=== PATIENT | male | born 1935 | race Caucasian/White ===

== ENCOUNTER 2018-01-10 13:26 | Observation (INO) | payer OTHER ==
--- OUTSIDE RECORDS SUMMARY | 2018-01-10 13:38 | XMS REPORT | Clinical Summary ---
:1935 Author Organization [facility] Address [address] [place] [address] Care Team Providers Name Role Phone Asked, No Pcp Primary Care Provider Unavailable Allergies No Known Allergies Current Medications Prescription Sig. Disp. Refills Start Date End Date Status levothyroxine TAKE 1 TABLET 3 03/19/2017 Active (SYNTHROID, BY ORAL ROUTE LEVOXYL) 125 mcg EVERY DAY tablet HUMALOG 100 unit/mL USE 0 03/22/2017 Active injection DIRECTED WITH INSULIN PUMP aspirin (ECOTRIN) Take 81 mg by Active 81 MG enteric mouth daily. coated tablet ATORVASTATIN Take 20 mg by Active CALCIUM mouth every (ATORVASTATIN ORAL) evening. After meal amLODIPine Take 5 mg by Active (NORVASC) 5 mg mouth every tablet morning. doxazosin (CARDURA) Take 1 mg by Active 2 MG tablet mouth nightly. Takes 2 mg 0.5 TAB. (total dose: 1 mg) Orally at bedtime metoprolol tartrate Take 50 mg by Active (LOPRESSOR) 50 mg mouth 2 (two) tablet times a day. 1/2 tab of 50mg in the am and 1/2 tab in the pm furosemide (LASIX) Take 80 mg by 3 10/06/2017 Active 80 mg tablet mouth daily. amLODIPine TAKE 1 TABLET 3 03/05/2017 04/14/2017 Discontinued (NORVASC) 5 mg BY ORAL ROUTE tablet EVERY DAY furosemide (LASIX) TAKE 1 TABLET 0 03/30/2017 08/03/2017 Discontinued 40 mg tablet EVERY DAY BY MOUTH Daily metoprolol tartrate Take 25 mg by 3 02/15/2017 08/03/2017 Discontinued (LOPRESSOR) 50 mg mouth 2 (two) tablet times a day. Morning and evening acetaminophen-codei Take 1 tablet 30 tablet 0 04/19/2017 04/26/2017 ne (TYLENOL WITH by mouth every CODEINE #3) 300-30 4 (four) hours mg per tablet as needed for moderate pain for up to 7 days. acetaminophen-codei Take 1 tablet 30 tablet 0 09/09/2017 09/16/2017 ne (TYLENOL WITH by mouth every CODEINE #3) 300-30 6 (six) hours mg per tablet as needed for moderate pain for up to 7 days. Active Problems Problem Noted Date Diabetes mellitus 08/03/2017 PAD (peripheral artery disease) s/p R leg stents 08/03/2017 Hypertension 08/03/2017 Hypothyroidism 08/03/2017 ESRD (end stage renal disease) 2017 MWF 08/03/2017 Last Assessment & Plan: N. Patient with access needs. We gave the patient our kidney failure information sheet and discussed with them in general transplant vs. PD vs. hemodialysis. We discussed catheters vs. grafts vs. fistula s and used the informational posters to better explain the differences. We explained our general preference for fistulas because of decreased infections and increased longevity. We discussed operative complications including bleeding, thrombosis, failure of the access, swelling , steal syndrome, and need for additional procedures. Vein mapping reviewed by me. Plan for hypercoag workup today, then L arm AVF vs AVG (ELDERLY). Encounters Date Type Specialty Care Team Description 10/19/2017 Office Visit Joselin Walker ESRD (end stage MD Tyler renal disease) 2016 MWF (Primary Dx) 09/28/2017 Office Visit Joselin Walker ESRD (end stage MD Tyler renal disease) 2016 MWF (Primary Dx) 09/09/2017 Hospital Encounter Vascular Surgery Joselin Banks stage alcira Scott MD disease 09/09/2017 Anesthesia Event Vascular Surgery Ailyn Ham MD 09/09/2017 Procedure Pass Vascular Surgery 09/09/2017 Surgery Vascular Surgery Joselin Banks MD radiocephlaic a-v fistula left 08/19/2017 Prep for Surgery Joselin Walker stage renal MD Tyler disease (Primary Dx) 08/19/2017 Telephone Cardiovascular Joselin Banks MD 08/03/2017 Lab Lab Joselin Banks stage renal MD Tyler disease (Primary Dx) 08/03/2017 Office Visit Cardiovascular Teresa Joselin ESRD (end stage MD Tyler renal disease) 2016 MWF (Primary Dx) 06/24/2017 Orders Only Cardiovascular Mathew, ESRD (end stage Ashley renal disease) on dialysis (Primary Dx) 04/19/2017 Hospital Encounter General Surgery Jhony Montesinos MD 04/19/2017 Procedure Pass General Surgery 04/19/2017 Surgery General Surgery [place], RIGHT UPPER Jhony Mcpherson MD EXTREMITY AV FISTULA CREATION/REVISION, TDC EXCHANGE RIGHT CHEST 04/16/2017 Anesthesia Event General Surgery Adriana Lindquist, SPORTS MEDICINE COORDINATOR 04/14/2017 Hospital Encounter Radiology [place] Preop testing Jhony Mcpherson MD 04/14/2017 Pre-Admit Testing Pre-Admission Testing [place] Preop testing Appointment Jhony Mcpherson MD (Primary Dx) after 01/09/2017 Family History Medical History Relation Name Comments No Known Problems Father Hypertension Mother Kidney disease Mother Stroke Mother Relation Name Status Comments Father Mother Social History Tobacco Use Types Packs/Day Years Used Date Former Smoker Cigarettes Quit: 2012 Smokeless Tobacco: Never Used Tobacco Cessation: Counseling Given: Yes Alcohol Use Drinks/Week oz/Week Comments No Sex Assigned at Date Recorded Not on file Last Filed Vital Signs Vital Sign Reading Time Taken Blood Pressure 146/65 10/19/2017 11:24 AM CDT Pulse 61 10/19/2017 11:24 AM CDT Temperature 36.6 C (97.8 F) 10/19/2017 11:24 AM CDT Respiratory Rate 16 10/19/2017 11:24 AM CDT Oxygen Saturation 95% 09/09/2017 2:09 PM CDT Inhaled Oxygen Concentration - - Weight 73.9 kg (163 lb) 10/19/2017 11:24 AM CDT Height 170.2 cm (5' 7") 10/19/2017 11:24 AM CDT Body Mass Index 25.53 10/19/2017 11:24 AM CDT Plan of Treatment Date Type Specialty Care Team Description 01/18/2018 Office Visit Cardiovascular Warren Mohr, KALIN [address] [place] [address] Health Maintenance Due Date Last Done Comments DIABETIC FOOT EXAM 09/04/1945 DIABETIC RETINAL EYE EXAM 09/04/1945 URINE MICROALBUMIN 09/04/1943 SHINGRIX VACCINE (#1) 09/04/1983 ZOSTER VACCINE 1993 PNEUMOCOCCAL POLYSACCHARIDE VACCINE AGE 65 AND OVER 1998 PNEUMOCOCCAL-13 1998 INFLUENZA VACCINE 01/05/2018 Implants Implanted Type Area Access Registrar Device Expiration Model / Identifier Date Serial / Lot Clip Ligtng Weck Hemoclip Plus W/ Tape Ti - [id number] Medical Left: WECK CLOSURE 02/14/2022 [id number] / Implanted: Qty: 1 on 09/09/2017 by Joselin Banks MD Clips for Arm, SYSTEMS / Internal Upper [id number] Use Clip Ligtng Weck Hemoclip Plus W/ Tape Ti [facility] - [id number] Medical Left: TELEFLEX 03/09/2022 [id number] / Implanted: Qty: 1 on 09/09/2017 by Joselin Banks MD Clips for Arm, MEDICAL / Internal Upper Use Hemodialysis Catheter Right: 02/03/2019 [id number] / Implanted: Qty: 1 on 04/19/2017 by Jhony Montesinos MD Chest / Procedures Procedure Name Priority Date/Time Associated Comments Diagnosis POC GLUCOSE Routine 09/09/2017 1:27 PM Results for this CDT procedure are in the results section. POC GLUCOSE Routine 09/09/2017 12:57 PM Results for this CDT procedure are in the results section. POC GLUCOSE Routine 09/09/2017 12:33 PM Results for this CDT procedure are in the results section. POC GLUCOSE Routine 09/09/2017 12:11 PM Results for this CDT procedure are in the results section. POC GLUCOSE Routine 09/09/2017 11:43 AM Results for this CDT procedure are in the results section. ANESTHESIA Routine 09/09/2017 9:23 AM PERIPHERAL BLOCK CDT Procedure Note - Mary Anderson MD - 09/09/2017 9:23 AM CDT Peripheral Block Performed by: MARY ANDERSON Authorized by: MARY ANDERSON Patient Location: Pre-op Start Time: 09/09/2017 9:29 AM End Time: 09/09/2017 9:49 AM Reason for Block: at surgeon's request Staff: Anesthesiologist: MARY ANDERSON Resident/MARITIME GUARD/AA: AILYN HAM Performed by: Resident/MARITIME GUARD/AA Preprocedure: patient identified, IV checked, site and side verified, risks and benefits discussed, procedure verified, surgical consent complete, patient position confirmed, monitors and equipment checked, pre-op evaluation complete and site marked Time Out Performed: 09/09/2017 9:26 AM Peripheral Nerve Block: Patient Position: Supine Prep: ChloraPrep Monitoring: Blood pressure monitoring, continuous pulse oximetry and heart rate Block Type: Supraclavicular Laterality: Left Injection Technique: Single injection Procedures: ultrasound guided and nerve stimulator Ultrasound documentation: Printed/placed in chart and still images obtained Local Infiltration (See MAR for details): Lidocaine Loss of Twitch: 0.5 mA Needle: Needle Type: SonoPlex Needle Gauge: 22 G Needle Length: 8 cm Assessment: Injection Assessment: Visualized needle/local anesthetic surrounding nerve , intermittent aspiration during local anesthetic administration, no symptoms of intraneural/intravenous injection, visualized pertinent vascular structures and nerves and needle tip visualized at all times during injection of medication Paresthesia Pain: Immediately resolved Heart Rate Change: No Slow Fractionated Injection: Yes Block outcome: No apparent complications, patient comfortable and patient tolerated procedure well CREATION, AV FISTULA 09/09/2017 9:15 AM End stage renal CDT disease ECG 12-LEAD STAT 09/09/2017 8:36 AM Results for this CDT procedure are in the results section. POC PANEL 4 Routine 09/09/2017 8:28 AM Results for this CDT procedure are in the results section. PROTHROMBIN MUTATION, Routine 08/03/2017 1:08 PM End stage renal Results for this FACTOR II, BY PCR SEXOLOGIST disease procedure are in the results section. FACTOR V LEIDEN BY PCR Routine 08/03/2017 1:08 PM End stage renal Results for this SEXOLOGIST disease procedure are in the results section. HOMOCYSTINE, PLASMA Routine 08/03/2017 1:05 PM End stage renal Results for this SEXOLOGIST disease procedure are in the results section. FUNCTIONAL PROTEIN S Routine 08/03/2017 1:05 PM End stage renal Results for this SEXOLOGIST disease procedure are in the results section. FUNCTIONAL PROTEIN C Routine 08/03/2017 1:05 PM End stage renal Results for this SEXOLOGIST disease procedure are in the results section. HEPARIN PF4 ANTIBODY Routine 08/03/2017 1:05 PM End stage renal Results for this (IGG) SEXOLOGIST disease procedure are in the results section. ANTITHROMBIN III LEVEL Routine 08/03/2017 1:05 PM End stage renal Results for this SEXOLOGIST disease procedure are in the results section. LUPUS ANTICOAGULANT Routine 08/03/2017 1:05 PM End stage renal Results for this PANEL SEXOLOGIST disease procedure are in the results section. US VEIN MAPPING UPPER Routine 08/03/2017 11:37 AM ESRD (end stage Results for this EXTREMITY BILATERAL SEXOLOGIST renal disease) on procedure are in dialysis the results section. POC GLUCOSE Routine 04/19/2017 10:14 AM Results for this SEXOLOGIST procedure are in the results section. OR FL > 1 HOUR Routine 04/19/2017 9:53 AM Results for this SEXOLOGIST procedure are in the results section. IONIZED CALCIUM Routine 04/19/2017 9:40 AM Results for this SEXOLOGIST procedure are in the results section. POTASSIUM LEVEL Routine 04/19/2017 9:40 AM Results for this SEXOLOGIST procedure are in the results section. SODIUM LEVEL Routine 04/19/2017 9:40 AM Results for this SEXOLOGIST procedure are in the results section. ANESTHESIA PERIPHERAL Routine 04/19/2017 9:33 AM BLOCK SEXOLOGIST Procedure Note - Anaya Flaherty MD - 04/19/2017 9:31 AM SEXOLOGIST Peripheral Block Performed by: ANAYA FLAHERTY Authorized by: ANAYA FLAHERTY Patient Location: Pre-op Start Time: 04/19/2017 8:14 AM End Time: 04/19/2017 8:29 AM Reason for Block: at surgeon's request Staff: Anesthesiologist: ANAYA FLAHERTY Resident/MARITIME GUARD: CARLYLE SEXTON Preprocedure: patient identified, IV checked, site and side verified, risks and benefits discussed, procedure verified, surgical consent complete, patient position confirmed, monitors and equipment checked, pre-op evaluation complete and site marked Time Out Performed: 04/19/2017 8:14 AM Peripheral Nerve Block: Patient Position: Left lateral decubitus Prep: ChloraPrep Monitoring: Blood pressure monitoring, continuous pulse oximetry and heart rate Block Type: Supraclavicular Laterality: Right Injection Technique: Single injection Procedures: ultrasound guided Ultrasound documentation: Printed/placed in chart Local Infiltration (See MAR for details): Ropivacaine Needle: Needle Type: Pajunk Needle Gauge: 21 G Needle Length: 10 cm Assessment: Injection Assessment: Visualized needle/local anesthetic surrounding nerve , visualized pertinent vascular structures and nerves, needle tip visualized at all times during injection of medication, no symptoms of intraneural/intravenous injection and intermittent aspiration during local anesthetic administration Paresthesia Pain: None Heart Rate Change: No Slow Fractionated Injection: Yes Block outcome: No apparent complications, patient comfortable and patient tolerated procedure well POC PANEL 4 Routine 04/19/2017 8:24 AM Results for this SEXOLOGIST procedure are in the results section. ECG PRE/POST OP Routine 04/14/2017 5:25 PM Preop testing Results for this SEXOLOGIST procedure are in the results section. XR CHEST 2 VW Routine 04/14/2017 5:14 PM Preop testing Results for this SEXOLOGIST procedure are in the results section. ESTIMATED GFR Routine 04/14/2017 4:09 PM Results for this SEXOLOGIST procedure are in the results section. PARTIAL THROMBOPLASTIN Routine 04/14/2017 4:09 PM Preop testing Results for this TIME (PTT) SEXOLOGIST procedure are in the results section. PROTHROMBIN TIME WITH Routine 04/14/2017 4:09 PM Preop testing Results for this INR SEXOLOGIST procedure are in the results section. TYPE AND SCREEN Routine 04/14/2017 4:09 PM Preop testing Results for this SEXOLOGIST procedure are in the results section. COMPREHENSIVE METABOLIC Routine 04/14/2017 4:09 PM Preop testing Results for this PANEL SEXOLOGIST procedure are in the results section. HC COMPLETE BLD COUNT Routine 04/14/2017 4:09 PM Preop testing Results for this W/AUTO DIFF SEXOLOGIST procedure are in the results section. after 01/09/2017 Results POC glucose (09/09/2017 1:27 PM)Only the most recent of6 resultswithin the time period is included. POC glucose 269 (H) 65 - 99 mg/dL [facility] DEPARTMENT OF PATHOLOGY AND Comment: GENOMIC MEDICINE [facility] Notified RN Meter ID: [id number] Tapping Machine Operator Automatic: Raisa Thompson Performing Organization Address City/State/Zipcode Phone Number [facility] DEPARTMENT OF PATHOLOGY AND [address] [place] [address] [employer]. MEDICINE ECG 12 lead (09/09/2017 8:36 AM) Ventricular rate 68 [facility] Atrial rate 234 [facility] QRSD interval 78 [facility] QT interval 388 [facility] QTC interval 412 [facility] P axis 1 69 [facility] QRS axis 1 -24 [facility]USE T wave axis 54 [facility] MUSE EKG impression Normal sinus rhythm-Normal ECG-In automated [facility] MUSE comparison with ECG of 14-APR-2017 17:25,-No significant change was found- Performing Organization Address [facility] Phone Number [facility] MUSE [address] [place] [phone] POC panel 4 (09/09/2017 8:28 AM)Only the most recent of2 resultswithin the time period is included. POC sodium 141 135 - 148 mmol/L [facility] DEPARTMENT OF PATHOLOGY AND GENOMIC MEDICINE POC potassium 4.0 3.5 - 5.0 mmol/L [facility] DEPARTMENT OF PATHOLOGY AND GENOMIC MEDICINE POC hematocrit 39 (L) 41 - 51 % [facility] DEPARTMENT OF PATHOLOGY Comment: AND [employer]. MEDICINE Meter ID: [id number] Tapping Machine Operator Automatic: Butch Puentes POC glucose 113 (H) 65 - 99 mg/dL [facility] DEPARTMENT OF PATHOLOGY AND GENOMIC MEDICINE Performing Organization Address [facility] Phone Number [facility] DEPARTMENT OF PATHOLOGY AND [address] [place] [phone] GENOMIC [facility] Prothrombin mutation, factor II, by PCR (08/03/2017 1:08 PM) Prothrombin gene mutation Normal Normal [facility] DEPARTMENT OF PATHOLOGY AND GENOMIC MEDICINE Prothrombin gene mutation See link below for PDF [facility] DEPARTMENT OF Lab ReportComment: Case PATHOLOGY AND GENOMIC Number: [id number] MEDICINE Specimen Blood Performing Organization Address [facility] Phone Number [facility] DEPARTMENT OF PATHOLOGY AND [address] [place], [place] [phone] [facility] Factor V leiden by PCR (08/03/2017 1:08 PM) Factor V Leiden Normal [facility] DEPARTMENT OF PATHOLOGY AND GENOMIC MEDICINE Factor V Leiden See link below for PDF Lab [facility] DEPARTMENT OF PATHOLOGY AND ReportComment: Case Number: GENOMIC MEDICINE [id number] Specimen Blood Performing Organization Address [facility] Phone Number [facility] DEPARTMENT OF PATHOLOGY AND [address] [place] [phone] [facility] Homocystine, plasma (08/03/2017 1:05 PM) Homocysteine 26.8 (H) 0.0 - 15.0 umol/L [facility] DEPARTMENT OF Comment: PATHOLOGY AND GENOMIC The risk for coronary vascular disease increases progressively MEDICINE with homocysteine concentration.A 3.4 times greater risk is associated with a homocysteine concentration of greater than 15.8 umol/L as compared to a concentration below 14.1 umol/L. Specimen Plasma specimen Performing Organization Address City/[facility] Phone Number [facility] DEPARTMENT OF PATHOLOGY AND [address] [place] [address] Heparin PF4 antibody (IgG) (08/03/2017 1:05 PM) Heparin PF4 Ab OD reading 0.226 0.000 - 0.399 [facility] DEPARTMENT OF PATHOLOGY AND GENOMIC MEDICINE Heparin PF4 Ab, IgG Negative Negative [facility] DEPARTMENT OF PATHOLOGY AND [facility] Specimen Blood Performing Organization Address [facility] Phone Number [facility] DEPARTMENT OF PATHOLOGY AND [address] [place] [address] Functional protein S (08/03/2017 1:05 PM) Functional protein S 98 74 - 160 % [facility] DEPARTMENT OF Comment: PATHOLOGY AND GENOMIC Functional Protein S performed.If result is decreased Total MEDICINE and Free Protein S Antigen will be performed. Specimen Blood Performing Organization Address City/[facility] Phone Number [facility] DEPARTMENT OF PATHOLOGY AND [address] [place] [address] Functional protein C (08/03/2017 1:05 PM) Functional protein C 92 70 - 165 % [facility] DEPARTMENT OF PATHOLOGY AND GENOMIC MEDICINE Specimen Blood Performing Organization Address [facility] Phone Number [facility] DEPARTMENT OF PATHOLOGY AND [address] [place] [address] Lupus anticoagulant panel (08/03/2017 1:05 PM) Prothrombin time 12.9 12.0 - 15.0 sec [facility] DEPARTMENT OF PATHOLOGY AND GENOMIC MEDICINE INR 1.0 [facility] DEPARTMENT OF Comment: PATHOLOGY AND The International Normalized Ratio (INR) is a therapeutic [facility] monitoring tool for patients who are stable on oral anticoagulant therapy. An INR of 2.0-3.0 is suggested for deep vein thrombosis/pulmonary embolism. PTT 32.9 23.0 - 36.0 sec [facility] DEPARTMENT OF Comment: PATHOLOGY AND PTT therapeutic range for unfractionated heparin is [facility] 61.0-112.0 seconds which corresponds to Anti-Xa 0.3-0.7 U/ml. PTT lupus anticoagulant 33.8 27.0 - 38.0 sec [facility] DEPARTMENT OF Comment: PATHOLOGY AND Lupus anticoagulant (LA) panel consists of PT, PTT, PTT-LA, GENOMIC MEDICINE and DRVVT. If the PTT-LA is above the normal range, the hexagonal phospholipid will be performed. If the DRVVT is above the normal range, the DRVVC confirmatory test will be performed. A normal result for both the DRVVT and the PTT-LA means the patient is negative for lupus anticoagulant. The patient is considered positive for lupus anticoagulant if either the Ratio SCR/CONF or the hexagonal phospholipid is high (positive) on two occassions at least six weeks apart. Clinical confirmation is also required for diagnosis. DRVVT 32.4 29.0 - 46.0 sec [facility] DEPARTMENT OF PATHOLOGY AND GENOMIC MEDICINE Specimen Blood Performing Organization Address City/[facility] Phone Number [facility] DEPARTMENT OF PATHOLOGY AND [address] [place] [address] MEDICINE Antithrombin III level (08/03/2017 1:05 PM) Antithrombin III 96 80 - 130 % [facility] DEPARTMENT OF PATHOLOGY AND GENOMIC MEDICINE Specimen Blood Performing Organization Address City/[facility]/Zipcode Phone Number [facility] DEPARTMENT OF PATHOLOGY AND [address] [place] [address] PV vein mapping upper extremity (08/03/2017 11:37 AM) Narrative Performed At [facility] Upper Extremity Vein Mapping Duplex Report [address] [place] Pat.Name:KYA NICHOLASjimi.ID:[id number] .Date: 08/03/2017 Refer.MD:JOSELIN BANKS MD Exam Time: 10:50:00 AM Study Type:UE Vein Mapping DOBAge:1935,81Y Sex: MALE Sonogrphr: VLADISLAV CarrascoapeVol: KF, CPT - 4: [id number] Echo Event ID:[id number] Order ID:[id number] Reason for Study:Pre-operative vein mapping for new dialysis access for right hand dominant male with with IJ tunneled catheter.History of 2 failed right AVF's.ESRD. Race:C SUMMARY: DUPLEX SCAN OBSERVATIONS Right Left IJPatent Patent SubclavianPatent Patent AxillaryPatent Patent BrachialPatent Patent Cephalic, arm Patent Patent Cephalic, forearm Patent Patent Basilic, armPatent Patent Basilic, forearm Patent Patent Brachial artery Pressure 176/13724/73 PSV cm/sec 8586 Radial artery PSV cm/sec 93046 Ulnar artery PSV cm/sec 46304 RIGHT:There is normal compressibility and no evidence of echogenic material noted within the lumen of the visualized veins. Colorflow and Doppler signals demonstrate patency. The gautam of the brachial, radial and ulnar arteries are brightly echogenic. LEFT: There is normal compressibility and no evidence of echogenic material noted within the lumen of the visualized veins. Colorflow and Doppler signals demonstrate patency.The gautam of the brachial, radial and ulnar arteries are brightly echogenic. Patient seen in clinic today by Dr. Banks. PHYSICIAN INTERPRETATION 1.No evidence of acute venous thrombosis, bilateral upper extremities. 2.Hard scattered plaque visualized in the distal brachial arteries bilaterally 3.See diagram for vein measurements MEASUREMENTS: UEVEINS Left Cephalic Forearm Prox Cephalic Forear0.24 cm Right Cephalic Forearm Prox Cephalic Forear0.15 cm Left Cephalic Upper Arm Prox Cephalic Upper 0.24 cm Right Cephalic Upper Arm Prox Cephalic Upper 0.34 cm Left Cephalic Forearm Mid Cephalic Forear0.16 cm Right Cephalic Forearm Mid Cephalic Forear0.21 cm Right Basilic Upper Arm Mid Basilic Upper A0.18 cm Left Cephalic Wrist Cephalic Wrist 0.16 cm Right Cephalic Wrist Cephalic Wrist 0.18 cm Left Cephalic Upper Arm Dist Cephalic Upper 0.25 cm Right Cephalic Upper Arm Dist Cephalic Upper 0.36 cm Left Ulnar Artery Ulnar Artery AP0.27 cm Right Ulnar Artery Ulnar Artery AP0.26 cm Left Cephalic Upper Arm Mid Cephalic Upper 0.22 cm Right Cephalic Upper Arm Mid Cephalic Upper 0.33 cm Left Basilic Forearm Prox Basilic Forearm0.11 cm Right Basilic Forearm Prox Basilic Forearm0.12 cm Left Brachial Vein Antecube Brachial Vein A0.57 cm Right Brachial Vein Antecube Brachial Vein A0.44 cm Left Cephalic Antecubital Cephalic Antecu0.28 cm Right Cephalic Antecubital Cephalic Antecu0.35 cm Left Basilic Wrist Basilic Wrist A0.13 cm Left Basilic Antecubital Basilic Antecub0.13 cm Right Basilic Antecubital Fossa Basilic Antecub 0.1 cm Left Radial Artery Radial Artery A0.24 cm Right Radial Artery Radial Artery A0.21 cm Left Basilic Upper Arm Dist Basilic Upper A0.22 cm Right Basilic Upper Arm Dist Basilic Upper A0.16 cm Left Brachial Artery Brachial Artery0.58 cm Right Brachial Artery Brachial Artery0.55 cm Left Basilic Forearm Mid Basilic Forearm0.11 cm Right Basilic Forearm Mid Basilic Forearm0.08 cm Right Basilic Upper Arm Prox Basilic Upper A0.55 cm GRAFT Ulnar A Dist 1 Ulnar A Dist 1102 cm/s Ulnar Dist Ulnar Dist PSV69 cm/s Brachial A Dist Brachial A Dist85 cm/s Radial A Dist Radial A Dist P66 cm/s Signed 08/05/2017 10:04 PM Gagan Jiménez MD, RPVI Procedure Note Interface, Radiology Results In - 08/05/2017 10:04 PM SEXOLOGIST [facility] Upper Extremity Vein Mapping Duplex Report [address] [place] [address] Pat.Name: KYA NICHOLAS Pat.ID: [id number] St.Date: 08/03/2017 Refer.MD: JOSELIN BANKS MD Exam Time: 10:50:00 AM Study Type:UE Vein Mapping Age: 1 1935,81Y Sex: MALE Sonogrphr: Elsa Goyal RVT Tape Vol: KF, CPT - 4: [id number] Echo Event ID:[id number] Order ID: [id number] Reason for Study:Pre-operative vein mapping for new dialysis access for right hand dominant male with with IJ tunneled catheter. History of 2 failed right AVF's. ESRD. Race: C SUMMARY: DUPLEX SCAN OBSERVATIONS Right Left IJ Patent Patent Subclavian Patent Patent Axillary Patent Patent Brachial Patent Patent Cephalic, arm Patent Patent Cephalic, forearm Patent Patent Basilic, arm Patent Patent Basilic, forearm Patent Patent Brachial artery Pressure 176/69 168/73 PSV cm/sec 85 86 Radial artery PSV cm/sec 66 111 Ulnar artery PSV cm/sec 69 102 RIGHT: There is normal compressibility and no evidence of echogenic material noted within the lumen of the visualized veins. Colorflow and Doppler signals demonstrate patency. The gautam of the brachial, radial and ulnar arteries are brightly echogenic. LEFT: There is normal compressibility and no evidence of echogenic material noted within the lumen of the visualized veins. Colorflow and Doppler signals demonstrate patency. The gautam of the brachial, radial and ulnar arteries are brightly echogenic. Patient seen in clinic today by Dr. Banks. PHYSICIAN INTERPRETATION 1. No evidence of acute venous thrombosis, bilateral upper extremities. 2. Hard scattered plaque visualized in the distal brachial arteries bilaterally 3. See diagram for vein measurements MEASUREMENTS: UEVEINS Left Cephalic Forearm Prox Cephalic Forear 0.24 cm Right Cephalic Forearm Prox Cephalic Forear 0.15 cm Left Cephalic Upper Arm Prox Cephalic Upper 0.24 cm Right Cephalic Upper Arm Prox Cephalic Upper 0.34 cm Left Cephalic Forearm Mid Cephalic Forear 0.16 cm Right Cephalic Forearm Mid Cephalic Forear 0.21 cm Right Basilic Upper Arm Mid Basilic Upper A 0.18 cm Left Cephalic Wrist Cephalic Wrist 0.16 cm Right Cephalic Wrist Cephalic Wrist 0.18 cm Left Cephalic Upper Arm Dist Cephalic Upper 0.25 cm Right Cephalic Upper Arm Dist Cephalic Upper 0.36 cm Left Ulnar Artery Ulnar Artery AP 0.27 cm Right Ulnar Artery Ulnar Artery AP 0.26 cm Left Cephalic Upper Arm Mid Cephalic Upper 0.22 cm Right Cephalic Upper Arm Mid Cephalic Upper 0.33 cm Left Basilic Forearm Prox Basilic Forearm 0.11 cm Right Basilic Forearm Prox Basilic Forearm 0.12 cm Left Brachial Vein Antecube Brachial Vein A 0.57 cm Right Brachial Vein Antecube Brachial Vein A 0.44 cm Left Cephalic Antecubital Cephalic Antecu 0.28 cm Right Cephalic Antecubital Cephalic Antecu 0.35 cm Left Basilic Wrist Basilic Wrist A 0.13 cm Left Basilic Antecubital Basilic Antecub 0.13 cm Right Basilic Antecubital Fossa Basilic Antecub 0.1 cm Left Radial Artery Radial Artery A 0.24 cm Right Radial Artery Radial Artery A 0.21 cm Left Basilic Upper Arm Dist Basilic Upper A 0.22 cm Right Basilic Upper Arm Dist Basilic Upper A 0.16 cm Left Brachial Artery Brachial Artery 0.58 cm Right Brachial Artery Brachial Artery 0.55 cm Left Basilic Forearm Mid Basilic Forearm 0.11 cm Right Basilic Forearm Mid Basilic Forearm 0.08 cm Right Basilic Upper Arm Prox Basilic Upper A 0.55 cm GRAFT Ulnar A Dist 1 Ulnar A Dist 1 102 cm/s Ulnar Dist Ulnar Dist PSV 69 cm/s Brachial A Dist Brachial A Dist 85 cm/s Radial A Dist Radial A Dist P 66 cm/s Signed 08/05/2017 10:04 PM Gagan Jiménez MD, RPVI Performing Organization Address City/State/[facility] Phone Number [facility] [address] [place] [address] [place] > I Hour (04/19/2017 9:53 AM) Narrative Performed At EXAMINATION:[place] 1 HOUR [facility] CLINICAL HISTORY: IMPRESSION: Fluoroscopy was provided. No radiologist present.Please see procedure report for discussion of procedure, findings and fluoroscopic time. [id number] Procedure Note Interface, Radiology Results Incoming - 04/19/2017 9:59 AM SEXOLOGIST EXAMINATION: [place] 1 HOUR CLINICAL HISTORY: IMPRESSION: Fluoroscopy was provided. No radiologist present. Please see procedure report for discussion of procedure, findings and fluoroscopic time. [id number] Performing Organization Address City/[facility]/Zipcode Phone Number [facility] [address] [place] [address] Sodium level (04/19/2017 9:40 AM) Sodium 139 135 - 148 mEq/L [facility] DEPARTMENT OF PATHOLOGY AND GENOMIC MEDICINE Specimen Plasma specimen Performing Organization Address City/[facility] Phone Number [facility] DEPARTMENT OF PATHOLOGY [address] [place] [address]. [place] [address] AND [facility] Potassium level (04/19/2017 9:40 AM) Potassium 4.1 3.5 - 5.0 mEq/L [facility] DEPARTMENT OF PATHOLOGY AND GENOMIC MEDICINE Specimen Plasma specimen Performing Organization Address [facility] Centercomd Phone Number [facility] DEPARTMENT OF PATHOLOGY [address] [place] [address]. [place] [address] AND [facility] Ionized calcium (04/19/2017 9:40 AM) pH 7.32 [facility] DEPARTMENT OF PATHOLOGY AND GENOMIC MEDICINE Ionized calcium 1.21 1.11 - 1.32 mmol/L [facility] DEPARTMENT OF PATHOLOGY AND GENOMIC MEDICINE Specimen Plasma specimen Performing Organization Address [facility] Phone Number [facility] DEPARTMENT OF PATHOLOGY [address] [place] [address]. [place] [address] AND [facility] ECG Pre/Post Op (04/14/2017 5:25 PM) Ventricular rate 61 [facility] Atrial rate 61 [facility] GA interval 160 [facility] QRSD interval 78 [facility] QT interval 394 [facility] QTC interval 396 [facility] P axis 1 83 [facility] QRS axis 1 32 [facility] T wave axis 70 [facility] MUSE EKG impression Normal sinus rhythm-Normal ECG-No previous [facility] MUSE ECGs available- Performing Organization Address [facility] Centercode Phone Number [facility] MUSE [address] [place] [address] XR Chest 2 Vw (04/14/2017 5:14 PM) Narrative Performed At Examination:XR CHEST 2 VW [facility] Clinical History: Z01.818 Encounter for other preprocedural examination, PREOP TESTING Comparison: None. Technique: Frontal and lateral views of the chest were obtained. Findings: Lungs and pleural surfaces are clear. Cardiomediastinal silhouette and pulmonary vascularity are within normal limits. Aorta is markedly calcified. Bones are intact. Dialysis catheter courses to the SVC. Impression: No active cardiopulmonary disease identified. [facility]-[id number] Procedure Note Hm Interface, Radiology Results Incoming - 04/14/2017 5:21 PM SEXOLOGIST Examination: XR CHEST 2 VW Clinical History: Z01.818 Encounter for other preprocedural examination, PREOP TESTING Comparison: None. Technique: Frontal and lateral views of the chest were obtained. Findings: Lungs and pleural surfaces are clear. Cardiomediastinal silhouette and pulmonary vascularity are within normal limits. Aorta is markedly calcified. Bones are intact. Dialysis catheter courses to the SVC. Impression: No active cardiopulmonary disease identified. [facility]-[id number] Performing Organization Address City/State/Zipcode Phone Number [facility] [address] [place] [address] Estimated GFR (04/14/2017 4:09 PM) GFR Non Af Amer 17 (A) mL/min/1.73 m2 [facility] DEPARTMENT OF PATHOLOGY AND GENOMIC MEDICINE GFR Af Amer 20 (A) mL/min/1.73 m2 [facility] DEPARTMENT OF Comment: PATHOLOGY AND GENOMIC Chronic kidney disease: <60 mL/min/1.73m2 MEDICINE Kidney failure: <15 mL/min/1.73m2 The estimated GFR is calculated from the IDMS-traceable Modification of Diet in Renal Disease Equation. The accuracy of the calculation is poor when the creatinine is normal. Calculated values >90 mL/min/1.73m2 are not reported. This equation has not been validated in children (<18 years), women, the elderly (>70 years), or ethnic groups other than Caucasians and Americans. Specimen Plasma specimen Performing Organization Address City/State/Zipcode Phone Number [facility] DEPARTMENT OF PATHOLOGY [address] [place] [address] AND [employer]. MEDICINE Partial thromboplastin time, activated (04/14/2017 4:09 PM) PTT 32.5 23.0 - 36.0 sec [facility] DEPARTMENT OF Comment: PATHOLOGY AND GENOMIC PTT therapeutic range for unfractionated heparin is MEDICINE 61.0-112.0 seconds which corresponds to Anti-Xa 0.3-0.7 U/ml. Specimen Blood Performing Organization Address City/[facility]/Zipcode Phone Number [facility] DEPARTMENT OF PATHOLOGY [address] [place], [place] [phone] [place] [address] Prothrombin time with INR (04/14/2017 4:09 PM) Prothrombin time 12.8 12.0 - 15.0 sec [facility] DEPARTMENT OF PATHOLOGY AND GENOMIC MEDICINE INR 1.0 [facility] DEPARTMENT OF Comment: PATHOLOGY AND GENOMIC The International Normalized Ratio (INR) is a therapeutic MEDICINE monitoring tool for patients who are stable on oral anticoagulant therapy. An INR of 2.0-3.0 is suggested for deep vein thrombosis/pulmonary embolism. Specimen Blood Performing Organization Address [facility] Centercode Phone Number [facility] OF PATHOLOGY [address] [place], [place] [phone] [place] [address] CBC with platelet and differential (04/14/2017 4:09 PM) WBC 8.2 4.5 - 11.0 k/uL [facility] DEPARTMENT OF PATHOLOGY AND GENOMIC MEDICINE RBC 4.15 (L) 4.40 - 6.00 m/uL [facility] DEPARTMENT OF PATHOLOGY AND GENOMIC MEDICINE HGB 12.4 (L) 14.0 - 18.0 g/dL [facility] DEPARTMENT OF PATHOLOGY AND GENOMIC MEDICINE HCT 38.6 (L) 41.0 - 51.0 % [facility] DEPARTMENT OF PATHOLOGY AND GENOMIC MEDICINE MCV 93.0 82.0 - 100.0 fL [facility] DEPARTMENT OF PATHOLOGY AND GENOMIC MEDICINE MCH 29.9 27.0 - 34.0 pg [facility] DEPARTMENT OF PATHOLOGY AND GENOMIC MEDICINE MCHC 32.1 31.0 - 37.0 g/dL [facility] DEPARTMENT OF PATHOLOGY AND GENOMIC MEDICINE RDW - SD 46.9 37.0 - 55.0 fL [facility] DEPARTMENT OF PATHOLOGY AND GENOMIC MEDICINE MPV 11.1 (H) 6.9 - 11.0 fL [facility] DEPARTMENT OF PATHOLOGY AND GENOMIC MEDICINE Platelet count 186 150 - 400 K/uL [facility] DEPARTMENT OF PATHOLOGY AND GENOMIC MEDICINE Nucleated RBC 0.00 /100 WBC [facility] DEPARTMENT OF PATHOLOGY AND GENOMIC MEDICINE Neutrophils 67.9 39.0 - 69.0 % [facility] DEPARTMENT OF PATHOLOGY AND GENOMIC MEDICINE Lymphocytes 18.2 (L) 25.0 - 45.0 % [facility] DEPARTMENT OF PATHOLOGY AND GENOMIC MEDICINE Monocytes 8.2 0.0 - 10.0 % [facility] DEPARTMENT OF PATHOLOGY AND GENOMIC MEDICINE Eosinophils 4.9 0.0 - 5.0 % [facility] DEPARTMENT OF PATHOLOGY AND GENOMIC MEDICINE Basophils 0.6 0.0 - 1.0 % [facility] DEPARTMENT OF PATHOLOGY AND GENOMIC MEDICINE Immature granulocytes 0.2 0.0 - 1.0 % [facility] DEPARTMENT OF PATHOLOGY AND GENOMIC MEDICINE Specimen Blood Performing Organization Address City/State/Zipcode Phone Number [facility] DEPARTMENT OF PATHOLOGY [address] [place] [address] AND GENOMIC MEDICINE Type and screen (04/14/2017 4:09 PM) ABO grouping O [facility] DEPARTMENT OF PATHOLOGY AND GENOMIC MEDICINE Rh type POS [facility] DEPARTMENT OF PATHOLOGY AND GENOMIC MEDICINE Antibody screen (gel) NEG [facility] DEPARTMENT OF PATHOLOGY AND GENOMIC MEDICINE Specimen Blood Performing Organization Address City/[facility]/Zipcode Phone Number [facility] DEPARTMENT OF PATHOLOGY [address] [place] [address] AND [facility] Comprehensive metabolic panel (04/14/2017 4:09 PM) Sodium 138 135 - 148 mEq/L [facility] DEPARTMENT OF PATHOLOGY AND GENOMIC MEDICINE Potassium 4.9 3.5 - 5.0 mEq/L [facility] DEPARTMENT OF PATHOLOGY AND GENOMIC MEDICINE Chloride 98 98 - 112 mEq/L [facility] DEPARTMENT OF PATHOLOGY AND GENOMIC MEDICINE CO2 27 24 - 31 mEq/L [facility] DEPARTMENT OF PATHOLOGY AND GENOMIC MEDICINE Anion gap 13 7 - 15 mEq/L [facility] DEPARTMENT OF Comment: PATHOLOGY AND GENOMIC Starting from September , anion gap calculation MEDICINE no longer incorporates potassium. Please note the change. BUN 45 (H) 8 - 23 mg/dL [facility] DEPARTMENT OF PATHOLOGY AND GENOMIC MEDICINE Creatinine 3.5 (H) 0.7 - 1.2 mg/dL [facility] DEPARTMENT OF PATHOLOGY AND GENOMIC MEDICINE Glucose 290 (H) 65 - 99 mg/dL [facility] DEPARTMENT OF PATHOLOGY AND GENOMIC MEDICINE Calcium 9.7 8.8 - 10.2 mg/dL [facility] DEPARTMENT OF PATHOLOGY AND GENOMIC MEDICINE Protein 7.1 6.3 - 8.3 g/dL [facility] DEPARTMENT OF PATHOLOGY AND GENOMIC MEDICINE Albumin 4.2 3.5 - 5.0 g/dL [facility] DEPARTMENT OF PATHOLOGY AND GENOMIC MEDICINE A/G ratio 1.4 0.7 - 3.8 [facility] DEPARTMENT OF PATHOLOGY AND GENOMIC MEDICINE Alkaline phosphatase 107 40 - 129 U/L [facility] DEPARTMENT OF PATHOLOGY AND GENOMIC MEDICINE AST 22 10 - 50 U/L [facility] DEPARTMENT OF PATHOLOGY AND GENOMIC MEDICINE ALT 16 5 - 50 U/L [facility] DEPARTMENT OF PATHOLOGY AND GENOMIC MEDICINE Total bilirubin <0.2 0.2 - 1.2 mg/dL [facility] DEPARTMENT OF PATHOLOGY AND GENOMIC MEDICINE Specimen Plasma specimen Performing Organization Address City/State/Zipcode Phone Number [facility] DEPARTMENT OF PATHOLOGY [address] [facility] [place] [address] AND GENOMIC MEDICINE after 01/09/2017 Insurance Payer Benefit Plan / Group Subscriber ID Type Phone Address MEDICARE MEDICARE PART A AND B xxxxxxxxxx Medicare [place], [place] AETNA AETNA PPO OPEN CHOICE xxxxxxxxx PPO Home: [phone] [address]
--- OUTSIDE RECORDS SUMMARY | 2018-01-10 13:39 | XMS REPORT | Summary of Care ---
:1935 Author Name ADDIS VASQUEZ M.D. Address Unavailable Unavailable , Care Team Providers Name Role Phone ADDIS VASQUEZ M.D. Unavailable Unavailable SHON GREGORIO MD Unavailable Unavailable Addis Vasquez MD Unavailable Unavailable Unavailable Unavailable Unavailable Functional Status Name Dates Details Functional status health issues are not documented Status: Name Dates Details Cognitive status health issues are not documented Status: Problems Name Dates Details Benign essential hypertension (401.1, I10) Status: Active Diabetic retinopathy (250.50, E11.319) Status: Active ESRD on hemodialysis (585.6, N18.6) Status: Active Hypoglycemia due to insulin (251.1, E16.0) Status: Active Hypothyroidism (244.9, E03.9) Status: Active Presence of insulin pump (V45.85, Z96.41) Status: Active Type 1 diabetes mellitus (250.01, E10.9) Status: Active 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 Refills: 0 Active AmLODIPine Besylate 10 MG Oral Tablet TAKE 1 TABLET DAILY DIRECTED. Quantity: 90 Refills: 3 CATHY VASQUEZ M.D.ctive Atorvastatin Calcium 20 MG Oral Tablet TAKE 1 TABLET AT BEDTIME. Refills: 0 Active 30 Tablet Pack Furosemide 80 MG Oral Tablet TAKE 1 TABLET DAILY DIRECTED. Refills: 0 Active Doxazosin Mesylate 2 MG Oral Tablet one and half tablets every night Refills: 0 Active 30 Tablet Pack Aspirin 81 MG TABS TAKE 1 TABLET DAILY. Refills: 0 Active Lancets TEST 4 TIMES DAILY. ICD 10 E10.9 Quantity: 360 Refills: 3 ADDIS VASQUEZ M.D. Start : 22-Mar-2017 Active Lisa Contour Next Test STRP check blood sugar up to four times a day Quantity: 400 Refills: 3 ADDIS VASQUEZ M.D. Start : 22-Mar-2017 Active NovoLOG 100 UNIT/ML Subcutaneous Solution USE DIRECTED WITH INSULIN PUMP Quantity: 9 Refills: 3 ADDIS VASQUEZ M.D. Start : 16-Jun-2017 Active 10 ML Vial Allergies and Adverse Reactions Name Dates Details No Known Drug Allergies (Allergy) Status: Active Past Medical History Name Dates Details History of chronic obstructive lung disease (V12.69, Z87.09) Status: Resolved History of Empyema (510.9, J86.9) Status: Resolved History of High cholesterol (272.0, E78.00) Status: Resolved History of hypertension (V12.59, Z86.79) Status: Resolved History of hyperthyroidism (V12.29, Z86.39) Status: Resolved History of kidney disease (V13.09, Z87.448) Status: Resolved Procedures Procedure Dates Details [[facility]] CMP W/EGFR Date: 27-Oct-2017 [[facility]] HEMOGLOBIN A1c Date: 27-Oct-2017 [[facility]] LIPID PANEL Date: 27-Oct-2017 [[facility]] T4, FREE Date: 27-Oct-2017 [[facility]] TSH, 3RD GENERATION Date: 27-Oct-2017 [[facility]] VITAMIN D, 25-HYDROXY, LC/MS/MS Date: 27-Oct-2017 History of Hernia repair Completed Immunization Name Dates Details Immunizations not documented Family History Name Dates Details Family history of cerebrovascular accident (CVA) (V17.1, Z82.3) Status: Active Social History Name Dates Details - Status: Name Dates Details Former smoker Vital Signs Date Test Result Details No Known Vitals to report Results Date Description Value Details [id number] Glucose (Point of Care In Office) Glucose POC Lifescan 223 (Abnormal) Plan of Care Name Dates Details Planned Observations Planned Goals not documented Planned Encounters Appointment; ADDIS VASQUEZ M.D. On: 08-Mar-2018 14:00 Interventions Provided Plan1. Insulin-dependent T1DM- Currently using Medtronic insulin pump initiated on HD 02/2017. Improved but still noting frequent early AM symptomatic hypoglycemic episodes. Intentionally eating snacks before bedtime to raise BG to 200s before sleep. I have advised him of the following changes: Pump Details : Make: [place], Model: Paradigm Revel- 523, Serial Number: #[id number] Infusion Set Placed By Self Type Insulin: Novolog Insulin Basal Rate 1 -- @ 12 AM,= decrease 0.35 units / Hr to 0.25 units/ Hr Basal Rate 2 -- @ 6 AM,=0.85 units / Hr Basal Rate 3 -- @ 12 PM,=0.8 units / Hr Basal Rate 4 -- @ 9 PM=decrease from 0.6 units / Hr to 0.5 units/ Hr Insulin / CHO - 1 -- 1 unit : 15 grams Insulin Sensitivity Factor 1 -- @ 50 mg/dL Total 24- hour total dose 16.2 units - I have asked the patient check fasting, pre-meal, and bedtime values and bring this log to next clinic appointment - Have prescribed glucagon emergency kit - have asked he stop snacking before bedtime 2. has not yet had appointment with diabetes education. Goals of education will be the following: - Review patient's BG log on HD - Review new renal diet as it applies to his diabetes - Review current pump settings 3. Dyslipidemia- I have discussed with the patient diabetes as it relates to overall cardiovascular risk. - Continue Atorvastatin 20 mg qHS. 4. ESRD on HD- follows with outside basket grader, 5. Blood pressure- hypertensive - Recently increased amlodipine from 5 mg to 10 mg daily - Continue furosemide 20 mg daily - Continue metoprolol 50 mg daily 6. Lifestyle modification - Have counseled the patient regarding goal weight loss of 5-10% of TBW over next six months - Have advised patient to start exercise program as tolerated - Have given patient information from the [place] [employer] regarding nutrition, exercise and diabetes 7. Hypothyroidism- mild elevation in TSH on recent labs 01/2017 - continue levothyroxine 125 mcg daily, will consider dose increase to 137 mcg daily during next clinic visit. 8. Screening: - Have advised patient to bring results of recent diabetic eye exam to clinic for review, has f/u appointment in december. - will plan to have patient obtain fasting laboratory studies I have spent 60 minutes with the patient and his daughter, greater than 50% of which was spent on counseling related to diabetes and comorbidities as well as coordination of care Instructions Name Dates Details Instructions not documented Encounters Appointment; ADDIS VASQUEZ M.D. On: 11-Nov-2016 10:00 Encounter Diagnosis: Problem not documented Appointment; ADDIS VASQUEZ M.D. On: 11-Nov-2016 10:00 Encounter Diagnosis: Problem not documented Appointment; ADDIS VASQUEZ M.D. On: 22-Mar-2017 15:40 Encounter Diagnosis: Problem not documented Appointment; ADDIS VASQUEZ M.D. On: 27-Oct-2017 13:40 Encounter Diagnosis: Problem not documented Appointment; ADDIS VASQUEZ M.D. On: 22-Dec-2017 13:40 Encounter Diagnosis: Problem not documented
--- OUTSIDE RECORDS SUMMARY | 2018-01-10 13:39 | XMS REPORT ---
:1935 [facility] [address] [place] [address] Care Team Providers Name Role Phone Alexandru Roche Unavailable Unavailable Problems This patient has no known problems. Allergies, Adverse Reactions, Alerts This patient has no known allergies or adverse reactions. Medications This patient has no known medications. Results Test Description Test Time Test Comments Text Results Atomic Results Result Comments Accuchek 2017-02-09 17:41:00 Test Item Value Reference Range Comments Accuchek (test code=ACU) 369 mg/dL 70-110 [id number] 12:05:00 Test Item Value Reference Range Comments Accuchek (test code=ACU) 452 mg/dL 70-110 Cyuzckkg4717-70-75 08:00:00 Test Item Value Reference Range Comments Accuchek (test code=ACU) Greater than 550 mg/dL 70-110 Elcemdjl6721-83-77 07:42:00 Test Item Value Reference Range Comments Accuchek (test code=ACU) 463 mg/dL 70-110 Wckibjjx9900-64-17 06:23:00 Test Item Value Reference Range Comments Accuchek (test code=ACU) 157 mg/dL 70-110 Obdmeyas2086-09-66 00:16:00 Test Item Value Reference Range Comments Accuchek (test code=ACU) 196 mg/dL 70-110 Bucewhbr3119-20-82 20:52:00 Test Item Value Reference Range Comments Accuchek (test code=ACU) 373 mg/dL 70-110 Igkwsnuc8836-25-70 18:44:00 Test Item Value Reference Range Comments Accuchek (test code=ACU) 459 mg/dL 70-110 Zygfucgl0810-56-77 12:48:00 Test Item Value Reference Range Comments Accuchek (test code=ACU) 169 mg/dL 70-110 Daqlspyzx1651-98-29 06:58:00 Test Item Value Reference Range Comments Chemistry (test code=NA-T) 134 mmol/L 136-145 Chemistry (test code=K-T) 3.8 mmol/L 3.5-5.1 Chemistry (test code=CL) 97 mmol/L 98-107 Chemistry (test code=CO2) 25 mmol/L 23-31 Chemistry (test code=ANGP) 16 mmol/L 10-20 Chemistry (test code=BUN) 75 mg/dL 8.4-25.7 Chemistry (test code=CREATT) 5.56 mg/dL 0.6-1.3 Chemistry (test 10 Reference Range for Estimated code=EGFRMDRD) GFR: Greater than 90 mL/min/1.73 m2NOTE:The MDRD equation has not been validated for use with theelderly (over 70 years of age), women, patientswith serious comorbid condition or persons with extremes ofbody size, muscle mass, or nutritional status. Chemistry (test code=GLU-T) 342 mg/dL 83-110 Chemistry (test code=CA) 8.7 mg/dL 7.8-10.44 Spathxch0459-55-45 05:28:00 Test Item Value Reference Range Comments Accuchek (test code=ACU) 305 mg/dL 70-110 Bfvkzmvy8703-23-16 02:59:00 Test Item Value Reference Range Comments Accuchek (test code=ACU) 330 mg/dL 70-110 Hrkatelb7091-94-71 18:35:00 Test Item Value Reference Range Comments Accuchek (test code=ACU) 458 mg/dL 70-110 Ctrvplzx9854-00-93 14:35:00 Test Item Value Reference Range Comments Accuchek (test code=ACU) 343 mg/dL 70-110 Zfaxniuq9155-09-08 11:40:00 Test Item Value Reference Range Comments Accuchek (test code=ACU) 285 mg/dL 70-110 Iaaxmxte9973-57-38 08:52:00 Test Item Value Reference Range Comments Accuchek (test code=ACU) 187 mg/dL 70-110 Eebpbnmi8601-23-13 05:04:00 Test Item Value Reference Range Comments Accuchek (test code=ACU) 323 mg/dL 70-110 Qkbfwxme1270-97-73 02:53:00 Test Item Value Reference Range Comments Accuchek (test code=ACU) 369 mg/dL 70-110 Mlfqzfuc9515-00-56 20:55:00 Test Item Value Reference Range Comments Accuchek (test code=ACU) 486 mg/dL 70-110 Gucnbvlp2010-35-09 16:55:00 Test Item Value Reference Range Comments Accuchek (test code=ACU) 432 mg/dL 70-110 Eehofvey8785-18-16 14:33:00 Test Item Value Reference Range Comments Accuchek (test code=ACU) 287 mg/dL 70-110 Udhjfkfm7098-84-62 09:53:00 Test Item Value Reference Range Comments Accuchek (test code=ACU) 119 mg/dL 70-110 Zpmyjoamq9988-74-93 09:13:00 Test Item Value Reference Range Comments Chemistry (test code=CCC) ALEJANDRINA.MA@0912 Refer to Critical Value designated by an *L or *H Chemistry (test code=NA-T) 139 mmol/L 136-145 Chemistry (test code=K-T) 3.4 mmol/L 3.5-5.1 Chemistry (test code=CL) 100 mmol/L 98-107 Chemistry (test code=CO2) 26 mmol/L 23-31 Chemistry (test code=ANGP) 16 mmol/L 10-20 Chemistry (test code=BUN) 46 mg/dL 8.4-25.7 Chemistry (test code=CREATT) 4.06 mg/dL 0.6-1.3 Chemistry (test 14 Reference Range for Estimated code=EGFRMDRD) GFR: Greater than 90 mL/min/1.73 m2NOTE:The MDRD equation has not been validated for use with theelderly (over 70 years of age), women, patientswith serious comorbid condition or persons with extremes ofbody size, muscle mass, or nutritional status. Chemistry (test code=GLU-T) 46 mg/dL 83-110 Critical Value! Chemistry (test code=CA) 8.6 mg/dL 7.8-10.44 Xqmzubie3667-45-84 05:37:00 Test Item Value Reference Range Comments Accuchek (test code=ACU) 94 mg/dL 70-110 Ytrmrtwe6530-02-42 02:52:00 Test Item Value Reference Range Comments Accuchek (test code=ACU) 87 mg/dL 70-110 Bwrgklit0482-81-39 22:27:00 Test Item Value Reference Range Comments Accuchek (test code=ACU) 370 mg/dL 70-110 Wlubpmutp4850-85-72 19:37:00 Test Item Value Reference Range Comments Chemistry (test code=CCC) ALEJANDRINA.LAB@1936 Refer to Critical Value designated by an *L or *H Chemistry (test code=GLU-T) 632 mg/dL 83-110 Critical value! Is patient fasting? NoComment line whdxYvonkcmtz2509-81-77 17:31:00 Test Item Value Reference Range Comments Chemistry (test code=CCC) ALEJANDRINA.RG@1731 Refer to Critical Value designated by an *L or *H Chemistry (test code=GLU-T) 762 mg/dL 83-110 Critical value! Is patient fasting? NxBpqfrbwhi4973-16-23 11:55:00 Test Item Value Reference Range Comments Chemistry (test code=NA-T) 142 mmol/L 136-145 Chemistry (test code=K-T) 3.1 mmol/L 3.5-5.1 Chemistry (test code=CL) 103 mmol/L 98-107 Chemistry (test code=CO2) 29 mmol/L 23-31 Chemistry (test code=ANGP) 13 mmol/L 10-20 Chemistry (test code=BUN) 33 mg/dL 8.4-25.7 Chemistry (test code=CREATT) 2.82 mg/dL 0.6-1.3 Chemistry (test 22 Reference Range for Estimated code=EGFRMDRD) GFR: Greater than 90 mL/min/1.73 m2NOTE:The MDRD equation has not been validated for use with theelderly (over 70 years of age), women, patientswith serious comorbid condition or persons with extremes ofbody size, muscle mass, or nutritional status. Chemistry (test code=GLU-T) 110 mg/dL 83-110 Chemistry (test code=CA) 8.8 mg/dL 7.8-10.44 Faucgfdq0658-99-45 06:35:00 Test Item Value Reference Range Comments Accuchek (test code=ACU) 273 mg/dL 70-110 Tnzzfdys2450-90-47 20:59:00 Test Item Value Reference Range Comments Accuchek (test code=ACU) 351 mg/dL 70110 Fvjxzycu8122-09-88 17:23:00 Test Item Value Reference Range Comments Accuchek (test code=ACU) 116 mg/dL 701[address] Dvszfoyl7318-56-83 11:55:00 Test Item Value Reference Range Comments Accuchek (test code=ACU) 413 mg/dL 70-110 Hfieeglo5043-10-92 05:25:00 Test Item Value Reference Range Comments Accuchek (test code=ACU) 286 mg/dL 70-110 Dqupfwar9213-62-60 21:17:00 Test Item Value Reference Range Comments Accuchek (test code=ACU) 185 mg/dL 701[address] Pzdnwcuj2494-62-60 18:59:00 Test Item Value Reference Range Comments Accuchek (test code=ACU) 383 mg/dL 110 Kskwwqrq9965-18-74 18:59:00 Test Item Value Reference Range Comments Accuchek (test code=ACU) 227 mg/dL 110 Txlmodrd8590-89-61 13:41:00 Test Item Value Reference Range Comments Accuchek (test code=ACU) 293 mg/dL 70-110 Gdpuoeto0773-02-41 05:45:00 Test Item Value Reference Range Comments Accuchek (test code=ACU) 396 mg/dL 110 Ymvkciaa2539-33-34 05:11:00 Test Item Value Reference Range Comments Accuchek (test code=ACU) 404 mg/dL 70-110 Hjgchhzxp3657-10-40 04:23:00 Test Item Value Reference Range Comments Chemistry (test code=NA-T) 139 mmol/L 136-145 Chemistry (test code=K-T) 4.3 mmol/L 3.5-5.1 Chemistry (test code=CL) 99 mmol/L 98-107 Chemistry (test code=CO2) 23 mmol/L 23-31 Chemistry (test code=ANGP) 21 mmol/L 10-20 Chemistry (test code=BUN) 60 mg/dL 8.4-25.7 Chemistry (test code=CREATT) 4.43 mg/dL 0.6-1.3 Chemistry (test 13 Reference Range for Estimated code=EGFRMDRD) GFR: Greater than 90 mL/min/1.73 m2NOTE:The MDRD equation has not been validated for use with theelderly (over 70 years of age), women, patientswith serious comorbid condition or persons with extremes ofbody size, muscle mass, or nutritional status. Chemistry (test code=GLU-T) 362 mg/dL 83-110 Chemistry (test code=CA) 8.2 mg/dL 7.8-10.44 Vhnymiiplq1362-98-63 04:05:00 Test Item Value Reference Range Comments Hematology (test code=WBCT) 10.5 thou/uL 4.8-10.8 Hematology (test code=RBCT) 2.62 mill/uL 4.70-6.10 Hematology (test code=HGBT) 8.7 g/dL 14.0-18.0 Hematology (test code=HCTT) 26.0 % 42.0-52.0 Hematology (test code=MCV) 99.4 fl 80.0-94.0 Hematology (test code=MCH) 33.1 pg 27.0-31.0 Hematology (test code=MCHC) 33.3 g/dL 32.0-36.0 Hematology (test code=RDW) 13.0 % 11.5-14.5 Hematology (test code=PLTT) 185 thou/uL 130-400 Hematology (test code=MPV) 8.9 fL 7.4-10.4 Hematology (test code=%NEUT) 76.2 % 42.0-75.0 Hematology (test code=%LYMPH) 11.5 % 21.0-51.0 Hematology (test code=%MONO) 11.1 % 0.0-10.0 Hematology (test code=%EOS) 0.9 % 0.0-10.0 Hematology (test code=%BASO) 0.3 % 0.0-1.0 Hematology (test code=NEUT#) 8.0 thou/uL 1.40-6.50 Hematology (test code=LYMPH#) 1.2 thou/uL 1.20-3.40 Hematology (test code=MONO#) 1.2 thou/uL 0.11-0.59 Hematology (test code=EOS#) 0.1 thou/uL 0.0-0.7 Hematology (test code=BASO#) 0.0 thou/uL 0.0-0.2 Sinopcdj4552-33-81 22:43:00 Test Item Value Reference Range Comments Accuchek (test code=ACU) 248 mg/dL 70-110 Oqzuekum3985-19-57 19:16:00 Test Item Value Reference Range Comments Accuchek (test code=ACU) 301 mg/dL 70-110 Chemistry - Gjwsnxcn2485-99-57 12:59:00 Test Item Value Reference Range Comments Chemistry - Specials (test Non-Reactive NonReactive code=HBSABINT) Chemistry - Specials (test 0.31 mIU/mL REFERENCE RANGES for HBSAB code=HBSABCONC) (Hepatitis B Surface Antibody):Nonreactive: 0.0 - <8.0 Individual is considered NOT immune to HBV infectionIndeterminate: >=8.0 - <12.0 The immune status of the individual should be further assessed by follow-up testing.Reactive: >=12.0 Individual is considered immune to HBV infection. Chemistry - Ewqpuyem4068-16-75 12:59:00 Test Item Value Reference Range Comments Chemistry - Specials (test code=THBSAG) Non-Reactive S/CO NonReactive Chemistry - Cnxrhenu3102-93-24 12:59:00 Test Item Value Reference Range Comments Chemistry - Specials (test code=INTHEPBCT) Non-Reactive NonReactive Chemistry - Guzvijvx2418-70-39 12:59:00 Test Item Value Reference Range Comments Chemistry - Specials (test code=INTHEPC) Non-Reactive NonReactive Cukllgxi7264-52-33 11:53:00 Test Item Value Reference Range Comments Accuchek (test code=ACU) 377 mg/dL 70-110 Oxhlqpqs6431-36-48 05:45:00 Test Item Value Reference Range Comments Accuchek (test code=ACU) 219 mg/dL 70-110 Mkrpcqpqsb1941-00-55 05:05:00 Test Item Value Reference Range Comments Hematology (test code=WBCT) 10.4 thou/uL 4.8-10.8 Hematology (test code=RBCT) 3.48 mill/uL 4.70-6.10 Hematology (test code=HGBT) 10.3 g/dL 14.0-18.0 Hematology (test code=HCTT) 34.6 % 42.0-52.0 Hematology (test code=MCV) 99.5 fl 80.0-94.0 Hematology (test code=MCH) 29.7 pg 27.0-31.0 Hematology (test code=MCHC) 29.8 g/dL 32.0-36.0 Hematology (test code=RDW) 13.2 % 11.5-14.5 Hematology (test code=PLTT) 144 thou/uL 130-400 Hematology (test code=MPV) 9.4 fL 7.4-10.4 Hematology (test code=%NEUT) 73.6 % 42.0-75.0 Hematology (test code=%LYMPH) 15.1 % 21.0-51.0 Hematology (test code=%MONO) 10.2 % 0.0-10.0 Hematology (test code=%EOS) 0.9 % 0.0-10.0 Hematology (test code=%BASO) 0.2 % 0.0-1.0 Hematology (test code=NEUT#) 7.7 thou/uL 1.40-6.50 Hematology (test code=LYMPH#) 1.6 thou/uL 1.20-3.40 Hematology (test code=MONO#) 1.1 thou/uL 0.11-0.59 Hematology (test code=EOS#) 0.1 thou/uL 0.0-0.7 Hematology (test code=BASO#) 0.0 thou/uL 0.0-0.2 Hematology (test code=HYPO) SLIGHT=6-15 cells (100X) 0-5/hpf Hematology (test code=PCOMMENT) Appears Adequate [id number] 04:36:00 Test Item Value Reference Range Comments Chemistry (test code=NA-T) 141 mmol/L 136-145 Chemistry (test code=K-T) 4.2 mmol/L 3.5-5.1 Chemistry (test code=CL) 104 mmol/L 98-107 Chemistry (test code=CO2) 24 mmol/L 23-31 Chemistry (test code=ANGP) 17 mmol/L 10-20 Chemistry (test code=BUN) 60 mg/dL 8.4-25.7 Chemistry (test code=CREATT) 4.64 mg/dL 0.6-1.3 Chemistry (test 12 Reference Range for Estimated code=EGFRMDRD) GFR: Greater than 90 mL/min/1.73 m2NOTE:The MDRD equation has not been validated for use with theelderly (over 70 years of age), women, patientswith serious comorbid condition or persons with extremes ofbody size, muscle mass, or nutritional status. Chemistry (test code=GLU-T) 171 mg/dL 83-110 Chemistry (test code=CA) 8.5 mg/dL 7.8-10.44 Mbdyngvf8660-94-39 20:44:00 Test Item Value Reference Range Comments Accuchek (test code=ACU) 174 mg/dL 70-110 Rbebemnl0068-71-53 17:03:00 Test Item Value Reference Range Comments Accuchek (test code=ACU) 344 mg/dL 70-110 Xhxyjwal5034-75-47 17:03:00 Test Item Value Reference Range Comments Accuchek (test code=ACU) 217 mg/dL 70-110 Chemistry - Lndaq8867-68-26 09:20:00 Test Item Value Reference Range Comments Chemistry - Urine (test 72.26 mg/dL 63-166 NOTE: Concentration is based code=URCREAT) on a daily urine output of1.5 Liters. Chemistry - Ktdct6706-14-92 09:20:00 Test Item Value Reference Range Comments Chemistry - Urine (test code=URTP) 381 mg/dL Chemistry - BNP, HgbA1c, KCEh8759-29-04 08:00:00 Test Item Value Reference Range Comments Chemistry - BNP, HgbA1c, 6.3 % 4.0-6.0 Therapeutic goals for glycemic PTHi (test code=KBSH2VU) control (ADA)Adults:- Goal of therapy: Less than 7.0% HbA1c- Action suggested: Greater than 8.0% IgA6oTjefhucop patients:- Toddlers and preschoolers: Less than 8.5% (but Greater than 7.5%)- School age (6-12 years): Less than 8%- Adolescents and young adults (13-19 years): Less than 7.5%Diagnosing diabetes (ADA)- HbA1c: Greater than or equal to 6.5% Values of 5.7 - 6.4% indicate HIGH risk for developing DiabetesInternational Expert Committee Report on the Role of the D3JFprqy in the Diagnosis of Diabetes. Diabetes Care 2009July;32(7):1327-1334ADA, Diagnosis classification of diabetes mellitus.Diabetes Care 2010; 33 Suppl 1:S62 Wzbwpcqkb6006-71-98 05:46:00 Test Item Value Reference Range Comments Chemistry (test code=NA-T) 141 mmol/L 136-145 Chemistry (test code=K-T) 4.2 mmol/L 3.5-5.1 Chemistry (test code=CL) 103 mmol/L 98-107 Chemistry (test code=CO2) 28 mmol/L 23-31 Chemistry (test code=ANGP) 14 mmol/L 10-20 Chemistry (test code=BUN) 58 mg/dL 8.4-25.7 Chemistry (test code=CREATT) 4.11 mg/dL 0.6-1.3 Chemistry (test 14 Reference Range for Estimated code=EGFRMDRD) GFR: Greater than 90 mL/min/1.73 m2NOTE:The MDRD equation has not been validated for use with theelderly (over 70 years of age), women, patientswith serious comorbid condition or persons with extremes ofbody size, muscle mass, or nutritional status. Chemistry (test code=GLU-T) 265 mg/dL 83-110 Chemistry (test code=CA) 8.8 mg/dL 7.8-10.44 Fuyranyf8228-27-62 05:35:00 Test Item Value Reference Range Comments Accuchek (test code=ACU) 262 mg/dL 70-110 Ljbayknddh2554-32-19 05:21:00 Test Item Value Reference Range Comments Hematology (test code=WBCT) 8.9 thou/uL 4.8-10.8 Hematology (test code=RBCT) 2.79 mill/uL 4.70-6.10 Hematology (test code=HGBT) 9.1 g/dL 14.0-18.0 Hematology (test code=HCTT) 27.4 % 42.0-52.0 Hematology (test code=MCV) 98.3 fl 80.0-94.0 Hematology (test code=MCH) 32.5 pg 27.0-31.0 Hematology (test code=MCHC) 33.1 g/dL 32.0-36.0 Hematology (test code=RDW) 13.0 % 11.5-14.5 Hematology (test code=PLTT) 195 thou/uL 130-400 Hematology (test code=MPV) 9.0 fL 7.4-10.4 Hematology (test code=%NEUT) 70.9 % 42.0-75.0 Hematology (test code=%LYMPH) 13.2 % 21.0-51.0 Hematology (test code=%MONO) 9.3 % 0.0-10.0 Hematology (test code=%EOS) 6.1 % 0.0-10.0 Hematology (test code=%BASO) 0.6 % 0.0-1.0 Hematology (test code=NEUT#) 6.3 thou/uL 1.40-6.50 Hematology (test code=LYMPH#) 1.2 thou/uL 1.20-3.40 Hematology (test code=MONO#) 0.8 thou/uL 0.11-0.59 Hematology (test code=EOS#) 0.5 thou/uL 0.0-0.7 Hematology (test code=BASO#) 0.1 thou/uL 0.0-0.2 Ifwrylqd8112-05-51 21:30:00 Test Item Value Reference Range Comments Accuchek (test code=ACU) 279 mg/dL 70-110 Npgiggvy4910-56-31 16:30:00 Test Item Value Reference Range Comments Accuchek (test code=ACU) 145 mg/dL 70-110 Cpywfudb0542-46-51 11:42:00 Test Item Value Reference Range Comments Accuchek (test code=ACU) 119 mg/dL 70-110 Acjketfkq9094-62-36 06:48:00 Test Item Value Reference Range Comments Chemistry (test code=NA-T) 139 mmol/L 136-145 Chemistry (test code=K-T) 3.7 mmol/L 3.5-5.1 Chemistry (test code=CL) 104 mmol/L 98-107 Chemistry (test code=CO2) 25 mmol/L 23-31 Chemistry (test code=ANGP) 14 mmol/L 10-20 Chemistry (test code=BUN) 58 mg/dL 8.4-25.7 Chemistry (test code=CREATT) 3.72 mg/dL 0.6-1.3 Chemistry (test 16 Reference Range for Estimated code=EGFRMDRD) GFR: Greater than 90 mL/min/1.73 m2NOTE:The MDRD equation has not been validated for use with theelderly (over 70 years of age), women, patientswith serious comorbid condition or persons with extremes ofbody size, muscle mass, or nutritional status. Chemistry (test code=GLU-T) 165 mg/dL 83-110 Chemistry (test code=CA) 8.4 mg/dL 7.8-10.44 Chemistry - BNP, HgbA1c, [id number] 06:45:00 Test Item Value Reference Range Comments Chemistry - BNP, HgbA1c, PTHi (test code=BNP) 419.1 pg/mL 0-100 Qmackrux2695-17-16 06:35:00 Test Item Value Reference Range Comments Accuchek (test code=ACU) 171 mg/dL 70-110 Tyhfnwxsxm1191-36-97 06:20:00 Test Item Value Reference Range Comments Hematology (test code=WBCT) 9.1 thou/uL 4.8-10.8 Hematology (test code=RBCT) 2.66 mill/uL 4.70-6.10 Hematology (test code=HGBT) 9.0 g/dL 14.0-18.0 Hematology (test code=HCTT) 26.3 % 42.0-52.0 Hematology (test code=MCV) 98.6 fl 80.0-94.0 Hematology (test code=MCH) 33.7 pg 27.0-31.0 Hematology (test code=MCHC) 34.1 g/dL 32.0-36.0 Hematology (test code=RDW) 13.3 % 11.5-14.5 Hematology (test code=PLTT) 187 thou/uL 130-400 Hematology (test code=MPV) 8.9 fL 7.4-10.4 Hematology (test code=%NEUT) 57.6 % 42.0-75.0 Hematology (test code=%LYMPH) 22.8 % 21.0-51.0 Hematology (test code=%MONO) 11.1 % 0.0-10.0 Hematology (test code=%EOS) 8.0 % 0.0-10.0 Hematology (test code=%BASO) 0.5 % 0.0-1.0 Hematology (test code=NEUT#) 5.2 thou/uL 1.40-6.50 Hematology (test code=LYMPH#) 2.1 thou/uL 1.20-3.40 Hematology (test code=MONO#) 1.0 thou/uL 0.11-0.59 Hematology (test code=EOS#) 0.7 thou/uL 0.0-0.7 Hematology (test code=BASO#) 0.0 thou/uL 0.0-0.2 Jkqcoeyp6788-08-03 22:09:00 Test Item Value Reference Range Comments Accuchek (test code=ACU) 223 mg/dL 70-110 Bodnhcnu4135-42-94 17:33:00 Test Item Value Reference Range Comments Accuchek (test code=ACU) 100 mg/dL 70-110 Kqagfnkj4263-10-66 14:32:00 Test Item Value Reference Range Comments Accuchek (test code=ACU) 375 mg/dL 70-110 Zywfwkcb9171-83-95 14:32:00 Test Item Value Reference Range Comments Accuchek (test code=ACU) 285 mg/dL 70-110 Chkuknhb6023-05-98 10:33:00 Test Item Value Reference Range Comments Accuchek (test code=ACU) 498 mg/dL 70-110 NOTIFIED NURSE Nplvhvcd1728-01-09 09:23:00 Test Item Value Reference Range Comments Accuchek (test code=ACU) 523 mg/dL 70-110 Cwocambscl7868-18-58 03:49:00 Test Item Value Reference Range Comments Urinalysis (test code=UACLR) YELLOW Yellow Urinalysis (test code=UACLY) CLEAR Clear Urinalysis (test code=SPGR) 1.015 1.002-1.036 Urinalysis (test code=LAURA) 6.5 5.0-9.0 Urinalysis (test code=UALEU) Negative Negative Urinalysis (test code=UANIT) Negative Negative Urinalysis (test code=PROUADIP) > or equal to 300 mg/dL Neg-Trace Urinalysis (test code=GLUCU) Negative mg/dL Negative Urinalysis (test code=KETU) Negative mg/dL Negative Urinalysis (test code=UAUROB) 0.2 mg/dL 0.2-1.0 Urinalysis (test code=UABIL) Negative Negative Urinalysis (test code=UABLD) Trace Negative Urinalysis (test code=UARBC) 0-3 HPF 0-3 Urinalysis (test code=UAWBC) 0-3 HPF 0-3 Urinalysis (test code=UASQUAM) None Seen HPF 0-3 Urinalysis (test code=UABAC) None Seen HPF None Seen Urinalysis (test code=UACAST) 0-3 HYALINE CAST LPF 0-3 Hyaline Urine Source: Urine Clean ForlhYhirmroqg3533-48-81 00:20:00 Test Item Value Reference Range Comments Chemistry (test code=NA-T) 142 mmol/L 136-145 Chemistry (test code=K-T) 3.7 mmol/L 3.5-5.1 Chemistry (test code=CL) 106 mmol/L 98-107 Chemistry (test code=CO2) 23 mmol/L 23-31 Chemistry (test code=ANGP) 17 mmol/L 10-20 Chemistry (test code=BUN) 58 mg/dL 8.4-25.7 Chemistry (test code=CREATT) 3.89 mg/dL 0.6-1.3 Chemistry (test 15 Reference Range for Estimated code=EGFRMDRD) GFR: Greater than 90 mL/min/1.73 m2NOTE:The MDRD equation has not been validated for use with theelderly (over 70 years of age), women, patientswith serious comorbid condition or persons with extremes ofbody size, muscle mass, or nutritional status. Chemistry (test code=GLU-T) 118 mg/dL 83-110 Chemistry (test code=CA) 9.0 mg/dL 7.8-10.44 Chemistry (test code=TBILI) 0.5 mg/dL 0.2-1.2 Chemistry (test code=TP) 6.5 g/dL 5.8-8.1 Chemistry (test code=ALB) 3.8 g/dL 3.4-4.8 Chemistry (test code=GLOB) 2.7 g/dL 2.4-3.5 Chemistry (test code=AG) 1.4 g/dL 1.2-2.2 Chemistry (test code=ALP) 90 U/L 40-150 Chemistry (test code=AST) 29 U/L 5-34 Chemistry (test code=ALT) 21 U/L 8-55 [id number] 00:20:00 Test Item Value Reference Range Comments Chemistry (test code=PHOS) 4.0 mg/dL 2.3-4.7 Bikddpbqb5131-53-92 00:20:00 Test Item Value Reference Range Comments Chemistry (test code=MG) 2.4 mg/dL 1.6-2.6 Jcyslvia7396-41-79 00:14:00 Test Item Value Reference Range Comments Accuchek (test code=ACU) 113 mg/dL 70-110 Ksrpsnofxa4301-87-56 23:58:00 Test Item Value Reference Range Comments Hematology (test code=WBCT) 11.8 thou/uL 4.8-10.8 Hematology (test code=RBCT) 3.11 mill/uL 4.70-6.10 Hematology (test code=HGBT) 10.1 g/dL 14.0-18.0 Hematology (test code=HCTT) 30.0 % 42.0-52.0 Hematology (test code=MCV) 96.4 fl 80.0-94.0 Hematology (test code=MCH) 32.4 pg 27.0-31.0 Hematology (test code=MCHC) 33.6 g/dL 32.0-36.0 Hematology (test code=RDW) 13.3 % 11.5-14.5 Hematology (test code=PLTT) 223 thou/uL 130-400 Hematology (test code=MPV) 8.0 fL 7.4-10.4 Hematology (test code=%NEUT) 69.3 % 42.0-75.0 Hematology (test code=%LYMPH) 16.7 % 21.0-51.0 Hematology (test code=%MONO) 8.5 % 0.0-10.0 Hematology (test code=%EOS) 4.7 % 0.0-10.0 Hematology (test code=%BASO) 0.9 % 0.0-1.0 Hematology (test code=NEUT#) 8.2 thou/uL 1.40-6.50 Hematology (test code=LYMPH#) 2.0 thou/uL 1.20-3.40 Hematology (test code=MONO#) 1.0 thou/uL 0.11-0.59 Hematology (test code=EOS#) 0.6 thou/uL 0.0-0.7 Hematology (test code=BASO#) 0.1 thou/uL 0.0-0.2
[2018-01-10 14:00] VITALS: BMI 25.5
[2018-01-10 14:42] LABS: Absolute Lymphocytes (CBC) 1.2 K/uL (0.7-4.9); Absolute Monocytes 0.7 K/uL (0.1-1.3); Absolute Neutrophil 4.8 K/uL (1.8-8.0); Basophils % 0.6 % (0-1.3); Hematocrit 35.8 % (39.6-49.0); Lymphocytes % 17.4 % (15.3-44.8); MCH 32.2 pg (27.0-35.0); MCV 94.2 fL (80-100); MPV 9.5 fL (7.6-11.3); Monocytes % 10.3 % (3.3-12.3)
[2018-01-10 15:07] LABS: Albumin 3.5 g/dL (3.4-5.0); Bilirubin Total 0.5 mg/dL (0.2-1.0); Potassium 3.5 mmol/L (3.5-5.1); Protein, Total 6.9 g/dL (6.4-8.2); Thyroid Stimulating Hormone 2.91 uIU/mL (0.36-3.74)
[2018-01-10] MEDS ORDERED: D50W 25 GM/50 ML SYRINGE IV ONE (16:14)
[2018-01-10] MEDS: D50W 25 GM/50 ML SYRINGE IV ONE ×2 (16:17→16:26)
--- NOTE | 2018-01-10 16:41 | RAD REPORT ---
EXAM DESCRIPTION: CT - Abdomen Pelvis Wo Contrast - 01/10/2018 4:28 pm CLINICAL HISTORY: Abdominal pain. abd pain COMPARISON: CT ABD PELVIS W CONTRAST dated 04/29/2008; Abdomen Acute Series dated 07/07/2017 TECHNIQUE: CT imaging of the abdomen and pelvis was performed without contrast. Solid organ and vasc ular assessment is limited due to lack of IV contrast. All CT scans are performed using dose optimization technique as appropriate and may include automated exposure control or mA/KV adjustment according to patient size. FINDINGS: Emphysematous changes are noted in the lung bases. There are multiple splenic and hepatic granulomas present. 19 mm left adrenal mass is present, likely representing an adenoma. Right adrenal gland is normal. Pancreas and left kidney are within normal l imits. Right kidney is atrophic. Focal fat containing ventral hernia is present. Moderate aortic athe rosclerosis. No bowel obstruction, free air, free fluid or abscess. The appendix is normal. The osseous structures are within normal limits.Prominent prostate hypertrophy is present. IMPRESSION: Small to moderate focal fat containing ventral hernia. No evidence of bowel obstruction. 19 mm left adrenal adenoma. A limited non-contrast examination was performed as detailed.
--- NOTE | 2018-01-10 16:51 | RAD REPORT ---
EXAM DESCRIPTION: RAD - Chest Pa And Lat (2 Views) - 01/10/2018 4:43 pm CLINICAL HISTORY: abd pain, COPD Chest pain. COMPARISON: Abdomen Acute Series dated 07/07/2017; Chest Pa And Lat (2 Views) dated 03/30/2017; Chest Pa And Lat (2 Views) dated 01/28/2017; Chest Pa And Lat (2 Views) dated 01/27/2017; Abdomen Pelvis W o Contrast dated 01/10/2018 FINDINGS: Emphysematous changes are present throughout the lungs. Area of scarring is present in lef t lung base anteriorly. The heart is normal in size. Right-sided venous catheter has tip in the SVC. IMPRESSION: Prominent COPD.
[2018-01-10 17:37] LABS: Urine Appearance CLEAR; Urine Blood NEGATIVE (NEG); Urine Color DK YELLOW; Urine Glucose NEGATIVE (NEG); Urine Protein 3+ (NEG); Urine Urobilinogen 0.2 mg/dL (0.2-1.0)
[2018-01-10 17:41] LABS: Urine Bilirubin NEGATIVE (NEG); Urine Microscopic Reflex ORDER UMIC
[2018-01-10 18:03] LABS: Urine Bacteria <20 /HPF (NONE SEEN); Urine Culture Reflex Order NOT NEEDED; Urine RBC <5 /HPF (NONE SEEN)
[2018-01-10] MEDS ORDERED: KCL 20 MEQ/100 mL IVPB 20 MEQ/100 ML BAG IV SCH (20:00)
[2018-01-10] MEDS ORDERED: D50W 25 GM/50 ML SYRINGE IV PRN (20:49)
[2018-01-10] MEDS ORDERED: BISACODYL 10 MG RECTAL SUPP PR ONE (20:49)
[2018-01-10] MEDS ORDERED: GLUCAGON 1 MG/VIAL IM PRN (20:49)
[2018-01-10] MEDS ORDERED: DOXAZOSIN 2 MG TAB PO SCH (21:00)
[2018-01-10] MEDS ORDERED: ATORVASTATIN 20 MG TAB PO SCH (21:00)
[2018-01-10] MEDS: INSULIN -REGULAR HUMAN 50 UNIT/0.5 ML ML SQ SCH (21:00)
[2018-01-10] MEDS: AMLODIPINE 5 MG TAB PO SCH (21:54)
[2018-01-10] MEDS: METOPROLOL TAR 50 MG TAB PO SCH (21:54)
[2018-01-10 23:58] VITALS: O2SAT 96
[2018-01-11 08:51] VITALS: BP 151/67; TEMP 97.7
[2018-01-11] MEDS ORDERED: ASPIRIN EC 81 MG TAB PO SCH (09:00)
[2018-01-11] MEDS ORDERED: LEVOTHYROXINE SOD 0.125 MG TAB PO SCH (09:00)
[2018-01-11] MEDS ORDERED: FUROSEMIDE 40 MG TABLET PO SCH (09:00)
[2018-01-11] MEDS: INSULIN -REGULAR HUMAN 50 UNIT/0.5 ML ML SQ SCH (09:01)
[2018-01-11] MEDS: AMLODIPINE 5 MG TAB PO SCH (09:01)
[2018-01-11] MEDS: METOPROLOL TAR 50 MG TAB PO SCH (09:02)
--- NOTE | 2018-01-11 11:39 | HP ---
Date of Admission: 01/10/2018 Chief Complaint: Abdominal pain, nausea, vomiting, constipation. History Of Present Illness: This is an 82-year-old male patient, who came into office with 2 of his daughters, was concerned about possibility of bowel blockage. The patient says that for the last 2 w eeks, he has been having upper abdominal pain with some vomiting. He vomited 2 times in the last 2 w eeks, but has lot of nausea. He is also reporting constipation problem and says only time he has bow el movement when he takes some laxative. No fever. No chills. He bel for dialysis regularly, las t dialysis was today. He called office today with these concerns and was asked to come in for evalua tion. After he was evaluated, he was admitted to the hospital. Medications: List reviewed. Review of Systems: GI: As mentioned above. All other systems reviewed and negative. Allergies: NO KNOWN ALLERGIES. Past Medical History: Significant for hypertension, end-stage renal disease, on hemodialysis, hyperl ipidemia, diabetes mellitus, possible renal artery stenosis, COPD, hypothyroidism, benign prostatic h ypertrophy, gastroesophageal reflux disease, stroke. Past Surgical History: Cataract surgery, hernia repair, angioplasty of leg artery due to peripheral vascular disease. Social History: No alcohol use. Prior history of smoking, not at present time. Family History: Not pertinent. Physical Examination: Vital Signs: Height 5 feet 7 inches, weight 160 pounds, temperature 98, pulse 57, respiratory rate 1 8, blood pressure 167/71, oxygen saturation 92%. General: Awake, alert, oriented, not in distress. HEENT: Head atraumatic, normocephalic. Conjunctivae nonerythematous. Sclerae white. Mouth, no thr ush or edema noted. Ears/Nose, no mass, lesion, discharge noted. Neck: Supple. No JVD, lymph nodes, bruit, thyromegaly noted. Lungs: Bilateral good equal air entry. Clear to auscultation. No rhonchi. No rales. Heart: Normal heart sounds, no murmur or gallop. Abdomen: Minimum tenderness in upper abdomen. No guarding. No rigidity. No distention. Bowel tegan nds normoactive. No hepatosplenomegaly. No bruit. Extremities: No leg edema. No calf tenderness. Skin: No rash, ulcer, cellulitis. Lymphatics: No lymph node enlargement in neck, supraclavicular, infraclavicular region. Neuro: No focal neurological deficit. Chest: Unremarkable. External Genitalia: Deferred. Rectal: Deferred. Laboratory Data: White count 7, hemoglobin 12.2, platelets 178. Sodium 139, potassium 3.5, chloride 101, bicarb 32, BUN 12, creatinine 2.20, glucose 72. Hemoglobin A1c 6.6. Liver function tests unre markable. TSH 2.9. Urinalysis negative, except 3+ protein. Chest x-ray, no acute cardiopulmonary c hanges and CAT scan of abdomen and pelvis without IV contrast done after admission to the hospital wa s negative for any bowel obstruction. It shows [id number] focal fat containing ventral hernia , a 19-mm left adrenal adenoma. Impression: 1.Abdominal pain. 2.Constipation. 3.Vomiting. 4.End-stage renal disease, on hemodialysis. 5.Hypertension. 6.Hyperlipidemia. 7.Diabetes mellitus. 8.Hypothyroidism. 9.Gastroesophageal reflux disease. 10.Adrenal adenoma. Plan: We will admit the patient to hospital. The patient was concerned about bowel obstruction and after he was evaluated, he was admitted to the hospital. Further workup was done and bowel obstructi on was ruled out. Radiologist has not commented on any constipation problem on the CAT scan. We federico l go ahead and give some Dulcolax rectal suppository. The patient has hypoglycemia, which was correc juanjose with IV D50. We will discontinue his insulin pump use and monitor fingerstick blood sugar with s liding scale. I will see him tomorrow for followup. Possible discharge to go home tomorrow after I examined him. VIELKA/MODL Voice ID: [id number]
== END 2018-01-11 10:33 | disposition home or self-care (01) ==
LOC: INTOOBSV 13:35 → 2ND 13:35
PROVIDERS: ADMIT Internal Medicine; ATTEND Internal Medicine
DX: K59.00 Constipation, unspecified (principal); E11.22 Type 2 diabetes mellitus with diabetic chronic kidney disease; I12.0 Hypertensive chronic kidney disease with stage 5 chronic kidney disease or end stage renal disease; N18.6 End stage renal disease; Z99.2 Dependence on renal dialysis; Z96.41 Presence of insulin pump (external) (internal); Z79.4 Long term (current) use of insulin; E78.5 Hyperlipidemia, unspecified; E11.649 Type 2 diabetes mellitus with hypoglycemia without coma; E03.9 Hypothyroidism, unspecified; K21.9 Gastro-esophageal reflux disease without esophagitis; D35.02 Benign neoplasm of left adrenal gland; J44.9 Chronic obstructive pulmonary disease, unspecified; N40.0 Benign prostatic hyperplasia without lower urinary tract symptoms; Z95.820 Peripheral vascular angioplasty status with implants and grafts
CPT/HCPCS: 36415; 71046; 74176; 80053; 82962 ×5; 83036; 84443; 85025; G0378; G0379; 81003; 81015

== ENCOUNTER 2018-07-09 08:18 | Inpatient (IN) | payer OTHER ==
--- OUTSIDE RECORDS SUMMARY | 2018-07-09 08:21 | XMS REPORT | Clinical Summary ---
:1935 Author Organization [facility] Address [address] [place] [address] Care Team Providers Name Role Phone Asked, No Pcp Primary Care Provider Unavailable Allergies No Known Allergies Medications Medication Sig Dispensed Refills Start End Date Status Date levothyroxine TAKE 1 TABLET BY 3 Active (SYNTHROID, LEVOXYL) ORAL ROUTE EVERY 7 125 mcg tablet DAY HUMALOG 100 unit/mL USE DIRECTED 0 Active injection WITH INSULIN PUMP 7 aspirin (ECOTRIN) 81 Take 81 mg by 0 Active MG enteric coated mouth daily. tablet ATORVASTATIN CALCIUM Take 20 mg by 0 Active (ATORVASTATIN ORAL) mouth every evening. After meal furosemide (LASIX) Take 80 mg by 3 Active 80 mg tablet mouth daily. 8 doxazosin (CARDURA) Take 1 mg by 0 Active 2 MG tablet mouth nightly. metoprolol tartrate Take 25 mg by 0 Active (LOPRESSOR) 50 mg mouth 2 (two) tablet times a day. predniSONE Take 10 mg by 0 Active (DELTASONE) 10 mg mouth daily. tablet Unknown start date, duration of therapy for 9 days. Specific instructions per patient's daughter for steroid taper: Day 1-3: 30mg once a day, Day 4-6: 20mg once a day, Day 7-9: 10mg once a day. lidocaine-prilocaine Apply 1 0 Active (EMLA) 2.5-2.5 % application cream topically 3 (three) times a week. On dialysis days: Wednesday, Wednesday, Wednesday diphenhydrAMINE Take 12.5 mg by 0 Active (BENADRYL) 12.5 mg/5 mouth 3 (three) mL liquid times a week. On dialysis days: Wednesday, Wednesday and Wednesday albuterol sulfate Inhale 1 0 Active (PROAIR RESPICLICK inhalations 2 INHL) (two) times a day. furosemide (LASIX) TAKE 1 TABLET 0 08/03/19 Discontinued 40 mg tablet EVERY DAY BY 7 18 MOUTH Daily metoprolol tartrate Take 25 mg by 3 08/03/19 Discontinued (LOPRESSOR) 50 mg mouth 2 (two) 7 18 tablet times a day. Morning and evening amLODIPine (NORVASC) Take 5 mg by 0 04/27/20 Discontinued 5 mg tablet mouth every 18 morning. doxazosin (CARDURA) Take 1 mg by 0 04/27/20 Discontinued 2 MG tablet mouth nightly. 18 Takes 2 mg 0.5 TAB. (total dose: 1 mg) Orally at bedtime metoprolol tartrate Take 50 mg by 0 04/27/20 Discontinued (LOPRESSOR) 50 mg mouth 2 (two) 18 tablet times a day. 1/2 tab of 50mg in the am and 1/2 tab in the pm acetaminophen-codein Take 1 tablet by 30 tablet 0 09/17/19 e (TYLENOL WITH mouth every 6 8 18 CODEINE #3) 300-30 (six) hours as mg per tablet needed for moderate pain for up to 7 days. metoprolol tartrate Take 25 mg by 0 04/27/20 Discontinued (LOPRESSOR) 50 mg mouth 2 (two) 18 tablet times a day. levoFLOXacin Take 1 tablet 5 tablet 0 05/07/20 (LEVAQUIN) 250 MG (250 mg total) by 8 18 tablet mouth every other day for 5 doses. codeine-guaifenesin Take 5 mL by 240 mL 0 05/08/20 (GUAIFENESIN AC) mouth 3 (three) 8 18 10-100 mg/5 mL times a day as liquid needed for cough for up to 10 days. Active Problems Problem Noted Date Problem with dialysis access 04/27/2018 Diabetes mellitus 08/03/2017 PAD (peripheral artery disease) [...] Encounters Date Type Specialty Care Team Description 04/27/2018 - Hospital Encounter General Internal Gordon Good Problem with dialysis access, initial encounter (HCC) (Primary Dx); 04/28/2018 Jair Edward MD Community acquired pneumonia, unspecified laterality Simeon Padilla MD 01/19/2018 Telephone Cardiovascular Bill Snyder MA 01/18/2018 Office Visit Cardiovascular [facility] ESRD (end stage renal disease) 2017 MWF (Primary Dx); , KALIN Kelley ESRD (end stage renal disease) on dialysis 10/19/2017 Office Visit Joselin Walker ESRD (end stage MD [place] renal disease) 2017 MWF (Primary Dx) 09/28/2017 Office Visit Joselin Walker ESRD (end stage MD [place] renal disease) 2017 MWF (Primary Dx) 09/09/2017 Anesthesia Event Vascular Surgery Ailyn Ham MD 09/09/2017 Surgery Vascular Surgery Joselin Banks MD radiocephlaic a-v fistula left 09/09/2017 Hospital Encounter Vascular Surgery Joselin Banks stage alcira Scott MD disease 08/19/2017 Prep for Surgery Cardiovascular Joselin Banks stage alcira Scott MD disease (Primary Dx) 08/19/2017 Telephone Cardiovascular Joselin Banks MD 08/03/2017 Lab Lab Joselin Banks stage alcira Scott MD disease (Primary Dx) 08/03/2017 Office Visit Joselin Walker ESRD (carlos stage MD [place] renal disease) 2017 MWF (Primary Dx) after 07/08/2017 Family History Medical History Relation Name Comments No Known Problems Father Hypertension Mother Kidney disease Mother Stroke Mother Relation Name Status Comments Father Mother Social History Tobacco Use Types Packs/Day Years Used Date Former Smoker Cigarettes Quit: 2012 Smokeless Tobacco: Never Used Tobacco Cessation: Counseling Given: Yes Alcohol Use Drinks/Week oz/Week Comments No Sex Assigned at Date Recorded Not on file Job Start Date Occupation Industry Not on file Not on file Not on file Travel History Travel Start Travel End No recent travel history available. Last Filed Vital Signs Vital Sign Reading Time Taken Blood Pressure 157/63 04/28/2018 1:15 PM [employer] Pulse 55 04/28/2018 1:15 PM [employer] Temperature 36.5 C (97.7 F) 04/28/2018 1:15 PM [employer] Respiratory Rate 18 04/28/2018 1:15 PM [employer] Oxygen Saturation 100% 04/28/2018 1:15 PM [employer]ELOPER Inhaled Oxygen Concentration - - Weight 73.9 kg (163 lb) 01/18/2018 10:40 AM CDT Height 170.2 cm (5' 7") 01/18/2018 10:40 AM CDT Body Mass Index 25.53 01/18/2018 10:40 AM CDT Plan of Treatment Health Maintenance Due Date Last Done Comments DIABETIC RETINAL EYE EXAM 1935 DIABETIC FOOT EXAM 09/04/1945 URINE MICROALBUMIN 09/04/1943 SHINGLES VACCINES (1 of 2) 09/04/1983 PNEUMOCOCCAL POLYSACCHARIDE VACCINE AGE 65 AND OVER 1998 PNEUMOCOCCAL-13 1998 INFLUENZA VACCINE 01/05/2018 Implants Implanted Type Area Salvage Winder And Inspector Device Shelf Model / Identifier Expiration Serial / Date Lot Clip Ligtng Weck Hemoclip Plus W/ Tape Ti - [id number] Medical Left: WECK CLOSURE 02/14/2022 [id number] / Implanted: Qty: 1 on 09/09/2017 by Joselin Banks MD Clips for Arm, SYSTEMS / Internal Upper [id number] Use Clip Ligtng Weck Hemoclip Plus W/ Tape Ti Med - [id number] Medical Left: TELEFLEX 03/09/2022 [id number] / Implanted: Qty: 1 on 09/09/2017 by Joselin Banks MD Clips for Arm, MEDICAL / Internal Upper Use Hemodialysis Catheter Right: 02/03/2019 [id number] / Implanted: Qty: 1 on 04/19/2017 by Jhony Montesinos MD Chest / Procedures Procedure Name Priority Date/Time Associated Comments Diagnosis POC GLUCOSE Routine 04/28/2018 12:34 Results for this PM [employer]ELOPER procedure are in the results section. HEPATITIS B SURFACE Routine 04/28/2018 12:15 Results for this ANTIGEN PM [employer] procedure are in the results section. HEMODIALYSIS Routine 04/28/2018 10:24 AM [employer]RO[employer] DEVELOPER POC GLUCOSE Routine 04/28/2018 8:01 Results for this AM [employer]OPER procedure are in the results section. HEMOGLOBIN A1C Routine 04/28/2018 6:37 Results for this AM [employer]OPER procedure are in the results section. HC COMPLETE BLD COUNT Routine 04/28/2018 6:37 Results for this W/AUTO DIFF AM [employer] procedure are in the results section. ESTIMATED GFR Routine 04/28/2018 4:00 Results for this AM [employer]OPER procedure are in the results section. VITAMIN B12 LEVEL Routine 04/28/2018 4:00 Results for this AM [employer] procedure are in the results section. FERRITIN LEVEL Routine 04/28/2018 4:00 Results for this AM [employer]OPER procedure are in the results section. THYROID STIMULATING Routine 04/28/2018 4:00 Results for this HORMONE AM [employer] procedure are in the results section. LIPID PANEL Routine 04/28/2018 4:00 Results for this AM [employer] procedure are in the results section. PHOSPHORUS LEVEL Routine 04/28/2018 4:00 Results for this AM [employer]ELOPER procedure are in the results section. MAGNESIUM LEVEL Routine 04/28/2018 4:00 Results for this AM [employer]OPER procedure are in the results section. BASIC METABOLIC PANEL Routine 04/28/2018 4:00 Results for this AM [employer] procedure are in the results section. ECG 12-LEAD STAT 04/27/2018 10:30 Results for this PM [employer]ELOPER procedure are in the results section. POC GLUCOSE Routine 04/27/2018 9:33 Results for this PM [employer]ELOPER procedure are in the results section. POC GLUCOSE Routine 04/27/2018 5:17 Results for this PM [employer] procedure are in the results section. LACTIC ACID LEVEL, Timed 04/27/2018 4:13 Results for this SEPSIS - NOW AND REPEAT PM [employer]ELOPER procedure are in 2X EVERY 3 HOURS the results section. BLOOD CULTURE, AEROBIC Routine 04/27/2018 4:13 Results for this & ANAEROBIC PM [employer]ELOPER procedure are in the results section. BLOOD CULTURE, AEROBIC Routine 04/27/2018 4:13 Results for this & ANAEROBIC PM [employer]ELOPER procedure are in the results section. US DUPLEX HEMODIALYSIS STAT 04/27/2018 4:08 Results for this AVG AVF ACCESS PM [employer]ELOPER procedure are in the results section. XR CHEST 1 VW PORTABLE STAT 04/27/2018 2:50 Results for this PM [employer]ELOPER procedure are in the results section. ESTIMATED GFR STAT 04/27/2018 1:45 Results for this PM [employer] procedure are in the results section. BASIC METABOLIC PANEL STAT 04/27/2018 1:45 Results for this PM [employer] procedure are in the results section. PARTIAL THROMBOPLASTIN STAT 04/27/2018 1:45 Results for this TIME (PTT) PM [employer]ELOPER procedure are in the results section. PROTHROMBIN TIME WITH STAT 04/27/2018 1:45 Results for this INR PM [employer]ELOPER procedure are in the results section. HC COMPLETE BLD COUNT STAT 04/27/2018 1:45 Results for this W/AUTO DIFF PM [employer] procedure are in the results section. MD REMOVAL TUNNELED CV Routine 01/18/2018 10:40 ESRD (end stage Results for this CATH W/O SUBQ PORT OR AM CDT renal disease) procedure are in PUMP 2017 MWF the results ESRD (end stage section. renal disease) on dialysis POC GLUCOSE Routine 09/09/2017 1:27 Results for this PM CDT procedure are in the results section. POC GLUCOSE Routine 09/09/2017 12:57 Results for this PM CDT procedure are in the results section. POC GLUCOSE Routine 09/09/2017 12:33 Results for this PM CDT procedure are in the results section. POC GLUCOSE Routine 09/09/2017 12:11 Results for this PM CDT procedure are in the results section. POC GLUCOSE Routine 09/09/2017 11:43 Results for this AM CDT procedure are in the results section. ANESTHESIA PERIPHERAL Routine 09/09/2017 9:23 BLOCK AM CDT Procedure Note - Mary Anderson MD - 09/09/2017 9:23 AM CDT Peripheral Block Performed by: MARY ANDERSON Authorized by: MARY ANDERSON Patient Location: Pre-op Start Time: 09/09/2017 9:29 AM End Time: 09/09/2017 9:49 AM Reason for Block: at surgeon's request Staff: Anesthesiologist: MARY ANDERSON Resident/CREDIT CARD ANALYST/AA: AILYN HAM Performed by: Resident/CREDIT CARD ANALYST/AA Preprocedure: patient identified, IV checked, site and [...] Results for this FACTOR II, BY PCR [employer] disease procedure are in the results section. FACTOR V LEIDEN BY PCR Routine 08/03/2017 1:08 PM End stage renal Results for this [employer] disease procedure are in the results section. HOMOCYSTINE, PLASMA Routine 08/03/2017 1:05 PM End stage renal Results for this [employer] disease procedure are in the results section. FUNCTIONAL PROTEIN S Routine 08/03/2017 1:05 PM End stage renal Results for this [employer] disease procedure are in the results section. FUNCTIONAL PROTEIN C Routine 08/03/2017 1:05 PM End stage renal Results for this [employer] disease procedure are in the results section. HEPARIN PF4 ANTIBODY Routine 08/03/2017 1:05 PM End stage renal Results for this (IGG) [employer] disease procedure are in the results section. ANTITHROMBIN III LEVEL Routine 08/03/2017 1:05 PM End stage renal Results for this [employer] disease procedure are in the results section. LUPUS ANTICOAGULANT Routine 08/03/2017 1:05 PM End stage renal Results for this PANEL [employer] disease procedure are in the results section. US VEIN MAPPING UPPER Routine 08/03/2017 11:37 AM ESRD (end stage Results for this EXTREMITY BILATERAL [employer]OPER renal disease) on procedure are in dialysis the results section. after 07/08/2017 Results POC glucose (04/28/2018 12:34 PM [employer]RO[employer] UI DEVELOPER)Only the most recent of9 resultswithin the time period is included. POC glucose 200 (H) 65 - 99 mg/dL [facility] Comment: No Action Needed Meter ID: [id number] Oncology Coordinator: Adam Elmore Performing Organization Address City/[facility]/Zipcode Phone Number [facility] DEPARTMENT OF PATHOLOGY AND [address] [place] [address] Hepatitis B surface antigen (04/28/2018 12:15 PM ANDRO[employer] UI DEVELOPER) Hepatitis B surface Ag Non-reactive Non-reactive [facility] Specimen Blood Performing Organization Address City/[facility] Phone Number [facility] DEPARTMENT OF PATHOLOGY AND [address] [place] [address] CBC with platelet and differential (04/28/2018 6:37 AM [employer]RO[employer] UI DEVELOPER)Only the most recent of2 resultswithin the time period is included. WBC 10.65 4.50 - 11.00 k/uL [facility] RBC 2.73 (L) 4.40 - 6.00 m/uL [facility] HGB 8.6 (L) 14.0 - 18.0 g/dL [facility] HCT 27.6 (L) 41.0 - 51.0 % [facility] MCV 101.1 (H) 82.0 - 100.0 fL [facility] MCH 31.5 27.0 - 34.0 pg [facility] MCHC 31.2 31.0 - 37.0 g/dL [facility] RDW - SD 55.2 (H) 37.0 - 55.0 fL [facility] MPV 11.4 8.8 - 13.2 fL [facility] Platelet count 308 150 - 400 k/uL [facility] Nucleated RBC 0.20 /100 WBC [facility] Neutrophils 61.5 39.0 - 69.0 % [facility] Lymphocytes 25.5 25.0 - 45.0 % [facility] Monocytes 8.5 0.0 - 10.0 % [facility] Eosinophils 2.5 0.0 - 5.0 % [facility] Basophils 0.5 0.0 - 1.0 % [facility] Immature granulocytes 1.5 (H)Comment: 0.0 - 1.0 % [facility] "Immature HOSPITAL granulocytes" (promyelocytes, myelocytes, metamyelocytes) Specimen Blood Performing Organization Address City/[facility]/Zipcode Phone Number [facility] DEPARTMENT OF PATHOLOGY AND [address] [place] [phone] [place] [address] Hemoglobin A1c (04/28/2018 6:37 AM [employer]RO[employer] UI DEVELOPER) Hemoglobin A1C 8.1 (H) 4.0 - 5.6 % [facility] Comment: HbA1c cutoffs for diagnosing diabetes: 4.0% - 5.6%=normal 5.7% - 6.4%=increased risk for diabetes (prediabetes) >=6.5%=diabetes Goals for glycemic control (ADA 2016) < 7.0%Target for non adults with diabetes. More or less stringent targets may be appropriate for individual patients. <7.5% Target for Children and adolescents with type 1 diabetes. Specimen Blood Performing Organization Address City/[facility]/Zipcode Phone Number [facility] DEPARTMENT OF PATHOLOGY AND [address] [phone] Estimated GFR (04/28/2018 4:00 AM [employer]RO[employer] UI DEVELOPER)Only the most recent of2 resultswithin the time period is included. Estimated GFR 18 (A) mL/min/1.73 m2 [facility] Comment: HOSPITAL CatergoryUnitsInterpretation G1 >=90 Normal or high G2 60-89Mildly decreased V2t54-05Exffjm to moderately decreased Z2p54-34Hetoymfdnl to severely decreased G4 15-29Severely decreased G5 <15Kidney failure The eGFR was calculated using the Chronic Kidney Disease Epidemiology Collaboration (CKD-EPI) equation. Interpretation is based on recommendations of the National Kidney Foundation-Kidney Disease Outcomes Quality Initiative (NKF-KDOQI) published in 2014. Specimen Plasma specimen Performing Organization Address City/[facility] Phone Number [facility] DEPARTMENT OF PATHOLOGY AND [address] [place] [phone] [place] [phone] Thyroid stimulating hormone (04/28/2018 4:00 AM [employer]RO[employer] UI DEVELOPER) TSH 4.30 (H) 0.27 - 4.20 uIU/mL [facility] Specimen Plasma specimen Performing Organization Address City/[facility] Phone Number [facility] DEPARTMENT OF PATHOLOGY AND [address] [place] [phone] [place] [address] Phosphorus level (04/28/2018 4:00 AM [employer]RO[employer] UI DEVELOPER) Phosphorus 4.6 (H) 2.4 - 4.5 mg/dL [facility] Specimen Plasma specimen Performing Organization Address [facility] Phone Number [facility] DEPARTMENT OF PATHOLOGY AND [address] [place] [phone] [place] [address] Magnesium level (04/28/2018 4:00 AM ANDRO[employer] UI DEVELOPER) Magnesium 2.1 1.6 - 2.4 mg/dL [facility] Specimen Plasma specimen Performing Organization Address [facility] Phone Number [facility] DEPARTMENT OF PATHOLOGY AND [address] [place] [phone] [place] [address] Ferritin level (04/28/2018 4:00 AM [employer]RO[employer] UI DEVELOPER) Ferritin level 333 30 - 400 ng/mL [facility] Specimen Plasma specimen Performing Organization Address [facility] Phone Number [facility] DEPARTMENT OF PATHOLOGY AND [address] [place] [phone] [place] [phone] Vitamin B12 level (04/28/2018 4:00 AM [employer]RO[employer] UI DEVELOPER) Vitamin B12 696 211 - 946 pg/mL [facility] Comment: Significant overlap exists between normal and deficiency states. However, most patients with deficiencies will have Serum B12 <200 pg/mL. Specimen Serum Performing Organization Address City/[facility]/Zipcode Phone Number [facility] DEPARTMENT OF PATHOLOGY AND [address] [place] [address] [facility] [address] [place] [address] Lipid panel (04/28/2018 4:00 AM [employer]RO[employer] DEVELOPER) Cholesterol 162 <200 mg/dL [facility] Triglycerides 80 <150 mg/dL [facility] HDL cholesterol 83 >40 mg/dL [facility] LDL cholesterol 79Comment: Result obtained <100 mg/dL [facility] by direct LDL measurement [facility] Lipid panel interpretation SeeBelow [facility] Comment: HOSPITAL Total Cholesterol (mg/dL) <200 Desirable 642-885Rcfhnuygqd-zsiw >=240High Triglycerides (mg/dL) <150 Normal 289-995Kmksvhlukc-crlb 200-499High >=500Very high HDL Cholesterol (mg/dL) <40Low (male) <40Low (female) LDL Cholesterol (mg/dL) <100 Optimal 100-129Near or above optimal 338-818Jhpqbvlcfs-njjx 160-189High >=190Very high Risk Catergories that modify LDL goals. Risk CatergoriesLDL goal (mg/dL) CHD and CHD risk equivalent<100 (10-year risk >20%) Multiple (2+) risk factors <130 (10-year risk=<20%) 0-1 risk factors <160 (<10-year risk) Defining levels of lipids in metabolic syndrome Triglycerides>=150 mg/dL HDL Cholesterol Men<40 mg/dL Women<40 mg/dL Non-HDL cholesterol is a second target for therapy in persons with high triglycerides (>=200 mg/dL) Specimen Plasma specimen Performing Organization Address City/[facility]/Zipcode Phone Number [facility] DEPARTMENT OF PATHOLOGY AND [address] [place], [place] [phone] [place], [place] [phone] [place] [address] Basic metabolic panel (04/28/2018 4:00 AM [employer]RO[employer] UI DEVELOPER)Only the most recent of2 resultswithin the time period is included. Sodium 146 135 - 148 mEq/L [facility] Potassium 4.3 3.5 - 5.0 mEq/L [facility] Chloride 105 98 - 112 mEq/L [facility] CO2 29 24 - 31 mEq/L [facility] Anion gap 12@ANIO 7 - 15 mEq/L [facility] BUN 32 (H) 8 - 23 mg/dL [facility] Creatinine 3.00 (H) 0.70 - 1.20 mg/dL [facility] Glucose 111 (H) 65 - 99 mg/dL [facility] Calcium 8.2 (L) 8.8 - 10.2 mg/dL [facility] Specimen Plasma specimen Performing Organization Address City/[facility] Phone Number [facility] DEPARTMENT OF PATHOLOGY AND [address] [place] [phone] [place] [address] ECG 12 lead (04/27/2018 10:30 PM [employer]RO[employer] UI DEVELOPER)Only the most recent of2 resultswithin the time period is included. Ventricular rate 46 [facility] Atrial rate 46 [facility] MD interval 144 [facility] QRSD interval 92 [facility] QT interval 446 [facility] QTC interval 390 [facility] MUSE P axis 1 75 [facility] QRS axis 1 31 [facility] MUSE T wave axis 70 [facility] MUSE EKG impression Marked sinus bradycardia-Abnormal ECG-In [facility] M[facility] automated comparison with ECG of 09-SEP-2017 08:36,-Vent. rate has decreased BY 22 BPM- Narrative Performed At Performing Organization Address [facility] Phone Number [facility] MUSE [address] [place] [phone] Lactic acid level, SEPSIS - Now and repeat 2x every 3 hours (04/27/2018 4:13 PM ANDROID UI DEVELOPER) Lactic acid 1.3 0.5 - 2.2 mmol/L [facility] Specimen Blood Performing Organization Address City/State/Zipcode Phone Number [facility] DEPARTMENT OF PATHOLOGY AND [address] [place] [address] [address] Blood culture, aerobic & anaerobic (04/27/2018 4:13 PM ANDROID UI DEVELOPER)Only the most recent of2 resultswithin the time period is included. Blood culture isolate No growth after 5 days of incubation. [facility] Comment: HOSPITAL Specimen Information Specimen Source: Blood Specimen Site: Forearm, right Specimen Blood - Forearm, right Performing Organization Address City/State/Zipcode Phone Number [facility] DEPARTMENT OF PATHOLOGY AND [address] [place] [address] GENOMIC MEDICINE [facility] [address] [place] [address] duplex hemodialysis avg avf access (04/27/2018 4:08 PM ANDROID UI DEVELOPER) Narrative Performed At [facility] Vascular Ultrasound Laboratory AV Graft - Fistula Report [id number] [facility], [facility] [address], [place] [id number] Pat.Name:KYA NICHOLAS.ID:[id number] .Date: 04/27/2018Refer.MD:PHYSICIAN, EMERGENCY, MD Exam Time: 3:26:00 PMStudy Type:AV Graft - Fistula Height:67inWeight: 163lb BSA: 1.86 m2 DOBAge:1935,82Y Sex: MALESonogrphr: Gordon Porter RN, RVS Pat. Stat.:OutpatientTapeVol: PM, CPT - 4: 46809 Echo Event ID:[id number] Order ID:[id number] Reason for Study:Dialysis nurse had difficulty with A/V fistula 04/26 and 04/28/18. Procedures:Colorflow, Grayscale/2D, Pulsed wave Doppler Race:C SUMMARY: DUPLEX SCAN OBSERVATIONS: LEFT: Calcifications noted in the brachial and radial artery. A radial artery to cephalic vein A/V fistula is well visualized in the forearm. Disturbed colorflow and Doppler signals noted in the anastomosis and draining cephalic vein. DOPPLER FINDINGS: ARTERYLOCATIONPSV (cm/sec) LEFTRadialProximal-third 224cm/sec Mid-negiu196dj/sec Distal-adbzj838hw/sec BrachialProximal-third 113 cm/sec Mid- cm/sec Distal-qekpw183 cm/sec Radial Art/ceph. v AVF Pynwrfdzhto688 cm/sec Cephalic Vein Juxta anastomosis 389 cm/sec Mid fyoqgyu175us/sec Proximal forearm 242xm/sec VOLUME FLOW: [id number] cc/min 637 cc/min 695cc/min PRELIMINARY FINDINGS: 1. Patent left radial artery to cephalic vein A/V fistula. 2. Volume flows as noted in above table. PHYSICIAN INTERPRETATION: Patent left radial artery to cephalic vein A/V fistula. Slightly decreased flow volume. Signed 04/28/2018 12:22 AM Gagan Jiménez MD, RPVI Procedure Note Interface, Radiology Results In - 04/28/2018 12:22 AM [facility] Vascular Ultrasound Laboratory AV Graft - Fistula Report [id number] [place] [address] Pat.Name: KYA NICHOLAS Pat.ID: [id number] St.Date: 04/27/2018 Refer.MD: PHYSICIAN, EMERGENCY, MD Exam Time: 3:26:00 PM Study Type:AV Graft - Fistula Height: 67in Weight: 163lb BSA: 1.86 m2 Age: 1 1935,82Y Sex: MALE Sonogrphr: Gordon Porter RN, RVS Pat. Stat.:Outpatient Tape Vol: PM, CPT - 4: 08573 Echo Event ID:[id number] Order ID: [id number] Reason for Study:Dialysis nurse had difficulty with A/V fistula 04/26 and 04/28/18. Procedures:Colorflow, Grayscale/2D, Pulsed wave Doppler Race: C SUMMARY: DUPLEX SCAN OBSERVATIONS: LEFT: Calcifications noted in the brachial and radial artery. A radial artery to cephalic vein A/V fistula is well visualized in the forearm. Disturbed colorflow and Doppler signals noted in the anastomosis and draining cephalic vein. DOPPLER FINDINGS: ARTERY LOCATION PSV (cm/sec) LEFT Radial Proximal-third 224cm/sec Mid-third 265cm/sec Distal-third 105xm/sec Brachial Proximal-third 113 cm/sec Mid-third 275 cm/sec Distal-third 217 cm/sec Radial Art/ceph. v AVF Anastamosis 621 cm/sec Cephalic Vein Juxta anastomosis 389 cm/sec Mid forearm 135cm/sec Proximal forearm 242xm/sec VOLUME FLOW: Brachial 731 cc/min 637 cc/min 695cc/min PRELIMINARY FINDINGS: 1. Patent left radial artery to cephalic vein A/V fistula. 2. Volume flows as noted in above table. PHYSICIAN INTERPRETATION: Patent left radial artery to cephalic vein A/V fistula. Slightly decreased flow volume. Signed 04/28/2018 12:22 AM Gagan Jiménez MD, RPVI Performing Organization Address [facility] Phone Number [facility] [address] [place] [address] XR Chest 1 Vw Portable (04/27/2018 2:50 PM ANDROID UI DEVELOPER) Narrative Performed At EXAMINATION:XR CHEST 1 VW PORTABLE [facility] CLINICAL HISTORY:Shortness of breath COMPARISON:To previous study from 04/14/2017 IMPRESSION: The heart is prominent. Consolidation in the area of the lingula is present and pneumonia may be increasing in this area. Granulomatous calcifications in the left hilum are present. The lungs are hyperinflated, and otherwise clear. CT scan of the chest may be of benefit for more complete evaluation [facility]-[id number] Procedure Note Interface, Radiology Results Incoming - 04/27/2018 3:03 PM ANDROID UI DEVELOPER EXAMINATION: XR CHEST 1 VW PORTABLE CLINICAL HISTORY: Shortness of breath COMPARISON: To previous study from 04/14/2017 IMPRESSION: The heart is prominent. Consolidation in the area of the lingula is present and pneumonia may be increasing in this area. Granulomatous calcifications in the left hilum are present. The lungs are hyperinflated, and otherwise clear. CT scan of the chest may be of benefit for more complete evaluation [facility]-[id number] Performing Organization Address [facility] Phone Number [facility] [address] [place] [address] Partial thromboplastin time, activated (04/27/2018 1:45 PM ANDROID UI DEVELOPER) PTT 30.4 23.0 - 36.0 sec [facility] Comment: PTT therapeutic range for unfractionated heparin is 61.0-112.0 seconds which corresponds to Anti-Xa 0.3-0.7 U/ml. Specimen Blood Performing Organization Address City/[facility]/Zipcode Phone Number [facility] DEPARTMENT OF PATHOLOGY AND [address] [place] [id number] [address] Prothrombin time with INR (04/27/2018 1:45 PM ANDROID UI DEVELOPER) Prothrombin time 12.7 11.5 - 14.5 sec [facility] INR 1.0 [facility] Comment: HOSPITAL The International Normalized Ratio (INR) is a therapeutic monitoring tool for patients who are stable on oral anticoagulant therapy. An INR of 2.0-3.0 is suggested for deep vein thrombosis/pulmonary embolism. Specimen Blood Performing Organization Address City/State/Zipcode Phone Number [facility] DEPARTMENT OF PATHOLOGY AND [address] [place] [phone] [address] TDC Removal (01/18/2018 10:40 AM CDT) Narrative Performed At Nano Mohr NP 01/18/2018 12:36 PM TDC Removal Date/Time: 01/18/2018 12:10 PM Performed by: NANO MOHR Authorized by: NANO MOHR TDC site anesthetized with local anesthetic. The cuff was dissected free and the catheter removed in its entirety. Pressure was held at the site to ensure hemostasis. Pressure dressing applied. Verbal and written instructions and ER warnings given. Procedure Comments: With the patient in supine position, the (right) side of the neck and the existing catheter were prepped and draped in a sterile fashion. 1% Lidocaine with Epiwas injected subcutaneously around the catheter tract. Blunt dissection of the tract was performed and the catheter was removed without complications. With the patient now sitting upright, pressure was held over the entry site in the (right) internal jugular vein and hemostasis was achieved. Dressings were placed over the skin wound on the subclavicular region. The patient tolerated the procedure well. Impression: Successful removal of (right) internal jugular vein tunneled catheter. Consent: Consent obtained:Verbal Consent given by:Patient and healthcare agent Risks discussed:Bleeding, infection, pain and poor cosmetic result Alternatives discussed:No treatment, observation and referral Post-procedure details: Patient tolerance of procedure:Tolerated well, no immediate complications POC panel 4 (09/09/2017 8:28 AM CDT) POC sodium 141 135 - 148 mmol/L [facility] DEPARTMENT OF PATHOLOGY AND GENOMIC MEDICINE POC potassium 4.0 3.5 - 5.0 mmol/L [facility] DEPARTMENT OF PATHOLOGY AND GENOMIC MEDICINE POC hematocrit 39 (L) 41 - 51 % [facility] DEPARTMENT OF PATHOLOGY Comment: AND [email or web address] MEDICINE Meter ID: [id number] Oncology Coordinator: Butch Dhaval POC glucose 113 (H) 65 - 99 mg/dL [facility] DEPARTMENT OF PATHOLOGY AND GENOMIC MEDICINE Performing Organization Address City/[facility] Phone Number [facility] DEPARTMENT OF PATHOLOGY AND [address] [place] [address] Prothrombin mutation, factor II, by PCR (08/03/2017 1:08 PM ANDROID UI DEVELOPER) Prothrombin gene mutation Normal Normal [facility] DEPARTMENT OF PATHOLOGY AND GENOMIC MEDICINE Prothrombin gene mutation See link below for PDF [facility] DEPARTMENT OF Lab ReportComment: Case PATHOLOGY AND GENOMIC Number: [id number] MEDICINE Specimen Blood Performing Organization Address [facility] Phone Number [facility] DEPARTMENT OF PATHOLOGY AND [address] [place] [address] Factor V leiden by PCR (08/03/2017 1:08 PM ANDROID UI DEVELOPER) Factor V Leiden Normal [facility] DEPARTMENT OF PATHOLOGY AND GENOMIC MEDICINE Factor V Leiden See link below for PDF Lab [facility] DEPARTMENT OF PATHOLOGY AND ReportComment: Case Number: [facility] [id number] Specimen Blood Performing Organization Address [facility] Phone Number [facility] DEPARTMENT OF PATHOLOGY AND [address] [place] [address] Homocystine, plasma (08/03/2017 1:05 PM ANDROID UI DEVELOPER) Homocysteine 26.8 (H) 0.0 - 15.0 umol/L [facility] DEPARTMENT OF Comment: PATHOLOGY AND GENOMIC The risk for coronary vascular disease increases progressively MEDICINE with homocysteine concentration.A 3.4 times greater risk is associated with a homocysteine concentration of greater than 15.8 umol/L as compared to a concentration below 14.1 umol/L. Specimen Plasma specimen Performing Organization Address City/[facility] Phone Number [facility] DEPARTMENT OF PATHOLOGY AND [address] [place] [address] Heparin PF4 antibody (IgG) (08/03/2017 1:05 PM ANDROID UI DEVELOPER) Heparin PF4 Ab OD reading 0.226 0.000 - 0.399 [facility] DEPARTMENT OF PATHOLOGY AND GENOMIC MEDICINE Heparin PF4 Ab, IgG Negative Negative [facility] DEPARTMENT OF PATHOLOGY AND GENOMIC MEDICINE Specimen Blood Performing Organization Address City/[facility] Phone Number [facility] DEPARTMENT OF PATHOLOGY AND [address] [place] [address] [facility] Functional protein S (08/03/2017 1:05 PM ANDROID UI DEVELOPER) Functional protein S 98 74 - 160 % [facility] DEPARTMENT OF Comment: PATHOLOGY AND GENOMIC Functional Protein S performed.If result is decreased Total MEDICINE and Free Protein S Antigen will be performed. Specimen Blood Performing Organization Address City/[facility] Phone Number [facility] DEPARTMENT OF PATHOLOGY AND [address] [place] [phone] [place] [address] Functional protein C (08/03/2017 1:05 PM ANDROID UI DEVELOPER) Functional protein C 92 70 - 165 % [facility] DEPARTMENT OF PATHOLOGY AND GENOMIC MEDICINE Specimen Blood Performing Organization Address [facility] Phone Number [facility] DEPARTMENT OF PATHOLOGY AND [address] [place] [phone] [place] [address] Lupus anticoagulant panel (08/03/2017 1:05 PM ANDROID UI DEVELOPER) Prothrombin time 12.9 12.0 - 15.0 sec [facility] DEPARTMENT OF PATHOLOGY AND GENOMIC MEDICINE INR 1.0 [facility] DEPARTMENT OF Comment: PATHOLOGY AND The International Normalized Ratio (INR) is a therapeutic [facility] MEDICINE monitoring tool for patients who are stable on oral anticoagulant therapy. An INR of 2.0-3.0 is suggested for deep vein thrombosis/pulmonary embolism. PTT 32.9 23.0 - 36.0 sec [facility] DEPARTMENT OF Comment: PATHOLOGY AND PTT therapeutic range for unfractionated heparin is GENOMIC MEDICINE 61.0-112.0 seconds which corresponds to Anti-Xa 0.3-0.7 U/ml. PTT lupus anticoagulant 33.8 27.0 - 38.0 sec [facility] DEPARTMENT OF Comment: PATHOLOGY AND Lupus anticoagulant [...] diagnosis. DRVVT 32.4 29.0 - 46.0 sec [facility] DEPARTMENT OF PATHOLOGY AND GENOMIC MEDICINE Specimen Blood Performing Organization Address City/[facility] Phone Number [facility] DEPARTMENT OF PATHOLOGY AND [address] [place], [place] [phone] [place] [address] Antithrombin III level (08/03/2017 1:05 PM ANDROID UI DEVELOPER) Antithrombin III 96 80 - 130 % [facility] DEPARTMENT OF PATHOLOGY AND GENOMIC [facility] Specimen Blood Performing Organization Address City/[facility] Phone Number [facility] DEPARTMENT OF PATHOLOGY AND [address] [place] [address] PV vein mapping upper extremity (08/03/2017 11:37 AM ANDROID UI DEVELOPER) Narrative Performed At [facility] Upper Extremity Vein Mapping Duplex Report [address] [place], [place] Pat.Name:KYA NICHOLASt.ID:[id number] .Date: 08/03/2017 Refer.MD:JOSELIN BANKS MD Exam Time: 10:50:00 AM Study Type:UE Vein Mapping DOBAge:1935,81Y Sex: MALE Sonogrphr: VLADISLAV CarrascoapeVol: KF, CPT - 4: 90387 Echo Event ID:[id number] Order ID:[id number] Reason for Study:Pre-operative vein mapping for new dialysis access for right hand dominant male with with IJ tunneled catheter.History of 2 failed right AVF's.ESRD. Race:C SUMMARY: DUPLEX SCAN OBSERVATIONS Right Left IJPatent Patent SubclavianPatent Patent AxillaryPatent Patent BrachialPatent Patent Cephalic, arm Patent Patent Cephalic, forearm Patent Patent Basilic, armPatent Patent Basilic, forearm Patent Patent Brachial artery Pressure 176/96225/73 PSV cm/sec 8586 Radial artery PSV cm/sec 01324 Ulnar artery PSV cm/sec 58379 RIGHT:There is normal compressibility and no evidence [...] Radiology Results In - 08/05/2017 10:04 PM [facility] Upper Extremity Vein Mapping Duplex Report [address] [place] [address] Pat.Name: KYA NICHOLAS Pat.ID: [id number] St.Date: 08/03/2017 Refer.MD: JOSELIN BANKS MD Exam Time: 10:50:00 AM Study Type:UE Vein Mapping Age: 1 1935,81Y Sex: MALE Sonogrphr: Elsa Goyal RVT Tape Vol: KF, CPT - 4: 91847 Echo Event ID:[id number] Order ID: [id number] Reason for Study:Pre-operative vein mapping for new [...] Gagan Jiménez MD, RPVI Performing Organization Address City/State/Zipcomo Phone Number [facility] [address] [place] [address] after 07/08/2017 Insurance Payer Benefit Plan / Group Subscriber ID Type Phone Address MEDICARE MEDICARE PART A AND B xxxxxxxxxx Medicare [place], [place] [employer] xxxxxxxxx Indemnity Advance Directives Patient has advance care planning documents, and code status on file. For more information, please contact:[facility] [id number] [place] [address] Code Status Date Activated Date Inactivated Comments Full Code 04/27/2018 8:29 PM 04/28/2018 6:33 PM Code Status decision reached by: Patient
--- OUTSIDE RECORDS SUMMARY | 2018-07-09 08:21 | XMS REPORT ---
:1935 [facility] [address] [place] [address] Care Team Providers Name Role Phone Alexandru [...] Comments Accuchek (test code=ACU) 369 mg/dL 70-110 [id number] 12:05:00 Test Item Value Reference Range Comments Accuchek (test code=ACU) 452 mg/dL 70-110 Gohwnqmd9591-11-58 08:00:00 Test Item Value Reference Range Comments Accuchek (test code=ACU) Greater than 550 mg/dL 70-110 Kvbwgauk9611-60-73 07:42:00 Test Item Value Reference Range Comments Accuchek (test code=ACU) 463 mg/dL 70-110 [id number] 06:23:00 Test Item Value Reference Range Comments Accuchek (test code=ACU) 157 mg/dL 70-110 [id number] 00:16:00 Test Item Value Reference Range Comments Accuchek (test code=ACU) 196 mg/dL 70-110 Ljnjjwnk0849-47-75 20:52:00 Test Item Value Reference Range Comments Accuchek (test code=ACU) 373 mg/dL 70-110 [id number] 18:44:00 Test Item Value Reference Range Comments Accuchek (test code=ACU) 459 mg/dL 70-110 Vgwzkghq0801-26-79 12:48:00 Test Item Value Reference Range Comments Accuchek (test code=ACU) 169 mg/dL 70-110 [id number] 06:58:00 Test Item Value Reference Range Comments [...] 83-110 Chemistry (test code=CA) 8.7 mg/dL 7.8-10.44 Ejmtwkpy7337-17-24 05:28:00 Test Item Value Reference Range Comments Accuchek (test code=ACU) 305 mg/dL 70-110 Dayukxnp3384-90-74 02:59:00 Test Item Value Reference Range Comments Accuchek (test code=ACU) 330 mg/dL 70-110 [id number] 18:35:00 Test Item Value Reference Range Comments Accuchek (test code=ACU) 458 mg/dL 70-110 [id number] 14:35:00 Test Item Value Reference Range Comments Accuchek (test code=ACU) 343 mg/dL 70-110 Nlezkaus5814-32-73 11:40:00 Test Item Value Reference Range Comments Accuchek (test code=ACU) 285 mg/dL 70-110 Mbgwlrru3727-17-57 08:52:00 Test Item Value Reference Range Comments Accuchek (test code=ACU) 187 mg/dL 70-110 Gaokptcx3552-89-32 05:04:00 Test Item Value Reference Range Comments Accuchek (test code=ACU) 323 mg/dL 70-110 Awfxdmtn1846-25-40 02:53:00 Test Item Value Reference Range Comments Accuchek (test code=ACU) 369 mg/dL 70-110 Wkjpdjlm6897-38-04 20:55:00 Test Item Value Reference Range Comments Accuchek (test code=ACU) 486 mg/dL 70-110 [id number] 16:55:00 Test Item Value Reference Range Comments Accuchek (test code=ACU) 432 mg/dL 70-110 [id number] 14:33:00 Test Item Value Reference Range Comments Accuchek (test code=ACU) 287 mg/dL 70-110 [id number] 09:53:00 Test Item Value Reference Range Comments Accuchek (test code=ACU) 119 mg/dL 70-110 Rgqvxvsjy7895-04-32 09:13:00 Test Item Value Reference Range Comments [...] Value! Chemistry (test code=CA) 8.6 mg/dL 7.8-10.44 Wegzmvem6120-65-77 05:37:00 Test Item Value Reference Range Comments Accuchek (test code=ACU) 94 mg/dL 70-110 Zuqaxeab9770-58-42 02:52:00 Test Item Value Reference Range Comments Accuchek (test code=ACU) 87 mg/dL 70-110 Kdkasxdv6671-85-03 22:27:00 Test Item Value Reference Range Comments Accuchek (test code=ACU) 370 mg/dL 70-110 Pitgybuou7821-90-79 19:37:00 Test Item Value Reference Range Comments Chemistry (test code=CCC) ALEJANDRINA.LAB@1936 Refer to Critical Value designated by an *L or *H Chemistry (test code=GLU-T) 632 mg/dL 83-110 Critical value! Is patient fasting? NoComment line gmqaWcmdhodrn7428-30-14 17:31:00 Test Item Value Reference Range Comments Chemistry (test code=CCC) ALEJANDRINA.RG@1731 Refer to Critical Value designated by an *L or *H Chemistry (test code=GLU-T) 762 mg/dL 83-110 Critical value! Is patient fasting? ZeItxcxsmsy2587-75-54 11:55:00 Test Item Value Reference Range Comments [...] 83-110 Chemistry (test code=CA) 8.8 mg/dL 7.8-10.44 Nkcyjsqq9865-86-22 06:35:00 Test Item Value Reference Range Comments Accuchek (test code=ACU) 273 mg/dL 70-110 Mmuaniel0901-43-91 20:59:00 Test Item Value Reference Range Comments Accuchek (test code=ACU) 351 mg/dL 701[address] Osrjtynv4538-50-96 17:23:00 Test Item Value Reference Range Comments Accuchek (test code=ACU) 116 mg/dL [address] [id number] 11:55:00 Test Item Value Reference Range Comments Accuchek (test code=ACU) 413 mg/dL 70-110 Hsfpsnda9688-84-07 05:25:00 Test Item Value Reference Range Comments Accuchek (test code=ACU) 286 mg/dL 70-110 Ztpglrrw7805-88-08 21:17:00 Test Item Value Reference Range Comments Accuchek (test code=ACU) 185 mg/dL 701[address] Bhbjpumc7047-05-21 18:59:00 Test Item Value Reference Range Comments Accuchek (test code=ACU) 383 mg/dL 110 Qtmruryc5083-66-92 18:59:00 Test Item Value Reference Range Comments Accuchek (test code=ACU) 227 mg/dL 110 Trjkdhgm7595-39-99 13:41:00 Test Item Value Reference Range Comments Accuchek (test code=ACU) 293 mg/dL 70-110 Llpkhoyo6122-18-27 05:45:00 Test Item Value Reference Range Comments Accuchek (test code=ACU) 396 mg/dL 110 Ihlwtmwt9365-07-60 05:11:00 Test Item Value Reference Range Comments Accuchek (test code=ACU) 404 mg/dL 70-110 Gmdlhbpzy7925-18-04 04:23:00 Test Item Value Reference Range Comments [...] 83-110 Chemistry (test code=CA) 8.2 mg/dL 7.8-10.44 Ljydzqefjt1043-02-15 04:05:00 Test Item Value Reference Range Comments [...] 0.0-0.7 Hematology (test code=BASO#) 0.0 thou/uL 0.0-0.2 [id number] 22:43:00 Test Item Value Reference Range Comments Accuchek (test code=ACU) 248 mg/dL 70-110 Nfwjnemr6171-60-63 19:16:00 Test Item Value Reference Range Comments Accuchek (test code=ACU) 301 mg/dL 70-110 Chemistry - Geidynpz7014-85-89 12:59:00 Test Item Value Reference Range Comments [...] considered immune to HBV infection. Chemistry - Puhgeohe0324-53-08 12:59:00 Test Item Value Reference Range Comments Chemistry - Specials (test code=THBSAG) Non-Reactive S/CO NonReactive Chemistry - [id number] 12:59:00 Test Item Value Reference Range Comments Chemistry - Specials (test code=INTHEPBCT) Non-Reactive NonReactive Chemistry - Onxidddt2290-22-09 12:59:00 Test Item Value Reference Range Comments Chemistry - Specials (test code=INTHEPC) Non-Reactive NonReactive Yrvxtdhh1830-58-53 11:53:00 Test Item Value Reference Range Comments Accuchek (test code=ACU) 377 mg/dL 70-110 Qmoyybqe8342-68-50 05:45:00 Test Item Value Reference Range Comments Accuchek (test code=ACU) 219 mg/dL 70-110 Ymmytrltja6202-01-53 05:05:00 Test Item Value Reference Range Comments [...] (100X) 0-5/hpf Hematology (test code=PCOMMENT) Appears Adequate Vtsdqwovz7956-67-01 04:36:00 Test Item Value Reference Range Comments [...] 83-110 Chemistry (test code=CA) 8.5 mg/dL 7.8-10.44 Rdsscyev8215-29-94 20:44:00 Test Item Value Reference Range Comments Accuchek (test code=ACU) 174 mg/dL 70-110 Gaxtiwwa8793-11-33 17:03:00 Test Item Value Reference Range Comments Accuchek (test code=ACU) 344 mg/dL 70-110 Ytysuctb5866-34-66 17:03:00 Test Item Value Reference Range Comments Accuchek (test code=ACU) 217 mg/dL 70-110 Chemistry - Mkhbm7491-72-02 09:20:00 Test Item Value Reference Range Comments Chemistry - Urine (test 72.26 mg/dL 63-166 NOTE: Concentration is based code=URCREAT) on a daily urine output of1.5 Liters. Chemistry - Fhmhh1588-90-74 09:20:00 Test Item Value Reference Range Comments Chemistry - Urine (test code=URTP) 381 mg/dL Chemistry - BNP, HgbA1c, [id number] 08:00:00 Test Item Value Reference Range Comments Chemistry - BNP, HgbA1c, 6.3 % 4.0-6.0 Therapeutic goals for glycemic PTHi (test code=HQVH2BO) control (ADA)Adults:- Goal of therapy: Less than 7.0% HbA1c- Action suggested: Greater than 8.0% QjE8yKvdvxwflv patients:- Toddlers and preschoolers: Less than 8.5% (but Greater than 7.5%)- School age (6-12 years): Less than 8%- Adolescents and young adults (13-19 years): Less than 7.5%Diagnosing diabetes (ADA)- HbA1c: Greater than or equal to 6.5% Values of 5.7 - 6.4% indicate HIGH risk for developing DiabetesInternational Expert Committee Report on the Role of the E5FNccez in the Diagnosis of Diabetes. Diabetes Care 2009July;32(7):1327-1334ADA, Diagnosis classification of diabetes mellitus.Diabetes Care 2010; 33 Suppl 1:S62 [id number] 05:46:00 Test Item Value Reference Range Comments [...] 83-110 Chemistry (test code=CA) 8.8 mg/dL 7.8-10.44 Qzwshblx7738-05-45 05:35:00 Test Item Value Reference Range Comments Accuchek (test code=ACU) 262 mg/dL 70-110 Nbammkbowr6871-51-70 05:21:00 Test Item Value Reference Range Comments [...] 0.0-0.7 Hematology (test code=BASO#) 0.1 thou/uL 0.0-0.2 Xgbtofuh7704-07-57 21:30:00 Test Item Value Reference Range Comments Accuchek (test code=ACU) 279 mg/dL 70-110 [id number] 16:30:00 Test Item Value Reference Range Comments Accuchek (test code=ACU) 145 mg/dL 70-110 Fpiavwmb0141-73-14 11:42:00 Test Item Value Reference Range Comments Accuchek (test code=ACU) 119 mg/dL 70-110 Wtzgyzjug4325-41-57 06:48:00 Test Item Value Reference Range Comments [...] 8.4 mg/dL 7.8-10.44 Chemistry - BNP, HgbA1c, [id number] 06:45:00 Test Item Value Reference Range Comments Chemistry - BNP, HgbA1c, PTHi (test code=BNP) 419.1 pg/mL 0-100 [id number] 06:35:00 Test Item Value Reference Range Comments Accuchek (test code=ACU) 171 mg/dL 70-110 Udiocfkpcv6369-94-65 06:20:00 Test Item Value Reference Range Comments [...] 0.0-0.7 Hematology (test code=BASO#) 0.0 thou/uL 0.0-0.2 [id number] 22:09:00 Test Item Value Reference Range Comments Accuchek (test code=ACU) 223 mg/dL 70-110 Nxtpkvdz7255-20-12 17:33:00 Test Item Value Reference Range Comments Accuchek (test code=ACU) 100 mg/dL 70-110 Rmtybzvm6369-31-47 14:32:00 Test Item Value Reference Range Comments Accuchek (test code=ACU) 375 mg/dL 70-110 Tkiwbaib1810-26-47 14:32:00 Test Item Value Reference Range Comments Accuchek (test code=ACU) 285 mg/dL 70-110 Pjlwdlin1485-73-10 10:33:00 Test Item Value Reference Range Comments Accuchek (test code=ACU) 498 mg/dL 70-110 NOTIFIED NURSE Pulogdzy4051-09-83 09:23:00 Test Item Value Reference Range Comments Accuchek (test code=ACU) 523 mg/dL 70-110 Undpgsfdgq1881-20-34 03:49:00 Test Item Value Reference Range Comments [...] LPF 0-3 Hyaline Urine Source: Urine Clean NbeilDannlblki2436-42-02 00:20:00 Test Item Value Reference Range Comments [...] 5-34 Chemistry (test code=ALT) 21 U/L 8-55 Dojfqfbtq1808-13-88 00:20:00 Test Item Value Reference Range Comments Chemistry (test code=PHOS) 4.0 mg/dL 2.3-4.7 Unsadnxlk0370-19-03 00:20:00 Test Item Value Reference Range Comments Chemistry (test code=MG) 2.4 mg/dL 1.6-2.6 Qiunlttu9190-06-68 00:14:00 Test Item Value Reference Range Comments Accuchek (test code=ACU) 113 mg/dL 70-110 Qiozliuhqg5425-71-73 23:58:00 Test Item Value Reference Range Comments [...]
--- OUTSIDE RECORDS SUMMARY | 2018-07-09 08:22 | XMS REPORT | Summary of Care ---
:1935 Author Name Ulysses Stevenson Beatrice Address Unavailable Unavailable , Care Team Providers Name Role Phone ADDIS VASQUEZ M.D. 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: Active Benign essential hypertension (401.1, I10) Status: Active Diabetic retinopathy (250.50, E11.319) Status: Active ESRD on hemodialysis (585.6, N18.6) Status: Active Hypoglycemia due to insulin (251.1, E16.0) Status: Active Hypothyroidism (244.9, E03.9) Status: Active Presence of insulin pump (V45.85, Z96.41) Status: Active Type 1 diabetes mellitus (250.01, E10.9) Status: Active Medications Name Dates Details Levothyroxine Sodium 125 MCG Oral Tablet TAKE 1 TABLET BY MOUTH EVERY DAY Refills: 0 Active Atorvastatin Calcium 20 MG Oral Tablet TAKE [...] DIRECTED WITH INSULIN PUMP Quantity: 9 Refills: ADDIS PISANO M.D. Start : 16-Jun-2017 Active 10 ML Vial Contour Next Test In Vitro Strip check blood sugar up to four times a day Quantity: 400 Refills: 2 JOCELINE Gonzalez, ADDIS Start : 11-Apr-2018 Active Lisa Microlet Lancets TEST 4 TIMES DAILY. ICD 10 E10.9 Quantity: 4 Refills: 3 JOCELINE Gonzalez, ADDIS Start : 28-Jun-2018 Active 100 Unit Package Allergies and Adverse Reactions Name Dates Details [...] Z87.448) Status: Resolved Procedures Procedure Dates Details History of Hernia repair Completed Immunization Name Dates Details Immunizations not documented Family History Name Dates Details Family history of cerebrovascular accident (CVA) (V17.1, Z82.3) Status: Active Social History Name Dates Details - Status: Name Dates Details Former smoker Vital Signs Date Test Result Details :56 BP Systolic 197 mm[Hg] Status: Comments: Location: LUE; Position: Sitting BP Diastolic 73 mm[Hg] Status: Comments: Location: LUE; Position: Sitting Height 67 in Status: Weight 160 lb Status: Body Mass Index Calculated 25.06 kg/m2 Status: Body Surface Area Calculated 1.84 m2 Status: Temperature 97.6 f Status: Comments: Method: Oral Heart Rate 60 /min Status: Comments: Location: L Brachial Artery; Results Date Description Value Details :59 Glucose (Point of Care In Office) Glucose POC [facility] 112 :59 [O] Hemoglobin A1c (in office) HEMOGLOBIN A1c 6.6 (Abnormal) [id number]-[id number]:06 [QLH] VITAMIN D, 25-HYDROXY, LC/MS/MS Vitamin D, 25-OH, 21.1 ng/ml (Below low Range: 30.0-100.0 Total threshold) Comments: Reference range is based on recommendations in the [facility] Clinical Practice Guideline (J Clin Endocrinol Krowk6488;96 :1332-7916) :06 [[facility]] MICROALBUMIN, RANDOM URINE (W/CREATININE) Urine Microalbumin 5610.0 mg/L U Creatinine 167.00 mg/dl Comments: No established reference ranges. Urine Microalbuming Creatinine 3359.3 {MCG/MG_CRE} Range: <=30.0 Ratio (Above high threshold) :06 [[facility]] HEMOGLOBIN A1c Hemoglobin A1c 7.2 % (Above high threshold) Range: <=5.6 :06 [[facility]] CMP W/EGFR Sodium Level 137 {mEq/l} Range: 135-145 Potassium Level 5.2 {mEq/l} (Above high Range: 3.5-5.1 threshold) Chloride Level 100 {mEq/l} Range: 95-109 Carbon Dioxide 29 {mEq/l} Range: 24-32 AGAP 13.2 {mEq/l} Range: 10.0-20.0 Glucose Lvl 134 mg/dl (Above high Range: 70-99 threshold) Comments: Adult reference range values reflect the clinical guidelinesof the [place] [employer]. Creatinine Lvl 4.00 mg/dl (Above high Range: 0.50-1.40 threshold) Blood Urea Nitrogen 45 mg/dl (Above high Range: 7-22 threshold) BUN/Creatinine Ratio 11 Range: 6-25 Total Protein 7.3 g/dl Range: 6.4-8.4 Albumin Lvl 3.8 g/dl Range: 3.5-5.0 Globulin 3.5 g/dl Range: 2.7-4.2 A/G Ratio 1.1 Range: 0.7-1.6 Calcium Level Total 8.8 mg/dl Range: 8.5-10.5 ALT 19 u/l Range: 0-65 AST 23 u/l Range: 0-37 Bili Total 0.4 mg/dl Range: 0.2-1.3 Alk Phos 126 u/l Range: 39-136 eGFR 13 {ML/MIN/1.7} Comments: The eGFR is calculated using the CKD-EPI formula. In most young, healthyindividuals the eGFR will be >90 mL/min/1.73m2. The eGFR declines with age. AneGFR of 60-89 may be normal in some populations, particularly the elderly, forwhom the CKD-EPI formula has not been extensively validated. Use of the eGFR isnot recommended in the following populations:Individuals with unstable creatinine concentratio ns, including patients and those with serious co-morbid conditions.Patients with extremes in muscle mass or diet.The data above are obtained from the National Kidney Disease Education Program(NK DEP) which additionally recommends that when the eGFR is used in patientswith extremes of body mass index for purposes of drug dosing, the eGFR shouldbe multiplied by the estimated BMI. [id number]:06 [[facility]] LIPID PANEL Chol 292 mg/dl (Above high threshold) Range: <=199 Trig 132 mg/dl Range: <=149 HDL Cholesterol 117 mg/dl Range: >=61 LDL 149 mg/dl (Above high threshold) Range: <=99 CHD Risk 2.50 (Below low threshold) Range: 4.00-7.30 VLDL 26 :06 [[facility]] T4, FREE T4 Free 1.08 ng/dl Range: 0.76-1.46 9-Anz-449804:06 [[facility]] TSH, 3RD GENERATION TSH 12.900 {uIU/ml} (Above high threshold) Range: 0.360-3.740 Plan of Care Name Dates Details Planned Observations Planned Goals not documented Planned Encounters Appointment; ADDIS VASQUEZ M.D. On: 18-Oct-2018 10:00 Interventions Provided Medication ChangesBayer Microlet Lancets - Renew Instructions Name Dates Details Instructions not documented [...] 22-Dec-2017 13:40 Encounter Diagnosis: Problem not documented Appointment; ADDIS VASQUEZ M.D. On: 14-Jun-2018 10:00 Encounter Diagnosis: Problem not documented
[2018-07-09] MEDS ORDERED: ALBUTEROL 2.5 MG/3 ML NEB SOL ONE (08:59)
[2018-07-09] MEDS ORDERED: IPRATROPIUM BROM 0.5MG/2.5ML ONE ×2 (08:59→12:11)
[2018-07-09 09:20] LABS: Absolute Neutrophil 9.5 K/uL (1.8-8.0); Basophils % 0.6 % (0-1.3); Eosinophils % 0.3 % (0-4.4); Hematocrit 27.6 % (39.6-49.0); Lymphocytes % 8.4 % (15.3-44.8); MPV 10.1 fL (7.6-11.3); Monocytes % 8.3 % (3.3-12.3)
[2018-07-09 09:49] LABS: Albumin 3.3 g/dL (3.4-5.0); Bilirubin Total 0.2 mg/dL (0.2-1.0); Magnesium 2.2 mg/dL (1.8-2.4); Potassium 3.9 mmol/L (3.5-5.1); Protein, Total 6.5 g/dL (6.4-8.2); Troponin (Emerg Dept Use Only) 0.29 ng/mL (0.0-0.045)
--- NOTE | 2018-07-09 10:00 | ER ---
Nurse's Notes [facility] Name: Chana Duff Age: 82 yrs Sex: Male : 1935 Arrival Date: 07/09/2018 Time: 08:22 Bed 5 Private MD: James Callahan C Diagnosis: Shortness of breath;Elevated Troponin Presentation: 07/09 08:33 Presenting complaint: Daughter reports pt had SOB for 2 weeks, worst today. SPO2 at 72% ca1 RA, increased to 94% at 02 3LPM. Pt on dialysis MWF, last session Wednesday yesterday. Transition of care: patient was not received from another setting of care. Onset of symptoms was July 09, 2018. Risk Assessment: Do you want to hurt yourself or someone else? Patient reports no desire to harm self or others. Initial Sepsis Screen: Does the patient meet any 2 criteria? RR > 20 per min. Does the patient have a suspected source of infection? Yes: Productive cough/pneumonia. Care prior to arrival: None. 08:33 Method Of Arrival: Wheelchair ca1 08:33 Acuity: SOFIA 3 ca1 Triage Assessment: 08:35 General: Appears in no apparent distress. Behavior is calm, cooperative, appropriate ca1 for age. Pain: Denies pain. Respiratory: Reports shortness of breath on exertion cough that is non-productive, Onset: The symptoms/episode began/occurred this morning, the patient has moderate shortness of breath. Historical: - Allergies: 08:33 No Known Allergies; ca1 - Home Meds: 08:40 metoprolol tartrate 50 mg oral tab .5 tab 2 times per day [Active]; doxazosin 2 mg oral ca1 tab .5 tab at bedtime [Active]; atorvastatin 20 mg oral tab 1 tab once daily [Active]; levothyroxine 125 mcg tab 1 tab once daily [Active]; amlodipine 5 mg tab 1 tab twice daily [Active]; furosemide 80 mg Oral tab 1 tab once daily [Active]; aspirin 81 mg Oral chew 1 tab once daily [Active]; Insulin pump [Active]; - PMHx: 08:33 Diabetes - IDDM; Dialysis; ESRD; Hyperlipidemia; Hypertension; ca1 - PSHx: 08:33 Hernia repair; stents in legs (R); ca1 - Immunization history:: Adult Immunizations not up to date. - Social history:: Smoking status: Patient/guardian denies using tobacco. - Ebola Screening: : Patient denies exposure to infectious person Patient denies travel to an Ebola-affected area in the 21 days before illness onset No symptoms or risks identified at this time. Screenin:35 Abuse screen: Denies threats or abuse. Denies injuries from another. Nutritional ca1 screening: No deficits noted. Tuberculosis screening: No symptoms or risk factors identified. Fall Risk IV access (20 points). Ambulatory Aid- Crutches/Cane/Walker (15 pts). Assessment: 08:35 General: Appears in no apparent distress. Behavior is calm, cooperative, appropriate ca1 for age. Pain: Denies pain. Neuro: Level of Consciousness is awake, alert, obeys commands, Oriented to person, place, time, situation. Cardiovascular: Heart tones S1 S2 present Capillary refill < 3 seconds Rhythm is regular. Respiratory: Airway is patent Respiratory effort is even, unlabored, Breath sounds are clear bilaterally. GI: Abdomen is flat, non-distended, Bowel sounds present X 4 quads. Abd is soft and non tender X 4 quads. : No signs and/or symptoms were reported regarding the genitourinary system. EENT: Reports decreased hearing in left ear and right ear. Derm: Skin is intact, Skin is pink, warm \T\ dry. Dialysis Fistula on L arm and Insulin pump on RLQ. Musculoskeletal: Circulation, motion, and sensation intact. 09:26 Reassessment: Patient appears in no apparent distress at this time. Patient and/or ca1 family updated on plan of care and expected duration. Pain level reassessed. Patient is alert, oriented x 3, equal unlabored respirations, skin warm/dry/pink. 10:22 Reassessment: Patient appears in no apparent distress at this time. Patient and/or ca1 family updated on plan of care and expected duration. Pain level reassessed. Patient is alert, oriented x 3, equal unlabored respirations, skin warm/dry/pink. Dr. Callahan talked to pt and family, regarding need for admit. 11:45 Reassessment: Patient appears in no apparent distress at this time. Patient is alert, ca1 oriented x 3, equal unlabored respirations, skin warm/dry/pink. Awaiting room assignment. 12:02 Reassessment: RT at bedside for breathing treatment. ca1 Vital Signs: 08:33 BP 166 / 75; Pulse 82; Resp 24; Temp 98.4; Pulse Ox 96% on 3 lpm NC; Weight 71.67 kg; ca1 Height 5 ft. 7 in. (170.18 cm); 09:18 Pulse Ox 88% on R/A; ca1 09:21 BP 173 / 67; Pulse 78; Resp 20; Pulse Ox 96% on 3 lpm NC; ca1 10:22 BP 174 / 69; Pulse 77; Resp 17; Pulse Ox 95% on 3 lpm NC; ca1 11:30 BP 175 / 63; Pulse 76; Resp 19; Pulse Ox 97% on 3 lpm NC; ca1 12:02 BP 171 / 63; Pulse 73; Resp 16; Pulse Ox 100% on 2 lpm NC; ca1 08:33 Body Mass Index 24.75 (71.67 kg, 170.18 cm) ca1 ED Course: 08:22 Patient arrived in ED. mr 08:22 James Callahan MD is Private Physician. mr 08:32 Helga Fournier, MEHRAN is Primary Nurse. ca1 08:33 Arm band placed on right wrist. ca1 08:34 Mart Shin MD is Attending Physician. ps1 08:35 Patient has correct armband on for positive identification. Placed in gown. Bed in low ca1 position. Call light in reach. Side rails up X 1. washtub worker on. Pulse ox on. NIBP on. Warm blanket given. 08:38 Triage completed. ca1 08:38 EKG done, by ED staff, reviewed by Mart Shin MD. jb1 08:45 First set of blood cultures drawn by me. jb1 09:00 Second set of blood cultures drawn by me. jb1 09:07 X-ray completed. Portable x-ray completed in exam room. Patient tolerated procedure la2 well. 09:08 XRAY CXR (1 view) In Process Unspecified. EDMS 09:09 Initial lab(s) drawn, by me, sent to lab. Inserted saline lock: 22 gauge in right jb1 antecubital area, using aseptic technique. Blood collected. 09:58 James Callahan MD is Hospitalizing Provider. ps1 11:50 No provider procedures requiring assistance completed. Patient admitted, IV remains in ca1 place. Administered Medications: 08:50 Drug: DuoNeb (3:1) (2.5 mg - 0.5 mg) 3 ml Route: Nebulizer; ca1 09:45 Follow up: Response: No adverse reaction ca1 Outcome: 09:59 Decision to Hospitalize by Provider. ps1 13:35 Admitted to Tele accompanied by tech, family with patient, via stretcher, room 406, ca1 with chart, Report called to Raphael Fernandez II, RN 13:35 Condition: stable 13:35 Discharge instructions given to patient, family, Instructed on the need for admit. ca1 13:41 Patient left the ED. iw Signatures: Dispatcher [employer] EDMS Yonas Huerta1 Michelle Kaur mr Melba Vu, RN RN iw Ly Motley2 Mart Shin MD MD ps1 Helga Fournier RN RN ca1 Corrections: (The following items were deleted from the chart) 09:27 08:33 Presenting complaint: Daughter states pt had SOB for 2 weeks, worst today. SPO2 ca1 at 72% RA, increased to 94% at 02 3LPM. Pt on dialysis MWF, last session Wednesday yesterday. ca1 10:41 10:22 Reassessment: Patient appears in no apparent distress at this time. Patient ca1 and/or family updated on plan of care and expected duration. Pain level reassessed. Patient is alert, oriented x 3, equal unlabored respirations, skin warm/dry/pink. ca1 10:42 10:22 Reassessment: Patient appears in no apparent distress at this time. Patient ca1 and/or family updated on plan of care and expected duration. Pain level reassessed. Patient is alert, oriented x 3, equal unlabored respirations, skin warm/dry/pink. London Caldwell at bedside. ca1 11:50 11:30 BP 175 / 63; Pulse 76bpm; Resp 19bpm; Pulse Ox 97% RA; ca1 ca1
--- NOTE | 2018-07-09 10:00 | EDPHYS ---
Physician Documentation [facility] Name: Chana Duff Age: 82 yrs Sex: Male : 1935 Arrival Date: 07/09/2018 Time: 08:22 Bed 5 Private MD: James Callahan C ED Physician Mart Shin HPI: 07/09 08:42 This 82 yrs old Male presents to ER via Wheelchair with complaints of ps1 Breathing Difficulty. 08:42 pt has COPD on PRN O2, dialysis TTS. States that he has had an increased cough over the ps1 last couple of days with increased SOB. He was put on zpack and steroids 3 days ago by Tamara. States that he was doing ok this morning while sitting down on 02 and then he went to put on his pants without 02 and he became markedly SOB. Did not get flu shot this year. No fever, chills, YOUSSEF, n,v,d. . Historical: - Allergies: 08:33 No Known Allergies; ca1 - Home Meds: 08:40 metoprolol tartrate 50 mg oral tab .5 tab 2 times per day [Active]; doxazosin 2 mg oral ca1 tab .5 tab at bedtime [Active]; atorvastatin 20 mg oral tab 1 tab once daily [Active]; levothyroxine 125 mcg tab 1 tab once daily [Active]; amlodipine 5 mg tab 1 tab twice daily [Active]; furosemide 80 mg Oral tab 1 tab once daily [Active]; aspirin 81 mg Oral chew 1 tab once daily [Active]; Insulin pump [Active]; - PMHx: 08:33 Diabetes - IDDM; Dialysis; ESRD; Hyperlipidemia; Hypertension; ca1 - PSHx: 08:33 Hernia repair; stents in legs (R); ca1 - Immunization history:: Adult Immunizations not up to date. - Social history:: Smoking status: Patient/guardian denies using tobacco. - Ebola Screening: : Patient denies exposure to infectious person Patient denies travel to an Ebola-affected area in the 21 days before illness onset No symptoms or risks identified at this time. ROS: 08:42 Constitutional: Negative for fever, chills, and weight loss, Eyes: Negative for injury, ps1 pain, redness, and discharge, Cardiovascular: Negative for chest pain, palpitations, and edema, Abdomen/GI: Negative for abdominal pain, nausea, vomiting, diarrhea, and constipation, Back: Negative for injury and pain, MS/Extremity: Negative for injury and deformity, Skin: Negative for injury, rash, and discoloration, Neuro: Negative for headache, weakness, numbness, tingling, and seizure. 08:42 Respiratory: Positive for cough, dyspnea on exertion, shortness of breath. Exam: 08:42 Constitutional: This is a well developed, well nourished patient who is awake, alert, ps1 and in no acute distress. Head/Face: Normocephalic, atraumatic. Chest/axilla: Normal chest wall appearance and motion. Nontender with no deformity. No lesions are appreciated. Cardiovascular: Regular rate and rhythm. No gallops, murmurs, or rubs. Normal PMI, no JVD. No pulse deficits. Respiratory: Lungs have equal breath sounds bilaterally, clear to auscultation and percussion. No rales, rhonchi or wheezes noted. No increased work of breathing, no retractions or nasal flaring. Abdomen/GI: Soft, non-tender, with normal bowel sounds. No distension or tympany. No guarding or rebound. No evidence of tenderness throughout. Skin: Warm, dry with normal turgor. Normal color with no rashes, no lesions, and no evidence of cellulitis. MS/ Extremity: Pulses equal, no cyanosis. Neurovascular intact. Full, normal range of motion. Neuro: Awake and alert, GCS 15, oriented to person, place, time, and situation. Cranial nerves II-XII grossly intact. Sensory grossly intact. Psych: Awake, alert, with orientation to person, place and time. Behavior, mood, and affect are within normal limits. Vital Signs: 08:33 BP 166 / 75; Pulse 82; Resp 24; Temp 98.4; Pulse Ox 96% on 3 lpm NC; Weight 71.67 kg; ca1 Height 5 ft. 7 in. (170.18 cm); 09:18 Pulse Ox 88% on R/A; ca1 09:21 BP 173 / 67; Pulse 78; Resp 20; Pulse Ox 96% on 3 lpm NC; ca1 10:22 BP 174 / 69; Pulse 77; Resp 17; Pulse Ox 95% on 3 lpm NC; ca1 11:30 BP 175 / 63; Pulse 76; Resp 19; Pulse Ox 97% on 3 lpm NC; ca1 12:02 BP 171 / 63; Pulse 73; Resp 16; Pulse Ox 100% on 2 lpm NC; ca1 08:33 Body Mass Index 24.75 (71.67 kg, 170.18 cm) ca1 MDM: 08:47 Patient medically screened. ps1 07/09 08:42 Order name: Blood Culture Adult (2) ps1 07/09 08:42 Order name: CBC with Diff; Complete Time: 09:29 ps1 07/09 08:42 Order name: Lipase; Complete Time: 09:56 ps1 07/09 08:42 Order name: Magnesium; Complete Time: 09:56 ps1 07/09 08:42 Order name: NT PRO-BNP; Complete Time: 09:56 [facility] 07/09 08:42 Order name: Troponin (emerg Dept Use Only); Complete Time: 09:56 [facility] 07/09 08:42 Order name: CMP; Complete Time: 09:56 [facility] 07/09 08:51 Order name: Flu; Complete Time: 09:54 [facility] 07/09 10:56 Order name: Troponin I [facility] 07/09 10:56 Order name: Troponin I; Complete Time: 13:40 [facility] 07/09 10:56 Order name: Troponin I [facility] 07/09 10:56 Order name: Troponin I [facility] 07/09 10:56 Order name: Basic Metabolic Panel [facility] 07/09 10:56 Order name: Basic Metabolic Panel [facility] 07/09 08:42 Order name: XRAY CXR (1 view); Complete Time: 13:33 [facility] 07/09 08:42 Order name: EKG; Complete Time: 08:45 [facility] 07/09 08:42 Order name: Cardiac monitoring; Complete Time: 08:47 [facility] 07/09 08:42 Order name: EKG - Nurse/Tech; Complete Time: 08:47 ps1 07/09 08:42 Order name: IV Saline Lock; Complete Time: 09:08 [facility] 07/09 08:42 Order name: Labs collected and sent; Complete Time: 09:08 [facility] 07/09 08:42 Order name: O2 Per Protocol; Complete Time: 08:47 ps1 07/09 08:42 Order name: O2 Sat Monitoring; Complete Time: 08:47 [facility] 07/09 10:55 Order name: Respiratory Therapy Consult [facility] 07/09 10:55 Order name: Heart Healthy [facility] 07/09 10:56 Order name: CBC with Automated Diff [facility] 07/09 10:56 Order name: CBC with Automated Diff [facility] 07/09 10:56 Order name: Lipid Profile [facility] 07/09 10:56 Order name: Lipid Profile [facility] 07/09 13:09 Order name: Glucose, Ancillary Testing; Complete Time: 13:33 EDMS Administered Medications: 08:50 Drug: DuoNeb (3:1) (2.5 mg - 0.5 mg) 3 ml Route: Nebulizer; ca1 09:45 Follow up: Response: No adverse reaction ca1 Disposition: 07/09/18 09:59 Hospitalization ordered by James Callahan for Inpatient Admission. Preliminary diagnosis are Shortness of breath, Elevated Troponin. - Bed requested for Telemetry/MedSurg (Inpatient). - Status is Inpatient Admission. iw - Condition is Fair. - Problem is an acute exacerbation. - Symptoms have improved. UTI on Admission? No Signatures: [facility] Viktoriya Blum RN RN mw Williams, Irene, RN RN iw Singer, Phillip, MD MD ps1 Helga Fournier RN RN ca1 Corrections: (The following items were deleted from the chart) 12:15 09:59 Hospitalization Ordered by A London CANDELARIA for Inpatient Admission. Preliminary diagnosis is Shortness of breath; Elevated Troponin. Bed requested for Telemetry/MedSurg (Inpatient). Status is Inpatient Admission. Condition is Fair. Problem is an acute exacerbation. Symptoms have improved. UTI on Admission? No. ps1 13:41 12:15 07/09/2018 09:59 Hospitalization Ordered by A [place] CANDELARIA for Inpatient Admission. iw Preliminary diagnosis is Shortness of breath; Elevated Troponin. Bed requested for Telemetry/MedSurg (Inpatient). Status is Inpatient Admission. Condition is Fair. Problem is an acute exacerbation. Symptoms have improved. UTI on Admission? No. mw
--- NOTE | 2018-07-09 10:24 | RAD REPORT ---
EXAM DESCRIPTION: RAD - Chest Single View - 07/09/2018 9:16 am CLINICAL HISTORY: Shortness of breath COMPARISON: April 2018 TECHNIQUE: AP portable chest image was obtained 0908 hours . FINDINGS: Fibrotic lung pattern is present. Hilar granulomatous calcifications are present. Lung bas e parenchymal opacification is not clearly different from comparison. Minimal interstitial edema or i nfiltrate could be masked by the chronic findings. Heart and vasculature are normal. No measurable pl eural effusion and no pneumothorax. No acute bony abnormality seen. No acute aortic findings suspecte d. IMPRESSION: Bilateral lung base opacification and overall fibrotic lung pattern not substantially di fferent from comparison. Early interstitial edema or infiltrate could be masked by chronic disease.
[2018-07-09] MEDS ORDERED: ALBUTEROL 2.5 MG/3 ML NEB SOL NEB PRN (10:50)
[2018-07-09] MEDS ORDERED: ONDANSETRON 4 MG/2 ML VIAL IV PRN (10:50)
[2018-07-09] MEDS: IPRATROPIUM BROM 0.5MG/2.5ML NEB SCH ×3 (12:05→20:00)
--- NOTE | 2018-07-09 13:59 | HP ---
Date of Admission: 07/09/2018 Chief Complaint: Shortness of breath. History Of Present Illness: This is an 82-year-old male patient who has end- stage renal disease, COPD, on home oxygen, is having increasing shortness of breath for last 2 weeks. He started taking prednisone and antibiotics Zithromax as prescribed by his computer scientist this week on Wednesday, and he reports that he was doing okay until this morning. He started to have shortness of breath and came into emergency room. After he was evaluated, he was admitted to the hospital. I saw him in emergency room. His family was with him at bedside. He denies any fever, chills. Denies any expectoration. No chest pain. Allergies: NO KNOWN ALLERGIES. Medications: List reviewed. Review of Systems: Respiratory: As mentioned above. All other systems reviewed and negative. Past Medical History: Significant for hypertension, end-stage renal disease on hemodialysis, hyperlipidemia, diabetes mellitus, possible renal artery stenosis , COPD, hypothyroidism, benign prostatic hypertrophy, gastroesophageal reflux disease, and stroke. Past Surgical History: Cataract surgery, hernia repair, angioplasty of leg artery due to peripheral vascular disease. Social History: No alcohol use, but prior history of smoking, not at present time. Family History: Not pertinent. Physical Examination: Vital Signs: Temperature 98.4, pulse 82, respiratory rate 24, blood pressure 166/75. Height 5 feet 7 inches, weight 160 pounds. General: Awake, alert, oriented, not in distress. HEENT: Head atraumatic, normocephalic. Conjunctivae nonerythematous. Sclerae white. Mouth, no thrush or edema noted. Ears/Nose, no mass, lesion, discharge noted. Neck: Supple. No JVD, lymph nodes, bruit, thyromegaly noted. Lungs: Right lung base has some rales. No wheezing. The patient is not using any accessory muscles of respiration. Heart: Normal heart sounds, no murmur or gallop. Abdomen: Soft, bowel sounds normal. No guarding, rigidity, tenderness, mass, hepatosplenomegaly, distention, or bruit noted. Extremities: No leg edema. No calf tenderness. Skin: No rash, ulcer, cellulitis. Lymphatics: No lymph node enlargement in neck, supraclavicular, infraclavicular region. Neuro: No focal neurological deficit. Chest: Unremarkable. External Genitalia: Deferred. Rectal: Deferred. Laboratory Data: Sodium 139, potassium 3.9, chloride 100, bicarb 28, BUN 45, creatinine 3.53, glucose 524. Liver function tests unremarkable. Troponin 0.29 , lipase 99. White count 11.5, hemoglobin 8.9, platelets 240. Chest x-ray, increased lung markings in the lung base, more so on right side than left side. Impression: 1. Pneumonia. 2. Acute exacerbation of chronic obstructive pulmonary disease. 3. End-stage renal disease, on hemodialysis. 4. Hypertension. 5. Diabetes mellitus, uncontrolled. 6. Hyperlipidemia. 7. Benign prostatic hypertrophy. 8. Gastroesophageal reflux disease. 9. Anemia due to chronic kidney disease. Plan: We will admit the patient to hospital for further evaluation and management of this problem. The patient is appropriate for inpatient and is expected to spend 2 midnights in hospital. We will get serial cardiac enzymes and give him oxygen nebulizer treatment, IV antibiotics. Home medications will be continued per order. DVT prophylaxis will be given per order, and I will see him tomorrow for followup. His last dialysis was yesterday and his dialysis is not due until Wednesday. We will consider nephrology consultation if he ends up staying in the hospital until Wednesday. VIELKA/MARIAJOSE Voice ID: [id number] MTDD
[2018-07-09] MEDS: CEFTRIAXONE/SWI 1gm 1 GM/10 ML SYR IV SCH (16:51)
[2018-07-09] MEDS: ALBUTEROL 2.5 MG/3 ML NEB SOL NEB SCH (20:00)
[2018-07-10] MEDS: IPRATROPIUM BROM 0.5MG/2.5ML NEB SCH ×6 (04:00→20:23)
[2018-07-10] MEDS: ALBUTEROL 2.5 MG/3 ML NEB SOL NEB SCH ×6 (04:00→20:23)
[2018-07-10 06:05] LABS: Absolute Lymphocytes (CBC) 1.6 K/uL (0.7-4.9); Absolute Monocytes 0.7 K/uL (0.1-1.3); Absolute Neutrophil 4.9 K/uL (1.8-8.0); Basophils % 0.9 % (0-1.3); Eosinophils % 4.4 % (0-4.4); Hematocrit 25.3 % (39.6-49.0); Lymphocytes % 20.9 % (15.3-44.8); MPV 10.1 fL (7.6-11.3); Monocytes % 8.7 % (3.3-12.3); RBC Red Blood Cell Count 2.65 M/uL (4.33-5.43)
[2018-07-10 06:19] LABS: Potassium 3.7 mmol/L (3.5-5.1)
--- NOTE | 2018-07-10 06:20 | EKG ---
Test Date: 2018-07-09 Test Time: 08:34:14 Excel Expert: BETH MEASUREMENT RESULTS: Intervals: Rate: 82 ME: 152 QRSD: 94 QT: 370 QTc: 432 Anderson: P: 77 ME: 152 QRS: 18 T: 60 INTERPRETIVE STATEMENTS: Normal sinus rhythm Normal ECG Compared to ECG 07/07/2017 13:16:47 Sinus bradycardia no longer present Electronically Signed On 07-10-18 06:16:52 WARP BLEACHING VAT TENDER by Arya Martin
[2018-07-10 07:26] LABS: Troponin I 0.34 ng/mL (0.0-0.045)
[2018-07-10] MEDS: CEFTRIAXONE/SWI 1gm 1 GM/10 ML SYR IV SCH (08:54)
[2018-07-10] MEDS: AZITHROMYCIN 250 MG TAB PO SCH (08:55)
[2018-07-10] MEDS ORDERED: HOME MED 1 EA UNK (Furosemide [Lasix] 80 MG) PO SCH (10:00)
[2018-07-10] MEDS: ASPIRIN 81 MG CHEWABLE TABLET PO SCH (10:09)
[2018-07-10] MEDS: METOPROLOL TAR 25 MG TAB PO SCH ×3 (10:10→21:04)
[2018-07-10] MEDS: AMLODIPINE 5 MG TAB PO SCH ×2 (10:11→21:00)
[2018-07-10] MEDS: FUROSEMIDE 40 MG TABLET PO SCH (10:11)
[2018-07-10] MEDS ORDERED: GLUCAGON 1 MG/VIAL IM PRN (10:59)
[2018-07-10] MEDS ORDERED: D50W 25 GM/50 ML SYRINGE IV PRN (10:59)
[2018-07-10] MEDS: INSULIN -REGULAR HUMAN 50 UNIT/0.5 ML ML SQ SCH ×4 (11:30→21:00)
[2018-07-10] MEDS ORDERED: MAGNESIUM HYDROXIDE 8% 30 ML PO ONE (12:00)
[2018-07-10] MEDS: PIPER/TAZO/NS 2.25gm 2.25 GM/50 ML BAG IVPB SCH ×2 (12:26→16:48)
[2018-07-10] MEDS: NITROGLYCERIN 0.2 MG/HR (5 MG) PATCH TD SCH (12:27)
[2018-07-10 12:28] LABS: Urine Appearance CLEAR; Urine Bilirubin NEGATIVE (NEG); Urine Blood NEGATIVE (NEG); Urine Color YELLOW; Urine Glucose 2+ (NEG); Urine Protein 3+ (NEG); Urine Urobilinogen 0.2 mg/dL (0.2-1.0); Urine pH 6.5 (5.0-7.0)
--- NOTE | 2018-07-10 13:18 | CON ---
Date of Consultation: 07/10/2018 Additional Consulting Physician: Dr. Callahan. Reason For Consultation: Elevated BUN and creatinine, fluid management, end-stage renal disease. 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 The patient w as in his regular state of health, last week started having some shortness of breath. We tried to ch allenge him on dialysis, did not improve. Continued with cough with whitish sputum. No fever or chi lls. The patient was started on Z-Yimi and prednisone, did not improve. For that reason, he reported to the hospital. In the hospital, seen by Cardiology, recommended stress test. The patient due for dialysis tomorrow. We have been consulted to maintain his dialysis. Chest x-ray showing over volume. Past Medical History: Includes: 1.Diabetes complicated with neuropathy and nephropathy. 2.End-stage renal disease, on hemodialysis Wednesday, Wednesday, Wednesday at [facility] secondary t o solitary kidney, diabetes nephropathy, cardiorenal. 3.GERD. 4.COPD. Past Surgical History: Includes: 1.Hernia repair. 2.Cataract. 3.PTCA. 4.AV fistula placement on the right arm. 5.PermCath placement and removal. Family History: Positive for CVA and coronary artery disease. Social History: Ex-smoker. Occasional alcohol. Denies drug abuse. Review of Systems: Head and Neck: No red eye. No ear pain. GI: No nausea. No vomiting. : No polyuria. No dysuria. No hematuria. COMMUNITY LIAISON: Not applicable. Respiratory: Has shortness of breath. Cardiovascular: Has chest tightness. Endocrine: No polydipsia. Skin: No rash. Neurologic: Alert. Nonfocal. No weakness. Musculoskeletal: Generalized tiredness. Physical Examination: Vital Signs: When I saw the patient, blood pressure 177/76, pulse of 77, afebrile. Chest: Crackles, bilateral base. Heart: S1, S2. Systolic murmur. Abdomen: Soft, nontender. Extremities: Trace edema. Laboratory Data: WBC 7.5, H and H 8.5/25.3, platelets of 243. Sodium 142, potassium 3.7, bicarb 30, BUN 50, creatinine 3.6, calcium 7.9. Trop 0.3. Chest x-ray, cardiomegaly with congestion. Assessment And Plan: 1.End-stage renal disease. The patient due for dialysis tomorrow. We will arrange for the dialysis for tomorrow, and we will follow up. 2.We will challenge the patient. 3.Hypertension, controlled. We will continue current medication. I am going to add nitroglycerin f or the patient. 4.Coronary artery disease with congestive heart failure exacerbation. We will try to establish bett er volume control for the patient. 5.Anemia of chronic kidney disease. We will start the patient on Epogen. 6.Chronic obstructive pulmonary disease. Follow up with Primary. Continue current treatment. 7.Pneumonia with chronic obstructive pulmonary disease exacerbation. The patient was started on Zos yn and Z-Yimi. We will follow up with Dr. Callahan. Medications: Current medications in the hospital include aspirin, azithromycin 250 daily, Zosyn 2.25 every 8 hours, breathing treatment, amlodipine 5 mg b.i.d., metoprolol, doxazosin, atorvastatin, lev othyroxine. Case discussed with Dr. Callahan and with the family. Family agreed on the plan. VANDANA Voice ID: [id number] Report ID: [id number]
[2018-07-10 13:45] LABS: Urine Bacteria NONE SEEN /HPF (NONE SEEN); Urine Culture Reflex Order NOT NEEDED; Urine RBC <5 /HPF (NONE SEEN)
--- NOTE | 2018-07-10 14:54 | CON ---
Date of Consultation: 07/10/2018 Addendum: Medications: Home medications include Solu-Medrol, Z-Yimi, levothyroxine, Lasix, amlodipine, doxazosi n, atorvastatin, and metoprolol. Current medications include albuterol, amlodipine, atorvastatin, Z- Yimi, Zosyn, Lasix, insulin, magnesium oxide, levothyroxine. VANDANA Voice ID: [id number] Report ID: [id number]
--- NOTE | 2018-07-10 14:57 | CON ---
CARDIOLOGY CONSULT History Of Present Illness: Mr. Duff came to the hospital because of dyspnea. He has dyspnea o n exertion. He does not have cough, hemoptysis, fever, chills, sweats, orthopnea, pedal edema, pain in the chest, pressure or tightness. His dyspnea on exertion tends to come as much with eating as wi th mild activity. Mr. Duff is a gentleman with end-stage renal disease, hemodialysis for roughl y a year and a half. He has underlying diabetes, hypertension. He has had vascular disease with a s tent in his legs, but that was many years ago. He takes methylprednisolone, metoprolol, atorvastatin , Cardura, amlodipine, furosemide, levothyroxine, and aspirin. He has never had myocardial infarctio n or stroke. Allergies: NO DRUG ALLERGIES. Social History: No tobacco use for 6 years. Physical Examination: Vital Signs: He is 5 feet 7 inches, 160 pounds. HEENT: Normal. Lungs: Clear. Heart: Reveals a 2/6 systolic ejection murmur. No diastolic murmur. Abdomen: Soft. Extremities: No cyanosis, clubbing, or edema. Distal pulses are markedly diminished. Laboratory Data: His electrocardiogram is within normal limits. Hemoglobin is 8.5. Troponin levels are 0.39, 0.41, and 0.34, so basically a flat line. His creatinine is 3.69. His last hemodialysis was roughly 48 hours ago. His blood sugars are 267 and 155. Impression: My impression is that the patient may indeed have coronary artery disease with abnormal troponins, dyspnea on exertion in a hemodialysis patient who is diabetic, would be considered to be a very high risk for having coronary artery disease. Rather than jump right into a heart catheterizat ion, I would recommend that we do a pharmacologic nuclear stress test. The family is opposed to radha barnett this, so we will do an echocardiogram. They are contemplating whether they want to do a pharmacolo gic stress test or not. Everybody agrees the patient will not be able to perform on a treadmill type stress test. So if we cannot do the stress test and echo is completely normal, we will just embark on a treatment plan of medical therapy unless he develops chest pain or more objective signs that he has unstable angina, in which case, we will do a cardiac cath. JOSE/MARIAJOSE Voice ID: [id number] Report ID: [id number]
--- NOTE | 2018-07-10 17:08 | PN ---
Date of Progress Note: 07/10/2018 Subjective: The patient was seen this morning for followup. His 2 daughters were present at bedside . He was not feeling any better as far as shortness of breath is concerned today compared to yesterd ay. He denies any chest pain, no expectoration. The patient's daughters also requested for us to di scontinue his insulin pump and to use subcutaneous insulin injections here while in the hospital as i t is difficult for him to manage it while he is here at the hospital, and he will restart his insulin pump upon discharge from the hospital when he goes home. The daughters also reported that the patie nt has some problem with diabetic retinopathy and has appointment with a specialist for consideration of injection treatment in about 10 days or so. Objective: Vital Signs: Reviewed. HEENT: Unremarkable. Lungs: Clear to auscultation except minimum basal rales. Not in any respiratory distress. No wheez ing. Heart: Sounds normal. Abdomen: Soft. Bowel sounds normal. No guarding, rigidity, tenderness, distention. Extremities: No leg edema. Laboratory Data: White count 7.5, hemoglobin 8.5, platelets 243. BUN 50, creatinine 3.69, glucose 2 33. His total cholesterol 201, triglycerides 68, LDL 90. His cardiac enzymes, last troponin 0.34. Impression: 1.Pneumonia. 2.End-stage renal disease, on hemodialysis. 3.Chronic obstructive pulmonary disease. 4.Anemia due to chronic kidney disease. 5.Abnormal cardiac enzymes. 6.Hypertension. 7.Diabetes mellitus. 8.Constipation. Plan: Patient and family are requesting to discontinue SCD, and we will start heparin subcutaneous i njection for DVT prophylaxis. We will discontinue ceftriaxone and start him on Zosyn per order. Nep hrology consultation will be requested for dialysis as his dialysis will be due tomorrow. Cardiology consultation was requested from Dr. Martin for abnormal cardiac enzymes and he has evaluated the pat ient and he has given option of either doing chemical stress test or cardiac catheterization and nikolas rockwell is thinking about it. They had some questions and all of their questions were answered and the miriam bejarano's daughter and patient, they will think about whether they want to go for a cardiac cath or the y want to go for a chemical stress test tomorrow and they will let the nursing staff know once they m boris the decision. We will give milk of magnesia and start him on sliding scale insulin per order and discontinue insulin pump. I will see him tomorrow for followup. VIELKA/MODL Voice ID: [id number] Report ID: [id number]
[2018-07-10] MEDS ORDERED: INSULIN GLARGINE 100 UNITS/ML SQ ONE (20:42)
[2018-07-10] MEDS ORDERED: DOXAZOSIN 2 MG TAB PO SCH (21:00)
[2018-07-10] MEDS: DOXAZOSIN 2 MG TAB PO SCH (21:03)
[2018-07-10] MEDS: DULERA 200/5 (MOMETASONE/FORMOTEROL) INHALER IH SCH (21:04)
[2018-07-10] MEDS: ATORVASTATIN 20 MG TAB PO SCH (21:04)
[2018-07-10] MEDS: HEPARIN 5000 UNIT/ML 1 ML VIAL SQ SCH (22:39)
[2018-07-11] MEDS: IPRATROPIUM BROM 0.5MG/2.5ML NEB SCH ×6 (00:22→20:00)
[2018-07-11] MEDS: ALBUTEROL 2.5 MG/3 ML NEB SOL NEB SCH ×6 (00:22→20:00)
[2018-07-11] MEDS: PIPER/TAZO/NS 2.25gm 2.25 GM/50 ML BAG IVPB SCH ×3 (01:00→22:44)
[2018-07-11] MEDS: LEVOTHYROXINE SOD 0.125 MG TAB PO SCH (06:34)
[2018-07-11] MEDS: FUROSEMIDE 40 MG TABLET PO SCH (09:00)
[2018-07-11] MEDS: NITROGLYCERIN 0.2 MG/HR (5 MG) PATCH TD SCH (09:00)
[2018-07-11] MEDS: AMLODIPINE 5 MG TAB PO SCH ×2 (09:00→22:42)
[2018-07-11] MEDS: INSULIN -REGULAR HUMAN 50 UNIT/0.5 ML ML SQ SCH ×4 (09:52→21:00)
[2018-07-11] MEDS: ASPIRIN 81 MG CHEWABLE TABLET PO SCH (09:55)
[2018-07-11] MEDS: DULERA 200/5 (MOMETASONE/FORMOTEROL) INHALER IH SCH ×2 (09:56→23:00)
[2018-07-11] MEDS: AZITHROMYCIN 250 MG TAB PO SCH (09:56)
[2018-07-11] MEDS: HEPARIN 5000 UNIT/ML 1 ML VIAL SQ SCH ×2 (09:56→22:28)
--- NOTE | 2018-07-11 12:27 | ECHO ---
HEIGHT: 5 ft 7 in WEIGHT: 159 lb 9.6 oz DATE OF STUDY: 07/11/[address]: Arya Martin MD 2-DIMENSIONAL: YES M.MODE: YES DOPPLER: YES COLOR FLOW: YES TDS: NO PORTABLE: NO DEFINITY: NO BUBBLE STUDY: NO DIAGNOSIS: DYSPNEA, ABNORMAL TROPONIN I CARDIAC HISTORY: CATHERIZATION: NO SURGERY: NO PROSTHETIC VALVE: NO PACEMAKER: NO MEASUREMENTS (cm) DIASTOLIC (NORMALS) SYSTOLIC (NORMALS) IVSd 1.2 (0.6-1.2) LA Diam 3.8 (1.9-4.0) LVEF 60% LVIDd 4.4 (3.5-5.7) LVIDs 3.0 (2.0-3.5) %FS 32% LVPWd 1.2 (0.6-1.2) Ao Diam 2.8 (2.0-3.7) 2 DIMENSIONAL ASSESSMENT: RIGHT ATRIUM: NORMAL LEFT ATRIUM: NORMAL RIGHT VENTRICLE: NORMAL LEFT VENTRICLE: NORMAL TRICUSPID VALVE: NORMAL MITRAL VALVE: NORMAL PULMONIC VALVE: NORMAL AORTIC VALVE: SCLEROSIS PERICARDIAL EFFUSION: NONE AORTIC ROOT: NORMAL LEFT VENTRICULAR WALL MOTION: DOPPLER/COLOR FLOW: MILD MITRAL REGURGITATION AND TRICUSPID REGURGITATION. ESTIMATED RIGHT VENTRICULAR SYSTOLIC PRESSURE 47 MMHG (MILD- MODERATE PULMONARY HYPERTENSION). NO SIGNIFICANT AORTIC STENOSIS OR AORTIC REGURGITATION. IMPAIRED LEFT VENTRICULAR RELAXATION. COMMENTS: NORMAL LEFT VENTRICULAR EJECTION FRACTION. AORTIC SCLEROSIS WITH NO AORTIC STENOSIS OR AORTIC REGURGITATION. MILD MITRAL REGURGITATION AND TRICUSPID REGURGITATION. MILD- MODERATE PULMONARY HYPERTENSION. IMPAIRED LEFT VENTRICULAR RELAXATION. TECHNOLOGIST: [facility]SC[facility]OHNSON [facility]
[2018-07-11] MEDS: EPOETIN ALFA 10,000 UNIT/ML VIAL IV SCH (17:38)
[2018-07-11] MEDS: DOXAZOSIN 2 MG TAB PO SCH (22:31)
[2018-07-11] MEDS: ATORVASTATIN 20 MG TAB PO SCH (22:43)
[2018-07-11] MEDS: METOPROLOL TAR 25 MG TAB PO SCH (22:59)
--- NOTE | 2018-07-12 00:01 | PN ---
Date of Progress Note: 07/11/2018 Subjective: The patient was seen this morning for followup. He was feeling much better this morning compared to yesterday as reported by the patient and his daughter who was at bedside. Shortness of breath is better. Objective: Vital Signs: Reviewed. HEENT: Examination unremarkable. Lungs: Bilateral good equal air entry. No wheezing. Minimum right basal rales. Heart: Sounds normal. Abdomen: Soft. Bowel sounds normal. No guarding, rigidity, tenderness, or distention. Extremities: No leg edema. Laboratory Data: Fingerstick blood sugar readings reviewed. Impression: 1.Pneumonia. 2.Chronic obstructive pulmonary disease. 3.Abnormal cardiac enzymes. 4.Hypertension. 5.Diabetes mellitus. 6.End-stage renal disease, on hemodialysis. Plan: The patient will have dialysis today per hydroelectric plant structural engineer. We will continue current antibiotics. After I talked to the patient and his family members yesterday, they thought about recommendation fr om sleep lab technician, and they decided not to have stress test or cardiac catheterization at this point as information given to me by the patient's daughter this morning when I saw him. Daughter says that jimi mccartney will follow up with sleep lab technician after discharge, and then they will consider outpatient testing with sleep lab technician, but they do not want any testing done while he is in the hospital. I will see him tomorrow for followup. Possible discharge to go home tomorrow depending on his condition. VIELKA/MODL Voice ID: [id number] Report ID: [id number]
[2018-07-12] MEDS: PIPER/TAZO/NS 2.25gm 2.25 GM/50 ML BAG IVPB SCH ×3 (01:45→16:44)
--- NOTE | 2018-07-12 03:23 | PN ---
Date of Progress Note: 07/11/2018 Chief Complaint: End-stage renal disease, on dialysis. History Of Present Illness: The patient presented to the hospital and was found to have severe fluid overload. Chest x-ray showed interstitial pulmonary edema. The patient was complaining of shortnes s of breath. He has COPD exacerbation. He has been treated with O2 replacement for hypoxemic respir atory failure. The patient has history of diabetes mellitus, complicated by neuropathy and nephropat hy. He has coronary artery disease and congestive heart failure. He was found to have CHF exacerbat ion. He required extra dialysis treatment. He is scheduled to have dialysis today with ultrafiltrat ion. Review of Systems: Denies chest pain, palpitation, or syncope. He is complaining of shortness of breath with mild activ ity. Physical Examination: Lungs: Crackles bilaterally present. No wheezing. Heart: S1, S2. Abdomen: Soft, benign. Extremities: Slight edema in both ankles. Laboratory Data: Hemoglobin 8.5, WBC 7.5, and platelet count is 243,000. Glucose 403, 280. Sodium 142, potassium 3.7, chloride 106, CO2 of 30, BUN 50, creatinine 3.69, glucose 233, and calcium 7.9. Troponin 0.34. Impression And Plan: 1.Congestive heart failure exacerbation, acute on chronic, with diastolic dysfunction, fluid overloa d. Dialysis will be done on daily basis as needed to control volemia. The patient is improving some what after he was done. He had done dialysis yesterday. 2.Hypertension. Continue blood pressure medication. 3.Renal osteodystrophy. Continue renal diet and binders. 4.Chronic obstructive pulmonary disease exacerbation. The patient may be a candidate for steroids a nd antibiotics. EB/MODL Voice ID: [id number] Report ID: [id number]
[2018-07-12] MEDS: IPRATROPIUM BROM 0.5MG/2.5ML NEB SCH ×6 (04:00→19:05)
[2018-07-12] MEDS: ALBUTEROL 2.5 MG/3 ML NEB SOL NEB SCH ×6 (04:00→19:05)
[2018-07-12] MEDS: LEVOTHYROXINE SOD 0.125 MG TAB PO SCH (07:02)
[2018-07-12] MEDS: METOPROLOL TAR 25 MG TAB PO SCH ×2 (09:07→23:11)
[2018-07-12] MEDS: AMLODIPINE 5 MG TAB PO SCH ×2 (09:08→21:00)
[2018-07-12] MEDS: FUROSEMIDE 40 MG TABLET PO SCH (09:08)
[2018-07-12] MEDS: TAMSULOSIN 0.4 MG SR CAP PO SCH (09:09)
[2018-07-12] MEDS: AZITHROMYCIN 250 MG TAB PO SCH (09:09)
[2018-07-12] MEDS: ASPIRIN 81 MG CHEWABLE TABLET PO SCH (09:09)
[2018-07-12] MEDS: HEPARIN 5000 UNIT/ML 1 ML VIAL SQ SCH ×2 (09:10→23:03)
[2018-07-12] MEDS: DULERA 200/5 (MOMETASONE/FORMOTEROL) INHALER IH SCH ×2 (09:10→21:00)
[2018-07-12] MEDS: NITROGLYCERIN 0.2 MG/HR (5 MG) PATCH TD SCH (09:20)
[2018-07-12] MEDS ORDERED: GLUCAGON 1 MG/VIAL IM PRN ×5 (09:38→20:45)
[2018-07-12] MEDS ORDERED: D50W 25 GM/50 ML SYRINGE IV PRN ×5 (09:38→20:45)
[2018-07-12] MEDS ORDERED: INSULIN GLARGINE 100 UNITS/ML SQ ONE (09:40)
[2018-07-12] MEDS: INSULIN -REGULAR HUMAN 50 UNIT/0.5 ML ML SQ SCH ×4 (09:51→21:00)
[2018-07-12 09:57] LABS: Urine Appearance CLEAR; Urine Bilirubin NEGATIVE (NEG); Urine Blood NEGATIVE (NEG); Urine Color YELLOW; Urine Glucose 3+ (NEG); Urine Protein 3+ (NEG); Urine Urobilinogen 0.2 mg/dL (0.2-1.0); Urine pH 6.5 (5.0-7.0)
[2018-07-12 10:17] LABS: Urine Bacteria NONE SEEN /HPF (NONE SEEN); Urine RBC NONE SEEN /HPF (NONE SEEN)
[2018-07-12 10:18] LABS: Urine Culture Reflex Order NOT NEEDED
[2018-07-12] MEDS ORDERED: DOXAZOSIN 2 MG TAB PO SCH (10:42)
[2018-07-12] MEDS ORDERED: INSULIN -REGULAR HUMAN 50 UNIT/0.5 ML ML IV ONE ×2 (12:21→15:30)
[2018-07-12] MEDS ORDERED: INSULIN -REGULAR HUMAN 50 UNIT/0.5 ML ML IV NR (13:34)
[2018-07-12] MEDS: MAGNESIUM HYDROXIDE 8% 30 ML PO PRN (14:09)
--- NOTE | 2018-07-12 14:20 | PN ---
Date of Progress Note: 07/12/2018 NEPHROLOGY FOLLOWUP Subjective: The patient had urine retention today. The patient has been evaluated by Cardiology and primary. The plan no further intervention as the family elects to do the stress test and for the wo rkup as an outpatient, but today, the patient developed urine retention, with the Hernandez the patient h ad around 1 L out. Physical Examination: Vital Signs: Blood pressure 153/68, pulse of 100, afebrile. Chest: Clear to auscultation. Heart: S1 and S2. Systolic murmur. Abdomen: Soft, nontender. Extremities: No edema. Laboratory Data: WBC 7.5, H and H of 8.5 and 25.3, platelets 243. Sodium 142, potassium 3.7, bicarb 30, BUN 50, creatinine 3.6, and calcium 7.9. Current Medications: The patient on it includes, 1.Aspirin. 2.Azithromycin. 3.Zosyn. 4.Albuterol. 5.Epogen. 6.Norvasc. 7.Doxazosin. 8.Metoprolol. 9.Nitroglycerin. 10.Lasix 80 daily. 11.Levothyroxine. 12.Magnesium oxide. Assessment And Plan: 1.End-stage renal disease, started to be in normal volume. We will continue the patient on dialysis Wednesday, Wednesday, and Wednesday. We will arrange for dialysis tomorrow. 2.Over-volume, recovered. Continue Lasix. We will continue to challenge the patient as allow blood pressure. 3.Urine retention. The patient was started on Flomax. We will follow up with the primary. 4.Respiratory failure, combined, cardiogenic congestive heart failure and chronic obstructive pulmon meri disease exacerbation. We will continue current treatment. We will follow up with the primary. 5.Pneumonia. Continue current antibiotic. 6.Chronic obstructive pulmonary disease exacerbation, as above. HUYEN/MARIAJOSE Voice ID: [id number] Report ID: [id number]
[2018-07-12 14:27] LABS: Potassium 4.3 mmol/L (3.5-5.1)
--- NOTE | 2018-07-12 15:44 | RAD REPORT ---
EXAM DESCRIPTION: RAD - Chest Pa And Lat (2 Views) - 07/12/2018 3:22 pm CLINICAL HISTORY: pneumonia Chest pain. COMPARISON: Chest Single View dated 07/09/2018; Chest Pa And Lat (2 Views) dated 04/18/2018; Chest Pa And Lat (2 Views) dated 01/10/2018; Abdomen Acute Series dated 07/07/2017 FINDINGS: Emphysematous changes are present throughout the lungs. Linear opacity in the left lower l obe likely representing subsegmental atelectasis. Small bilateral pleural effusions are present. The heart is normal in size. No displaced fractures. Aortic atherosclerosis. IMPRESSION: Prominent COPD with linear atelectasis in the left lung base.
[2018-07-12] MEDS ORDERED: INSULIN GLARGINE 100 UNITS/ML SQ SCH (21:00)
[2018-07-12] MEDS: ATORVASTATIN 20 MG TAB PO SCH (23:03)
--- NOTE | 2018-07-13 01:27 | PN ---
Date of Progress Note: 07/12/2018 Subjective: The patient was seen this morning for followup. His son and daughter were present at [facility] with him. The patient is complaining of trouble emptying bladder and reported that he has some burning sensation on urination and this is new as of last night. Objective: Vital Signs: Reviewed. HEENT: Unremarkable. Lungs: Clear to auscultation. No rhonchi or rales. Heart: Sounds normal. Abdomen: Soft. Bowel sounds normal. No guarding, rigidity, or distention. Bowel sounds normoactiv e. The patient does have some suprapubic tenderness upon percussion. His bladder appeared to be dis tended. Impression: 1.Pneumonia. 2.COPD. 3.Diabetes mellitus. 4.End-stage renal disease, on hemodialysis. 5.Benign prostatic hypertrophy with urinary retention. Plan: After I saw the patient, nurse was advised to go ahead and do bladder scan, which showed 800-9 00 cc of urine and straight cath was ordered to be done and the patient had approximately same amount of urine that was obtained with the straight cath. Tamsulosin was started. We will get a chest x-r ay done today. Continue current IV antibiotics. We will not discharge him to go home today. The miriam bejarano's blood sugar was higher than 500 today and this was confirmed with the lab draw and he did req uire at 1.10 units of regular insulin IV and second time 5 units of regular insulin IV. Stat Chem-7 was done and his bicarb was normal. Lantus insulin was also given this morning. We will continue ag gressive sliding scale and I will see him tomorrow for followup. Possible discharge to go home tomorrow depending on his condition. VIELKA/MODL Voice ID: [id number] Report ID: [id number]
[2018-07-13] MEDS: IPRATROPIUM BROM 0.5MG/2.5ML NEB SCH ×4 (01:45→19:30)
[2018-07-13] MEDS: ALBUTEROL 2.5 MG/3 ML NEB SOL NEB SCH (01:45)
[2018-07-13] MEDS: PIPER/TAZO/NS 2.25gm 2.25 GM/50 ML BAG IVPB SCH ×3 (02:36→17:23)
[2018-07-13] MEDS: LEVOTHYROXINE SOD 0.125 MG TAB PO SCH (05:53)
[2018-07-13] MEDS ORDERED: ALBUTEROL 2.5 MG/3 ML NEB SOL NEB PRN ×2 (07:57→15:00)
[2018-07-13] MEDS: METOPROLOL TAR 25 MG TAB PO SCH ×2 (09:00→20:08)
[2018-07-13] MEDS: FUROSEMIDE 40 MG TABLET PO SCH (09:00)
[2018-07-13] MEDS: AMLODIPINE 5 MG TAB PO SCH ×2 (09:00→20:08)
[2018-07-13] MEDS: DULERA 200/5 (MOMETASONE/FORMOTEROL) INHALER IH SCH ×2 (09:00→21:00)
[2018-07-13] MEDS: INSULIN -REGULAR HUMAN 50 UNIT/0.5 ML ML SQ SCH ×4 (09:14→21:00)
[2018-07-13] MEDS: INSULIN GLARGINE 100 UNITS/ML SQ SCH (09:15)
[2018-07-13] MEDS: NITROGLYCERIN 0.2 MG/HR (5 MG) PATCH TD SCH (09:15)
[2018-07-13] MEDS: HEPARIN 5000 UNIT/ML 1 ML VIAL SQ SCH ×2 (09:16→21:14)
[2018-07-13] MEDS: ASPIRIN 81 MG CHEWABLE TABLET PO SCH (09:16)
[2018-07-13] MEDS: AZITHROMYCIN 250 MG TAB PO SCH (09:16)
[2018-07-13] MEDS: TAMSULOSIN 0.4 MG SR CAP PO SCH (09:16)
[2018-07-13] MEDS: BISACODYL 10 MG RECTAL SUPP PR ONE ×2 (09:17→14:23)
[2018-07-13] MEDS: EPOETIN ALFA 10,000 UNIT/ML VIAL IV SCH (11:15)
[2018-07-13] MEDS: MAGNESIUM HYDROXIDE 8% 30 ML PO PRN (15:46)
[2018-07-13] MEDS ORDERED: ACETAMINOPHEN 500 MG TAB PO PRN (16:11)
--- NOTE | 2018-07-13 17:56 | PN ---
Date of Progress Note: 07/13/2018 Subjective: The patient doing the same. The patient had urine retention, at the end has to have Fol ey insertion. The patient was started on Flomax today. The patient complaining of shortness of minh th. Physical Examination: Vital Signs: Blood pressure 168/69, pulse of 85. Afebrile. Chest: Clear to auscultation. Heart: S1, S2. Systolic murmur. Abdomen: Soft, nontender. Gu: Hernandez. Extremities: No edema. Laboratory Data: H and H 8.5/25.3. Sodium 140, potassium 4.3, bicarb 29, BUN 43, creatinine 4, calc ium 8.2. Blood sugar on the 300. Current Medications: The patient on its include aspirin, Z-Yimi, Zosyn, Flomax, Epogen 10,000 with ea ch dialysis, Norvasc 5 mg b.i.d., doxazosin 0.5 daily, metoprolol 25 b.i.d., Lasix 80 daily, Zofran. Assessment And Plan: 1.End-stage renal disease, looks to me normal volume currently. I am going to continue dialysis. T he patient due for dialysis today. 2.Secondary hyperpara, stable. 3.Anemia of chronic kidney disease. Continue Epogen. 4.Chronic obstructive pulmonary disease exacerbation with symptomatic shortness of breath. I am goi ng to start the patient on prednisone. Unfortunately, that will mess up his blood sugar, but we will follow up. 5.Pneumonia, as by primary. Continue current antibiotic. We will follow up. 6.Urine retention. The patient was started on Flomax. We will start bladder training. We will follow up. 7.Diabetes, as by primary. HUYEN/MODL Voice ID: [id number] Report ID: [id number]
[2018-07-13] MEDS ORDERED: DOXAZOSIN 2 MG TAB PO SCH (21:00)
[2018-07-13] MEDS: ATORVASTATIN 20 MG TAB PO SCH (21:14)
--- NOTE | 2018-07-13 21:44 | CON ---
History Of Present Illness: An 82-year-old gentleman with end-stage renal disease, on dialysis, came in for pneumonia and COPD. He is on home oxygen. He was complaining of shortness of breath for the last few weeks. He was given prednisone and antibiotics. Zithromax was prescribed by a nephrologis t this week on Wednesday. He reports that he was doing okay until yesterday when he came to the hospit al. He does have some urinary symptoms at home with decrease in force of stream and force in his uri ne. He said he was on doxazosin for that and his blood pressure. In the hospital, he was found to h ave 700-800 cc of urine. He was straight cathed and then he had another liter when a Hernandez catheter was placed last night. He was doing well until he went to dialysis today. He was noted to have some slight gross hematuria from the anticoagulation. The nurse will flush the catheter until it cleared . I recommend leaving the catheter in for a week, continue on Flomax. Allergies: NO KNOWN DRUG ALLERGIES. Medications: Proventil, Norvasc, aspirin, Lipitor, Z-Yimi, Cardura, doxazosin 1 mg at bedtime, Procri t, Lasix, heparin flush, insulin, Synthroid, milk of magnesia, low-pressure transderm, Zofran, Zosyn, prednisone or Deltasone, and tamsulosin. Family History: Noncontributory. Social History: Noncontributory. Review of Systems: Ten-point review of systems otherwise negative. Past Medical History: Significant for hypertension, end-stage renal disease, on hemodialysis, hyperl ipidemia, diabetes mellitus, possible renal artery stenosis, COPD, hypothyroid, benign prostatic hype rtrophy, gastroesophageal reflux disease, and stroke. Past Surgical History: Cataract surgery, hernia repair, angioplasty of left leg due to peripheral va scular disease. Physical Examination: Vital Signs: Temperature 99.3, pulse 75, blood pressure 174/102 in his right arm on automatic cuff. General: Awake, alert, in no acute distress. HEENT: Atraumatic and normocephalic. Conjunctive nonerythematous. Neck: No JVD. Lungs: Right lung, some rales. Heart: Normal S1, S2. Abdomen: Soft, nontender. Extremities: No swelling. Skin: No rashes. : He has a catheter draining urine. Laboratory Data: Reviewed. White count 7.5, H and H 8.5 and 25, and platelet count 243. Chemistry: Glucose 290 on admission, sodium 140, potassium 4.3, chloride 103, carbon dioxide 29, BUN 43, creat inine 4.1, and GFR 14. Glucose was 417 on admission. Urine test shows pH 6.5, negative ketone, nega tive blood, negative nitrite, negative leukocyte esterase, negative RBC, negative white cells, and po sitive for 3+ glucose. Assessment: Urinary retention. The patient had hemodialysis for end-stage renal disease. He makes about a pint of urine a day. He was only on 1 mg of doxazosin. I believe we can put him on tamsulos in 0.4 mg q.h.s. We will leave the catheter in for a week, give him a leg bag. He should change a l eg bag to a different leg every day and learn how to drain it and take care of it. See me in a week for cysto and flow in the office. FAITH/MARIAJOSE Voice ID: [id number] Report ID: [id number]
--- NOTE | 2018-07-14 00:23 | PN ---
Date of Progress Note: 07/13/2018 Subjective: The patient was seen this morning for followup. No new complaints or problems reported by him. Lying in bed, not in any distress. He had problem with really high sugar yesterday, more th an 500 and then hypoglycemia late yesterday evening with sugar in the range of 50-60. Objective: Vital Signs: Reviewed. HEENT: Unremarkable. Lungs: Clear to auscultation. No rhonchi. No rales. Heart: Sounds normal. Abdomen: Soft. Bowel sounds normal. No guarding, rigidity, tenderness, or distention. Extremities: No leg edema. Impression: 1.Pneumonia. 2.Chronic obstructive pulmonary disease. 3.End-stage renal disease, on hemodialysis. 4.Diabetes mellitus, uncontrolled. 5.Benign prostatic hypertrophy with urinary retention. Plan: The patient had urinary retention twice yesterday. First time, we got about 800-900 cc of uri ne and second time yesterday evening he had same amount of urine on the bladder scan, so decision was made to place Hernandez catheter. Flomax was started yesterday. We will continue that. I have request ed consultation from Dr. Cabral, urologist. The patient reported that his shortness of breath problem today is not as good as yesterday as far as his breathing is concerned and the inhaler that he gets in the hospital is not helping him as good as his inhaler that he uses at home. So, his family will bring his home inhaler and will use that while in the hospital. We will continue fingerstick blood s ugar with sliding scale insulin and Lantus 15 units subcutaneous injection will be given this morning . Continue antibiotics per order. The patient will have his dialysis today and he does not take ant ihypertensive medication on dialysis days, so per my discussion with family order was written not to give his antihypertensive medication today since he will be having dialysis. I will see him tomorrow for followup. Possible discharge to go home tomorrow. He has constipation problem and that might c ontribute to his urinary retention problem possibly, so we will go ahead and give Dulcolax rectal sup pository x1 dose today and I will see him tomorrow for followup. VIELKA/MODL Voice ID: [id number] Report ID: [id number]
[2018-07-14] MEDS: PIPER/TAZO/NS 2.25gm 2.25 GM/50 ML BAG IVPB SCH ×2 (00:29→08:39)
[2018-07-14] MEDS: IPRATROPIUM BROM 0.5MG/2.5ML NEB SCH ×2 (02:00→07:43)
[2018-07-14] MEDS: LEVOTHYROXINE SOD 0.125 MG TAB PO SCH (05:58)
[2018-07-14 06:04] VITALS: BMI 24.8
[2018-07-14] MEDS: INSULIN -REGULAR HUMAN 50 UNIT/0.5 ML ML SQ SCH ×2 (08:39→12:21)
[2018-07-14] MEDS: NITROGLYCERIN 0.2 MG/HR (5 MG) PATCH TD SCH (08:40)
[2018-07-14] MEDS: INSULIN GLARGINE 100 UNITS/ML SQ SCH (08:40)
[2018-07-14] MEDS: FUROSEMIDE 40 MG TABLET PO SCH (08:41)
[2018-07-14] MEDS: AZITHROMYCIN 250 MG TAB PO SCH (08:42)
[2018-07-14] MEDS: AMLODIPINE 5 MG TAB PO SCH (08:42)
[2018-07-14] MEDS: METOPROLOL TAR 25 MG TAB PO SCH (08:42)
[2018-07-14] MEDS: TAMSULOSIN 0.4 MG SR CAP PO SCH (08:43)
[2018-07-14] MEDS: HEPARIN 5000 UNIT/ML 1 ML VIAL SQ SCH (08:43)
[2018-07-14] MEDS: ASPIRIN 81 MG CHEWABLE TABLET PO SCH (08:43)
[2018-07-14] MEDS: DULERA 200/5 (MOMETASONE/FORMOTEROL) INHALER IH SCH (09:00)
[2018-07-14] MEDS ORDERED: predniSONE 20 MG TAB PO SCH (09:00)
--- NOTE | 2018-07-14 11:14 | P.PN ---
Subjective Date of Service: 07/14/18 Chief Complaint: SOB Subjective: Improving BS better controlled plan to discharge today Cont Home HD MWF F/U with urology as an OP Physical Examination - Vital Signs Temperature: 100.1 F Blood Pressure: 146/63 Pulse: 85 Respirations: 16 Pulse Ox (%): 95 - Physical Exam General: Alert, In no apparent distress HEENT: Atraumatic, Normocephalic Neck: Supple, Without JVD or thyroid abnormality Respiratory: Diminished Cardiovascular: No edema, Normal pulses, Regular rate/rhythm, Normal S1 S2 Gastrointestinal: Normal bowel sounds, Soft and benign - Studies Microbiology Data (last 24 hrs): 07/09/18 08:45 Blood - Blood Aerobic Blood Culture - Final No growth in 5 days. 07/09/18 08:45 Blood - Blood Anaerobic Blood Culture - Final No growth in 5 days. 07/09/18 09:00 Blood - Blood Aerobic Blood Culture - Final No growth in 5 days. 07/09/18 09:00 Blood - Blood Anaerobic Blood Culture - Final Assessment And Plan - Current Problems (Diagnosis) (1) COPD exacerbation Onset Date: 02/11/17 Current Visit: No Status: Acute (2) ESRD (end stage renal disease) on dialysis Onset Date: 02/11/17 Current Visit: No Status: Chronic - Plan Assessment And Plan: End-stage renal disease, cleared for discharge from nephrology point of view To resume home HD MWF Anemia of chronic kidney disease. Continue Epogen. COPD steroids and tappering on Home O2 Cont Abx Urine retention. on flomax and cardura S/P nix F/U with urology as an OP DM as per primary
[2018-07-14 12:35] VITALS: BP 172/72; TEMP 99.5
[2018-07-14 13:42] VITALS: O2SAT 93
--- NOTE | 2018-07-16 04:51 | DS ---
Date of Discharge: 07/14/2018 Disposition: Discharged to go home. Physical Examination: HEENT: Unremarkable. Lungs: Clear to auscultation. No rhonchi. No rales. Heart sounds: Normal. Abdomen: Soft. Bowel sounds normal. No guarding, rigidity, tenderness, or distention. Extremities: No leg edema. Laboratory Data: Labs and investigation done during this hospitalization: Initial white count 11.5, hemoglobin 8.9, platelets 240. Repeat white count 7.5 , hemoglobin 8.5. Initial sodium 139, potassium 3.9, chloride 100, bicarb 28, BUN 45, creatinine 3.53, glucose 524. Liver function tests unremarkable. Initial troponin 0.29, second troponin 0.37, third troponin 0.39. Echocardiogram showed normal ejection fraction. Hospital Course: An 82-year-old male patient came into emergency room with complaints of shortness of breath. Please see dictated H and P for more information. The patient was evaluated in the emergency room, he was admitted to the hospital under my service with pneumonia and acute exacerbation of chronic obstructive pulmonary disease. Chest x-ray had shown increased lung markings in the lung bases, more so on right side than the left side. Repeat chest x-ray showed improvement in that. He was treated with empiric antibiotics , nebulizer treatment, and oxygen. Nephrology consultation was requested from his liner checker for dialysis support. Child Custody Evaluator, Dr. Martin was consulted for abnormal cardiac enzymes, and Dr. Martin recommended either Lexiscan stress test or cardiac cath to be done. The details were discussed with family regarding the risks involved and limitations of both testing and benefits of both testing. After all those details were discussed with the family. The patient's both daughters and patient discussed, and instead of having any tests during this hospitalization as recommended, they decided not to do any such testing while he is in the hospital and they want the patient to get stronger and better, and then they will follow up with aircraft fueler on outpatient basis to do further testing. I have encouraged them to make sure to follow up with aircraft fueler for further testing. Family also requested to discontinue his insulin pump, as it would be difficult for him to manage insulin pump while in the hospital, and I was concerned about his blood sugar running high without insulin pump, and that is exactly what happened, that his blood sugar was running very high, more than 500 to 600, requiring IV insulin, but we were able to bring it down. There was no evidence of diabetic ketoacidosis. The patient did require some use of steroid medication to help with his COPD problem. He also developed urinary retention, and had about 800 to 900 cc of urine in his bladder on 2 different occasions, so after the second time he had urinary retention, we actually ended up placing a Hernandez catheter in and Flomax was started 0.4 mg p.o. daily, and Dr. Cabral was consulted, who saw him yesterday, recommended for the patient to go home with a Hernandez catheter at least for a week or so, and he will see him in office next week, and after appropriate testing, he will decide at what point to remove his Hernandez catheter. The patient had some constipation problem which was treated with a laxative with good result. Final Diagnoses: 1. Pneumonia. 2. Acute exacerbation of chronic obstructive pulmonary disease. 3. Benign prostatic hypertrophy with urinary retention. 4. End-stage renal disease, on hemodialysis. 5. Anemia due to chronic kidney disease. 6. Hypertension. 7. Diabetes mellitus, uncontrolled. 8. Hyperlipidemia. 9. Gastroesophageal reflux disease. 10. Abnormal cardiac enzymes, rule out coronary artery disease. Discharge Medications And Instructions: Continue all prior home medications. 1. Augmentin 500 mg twice a day for 4 days with food. 2. Tamsulosin 0.4 mg p.o. daily. 3. Follow up with aircraft fueler, Dr. Martin in 1-2 week. 4. Follow up at my office in 2-3 weeks. 5. Follow up with Dr. Cabral, next week. 6. Nursing staff was advised to call in prescription for nebulizer supply and albuterol prescription was sent to use 4 times a day as needed for shortness of breath and the patient does have nebulizer machine at home as reported by family. Take Prednisone 10mg, take 2 tablets by mouth daily for 4 days, then 1 tablet daily for 4 days, then half tablet daily for 4 days, then stop. VIELKA/MODL Voice ID: [id number] Report ID: [id number] CURRY
[2018-07-16 20:45] LABS: HBsAG Nonreactive (Nonreactive)
== END 2018-07-14 13:33 | disposition home or self-care (01) | DRG 193 ==
LOC: ER 08:18 → ERHOLD 10:51 → 4TH 13:12
PROVIDERS: ADMIT Internal Medicine; ATTEND Internal Medicine
PROC: 5A1D70Z Performance of Urinary Filtration, Intermittent, Less than 6 Hours Per Day (ICD-10-PCS; principal; 2018-07-11)
PROC: 5A1D70Z Performance of Urinary Filtration, Intermittent, Less than 6 Hours Per Day (ICD-10-PCS; 2018-07-13)
DX: J18.9 Pneumonia, unspecified organism (principal); N18.6 End stage renal disease; I50.33 Acute on chronic diastolic (congestive) heart failure; J96.90 Respiratory failure, unspecified, unspecified whether with hypoxia or hypercapnia; J44.1 Chronic obstructive pulmonary disease with (acute) exacerbation; I13.2 Hypertensive heart and chronic kidney disease with heart failure and with stage 5 chronic kidney disease, or end stage renal disease; N25.81 Secondary hyperparathyroidism of renal origin; E11.65 Type 2 diabetes mellitus with hyperglycemia; D63.1 Anemia in chronic kidney disease; E11.40 Type 2 diabetes mellitus with diabetic neuropathy, unspecified; K59.00 Constipation, unspecified; N40.1 Benign prostatic hyperplasia with lower urinary tract symptoms; R33.8 Other retention of urine; N25.0 Renal osteodystrophy; E11.22 Type 2 diabetes mellitus with diabetic chronic kidney disease; E78.5 Hyperlipidemia, unspecified; E03.9 Hypothyroidism, unspecified; K21.9 Gastro-esophageal reflux disease without esophagitis; Z99.2 Dependence on renal dialysis; Z86.73 Personal history of transient ischemic attack (TIA), and cerebral infarction without residual deficits; Z87.891 Personal history of nicotine dependence
CPT/HCPCS: 36415; 71045; 71046; 80048; 80053; 80061; 81001; 82947; 82962; 83690; 83735; 83880; 84484; 85025; 86317; 86704; 86706; 87040; 87086; 87088; 87340; 87804; 90935; 93005; 93306; 94640; 99285; J0696; J1644; J7512; J7606; Q4081

== ENCOUNTER 2018-10-30 13:49 | Inpatient (IN) | payer OTHER ==
--- OUTSIDE RECORDS SUMMARY | 2018-10-30 13:52 | XMS REPORT | Clinical Summary ---
:1935 Author Organization [facility] Address [address] [place] [address] Care Team Providers Name Role Phone Asked, [...] inhalations 2 INHL) (two) times a day. amLODIPine (NORVASC) Take 5 mg by 0 [...] am and 1/2 tab in the pm metoprolol tartrate Take 25 mg by 0 [...] Description 04/27/2018 - Hospital Encounter General Internal Florentino, Problem with dialysis access, initial encounter (HCC) (Primary Dx); 04/28/2018 Medicine [facility] Community acquired pneumonia, unspecified laterality MD Randy Edward, Simeon Mcpherson MD 01/19/2018 Telephone Cardiovascular Bill Snyder MA 01/18/2018 Office Visit Cardiovascular [facility] ESRD (end stage renal disease) 2017 MWF (Primary Dx); in, [place], ESRD (end stage renal disease) on dialysis DIRECTOR MBA after 10/29/2017 Family History Medical History Relation Name Comments [...] Taken Blood Pressure 157/63 04/28/2018 1:15 PM SCORER SINGLE Pulse 55 04/28/2018 1:15 PM SCORER SINGLE Temperature 36.5 C (97.7 F) 04/28/2018 1:15 PM SCORER SINGLE Respiratory Rate 18 04/28/2018 1:15 PM SCORER SINGLE Oxygen Saturation 100% 04/28/2018 1:15 PM SCORER SINGLE Inhaled Oxygen Concentration - - Weight 73.9 kg (163 lb) 01/18/2018 10:40 AM CDT Height 170.2 cm (5' 7") 01/18/2018 10:40 AM CDT Body Mass Index 25.53 01/18/2018 10:40 AM CDT Plan of Treatment Health Maintenance Due Date Last Done Comments DIABETIC RETINAL EYE EXAM 1935 DIABETIC FOOT EXAM 09[birth year]04/1945 URINE MICROALBUMIN 09/04/1943 SHINGLES VACCINES (#1) 09/04/1983 65+ PNEUMOCOCCAL VACCINE (1 of 2 - PCV13) 1998 PNEUMOCOCCAL POLYSACCHARIDE VACCINE AGE 65 AND OVER 1998 INFLUENZA VACCINE 01/05/2019 Implants Implanted Type Area Facility Assistant Device Shelf Model / Identifier Expiration Serial / Date Lot Clip Ligtng Mohit Hemoclip Plus W/ Tape Ti Sm - [id number] Medical Left: WECK CLOSURE 02/14/2022 [id number] / Implanted: Qty: 1 on 09/09/2017 by Behzad Moore MD Clips for Arm, SYSTEMS / Internal Upper [id number] Use Clip Ligtng Weck Hemoclip Plus W/ Tape Ti Med - [id number] Medical Left: TELEFLEX 03/09/2022 [id number] / Implanted: Qty: 1 on 09/09/2017 by Behzad Moore MD Clips for Arm, MEDICAL / Internal Upper Use Hemodialysis Catheter Right: 02/03/2019 [id number] / Implanted: Qty: 1 on 04/19/2017 by Jhony Montesinos MD Chest / Procedures Procedure Name Priority Date/Time Associated Comments Diagnosis POC GLUCOSE Routine 04/28/2018 12:34 Results for this PM [facility]LE procedure are in the results section. HEPATITIS B SURFACE Routine 04/28/2018 12:15 Results for this ANTIGEN PM [facility] procedure are in the results section. HEMODIALYSIS Routine 04/28/2018 10:24 AM [facility]ER SINGLE POC GLUCOSE Routine 04/28/2018 8:01 Results for this AM [facility]LE procedure are in the results section. HEMOGLOBIN A1C Routine 04/28/2018 6:37 Results for this AM [facility]LE procedure are in the results section. HC COMPLETE BLD COUNT Routine 04/28/2018 6:37 Results for this W/AUTO DIFF AM [facility] procedure are in the results section. ESTIMATED GFR Routine 04/28/2018 4:00 Results for this AM [facility]LE procedure are in the results section. VITAMIN B12 LEVEL Routine 04/28/2018 4:00 Results for this AM [facility] procedure are in the results section. FERRITIN LEVEL Routine 04/28/2018 4:00 Results for this AM [facility] procedure are in the results section. THYROID STIMULATING Routine 04/28/2018 4:00 Results for this HORMONE AM [facility] procedure are in the results section. LIPID PANEL Routine 04/28/2018 4:00 Results for this AM [facility] procedure are in the results section. PHOSPHORUS LEVEL Routine 04/28/2018 4:00 Results for this AM [facility] procedure are in the results section. MAGNESIUM LEVEL Routine 04/28/2018 4:00 Results for this AM [facility] procedure are in the results section. BASIC METABOLIC PANEL Routine 04/28/2018 4:00 Results for this AM [facility] procedure are in the results section. ECG 12-LEAD STAT 04/27/2018 10:30 Results for this PM [facility]LE procedure are in the results section. POC GLUCOSE Routine 04/27/2018 9:33 Results for this PM [facility]LE procedure are in the results section. POC GLUCOSE Routine 04/27/2018 5:17 Results for this PM [facility] procedure are in the results section. LACTIC ACID LEVEL, Timed 04/27/2018 4:13 Results for this SEPSIS - NOW AND REPEAT PM [facility] procedure are in 2X EVERY 3 HOURS the results section. BLOOD CULTURE, AEROBIC Routine 04/27/2018 4:13 Results for this & ANAEROBIC PM [facility] procedure are in the results section. BLOOD CULTURE, AEROBIC Routine 04/27/2018 4:13 Results for this & ANAEROBIC PM [facility] procedure are in the results section. US DUPLEX HEMODIALYSIS STAT 04/27/2018 4:08 Results for this AVG AVF ACCESS PM [facility]LE procedure are in the results section. XR CHEST 1 VW PORTABLE STAT 04/27/2018 2:50 Results for this PM [facility] procedure are in the results section. ESTIMATED GFR STAT 04/27/2018 1:45 Results for this PM [facility] procedure are in the results section. BASIC METABOLIC PANEL STAT 04/27/2018 1:45 Results for this PM [facility] procedure are in the results section. PARTIAL THROMBOPLASTIN STAT 04/27/2018 1:45 Results for this TIME (PTT) PM [facility] procedure are in the results section. PROTHROMBIN TIME WITH STAT 04/27/2018 1:45 Results for this INR PM [facility] procedure are in the results section. HC COMPLETE BLD COUNT STAT 04/27/2018 1:45 Results for this W/AUTO DIFF PM [facility] procedure are in the results section. NV REMOVAL TUNNELED CV Routine 01/18/2018 10:40 ESRD (end stage Results for this CATH W/O SUBQ PORT OR AM CDT renal disease) procedure are in PUMP 2017 MWF the results ESRD (end stage section. renal disease) on dialysis after 10/29/2017 Results POC glucose (04/28/2018 12:34 PM SCORER SINGLE)Only the most recent of4 resultswithin the time period is included. POC glucose 200 (H) 65 - 99 mg/dL [facility] Comment: HOSPITAL No Action Needed Meter ID: [id number] Plastics Seasoner Operator: Adam Elmore Specimen Performing Organization Address City/State/Zipcode Phone Number [facility] DEPARTMENT OF PATHOLOGY AND [address] [place] [address] GENOMIC MEDICINE [facility] [address] [place] [phone] Hepatitis B surface antigen (04/28/2018 12:15 PM SCORER SINGLE) Hepatitis B surface Non-reactive Non-reactive [facility] Specimen Blood Performing Organization Address City/[facility]/Zipcode Phone Number [facility] DEPARTMENT OF PATHOLOGY AND [address] [place] [address] [address] CBC with platelet and differential (04/28/2018 6:37 AM SCORER SINGLE)Only the most recent of2 resultswithin the time period is included. Pathologist [facility] WBC 10.65 4.50 - 11.00 [facility] k/uL [facility] RBC 2.73 (L) 4.40 - 6.00 [facility] m/uL [facility] HGB 8.6 (L) 14.0 - 18.0 [facility] HCT 27.6 (L) 41.0 - 51.0 % [facility] MCV 101.1 (H) 82.0 - 100.0 [facility] MCH 31.5 27.0 - 34.0 pg [facility] MCHC 31.2 31.0 - 37.0 [facility] g/dL [facility] RDW - SD 55.2 (H) 37.0 - 55.0 fL [facility] MPV 11.4 8.8 - 13.2 fL [facility] Platelet count 308 150 - 400 k/uL [facility] Nucleated RBC 0.20 /100 WBC [facility] Neutrophils 61.5 39.0 - 69.0 % [facility] Lymphocytes 25.5 25.0 - 45.0 % [facility] Monocytes 8.5 0.0 - 10.0 % [facility] Eosinophils 2.5 0.0 - 5.0 % [facility] Basophils 0.5 0.0 - 1.0 % [facility] Immature granulocytes 1.5 0.0 - 1.0 % [facility] (H)Comment: HOSPITAL "Immature granulocytes" (promyelocytes , myelocytes, metamyelocytes ) Specimen Blood Performing Organization Address City/[facility]/Zipcode Phone Number [facility] DEPARTMENT OF PATHOLOGY AND [address] [place] [phone] [address] Hemoglobin A1c (04/28/2018 6:37 AM SCORER SINGLE) Pathologist [facility] Hemoglobin A1C 8.1 (H) 4.0 - 5.6 % [facility] Comment: HOSPITAL HbA1c cutoffs for diagnosing diabetes: 4.0% - 5.6%=normal 5.7% - 6.4%=increased risk for diabetes (prediabetes) >=6.5%=diabetes Goals for glycemic control (ADA 2016) < 7.0%Target for non adults with diabetes. More or less stringent targets may be appropriate for individual patients. <7.5% Target for Children and adolescents with type 1 diabetes. Specimen Blood Performing Organization Address City/[facility] Phone Number [facility] DEPARTMENT OF PATHOLOGY AND [address] [place] [phone] Estimated GFR (04/28/2018 4:00 AM SCORER SINGLE)Only the most recent of2 resultswithin the time period is included. [facility] Estimated GFR 18 (A) mL/min/1.73 [facility] Comment: [address] CatergoryUnitsInterpretation G1 >=90 Normal or high G2 60-89Mildly decreased E3s69-41Ruzbjw to moderately decreased B9x41-53Fyhgroetep to severely decreased G4 15-29Severely decreased G5 <15Kidney failure The eGFR was calculated using the Chronic Kidney Disease Epidemiology Collaboration (CKD-EPI) equation. Interpretation is based on recommendations of the National Kidney Foundation-Kidney Disease Outcomes Quality Initiative (NKF-KDOQI) published in 2014. Specimen Plasma specimen Performing Organization Address City/[facility] Cent[facility]ode Phone Number [facility] DEPARTMENT OF PATHOLOGY AND [address] [place] [phone] [place] [address] Thyroid stimulating hormone (04/28/2018 4:00 AM SCORER SINGLE) [facility] TSH 4.30 (H) 0.27 - 4.20 uIU/mL [facility] Specimen Plasma specimen Performing Organization Address City/[facility]/Zipcode Phone Number [facility] DEPARTMENT OF PATHOLOGY AND [address] [place] [phone] [address] Phosphorus level (04/28/2018 4:00 AM SCORER SINGLE) Phosphorus 4.6 (H) 2.4 - 4.5 mg/dL [facility] Specimen Plasma specimen Performing Organization Address City/[facility] Cent[facility]ode Phone Number [facility] DEPARTMENT OF PATHOLOGY AND [address] [place] [phone] [place] [address] Magnesium level (04/28/2018 4:00 AM SCORER SINGLE) Magnesium 2.1 1.6 - 2.4 mg/dL [facility] Specimen Plasma specimen Performing Organization Address City/[facility] Centercode Phone Number [facility] DEPARTMENT OF PATHOLOGY AND [address] [place] [phone] Ferritin level (04/28/2018 4:00 AM SCORER SINGLE) Ferritin level 333 30 - 400 ng/mL [facility] Specimen Plasma specimen Performing Organization Address City/[facility]ode Phone Number [facility] DEPARTMENT OF PATHOLOGY AND [address] [place] [address] Vitamin B12 level (04/28/2018 4:00 AM SCORER SINGLE) Vitamin B12 696 211 - 946 [facility] Comment: pg/mL HOSPITAL Significant overlap exists between normal and deficiency states. However, most patients with deficiencies will have Serum B12 <200 pg/mL. Specimen Serum Performing Organization Address [facility] Centercode Phone Number [facility] DEPARTMENT OF PATHOLOGY AND [address] [place] [address] Lipid panel (04/28/2018 4:00 AM SCORER SINGLE) Cholesterol 162 <200 mg/dL [facility] Triglycerides 80 <150 mg/dL [facility] HDL cholesterol 83 >40 mg/dL [facility] LDL cholesterol 79Comment: Result <100 mg/dL KIRBY obtained by direct [facility] LDL measurement [facility] Lipid panel [facility] interpretation Comment: [facility] Total Cholesterol (mg/dL) [facility] <200 Desirable [phone]-nqym >=240High Triglycerides (mg/dL) <150 Normal 554-445Uratiirodn-poxl 200-499High >=500Very high HDL Cholesterol (mg/dL) <40Low (male) <40Low (female) LDL Cholesterol (mg/dL) <100 Optimal 100-129Near or above optimal [phone]-qogb 160-189High >=190Very high Risk Catergories that modify [...] mg/dL) Specimen Plasma specimen Performing Organization Address City/[facility] Phone Number [facility] DEPARTMENT OF PATHOLOGY AND [address] [place] [address] Basic metabolic panel (04/28/2018 4:00 AM SCORER SINGLE)Only the most recent of2 resultswithin the time period is included. Sodium 146 135 - 148 mEq/L [facility] Potassium 4.3 3.5 - 5.0 mEq/L [facility] Chloride 105 98 - 112 mEq/L [facility] CO2 29 24 - 31 mEq/L [facility] Anion gap 12@ANIO 7 - 15 mEq/L [facility] BUN 32 (H) 8 - 23 mg/dL [facility] Creatinine 3.00 (H) 0.70 - 1.20 mg/dL [facility] Glucose 111 (H) 65 - 99 mg/dL [facility] Calcium 8.2 (L) 8.8 - 10.2 mg/dL [facility] Specimen Plasma specimen Performing Organization Address City/[facility] Centercode Phone Number [facility] DEPARTMENT OF PATHOLOGY AND [address] [place], [place] [phone] ECG 12 lead (04/27/2018 10:30 PM SCORER [facility]INGLE) Ventricular rate 46 [facility] MUSE Atrial rate 46 [facility] MUSE NV interval 144 [facility] QRSD interval 92 [facility] MUSE QT interval 446 [facility] MUSE QTC interval 390 [facility] MUSE P axis 1 75 [facility] MUSE QRS axis 1 31 [facility] MUSE T wave axis 70 [facility] MUSE EKG impression Marked sinus [facility] MUSE bradycardia-Abnormal ECG-In automated comparison with ECG of 09-SEP-2017 08:36,-Vent. rate has decreased BY 22 BPM- Specimen Narrative Performed At Performing Organization Address City/[facility]/Zipcode Phone Number [facility] MUSE [address] [place] [phone] Lactic acid level, SEPSIS - Now and repeat 2x every 3 hours (04/27/2018 4:13 PM SCORER SINGLE) [facility] Lactic acid 1.3 0.5 - 2.2 mmol/L [facility] Specimen Blood Performing Organization Address City/[facility]/Zipcode Phone Number [facility] DEPARTMENT OF PATHOLOGY AND [address] [place] [address] Blood culture, aerobic & anaerobic (04/27/2018 4:13 PM SCORER [facility]INGLE)Only the most recent of2 resultswithin the time period is included. [facility] Blood culture No growth after 5 days of incubation. [facility] isolate Comment: HOSPITAL Specimen Information Specimen Source: Blood Specimen Site: Forearm, right Specimen Blood - Forearm, right Performing Organization Address [facility] Centercode Phone Number [facility] DEPARTMENT OF PATHOLOGY AND [address] [place] [address] duplex hemodialysis avg avf access (04/27/2018 4:08 PM SCORER [facility]INGLE) Specimen Narrative Performed At [facility] Vascular Ultrasound Laboratory AV Graft - Fistula Report [address] [place] [address]Name:KYA NICHOLAS.ID:[id number] St.Date: 04/27/2018Refer.MD:PHYSICIAN, EMERGENCY, MD Exam Time: 3:26:00 PMStudy Type:AV Graft - Fistula Height:67inWeight: 163lb BSA: 1.86 m2 DOBAge:1935,82Y Sex: MALESonogrphr: Gordon Porter RN, RVS Pat. Stat.:OutpatientTapeVol: PM, CPT - 4: 37583 Echo Event ID:[id number] Order ID:[id number] Reason for Study:Dialysis nurse had difficulty with [...] vein. DOPPLER FINDINGS: ARTERYLOCATIONPSV (cm/sec) LEFTRadialProximal-third 224cm/sec Mid-lsmpv610qg/sec Distal-djfda138hm/sec BrachialProximal-third 113 cm/sec Mid-jxyze490 cm/sec Distal- cm/sec Radial Art/ceph. v AVF Bxstgooosad548 cm/sec Cephalic Vein Juxta anastomosis 389 cm/sec Mid crpuvfj066ha/sec Proximal forearm 242xm/sec VOLUME FLOW: Nzibcfjb009 cc/min 637 cc/min 695cc/min PRELIMINARY FINDINGS: 1. Patent left radial artery to cephalic vein A/V fistula. 2. Volume flows as noted in above table. PHYSICIAN INTERPRETATION: Patent left radial artery to cephalic vein A/V fistula. Slightly decreased flow volume. Signed 04/28/2018 12:22 AM Gagan Jiménez MD, RPVI Procedure Note Interface, Radiology Results In - 04/28/2018 12:22 AM [facility] Vascular Ultrasound Laboratory AV Graft - Fistula Report [id number] [address] Pat.Name: CRISTOPHERKYA.ID: [id number] .Date: 04/27/2018 Refer.MD: PHYSICIAN, EMERGENCY, MD Exam Time: 3:26:00 PM Study Type:AV Graft - Fistula Height: 67in Weight: 163lb BSA: 1.86 m2 Age: 1 1935,82Y Sex: MALE Sonogrphr: Gordon Porter RN, RVS Pat. Stat.:Outpatient Tape Vol: PM, CPT - 4: 56478 Echo Event ID:[id number] Order ID: [id number] Reason for Study:Dialysis nurse had difficulty with [...] Gagan Jiménez MD, RPVI Performing Organization Address City/State/Zipcode Phone Number [facility] [address] [place] [address] XR Chest 1 Vw Portable (04/27/2018 2:50 PM SCORER SINGLE) Specimen Narrative Performed At EXAMINATION:XR CHEST 1 VW [...] be of benefit for more complete evaluation [facility]-[id number] Procedure Note Interface, Radiology Results Incoming - 04/27/2018 3:03 PM [facility]INGLE EXAMINATION: XR CHEST 1 VW PORTABLE CLINICAL [...] be of benefit for more complete evaluation [facility]-[id number] Performing Organization Address [facility] Centercode Phone Number [address] [address] Partial thromboplastin time, activated (04/27/2018 1:45 PM SCORER [facility]INGLE) PTT 30.4 23.0 - 36.0 [facility] Comment: [facility] PTT therapeutic range for unfractionated heparin is 61.0-112.0 seconds which corresponds to Anti-Xa 0.3-0.7 U/ml. Specimen Blood Performing Organization Address [facility] Centercode Phone Number [facility] DEPARTMENT OF PATHOLOGY AND [address] [place] [phone] [address] Prothrombin time with INR (04/27/2018 1:45 PM SCORER SINGLE) Prothrombin time 12.7 11.5 - 14.5 [facility] INR 1.0 KIRBY Comment: BRENNA [facility] International Normalized Ratio (INR) is a therapeutic HOSPITAL monitoring tool for patients who are stable on oral anticoagulant therapy. An INR of 2.0-3.0 is suggested for deep vein thrombosis/pulmonary embolism. Specimen Blood Performing Organization Address [facility] Centercode Phone Number [facility] DEPARTMENT OF PATHOLOGY AND [address] [place] [address] [address] TDC Removal (01/18/2018 10:40 AM CDT) Narrative [...] tolerance of procedure:Tolerated well, no immediate complications after 10/29/2017 Insurance Payer Benefit Plan / Subscriber ID Effective Dates Phone Address Type Group MEDICARE MEDICARE PART A AND xxxxxxxxxx 1998-[place], [place] Medicare B t AETNA AETNA [facility] xxxxxxxxx 2000-[facility] Erin INDRICHARDTY t Advance Directives Patient has advance care planning documents, and code status on file. For more information, please contact:Steve Sanches[address] [place] [address] Code Status Date Activated Date Inactivated Comments Full Code 04/27/2018 8:29 PM 04/28/2018 6:33 PM Code Status decision reached by: Patient
--- OUTSIDE RECORDS SUMMARY | 2018-10-30 13:53 | XMS REPORT | Continuity of Care Document ---
:1935 Author Organization Interface Problems Problem Status Onset Classification Date Comments Source Date Reported Intractable Active 07/08/19 Finding 07/08/[address] [facility] vomiting 18 [facility] [place] Diabetes mellitus Active 02/12/20 Finding 07/08/[address] [facility] [place] Essential Active 02/12/20 Finding 07/08/[address] [facility] 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 [place] COPD exacerbation Active 02/12/20 Finding 07/08/[address] [facility] [place] Anemia in chronic Active 02/12/20 Finding 07/08/[address] [facility] kidney disease 17 [facility] [place] Gastro-esophageal Active 02/12/20 Finding 07/08/[address] [facility] reflux disease 17 [facility] without [place] esophagitis ESRD on dialysis Active 02/12/20 Finding 07/08/[address] [facility] [place] Renal failure Active 02/11/20 Finding 07/08/[address] [facility] [place] Anasarca Active 02/11/20 Finding 07/08/[address] [facility] associated with 17 [facility] disorder of [place] kidney Proteinuria Active 01/29/20 Finding 07/08/[address] [facility] [place] Acute worsening Active 01/29/20 Finding 07/08/[address] [facility] [address] of stage 4 17 [facility] chronic kidney [place] disease Dyspnea Active 05/10/20 Finding 07/08/[address] [facility] [place] Leukocytosis Active 05/10/20 Finding 07/08/[address] [facility] [place] Hypoxia Active 05/10/20 Finding 07/08/[address] [facility] [place] COPD Active 05/10/20 Finding 07/08/[address] [facility] [place] Renal failure, Active 05/10/20 Finding 07/08/[address] [facility] chronic 15 [facility] [place] Left upper lobe Active 05/10/20 Finding 07/08/[address] [facility] pneumonia 15 [facility] [place] Pneumonia Active 01/15/20 Finding 07/08/[address] [facility] [place] Cough Active 11/07/19 Finding 07/08/[address] [facility] [place] Abnormal renal Active 11/07/19 Finding 07/08/[address] [facility] function 15 [facility] [place] Hypertensive Inactive Finding 07/08/[address] [facility] disorder, [facility] systemic arterial [place] Diabetes mellitus Inactive Finding 07/08/[address] [facility] [place] Acute Inactive Finding 07/08/[address] [facility] exacerbation of [facility] [place] obstructive airways disease Medications Medication Details Route Status Patient Ordering Order Source Instructions Provider Date Amlodipine TWICE Active [facility] DAILY [facility]18 [facility] [place] Doxazosin AT Active [facility] Mesylate BED[facility]18 [facility] [place] Metoprolol TWICE Active [facility] Tartrate DAILY [facility]18 [facility] [place] Metoprolol TWICE Active [place] [facility] Tartrate DAILY [facility]17 [facility] [place] Levofloxacin DAILY Active [facility] [place] Levofloxacin DAILY Active [place] [facility] [place] Doxazosin AT [facility] BED[facility] 015 [facility] [place] Furosemide SEE Active [facility] COMMENT 015 [facility] [place] Levothyroxine DAILY AT Active [facility] 0600 015 [facility] [place] Atorvastatin AT Active [facility] Calcium BEDTIME 015 [facility] [place] Amlodipine TWICE Inactive [facility] DAILY [facility]15 [facility] [place] Amlodipine TWICE Active [facility] DAILY [facility]15 [facility] [place] Allergies, Adverse Reactions, Alerts Substance Category Reaction Severity Reaction Status Date Comments Source type Reported No Known Unknown Allergy to Active [facility] Drug Substance 8 [facility] Allergies [place] Immunizations Immunization Date Given Site Status Last Updated Comments Source Results Order Name Results Value Reference Date Interpretation Comments Source Range Laboratory Bedside 251 mg/dl 65 - 120 02 [facility] [address] Studies Glucose [facility] [place] Laboratory Total 0.7 mg/dL 0.3 - 1.2 07/08 [facility] [address] Studies Bilirubin [facility] [place] Laboratory Sodium Level 139 mEq/L 135 - 145 07/08 [facility] [address] Studies [facility] [place] Laboratory Serum Total 5.5 g/dL 6.0 - 8.3 07/08 [facility]. Studies Protein [facility] [place] Laboratory Potassium 4.1 mEq/L 3.6 - 5.0 07/08 [facility] [address] Studies Level [facility] [place] Laboratory Lipase 18 U/L 22 - 51 07/08 [facility]. Studies [facility] [place] Laboratory Glucose Level 156 mg/dL 65 - 120 07/08 [facility]. Studies [facility] [place] Laboratory Globulin 2.5 g/dL 2.3 - 3.5 07/08 [facility] [address] Studies [facility] [place] Laboratory Estimat 22 mL/min 90 07/08 [facility]. Studies Glomerular [facility] Filtration [place] Rate Laboratory Direct 0.1 mg/dL 0 - 0.2 07/08 [facility]. Studies Bilirubin [facility] [place] Laboratory Creatinine 2.80 mg/dL 0.61 - 02/ [facility]. Studies 1.24 [facility] [place] Laboratory Chloride Level 108 mEq/L 101 - 111 07/08 [facility] [address] Studies [facility] [place] Laboratory Carbon Dioxide 24 mEq/L 21 - 31 07/08 [facility] [address] Studies Level [facility] [place] Laboratory Calcium Level 8.6 mg/dL 8.5 - 10.5 07/08 [facility]. Studies [facility] [place] Laboratory Blood Urea 33 mg/dL 6 - 20 07/08 [facility] [address] Studies Nitrogen [facility] [place] Laboratory Aspartate 28 IU/L 10 - 42 07/08 [facility]. Studies Amino Transf [facility] - (AST/SGOT) [place] Laboratory Alkaline 90 IU/L 42 - 121 07/08 [facility]. Studies Phosphatase [facility] [place] Laboratory Albumin/Globul 1.2 1.1 - 1.8 07/08 [facility]. Studies in Ratio /2017 [facility] [place] Laboratory Albumin 3.0 g/dL 3.2 - 5.5 07/08 [facility] [address]. Studies /2017 [facility] [place] Laboratory Alanine 15 IU/L 10 - 60 07/08 [facility]. Studies Aminotransfera /2017 [facility] - se (ALT/SGPT) [place] Laboratory White Blood 5.6 K/uL 4.3 - 10.9 07/08 [facility] [address]. Studies Count /2017 [facility] [place] Laboratory Red Cell 15.5 % 12.1 - 02 [facility]. Studies Distribution 15.2 /2017 [facility] - Width [place] Laboratory Red Blood 3.93 M/uL 4.33 - 02 [facility]. Studies Count 5.43 /2017 [facility] [place] Laboratory Platelet Count 164 K/uL 152 - 406 07/08 [facility]. Studies /2017 [facility] [place] Laboratory Neutrophils % 62.5 % 41.7 - 02 [facility] St. Studies 73.7 /2017 [facility] [place] Laboratory Monocytes % 9.9 % 3.3 - 12.3 07/08 [facility]. Studies /2017 [facility] [place] Laboratory Mean Platelet 9.4 fL 7.6 - 11.3 07/08 [facility] [address]. Studies Volume /2017 [facility] [place] Laboratory Mean 93.5 fL 80 - 100 07/08 [facility]. Studies Corpuscular /2017 [facility] - Volume [place] Laboratory Mean 32.5 g/dL 32.0 - 07/08 [facility] [address] Studies Corpuscular 36.0 /2017 [facility] - Hemoglobin [place] [facility] Laboratory Mean 30.4 pg 27.0 - 07/08 [facility]. Studies Corpuscular 35.0 [facility] - Hemoglobin [place] Laboratory Lymphocytes % 24.2 % 15.3 - 02 [facility] St. Studies 44.8 /2017 [facility] [place] Laboratory Hemoglobin 12.0 g/dL 13.6 - 07/08 [facility] St. Studies 17.9 /2017 [facility] [place] Laboratory Hematocrit 36.7 % 39.6 - 02 [facility] St. Studies 49.0 /2017 [facility] [place] Laboratory Eosinophils % 2.8 % 0 - 4.4 07/08 [facility] St. Studies /2018 [facility] [place] Laboratory Basophils % 0.6 % 0 - 1.3 07/08 St. Studies /2017 [facility] [place] Laboratory Absolute 3.5 K/uL 1.8 - 8.0 07/08 [facility] [address] Studies Neutrophil [facility] [place] Laboratory Absolute 0.6 K/uL 0.1 - 1.3 07/08 [facility]. Studies Monocytes [facility] - (CBC) [place] Laboratory Absolute 1.4 K/uL 0.7 - 4.9 07/08 [facility]. Studies Lymphocytes [facility] - (CBC) [place] Laboratory Absolute 0.2 K/uL 0 - 0.5 07/08 [facility]. Studies Eosinophils [facility] - (CBC) [place] Laboratory Absolute 0.0 K/uL 0 - 0.5 07/08 [facility]. Studies Basophils [facility] - (CBC) [place] Laboratory Urine pH 5.5 07/07 [facility] St. Studies [facility] [place] Laboratory Urine Total Urine 07/07 [facility] Studies Protein Total [facility] - Protein [place] Laboratory Urine Specific null 07/07 [facility]. Studies [place] [facility] [place] Laboratory Urine Nitrite Urine 07/07 [facility]. Studies Nitrite [facility] [place] Laboratory Urine Urine 07/07 [facility] Studies Leukocyte Leukocyte [facility] - Esterase Esterase [place] Laboratory Urine Ketones Urine 07/07 [facility]. Studies Ketones [facility] [place] Laboratory Urine Glucose Urine 07/07 [facility]. Studies Glucose [facility] [place] Laboratory Urine Blood Urine 07/07 [facility]. Studies Blood [facility] [place] Laboratory B-Type 259 pg/ml 07/07 [facility]. Studies Natriuretic [facility] Peptide [place] Laboratory Creatine 3.8 ng/ml 0.3 - 4.0 07/07 [facility]. Studies Kinase MB [facility] [place] Laboratory Magnesium 2.0 mg/dL 1.8 - 2.5 07/07 [facility]. Studies Level /2017 [facility] [place] Laboratory Creatine 62 IU/L 22 - 269 07/07 [facility]. Studies Kinase /2017 [facility] [place] Laboratory Rapid Troponin null 07/[address] Studies I /2017 [facility] [place] Laboratory Prothrombin 10.7 9.5 - 12.5 07/07 [facility] St. Studies Time SECONDS /2017 [facility] [place] Laboratory INR 0.91 07/07 [facility] St. Studies International /2017 [facility] Normalized [place] Ratio Laboratory Activated 29.4 24.3 - 07/07 [facility] St. Studies Partial SECONDS 36.9 [facility] Thromboplast [place] Time Vital Signs Vital Sign Value Date Comments Source Temperature Oral (F) 98.7 F 07/08/2017 [facility] [place] Heart Rate 59 07/08/2017 [facility] [address]y - [place] Respitory Rate 18 07/08/2017 [facility] [address] [place] Systolic (mm Hg) 190 07/08/2017 [facility] [address] [place] Diastolic (mm Hg) 76 07/08/2017 [facility] Height 67 07/07/2017 [facility] [address] Mindy Enc[facility] Weight 162.25 07/07/2017 [facility] [address] - [place] Encounters Location Location Encounter Encounter Reason Attending ADM DC Status Source Details Type Number For Provider Date Date Visit [facility] [id number] 07/07 07/08 [facility] Inpatient 75 /2017 [facility] Procedures Procedure Code Date Perfomer Comments Source [place] Count [id number] 07/07/2017 [facility] [id number] 07/07/2017 [facility] [address] Mindy Encarnacion Abdomen Acute [id number] 07/07/[address] [facility] [address] Guillen - Alverto Encarnacion
--- OUTSIDE RECORDS SUMMARY | 2018-10-30 13:54 | XMS REPORT ---
:1935 [facility] [address] [place] [address] Care Team Providers Name Role Phone Alexandru [...] Comments Accuchek (test code=ACU) 369 mg/dL 70-110 [id number] 12:05:00 Test Item Value Reference Range Comments Accuchek (test code=ACU) 452 mg/dL 70-110 [id number] 08:00:00 Test Item Value Reference Range Comments Accuchek (test code=ACU) Greater than 550 mg/dL 70-110 [id number] 07:42:00 Test Item Value Reference Range Comments Accuchek (test code=ACU) 463 mg/dL 70-110 [id number] 06:23:00 Test Item Value Reference Range Comments Accuchek (test code=ACU) 157 mg/dL 70-110 [id number] 00:16:00 Test Item Value Reference Range Comments Accuchek (test code=ACU) 196 mg/dL 70-110 [id number] 20:52:00 Test Item Value Reference Range Comments Accuchek (test code=ACU) 373 mg/dL 70-110 [id number] 18:44:00 Test Item Value Reference Range Comments Accuchek (test code=ACU) 459 mg/dL 70-110 [id number] 12:48:00 Test Item Value Reference Range Comments Accuchek (test code=ACU) 169 mg/dL 70-110 [id number] 06:58:00 Test Item Value Reference Range Comments [...] 83-110 Chemistry (test code=CA) 8.7 mg/dL 7.8-10.44 [id number] 05:28:00 Test Item Value Reference Range Comments Accuchek (test code=ACU) 305 mg/dL 70-110 [id number] 02:59:00 Test Item Value Reference Range Comments Accuchek (test code=ACU) 330 mg/dL 70-110 [id number] 18:35:00 Test Item Value Reference Range Comments Accuchek (test code=ACU) 458 mg/dL 70-110 [id number] 14:35:00 Test Item Value Reference Range Comments Accuchek (test code=ACU) 343 mg/dL 70-110 [id number] 11:40:00 Test Item Value Reference Range Comments Accuchek (test code=ACU) 285 mg/dL 70-110 [id number] 08:52:00 Test Item Value Reference Range Comments Accuchek (test code=ACU) 187 mg/dL 70-110 [id number] 05:04:00 Test Item Value Reference Range Comments Accuchek (test code=ACU) 323 mg/dL 70-110 [id number] 02:53:00 Test Item Value Reference Range Comments Accuchek (test code=ACU) 369 mg/dL 70-110 [id number] 20:55:00 Test Item Value Reference Range Comments Accuchek (test code=ACU) 486 mg/dL 70-110 [id number] 16:55:00 Test Item Value Reference Range Comments Accuchek (test code=ACU) 432 mg/dL 70-110 [id number] 14:33:00 Test Item Value Reference Range Comments Accuchek (test code=ACU) 287 mg/dL 70-110 [id number] 09:53:00 Test Item Value Reference Range Comments Accuchek (test code=ACU) 119 mg/dL 70-110 [id number] 09:13:00 Test Item Value Reference Range Comments [...] Value! Chemistry (test code=CA) 8.6 mg/dL 7.8-10.44 [id number] 05:37:00 Test Item Value Reference Range Comments Accuchek (test code=ACU) 94 mg/dL 70-110 [id number] 02:52:00 Test Item Value Reference Range Comments Accuchek (test code=ACU) 87 mg/dL 70-110 [id number] 22:27:00 Test Item Value Reference Range Comments Accuchek (test code=ACU) 370 mg/dL 70-110 [id number] 19:37:00 Test Item Value Reference Range Comments Chemistry (test code=CCC) ALEJANDRINA.LAB@1936 Refer to Critical Value designated by an *L or *H Chemistry (test code=GLU-T) 632 mg/dL 83-110 Critical value! Is patient fasting? NoComment line ehocAxegxsjfm3477-91-60 17:31:00 Test Item Value Reference Range Comments Chemistry (test code=CCC) ALEJANDRINA.RG@1731 Refer to Critical Value designated by an *L or *H Chemistry (test code=GLU-T) 762 mg/dL 83-110 Critical value! Is patient fasting? [id number] 11:55:00 Test Item Value Reference Range Comments [...] 83-110 Chemistry (test code=CA) 8.8 mg/dL 7.8-10.44 [id number] 06:35:00 Test Item Value Reference Range Comments Accuchek (test code=ACU) 273 mg/dL 70-110 [id number] 20:59:00 Test Item Value Reference Range Comments Accuchek (test code=ACU) 351 mg/dL 70110 Ekcgodkv8761-20-55 17:23:00 Test Item Value Reference Range Comments Accuchek (test code=ACU) 116 mg/dL [address] [id number] 11:55:00 Test Item Value Reference Range Comments Accuchek (test code=ACU) 413 mg/dL 70-110 [id number] 05:25:00 Test Item Value Reference Range Comments Accuchek (test code=ACU) 286 mg/dL 70-110 [id number] 21:17:00 Test Item Value Reference Range Comments Accuchek (test code=ACU) 185 mg/dL 70110 [id number] 18:59:00 Test Item Value Reference Range Comments Accuchek (test code=ACU) 383 mg/dL 110 [id number] 18:59:00 Test Item Value Reference Range Comments Accuchek (test code=ACU) 227 mg/dL 110 [id number] 13:41:00 Test Item Value Reference Range Comments Accuchek (test code=ACU) 293 mg/dL 70-110 Sciwxtyt1388-69-70 05:45:00 Test Item Value Reference Range Comments Accuchek (test code=ACU) 396 mg/dL 110 [id number] 05:11:00 Test Item Value Reference Range Comments Accuchek (test code=ACU) 404 mg/dL 70-110 [id number] 04:23:00 Test Item Value Reference Range Comments [...] 83-110 Chemistry (test code=CA) 8.2 mg/dL 7.8-10.44 [id number] 04:05:00 Test Item Value Reference Range Comments [...] 0.0-0.7 Hematology (test code=BASO#) 0.0 thou/uL 0.0-0.2 [id number] 22:43:00 Test Item Value Reference Range Comments Accuchek (test code=ACU) 248 mg/dL 70-110 [id number] 19:16:00 Test Item Value Reference Range Comments Accuchek (test code=ACU) 301 mg/dL 70-110 Chemistry - [id number] 12:59:00 Test Item Value Reference Range Comments [...] considered immune to HBV infection. Chemistry - [id number] 12:59:00 Test Item Value Reference Range Comments Chemistry - Specials (test code=THBSAG) Non-Reactive S/CO NonReactive Chemistry - [id number] 12:59:00 Test Item Value Reference Range Comments Chemistry - Specials (test code=INTHEPBCT) Non-Reactive NonReactive Chemistry - [id number] 12:59:00 Test Item Value Reference Range Comments Chemistry - Specials (test code=INTHEPC) Non-Reactive NonReactive [id number] 11:53:00 Test Item Value Reference Range Comments Accuchek (test code=ACU) 377 mg/dL 70-110 [id number] 05:45:00 Test Item Value Reference Range Comments Accuchek (test code=ACU) 219 mg/dL 70-110 Nsfmfofqhb3863-94-57 05:05:00 Test Item Value Reference Range Comments [...] (100X) 0-5/hpf Hematology (test code=PCOMMENT) Appears Adequate [id number] 04:36:00 Test Item Value Reference Range Comments [...] 83-110 Chemistry (test code=CA) 8.5 mg/dL 7.8-10.44 [id number] 20:44:00 Test Item Value Reference Range Comments Accuchek (test code=ACU) 174 mg/dL 70-110 Dsczogeu1942-01-87 17:03:00 Test Item Value Reference Range Comments Accuchek (test code=ACU) 344 mg/dL 70-110 [id number] 17:03:00 Test Item Value Reference Range Comments Accuchek (test code=ACU) 217 mg/dL 70-110 Chemistry - [id number] 09:20:00 Test Item Value Reference Range Comments Chemistry - Urine (test 72.26 mg/dL 63-166 NOTE: Concentration is based code=URCREAT) on a daily urine output of1.5 Liters. Chemistry - [id number] 09:20:00 Test Item Value Reference Range Comments Chemistry - Urine (test code=URTP) 381 mg/dL Chemistry - BNP, HgbA1c, [id number] 08:00:00 Test Item Value Reference Range Comments Chemistry - BNP, HgbA1c, 6.3 % 4.0-6.0 Therapeutic goals for glycemic PTHi (test code=YTHO7BT) control (ADA)Adults:- Goal of therapy: Less than 7.0% HbA1c- Action suggested: Greater than 8.0% LzT7yZpobmzuyu patients:- Toddlers and preschoolers: Less than 8.5% (but Greater than 7.5%)- School age (6-12 years): Less than 8%- Adolescents and young adults (13-19 years): Less than 7.5%Diagnosing diabetes (ADA)- HbA1c: Greater than or equal to 6.5% Values of 5.7 - 6.4% indicate HIGH risk for developing DiabetesInternational Expert Committee Report on the Role of the S0LNwwef in the Diagnosis of Diabetes. Diabetes Care 2009July;32(7):1327-1334ADA, Diagnosis classification of diabetes mellitus.Diabetes Care 2010; 33 Suppl 1:S62 Fjkkextiw3626-75-56 05:46:00 Test Item Value Reference Range Comments [...] 83-110 Chemistry (test code=CA) 8.8 mg/dL 7.8-10.44 [id number] 05:35:00 Test Item Value Reference Range Comments Accuchek (test code=ACU) 262 mg/dL 70-110 [id number] 05:21:00 Test Item Value Reference Range Comments [...] 0.0-0.7 Hematology (test code=BASO#) 0.1 thou/uL 0.0-0.2 [id number] 21:30:00 Test Item Value Reference Range Comments Accuchek (test code=ACU) 279 mg/dL 70-110 [id number] 16:30:00 Test Item Value Reference Range Comments Accuchek (test code=ACU) 145 mg/dL 70-110 [id number] 11:42:00 Test Item Value Reference Range Comments Accuchek (test code=ACU) 119 mg/dL 70-110 [id number] 06:48:00 Test Item Value Reference Range Comments [...] 8.4 mg/dL 7.8-10.44 Chemistry - BNP, HgbA1c, [id number] 06:45:00 Test Item Value Reference Range Comments Chemistry - BNP, HgbA1c, PTHi (test code=BNP) 419.1 pg/mL 0-100 [id number] 06:35:00 Test Item Value Reference Range Comments Accuchek (test code=ACU) 171 mg/dL 70-110 [id number] 06:20:00 Test Item Value Reference Range Comments [...] 0.0-0.7 Hematology (test code=BASO#) 0.0 thou/uL 0.0-0.2 [id number] 22:09:00 Test Item Value Reference Range Comments Accuchek (test code=ACU) 223 mg/dL 70-110 [id number] 17:33:00 Test Item Value Reference Range Comments Accuchek (test code=ACU) 100 mg/dL 70-110 [id number] 14:32:00 Test Item Value Reference Range Comments Accuchek (test code=ACU) 375 mg/dL 70-110 [id number] 14:32:00 Test Item Value Reference Range Comments Accuchek (test code=ACU) 285 mg/dL 70-110 [id number] 10:33:00 Test Item Value Reference Range Comments Accuchek (test code=ACU) 498 mg/dL 70-110 NOTIFIED NURSE [id number] 09:23:00 Test Item Value Reference Range Comments Accuchek (test code=ACU) 523 mg/dL 70-110 Apzlfoqpaq7623-28-73 03:49:00 Test Item Value Reference Range Comments [...] LPF 0-3 Hyaline Urine Source: Urine Clean [id number] 00:20:00 Test Item Value Reference Range Comments [...] 5-34 Chemistry (test code=ALT) 21 U/L 8-55 [id number] 00:20:00 Test Item Value Reference Range Comments Chemistry (test code=PHOS) 4.0 mg/dL 2.3-4.7 [id number] 00:20:00 Test Item Value Reference Range Comments Chemistry (test code=MG) 2.4 mg/dL 1.6-2.6 Dziklukj9840-13-29 00:14:00 Test Item Value Reference Range Comments Accuchek (test code=ACU) 113 mg/dL 70-110 Urhzoqdmyb4545-94-24 23:58:00 Test Item Value Reference Range Comments [...]
--- OUTSIDE RECORDS SUMMARY | 2018-10-30 13:55 | XMS REPORT | Summary of Care ---
[...] not documented Status: Problems Name Dates Details Vitamin D insufficiency (268.9, E55.9) Status: Active Benign essential hypertension (401.1, I10) Status: Active Diabetic retinopathy (250.50, E11.319) Status: Active ESRD on hemodialysis (585.6, N18.6) Status: Active Hypoglycemia due to insulin (251.1, E16.0) Status: Active Hypothyroidism (244.9, E03.9) Status: Active Presence of insulin pump (V45.85, Z96.41) Status: Active Type 1 diabetes mellitus (250.01, E10.9) Status: Active Medications Name Dates Details Levothyroxine Sodium 137 MCG Oral Tablet TAKE 1 TABLET Daily take medication alone, wait 45 minutes prior to food or other medication Quantity: 90 Refills: 3 Gerard VASQUEZ M.D. Atorvastatin Calcium 20 MG Oral Tablet TAKE [...] times a day Quantity: 400 Refills: 3 JOCELINE Gonzalez, ADDIS Start : 11-Apr-2018 Active Lisa Microlet Lancets MISC TEST 4 TIMES DAILY. ICD 10 E10.9 [...] Z87.448) Status: Resolved Procedures Procedure Dates Details [[facility]] CMP W/EGFR Date: 18-Oct-2018 [[facility]] HEMOGLOBIN A1c Date: 18-Oct-2018 [[facility]] LIPID PANEL Date: 18-Oct-2018 [[facility]] MICROALBUMIN, RANDOM URINE (W/CREATININE) Date: 18-Oct-2018 [[facility]] T4, FREE Date: 18-Oct-2018 [[facility]] TSH, 3RD GENERATION Date: 18-Oct-2018 [[facility]] VITAMIN D, 25-HYDROXY, LC/MS/MS Date: 18-Oct-2018 History of Hernia repair Completed Immunization Name Dates Details Immunizations not documented Family History Name Dates Details Family history of cerebrovascular accident (CVA) (V17.1, Z82.3) Status: Active Social History Name Dates Details - Status: Name Dates Details Former smoker Vital Signs Date Test Result Details [id number] BP Systolic 150 mm[Hg] Status: Comments: Location: RUE; Position: Sitting BP Diastolic 64 mm[Hg] Status: Comments: Location: RUE; Position: Sitting Heart Rate 64 /min Status: Comments: Location: R Brachial Artery; [id number] BP Systolic 155 mm[Hg] Status: Comments: Location: RUE; Position: Sitting BP Diastolic 69 mm[Hg] Status: Comments: Location: RUE; Position: Sitting Heart Rate 58 /min Status: Comments: Location: R Brachial Artery; Height 67 in Status: Weight 159.375 lb Status: Body Mass Index Calculated 24.96 kg/m2 Status: Body Surface Area Calculated 1.84 m2 Status: Temperature 97.8 f Status: Comments: Method: Oral Results Date Description Value Details [id number] [O] Hemoglobin A1c (in office) HEMOGLOBIN A1c 7.0 (Abnormal) [id number] Glucose (Point of Care In Office) Glucose POC Lifescan 206 (Abnormal) Plan of Care Name Dates Details Planned Observations [[facility]] CMP W/EGFR On: 16-Jan-2019 Intent [[facility]] HEMOGLOBIN A1c On: 16-Jan-2019 Intent [[facility]] LIPID PANEL On: 16-Jan-2019 Intent [[facility]] MICROALBUMIN, RANDOM URINE (W/CREATININE) On: 16-Jan-2019 Intent [[facility]] T4, FREE On: 16-Jan-2019 Intent [[facility]] TSH, 3RD GENERATION On: 16-Jan-2019 Intent [[facility]] VITAMIN D, 25-HYDROXY, LC/MS/MS On: 16-Jan-2019 Intent Planned Goals not documented Planned Encounters Appointment; ADDIS VASQUEZ M.D. On: 21-Feb-2019 13:40 Interventions Provided Medication ChangesLevothyroxine Sodium 137 MCG Oral Tablet - RenewPlan1. Insulin -dependent T1DM on HD current A1c not reflective of actual values- Currently using Medtronic insulin pump initiated on HD 02/2017. Hypoglycemia greatly improved, now sleeping through the night regularly. Intentionally eating snacks before bedtime to raise BG to 200s before sleep. I have advised him of the following changes: Pump Details: Make: Vaxart, Model: Paradigm Revel- [id number], Serial Number: #[id number] Infusion Set Placed By Self Type Insulin: NovoLog Insulin Basal Rate 1 -- @ 12 AM,=continue 0.25 units/ Hr Basal Rate 2 -- @ 6 AM,=0.85 units / Hr Basal Rate 3 -- @ 12 PM,=0.8 units / Hr Basal Rate 4 -- @ 9 PM=continue 0.5 units/ Hr Insulin / CHO - 1 -- 1 unit : 15 grams Insulin Sensitivity Factor 1 -- @ 50 mg/dL Total 24- hour total dose 15.3 units - I have asked the patient check fasting, pre-meal, and bedtime values and bring this log to next clinic appointment - Have prescribed glucagon emergency kit - have asked he stop snacking before bedtime 2. Has not yet scheduled appointment with diabetes education. Goals of education will be the following: - Review patient's BG log on HD - Review new renal diet as it applies to his diabetes - Review current pump settings 3. Dyslipidemia- I have discussed with the patient diabetes as it relates to overall cardiovascular risk. - Continue Atorvastatin 20 mg qHS. 4. ESRD on HD- follows with outside running specialist, 5. Blood pressure- hypertensive (due for HD) - Recently increased amlodipine from 5 mg to 10 mg daily - Continue furosemide 20 mg daily - Continue metoprolol 50 mg daily 6. Lifestyle modification - Have counseled the patient regarding goal weight loss of 5-10% of TBW over next six months - Have advised patient to start exercise program as tolerated - Have given patient information from the [place] [employer] regarding nutrition, exercise and diabetes 7. Hypothyroidism- mild elevation in TSH on recent labs - dose increase Levothyroxine from 125 to 137 mcg daily during next clinic visit. 8. 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 Has follow-up with opthalmology. - will plan to have patient obtain [...] 14-Jun-2018 10:00 Encounter Diagnosis: Problem not documented Appointment; ADDIS VASQUEZ M.D. On: 18-Oct-2018 10:00 Encounter Diagnosis: Problem not documented
--- NOTE | 2018-10-30 14:47 | RAD REPORT ---
EXAM DESCRIPTION: RAD - Chest Single View - 10/30/2018 2:40 pm CLINICAL HISTORY: Abdominal pain, shortness of breath, COPD COMPARISON: July 12 TECHNIQUE: AP portable chest image was obtained 1429 hours . FINDINGS: Fibrotic lung changes are present as a baseline. Right apex parenchymal calcifications are present and stable. No peripheral mass or consolidation. Right costophrenic angle blunting is presen t and stable. Numerous left hilar granulomatous type calcifications are present. Heart and vasculatur e are normal. No pneumothorax. No large pleural effusion. No acute bony abnormality seen. No acute ao rtic findings suspected. IMPRESSION: Chronic fibrotic lung changes are present without an acute cardiopulmonary process seen.
[2018-10-30 15:44] LABS: Absolute Lymphocytes (CBC) 0.9 K/uL (0.7-4.9); Absolute Monocytes 0.8 K/uL (0.1-1.3); Absolute Neutrophil 6.4 K/uL (1.8-8.0); Basophils % 0.7 % (0-1.3); Eosinophils % 3.5 % (0-4.4); Hematocrit 31.4 % (39.6-49.0); Lymphocytes % 10.6 % (15.3-44.8); MPV 9.3 fL (7.6-11.3); Monocytes % 9.2 % (3.3-12.3)
[2018-10-30 15:48] LABS: Protime INR 0.9
[2018-10-30 16:06] LABS: Albumin 3.3 g/dL (3.4-5.0); Bilirubin Direct 0.1 mg/dL (0-0.2); Bilirubin Total 0.3 mg/dL (0.2-1.0); Potassium 4.5 mmol/L (3.5-5.1); Protein, Total 6.7 g/dL (6.4-8.2); Troponin (Emerg Dept Use Only) 0.06 ng/mL (0.0-0.045)
[2018-10-30 16:14] LABS: Magnesium 4.5 mg/dL (1.8-2.4)
--- NOTE | 2018-10-30 17:02 | RAD REPORT ---
EXAM DESCRIPTION: CT - Abdomen Pelvis Wo Contrast - 10/30/2018 4:41 pm CLINICAL HISTORY: Abdominal pain, constipation COMPARISON: January 2018 TECHNIQUE: Axial [address] imaging of the abdomen and pelvis was performed without IV contrast. No IV contrast was given because of allergy, abnormal renal function, patient refusal or physician re quest. No oral contrast administered. All CT scans are performed using dose optimization technique as appropriate and may include automated exposure control or mA/KV adjustment according to patient size. FINDINGS: Small right pleural effusion is present. There is trace fluid in the left base. Posterior lung base atelectasis present. No pericardial effusion. The liver and spleen show no focal lesions on noncontrast imaging. There are granulomatous calcificat ions present. No acute pancreatic process seen. No gallbladder or biliary tree abnormality. Duct ston es can be occult. No hydronephrosis or suspicious renal mass. Right kidney is small and left similar to prior imaging. Isodense renal masses and pyelonephritis cannot be excluded in the absence of IV contrast. The urinar y bladder is without significant finding. No right adrenal gland abnormality. Low-density left adrena l mass is stable from 2018. Stomach is difficult to assess. There is little intraluminal content. Stomach is not grossly differen t from January 2018. No dilated large or small bowel. Moderate stool volume scattered throughout the c olon. No dilated or abnormally distended colon. No free air, free fluid or inflammatory stranding. No mass or bulky lymphadenopathy. There is a 4.5 centimeter ventral hernia upper midline abdomen at the liver level. Neck is 1.8 cm. This contains onl y fat. Prostate gland is enlarged projecting into the bladder base. No suspicious bony findings. Bony degenerative changes are present. Dense arterial tree calcification s are present. IMPRESSION: Non-contrast enhanced CT abdomen and pelvis imaging show no emergent finding. Small right pleural effusion is present. Nonacute findings are detailed in the body of the report. These chronic findings are not significantl y different from the comparison. Full assessment is limited is the absence of IV contrast.
--- NOTE | 2018-10-30 17:46 | ER ---
Nurse's Notes [facility] Name: Chana Duff Age: 83 yrs Sex: Male : 1935 Arrival Date: 10/30/2018 Time: 13:51 Bed 27 Private MD: James Callahan C Diagnosis: Abdominal and pelvic pain;Ventral hernia;Chronic respiratory failure with hypoxia;Hypermagnesemia Presentation: 10/30 13:55 Presenting complaint: Child states: He has been feeling ill, nauseated, constipated and la1 having lower than normal 02 levels at home. On a good day at home without 02 he is in the 90s and he has been running in the 70s-80s. Transition of care: patient was not received from another setting of care. Onset of symptoms was October 30, 2018. Risk Assessment: Do you want to hurt yourself or someone else? Patient reports no desire to harm self or others. Initial Sepsis Screen: Does the patient meet any 2 criteria? No. Patient's initial sepsis screen is negative. Does the patient have a suspected source of infection? No. Patient's initial sepsis screen is negative. Care prior to arrival: None. 13:55 Method Of Arrival: Wheelchair la1 13:55 Acuity: SOFIA 2 la1 Historical: - Allergies: 13:57 No Known Allergies; la1 - Home Meds: 19:20 amlodipine 5 mg tab 1 tab twice daily [Active]; aspirin 81 mg Oral chew 1 tab once mg2 daily [Active]; atorvastatin 20 mg Oral tab 1 tab once daily [Active]; doxazosin 2 mg Oral tab 0.5 tab at bedtime [Active]; furosemide 80 mg Oral tab 1 tab once daily [Active]; Insulin pump [Active]; levothyroxine 125 mcg tab 1 tab once daily [Active]; metoprolol tartrate 50 mg Oral tab 0.5 tab 2 times per day [Active]; - PMHx: 13:57 Diabetes - IDDM; Dialysis; ESRD; Hyperlipidemia; Hypertension; la1 - Immunization history:: Adult Immunizations up to date. - Social history:: Smoking status: Patient/guardian denies using tobacco, the patient reports quitting approximately 5 years ago. - Ebola Screening: : No symptoms or risks identified at this time. Screenin:20 Abuse screen: Denies threats or abuse. Denies injuries from another. Nutritional aj screening: No deficits noted. Tuberculosis screening: No symptoms or risk factors identified. Fall Risk None identified. Assessment: 14:17 General: Appears in no apparent distress. comfortable, Behavior is calm, cooperative, aj appropriate for age. Pain: Complains of pain in right upper quadrant. Neuro: Level of Consciousness is awake, alert, obeys commands, Oriented to person, place, time, situation, Appropriate for age. Respiratory: Airway is patent Respiratory effort is even, unlabored, Respiratory pattern is regular, symmetrical. GI: Abdomen is flat, non-distended, Hernia noted to RUQ Reports upper abdominal pain, constipation, nausea, vomiting. Derm: Skin is intact, is healthy with good turgor, Skin is pink, warm \T\ dry. normal. 16:41 Reassessment: patient sent to ct scan via stretcher. Cardiovascular: Chest pain is mg2 denied. 17:44 Reassessment: patient informed about the need for hospitalization, patient and family mg2 agreed. Vital Signs: 13:57 BP 123 / 72; Pulse 57; Resp 16; Temp 97.8; Pulse Ox 82% on R/A; Weight 72.57 kg; Height la1 5 ft. 7 in. (170.18 cm); 14:17 Pulse 59; Resp 20; Pulse Ox 96% on 4 lpm NC; aj 15:16 Pulse 76; Resp 18; Temp 98; Pulse Ox 100% ; mg2 17:33 Pulse 62; Resp 18; Temp 98; Pulse Ox 97% on 4 lpm NC; mg2 17:45 BP 144 / 54; Pulse 68; Resp 18; Temp 98; Pulse Ox 96% on 2 lpm NC; mg2 19:27 BP 103 / 61; Pulse 60; Resp 18; Temp 98; Pulse Ox 97% on R/A; Pain 0/10; mg2 13:57 Body Mass Index 25.06 (72.57 kg, 170.18 cm) la1 ED Course: 13:51 Patient arrived in ED. rg4 13:52 James Callahan MD is Private Physician. rg4 13:56 Triage completed. la1 13:57 Arm band placed on right wrist. la1 14:03 Tylre Cisneros MD is Attending Physician. kdr 14:15 Bed in low position. Call light in reach. Side rails up X 1. Side rails up X2. Cardiac 3 monitor on. Pulse ox on. NIBP on. 14:16 Vivien Rubio, RN is Primary Nurse. aj 14:20 Initial lab(s) drawn, by me, sent to lab. First set of blood cultures drawn Held at 3 bedside with patient label. Inserted saline lock: 22 gauge in right antecubital area, using aseptic technique. Blood collected. 14:32 Basic Metabolic Panel Sent. jp3 14:33 CBC with Diff Sent. jp3 14:33 Magnesium Sent. jp3 14:33 LFT's Sent. jp3 14:33 NT PRO-BNP Sent. jp3 14:33 PT-INR Sent. jp3 14:33 Troponin (emerg Dept Use Only) Sent. jp3 14:42 XRAY Chest (1 view) In Process Unspecified. EDMS 14:51 Radiology exam delayed due to lab results not completed at this time. (BUN/Creatinine). sw 15:35 Lab(s) recollected, by me, sent to lab. jp3 16:[address] via stretcher. sw 16:42 Abdomen In Process Unspecified. EDMS 17:43 James Callahan MD is Hospitalizing Provider. kdr 19:18 Mayito Ambrose, MEHRAN is Primary Nurse. mg2 19:28 No provider procedures requiring assistance completed. Patient admitted, IV remains in mg2 place. Administered Medications: No medications were administered Outcome: 17:45 Decision to Hospitalize by Provider. kdr 20:45 Admitted to Tele accompanied by [facility], via stretcher, room 420, with chart, Report mg2 called to MEHRAN Lang 20:45 Condition: stable 20:45 Instructed on the need for admit, Demonstrated understanding of instructions. 21:26 Patient left the ED. mg2 Signatures: Dispatcher [employer] EDMS Vivien Rubio, RN RN Tyler Amador MD MD kdr Demario Campo RN RN Ghazala Golden Rubi 4 Mayito Ambrose, RN RN mg2 Kehinde Elam jp3 Corrections: (The following items were deleted from the chart) 19:18 17:45 Pulse 68bpm; Resp 18bpm; Pulse Ox 96% 2 lpm Nasal Cannula; Temp 98F; mg2 mg2
--- NOTE | 2018-10-30 17:46 | EDPHYS ---
Physician Documentation [facility] Name: Chana Duff Age: 83 yrs Sex: Male : 1935 Arrival Date: 10/30/2018 Time: 13:51 Bed 27 Private MD: James Callahan C ED Physician Tyler Cisneros HPI: 10/30 18:46 This 83 yrs old Male presents to ER via Wheelchair with complaints of Nausea, kdr Constipation, Low O2. 18:46 The patient presents to the emergency department with nausea, that is mild, vomiting, kdr that is intermittent. Onset: The symptoms/episode began/occurred gradually, 2 day(s) ago. Possible causes: unknown. The symptoms are aggravated by nothing. The symptoms are alleviated by remaining still. Associated signs and symptoms: Pertinent positives: abdominal pain, nausea, vomiting, SOB. Severity of symptoms: At their worst the symptoms were moderate in the emergency department the symptoms have improved mildly. The patient has not experienced similar symptoms in the past. The patient has not recently seen a physician. The patient was reported to have had saturation of 70% on RA at home. 18:46 The patient has also be taking a lot of MOM in the last few days for constipation. kdr Historical: - Allergies: 13:57 No Known Allergies; la1 - Home Meds: 19:20 amlodipine 5 mg tab 1 tab twice daily [Active]; aspirin 81 mg Oral chew 1 tab once mg2 daily [Active]; atorvastatin 20 mg Oral tab 1 tab once daily [Active]; doxazosin 2 mg Oral tab 0.5 tab at bedtime [Active]; furosemide 80 mg Oral tab 1 tab once daily [Active]; Insulin pump [Active]; levothyroxine 125 mcg tab 1 tab once daily [Active]; metoprolol tartrate 50 mg Oral tab 0.5 tab 2 times per day [Active]; - PMHx: 13:57 Diabetes - IDDM; Dialysis; ESRD; Hyperlipidemia; Hypertension; la1 - Immunization history:: Adult Immunizations up to date. - Social history:: Smoking status: Patient/guardian denies using tobacco, the patient reports quitting approximately 5 years ago. - Ebola Screening: : No symptoms or risks identified at this time. ROS: 18:46 Constitutional: Negative for fever, chills, and weight loss. kdr 18:48 Eyes: Negative for injury, pain, redness, and discharge, ENT: Negative for injury, kdr pain, and discharge, Neck: Negative for injury, pain, and swelling, Cardiovascular: Negative for chest pain, palpitations, and edema, Back: Negative for injury and pain, : Negative for injury, bleeding, discharge, and swelling, MS/Extremity: Negative for injury and deformity, Skin: Negative for injury, rash, and discoloration, Neuro: Negative for headache, weakness, numbness, tingling, and seizure activity. Psych: Negative for depression, anxiety, suicide ideation, homicidal ideation, and hallucinations, Allergy/Immunology: Negative for hives, rash, and allergies, Endocrine: Negative for neck swelling, polydipsia, polyuria, polyphagia, and marked weight changes, Hematologic/Lymphatic: Negative for swollen nodes, abnormal bleeding, and unusual bruising. 18:48 Respiratory: Positive for dyspnea on exertion, shortness of breath, at rest. 18:48 Abdomen/GI: Positive for abdominal pain, Budging of his abdomen just above the umbilicus. Exam: 18:48 Constitutional: This is a well developed, well nourished patient who is awake, alert, kdr and in no acute distress. Head/Face: Normocephalic, atraumatic. Eyes: Pupils equal round and reactive to light, extra-ocular motions intact. Lids and lashes normal. Conjunctiva and sclera are non-icteric and not injected. Cornea within normal limits. Periorbital areas with no swelling, redness, or edema. Neck: Trachea midline, no thyromegaly or masses palpated, and no cervical lymphadenopathy. Supple, full range of motion without nuchal rigidity, or vertebral point tenderness. No Meningismus. Chest/axilla: Normal chest wall appearance and motion. Nontender with no deformity. No lesions are appreciated. Cardiovascular: Regular rate and rhythm with a normal S1 and S2. No gallops, murmurs, or rubs. Normal PMI, no JVD. No pulse deficits. Respiratory: Lungs have equal breath sounds bilaterally, clear to auscultation and percussion. No rales, rhonchi or wheezes noted. No increased work of breathing, no retractions or nasal flaring. Back: No spinal tenderness. No costovertebral tenderness. Full range of motion. Skin: Warm, dry with normal turgor. Normal color with no rashes, no lesions, and no evidence of cellulitis. MS/ Extremity: Pulses equal, no cyanosis. Neurovascular intact. Full, normal range of motion. Neuro: Awake and alert, GCS 15, oriented to person, place, time, and situation. Cranial nerves II-XII grossly intact. Motor strength 5/5 in all extremities. Sensory grossly intact. Cerebellar exam normal. Normal gait. Psych: Awake, alert, with orientation to person, place and time. Behavior, mood, and affect are within normal limits. 18:48 Abdomen/GI: Inspection: abdomen appears normal, Bowel sounds: active, Palpation: soft, mild abdominal tenderness, in the umbilical area, Liver: no appreciated palpable abnormalities, Hernia: not appreciated. Vital Signs: 13:57 BP 123 / 72; Pulse 57; Resp 16; Temp 97.8; Pulse Ox 82% on R/A; Weight 72.57 kg; Height la1 5 ft. 7 in. (170.18 cm); 14:17 Pulse 59; Resp 20; Pulse Ox 96% on 4 lpm NC; aj 15:16 Pulse 76; Resp 18; Temp 98; Pulse Ox 100% ; mg2 17:33 Pulse 62; Resp 18; Temp 98; Pulse Ox 97% on 4 lpm NC; mg2 17:45 BP 144 / 54; Pulse 68; Resp 18; Temp 98; Pulse Ox 96% on 2 lpm NC; mg2 19:27 BP 103 / 61; Pulse 60; Resp 18; Temp 98; Pulse Ox 97% on R/A; Pain 0/10; mg2 13:57 Body Mass Index 25.06 (72.57 kg, 170.18 cm) la1 MDM: 17:45 Patient medically screened. kdr 18:48 Data reviewed: vital signs, nurses notes, lab test result(s), radiologic studies. kdr Counseling: I had a detailed discussion with the patient and/or guardian regarding: the historical points, exam findings, and any diagnostic results supporting the discharge/admit diagnosis, lab results, radiology results, the need for further work-up and treatment in the hospital. Physician consultation: A [place] CANDELARIA regarding admission, and will see patient in inpatient room, tomorrow. Admission orders: after a detailed discussion of the patient's condition and case, the admit orders are written by me. ED course: The patient as non-toxic in the ED and stable. 10/30 14:05 Order name: Basic Metabolic Panel; Complete Time: 16:28 [facility] 10/30 14:05 Order name: CBC with Diff; Complete Time: 16:28 [facility] 10/30 14:05 Order name: LFT's; Complete Time: 16:28 [facility] 10/30 14:05 Order name: Magnesium; Complete Time: 16:28 [facility] 10/30 14:05 Order name: NT PRO-BNP; Complete Time: 16:28 [facility] 10/30 14:05 Order name: PT-INR; Complete Time: 16:28 [facility] 10/30 14:05 Order name: Troponin (emerg Dept Use Only); Complete Time: 16:28 [facility] 10/30 14:05 Order name: XRAY Chest (1 view); Complete Time: 15:09 [facility] 10/30 14:05 Order name: EKG; Complete Time: 14:05 [facility] 10/30 14:05 Order name: Cardiac monitoring; Complete Time: 14:34 [facility] 10/30 14:05 Order name: EKG - Nurse/Tech; Complete Time: 14:34 [facility] 10/30 16:26 Order name: Abdomen ; Complete Time: 17:14 [facility] 10/30 17:55 Order name: Consistent Carb (ADA) [address] [facility] 10/30 14:05 Order name: IV Saline Lock; Complete Time: 14:34 [facility] 10/30 14:05 Order name: Labs collected and sent; Complete Time: 14:35 [facility] 10/30 14:05 Order name: O2 Per Protocol; Complete Time: 14:32 [facility] 10/30 14:05 Order name: O2 Sat Monitoring; Complete Time: 14:32 [facility] 10/30 14:58 Order name: Labs - recollect needed; Complete Time: 15:36 iw Administered Medications: No medications were administered Disposition: 10/30/18 17:45 Hospitalization ordered by James Callahan for Inpatient Admission. Preliminary diagnosis are Abdominal and pelvic pain, Ventral hernia, Chronic respiratory failure with hypoxia, Hypermagnesemia. - Bed requested for Telemetry/MedSurg (Inpatient). - Status is Inpatient Admission. mg2 - Condition is Fair. - Problem is new. - Symptoms are unchanged. UTI on Admission? No Signatures: Dispatcher [employer] [facility] Viktoriya Blum RN RN Tyler Cisneros MD MD kdr Melba Vu, RN RN iw Demario Campo, RN RN la1 Mayito Ambrose, RN RN mg2 Corrections: (The following items were deleted from the chart) 16:26 14:17 Abdomen Pelvis W/Wo Con+CT.RAD.BRZ ordered. EDUT EDMS 20:03 17:45 Hospitalization Ordered by A [place] CANDELARIA for Inpatient Admission. Preliminary mw diagnosis is Abdominal and pelvic pain; Ventral hernia; Chronic respiratory failure with hypoxia; Hypermagnesemia. Bed requested for Telemetry/MedSurg (Inpatient). Status is Inpatient Admission. Condition is Fair. Problem is new. Symptoms are unchanged. UTI on Admission? No. kdr 21:26 20:03 10/30/2018 17:45 Hospitalization Ordered by A [place] CANDELARIA for Inpatient Admission. mg2 Preliminary diagnosis is Abdominal and pelvic pain; Ventral hernia; Chronic respiratory failure with hypoxia; Hypermagnesemia. Bed requested for Telemetry/MedSurg (Inpatient). Status is Inpatient Admission. Condition is Fair. Problem is new. Symptoms are unchanged. UTI on Admission? No. mw
[2018-10-30] MEDS ORDERED: ONDANSETRON 4 MG/2 ML VIAL IV PRN (17:50)
[2018-10-30] MEDS ORDERED: ACETAMINOPHEN 500 MG TAB PO PRN (17:50)
[2018-10-30] MEDS ORDERED: FUROSEMIDE 40 MG/4 ML VIAL IV ONE ×2 (21:35→22:24)
[2018-10-30] MEDS ORDERED: CALCIUM GLUC 10% INJ 4.65 MEQ in NA CHLORIDE 0.9% 100 ML IV ONE (22:06)
[2018-10-30] MEDS: NA CHLORIDE 0.9% 1,000 ML IV SCH (22:26)
[2018-10-30] MEDS ORDERED: CALCIUM GLUCONATE 1 GM IVPB 1 GM/50 ML BAG IV ONE (22:50)
[2018-10-31 05:08] LABS: Urine Appearance CLOUDY; Urine Bilirubin NEGATIVE (NEG); Urine Blood NEGATIVE (NEG); Urine Color YELLOW; Urine Glucose NEGATIVE (NEG); Urine Protein 2+ (NEG); Urine Urobilinogen 0.2 mg/dL (0.2-1.0); Urine pH 7.5 (5.0-7.0)
[2018-10-31 05:11] LABS: Urine Microscopic Reflex ORDER UMIC
[2018-10-31 05:40] LABS: Urine Bacteria >50 /HPF (NONE SEEN); Urine Culture Reflex Order REFLEXED; Urine RBC NONE SEEN /HPF (NONE SEEN)
[2018-10-31 05:51] LABS: Basophils % 0.7 % (0-1.3); Hematocrit 31.9 % (39.6-49.0); Lymphocytes % 11.7 % (15.3-44.8); Monocytes % 11.3 % (3.3-12.3); RBC Red Blood Cell Count 3.35 M/uL (4.33-5.43)
[2018-10-31 05:55] LABS: Potassium 4.1 mmol/L (3.5-5.1)
[2018-10-31] MEDS: NA CHLORIDE 0.9% 1,000 ML IV SCH (07:20)
[2018-10-31] MEDS ORDERED: ALBUTEROL INHALER 60 PUFF/8 GM IH PRN (07:33)
[2018-10-31] MEDS ORDERED: FUROSEMIDE PO SCH (07:45)
[2018-10-31] MEDS ORDERED: AMLODIPINE 5 MG TAB PO SCH (08:00)
[2018-10-31] MEDS ORDERED: METOPROLOL TAR 50 MG TAB PO SCH (09:00)
[2018-10-31] MEDS: FUROSEMIDE 40 MG TABLET PO SCH (09:00)
[2018-10-31] MEDS ORDERED: HOME MED 1 EA UNK (Levothyroxine Sodium [Levothyroxine Sodium] 137 MCG) PO SCH (09:00)
[2018-10-31] MEDS ORDERED: DRISDOL (VITAMIN D=ERGOCALCIFEROL) 50000 UNIT CAP PO SCH (09:00)
[2018-10-31] MEDS ORDERED: CEFTRIAXONE 1 GM/NS 50 ML 1 GM/50 ML BAG IV SCH (09:00)
[2018-10-31] MEDS: METOPROLOL TAR 25 MG TAB PO SCH ×2 (09:00→23:03)
[2018-10-31] MEDS: HEPARIN 5000 UNIT/ML 1 ML VIAL SQ SCH ×2 (09:33→23:03)
[2018-10-31] MEDS: ASPIRIN EC 81 MG TAB PO SCH (09:33)
[2018-10-31] MEDS: FINASTERIDE 5 MG TAB PO SCH (09:33)
[2018-10-31] MEDS: TAMSULOSIN 0.4 MG SR CAP PO SCH (09:33)
[2018-10-31] MEDS: CA ACETATE 667 MG CAP PO SCH ×3 (09:33→16:58)
[2018-10-31] MEDS: CEFTRIAXONE/SWI 1gm 1 GM/10 ML SYR IVP SCH (09:34)
[2018-10-31] MEDS: CALCIUM CARBONATE CHEW 500MG TAB PO SCH ×3 (10:05→16:58)
--- NOTE | 2018-10-31 10:35 | RAD REPORT ---
EXAM DESCRIPTION: CT - [facility] - 10/31/2018 9:49 am CLINICAL HISTORY: sob/abnormal chest x-ray COMPARISON: 2013 CT chest/October 30, 2018 chest x-ray TECHNIQUE: Computed axial tomography of the chest was obtained. Contrast was not requested. All CT scans are performed using dose optimization technique as appropriate and may include automated exposure control or mA/KV adjustment according to patient size. FINDINGS: The evaluation of mediastinum, kurt and vessels is limited secondary to lack of IV contras t administration. Mild chronic lingular atelectasis. Moderate COPD. 6 centimeter bulla left anterior lung base. Mild ch ronic interstitial lung opacities Calcified hilar lymph nodes. Coronary arterial calcifications A minimal right pleural effusion. . No pericardial effusion Left adrenal adenoma only partially included in the field of view IMPRESSION: Moderate COPD Minimal right pleural effusion
--- NOTE | 2018-10-31 13:59 | HP ---
Date of Admission: 10/31/2018 Chief Complaint: Abdominal pain, nausea and constipation. History Of Present Illness: This 83-year-old male patient who has multiple comorbidities, has also p susi with constipation from time to time and over the weekend on Wednesday and Wednesday he took some o dhx-yik-ztzmziq laxatives on each day and had a bowel movement with it. Last bowel movement was yest erday. The patient has a history of a ventral abdominal wall hernia in the epigastric region and yes terday the patient reported that this hernia got larger and painful and had some nausea with it. No fever, no chills. This area was tender to touch. With all these complaints, he came to emergency ro om and after he was evaluated in the ER, ER physician was able to reduce this hernia and his pain has improved. His oxygen saturation in emergency room was 82%. I was contacted requesting admission to the hospital and the patient was admitted with Nephrology consult and General Surgery consult. When I saw him this morning, he denied any other new complaints. Allergies: NO KNOWN ALLERGIES. Medications: List reviewed. Review of Systems: GI: As mentioned above. Respiratory: The patient has shortness of breath with any day-to-day activ ity due to his severe COPD and he reports that in last several months, it is progressively getting wo rse and he uses his inhaler regularly. All other systems reviewed and negative. Family History: Not pertinent. Social History: Prior history of smoking not at present time. Use of alcohol negative. Past Surgical History: Cataract surgery, hernia repair, angioplasty of leg artery due to peripheral vascular disease. Past Medical History: Significant for hypertension, end-stage renal disease, on hemodialysis, hyperl ipidemia, diabetes mellitus, hypothyroidism, possible renal artery stenosis, severe COPD, benign pros tatic hypertrophy, gastroesophageal reflux disease and prior history of stroke. Physical Examination: Vital Signs: When he first came into emergency room, temperature 97.8, pulse 57, respiratory rate 16 , blood pressure 123/72, oxygen saturation 82%. Height 5 feet 7 inches, weight 160 pounds. Last oxy gen saturation this morning was 92% on nasal cannula oxygen. General: Awake, alert, oriented, not in distress. HEENT: Head atraumatic, normocephalic. Conjunctivae nonerythematous. Sclerae white. Mouth, no thr ush or edema noted. Ears/Nose, no mass, lesion, discharge noted. Neck: Supple. No JVD, lymph nodes, bruit, thyromegaly noted. Lungs: Bilateral good equal air entry. Clear to auscultation. No rhonchi. No rales. Heart: Normal heart sounds, no murmur or gallop. Abdomen: Soft. No guarding, rigidity, tenderness. No distention. Bowel sounds normoactive. No he patosplenomegaly. No bruit. Mid epigastric region has a ventral hernia approximately 4 cm in size. No tenderness. Extremities: No leg edema. No calf tenderness. Skin: No rash, ulcer, cellulitis. Lymphatics: No lymph node enlargement in neck, supraclavicular, infraclavicular region. Neuro: No focal neurological deficit. Chest: Unremarkable. External Genitalia: Deferred. Rectal: Deferred. Laboratory Data: Yesterday, white count 8.5, hemoglobin 10.4, platelets 261. This morning white cou nt 8.6, hemoglobin 10.6, platelets 250. Yesterday, sodium 141, potassium 4.5, chloride 104, bicarb 3 1, BUN 49, creatinine 4.43, glucose 86, magnesium 4.5. Liver function tests unremarkable. ProBNP 57 71. This morning sodium 137, potassium 4.1, chloride 103, bicarb 30, BUN 26, creatinine 3.07, glucos e 129. Urinalysis 2+ esterase, bacteria more than 50, wbc 10-20. Chest x-ray chronic fibrotic changes. Right apex parenchymal calcification stable. No mass or consolidation. Right costophrenic angle roscoe nting present and stable. Numerous left hilar granulomatous type calcifications present. CAT scan o f abdomen shows low-density left adrenal mass, stable from 2018. 4.5 cm ventral hernia in the upper m id abdomen and neck is 1.8 cm size. It contains only fat. Small right pleural effusion. Impression: 1.Ventral abdominal wall hernia. 2.Urinary tract infection. 3.Left adrenal adenoma. 4.Small right-sided pleural effusion. 5.End-stage renal disease, on hemodialysis. 6.Anemia due to chronic kidney disease. 7.Hypertension. 8.Diabetes mellitus, insulin dependent. 9.Severe chronic obstructive pulmonary disease, oxygen dependent. 10.Hypoxia secondary to above. 11.Hypothyroidism. 12.Benign prostatic hypertrophy. 13.Gastroesophageal reflux disease. 14.Elevated magnesium. 15.Constipation. Plan: Admit the patient to hospital for further evaluation and management of this problem. The clint ent is appropriate for inpatient and is expected to spend 2 midnights in hospital. Consult nephrolog ist and general surgery. The patient did have dialysis last night as he reports and I did talk to [facility] surgeon on-call Dr. Song and details were discussed with him. We will wait for his evaluati on and recommendation, but we probably will try to avoid any surgery unless we absolutely have to con sidering his other comorbidities and at this point there is no evidence of any acute surgical abdomen . Home medications will be continued per order. DVT prophylaxis will be given per order. The patient' s last CAT scan was done about 4 years ago on chest and we will look at his CAT scan of the chest for more detailed evaluation of this abnormal chest x-ray findings. Antibiotics ceftriaxone will be sta rted. We will follow up on urine culture, which is pending. Discontinue IV fluid, which was started in the emergency room. Details of plan of treatment discussed with the patient. The patient will continue to control his diabetes with insulin the way he normally does it at home. VIELKA/MODL Voice ID: [id number]
--- NOTE | 2018-10-31 14:47 | CON ---
Date of Consultation: 10/31/2018 Brief History Of Present Illness: The patient is an 83-year-old male, who presents to ER w ith complaints of nausea, constipation, and abdominal pain. He states that on Wednesday, he had been ta denise some laxatives as he had not had a bowel movement that day. He did not have any bowel function and as such took some on Wednesday as well. He noted bloating, distention of his abdomen had some abd ominal pain from a previously noted ventral hernia now. He states he has had this ventral hernia for many years. He cannot even recall how many years, but he says it has been present as long as he cou ld remember in the supraumbilical position and occasionally will pop out, but generally reduces back in. On this particular occasion, he states that the pain was significantly worse and as such it did n ot reduce on its own and he came to the emergency room with the above-stated complaints. He denies a ny nausea or vomiting. He has had resumption of his bowel function. Bowel movement was yesterday an d it was fairly normal at that time. He has not had a bowel movement today, but continues to pass ga s. He no longer has nausea, vomiting, or any abdominal pain. His hernia was reduced in the ER and s ty then he has gotten significant symptomatic improvement and has no abdominal pain at this time. He has minimal tenderness to the ventral hernia area, but no other complaints at this time. No fever , no chills. No constitutional complaints. Past Medical History: Significant for diabetes, dialysis/end-stage renal disease, hyperlipidemia, hy pertension. Past Surgical History: He has had a fistula placed. Home Medications: Include amlodipine, aspirin, atorvastatin, doxazosin, Lasix, insulin pump, metopro lol. Allergies: NO KNOWN DRUG ALLERGIES. Social History: He denies smoking at this time. He quit tobacco approximately 5 years ago and has a 30+ pack year history. Otherwise, denies alcohol or recreational drug use. Review of Systems: A 10-point review of systems other than HPI, denies. Physical Examination: Vital Signs: At the time of examination, his BMI is 25.1. His blood pressure 132/62, pulse 68, resp iratory rate 17, temperature 98.8. General: He is awake, alert, oriented. Psychiatric: He is appropriate, conversive. HEENT: Normocephalic. His sclerae are anicteric. His mucous membranes are moist. He has dentures i n place. His oropharynx is clear. Neck: Supple. No JVD. Chest: Normal expansion and excursion Cardiovascular: Regular rate and rhythm. Pulmonary: Decreased breath sounds bilaterally. Abdomen: Soft with positive supraumbilical ventral fat containing umbilical hernia, which is reducib le. Minimal tenderness to reduction, but it recurs rather quickly. No rebound. No guarding. No fo chay peritonitis. Extremities: No clubbing, cyanosis, edema. Fistula is in place and functional in the left upper extr emity. Laboratory Data: Reveals a white blood count 8.6, hemoglobin 10.6, hematocrit 31.9, platelet count i s 251. His neutrophils are normal at 70.3%. PT 10.7, INR 0.19. Sodium 137, potassium 4.1, chloride 103, carbon dioxide 30, BUN 26, creatinine 3.07, glucose is 129. His magnesium is currently pending . It was 4.5 yesterday. His troponin was 0.06. ProBNP [address] He had a [address] scan of the abd omen and pelvis, which was officially read yesterday as noncontrast enhanced CT of the abdomen and pe lvis shows no emergent findings. Small right pleural effusion is present. Nonacute findings in the d etails of the body of the report. He has specifically with respect to the abdomen A 4.5 cm ventral he rnia in the upper midline abdominal level. The neck is 1.8 cm and contains only fat. Assessment And Plan: This is an 83-year-old male who comes in with abdominal pain and a fat-containi ng ventral abdominal wall hernia, which is reducible. 1.Continue medical management per Dr. Callahan. 2.I have explained that the patient does not need emergency surgery at this time and can consider a ventral hernia repair as an outpatient should this continue to be a problem for him. However, he wou ld require medical optimization prior to any surgical intervention and as such, he can follow up with me as an outpatient should he determine that he would like to have surgery at that time after medica l optimization. I have explained the risks, benefits, and alternatives of above stated plan. The miriam bejarano agrees to proceed as indicated. KIRTI/MARIAJOSE Voice ID: [id number] Report ID: [id number]
[2018-10-31] MEDS ORDERED: PNEUMOCOCCAL VACCINE 0.5 ML IMVAC ONE (15:00)
--- NOTE | 2018-10-31 16:02 | CON ---
Date of Consultation: 10/31/2018 Chief Complaint: End-stage renal disease, fluid overload, congestive heart failure with diastolic dy sfunction, zfaoa-rj-dyamviu cerebrovascular accident, hypermagnesemia. History Of Present Illness: The patient came to the hospital because he was complaining of abdominal pain, constipation. He developed abdominal hernia and was using lylo-jfj-odtntsd milk of magnesia f or constipation. On arrival to the hospital, blood work revealed severe hypermagnesemia, dialysis wa s ordered as stat procedure to control electrolytes and treat hypermagnesemia, provide management for congestive heart failure with diastolic dysfunction. Lab work in the emergency room showed magnesiu m of 4.5. The patient has history of diabetes mellitus and he was found to have uncontrolled diabete s with blood glucose of 450. Stat dialysis was done to treat hypermagnesemia and post-dialysis magne sium is 3.3. The patient will have dialysis daily for control of electrolytes and to provide management for fluid overload. The patient was found to have pleural effusion and workup was initiated to check for locul ated effusion and to rule out empyema. Noncontrast-enhanced CT scan of the abdomen and pelvis showed no acute findings, including small right pleural effusion present. There is no hydronephrosis or suspicious mass. The right kidney is small and less similar to prior i maging. Bladder is without significant findings. A 4.5 cm ventral hernia in the midline abdomen at delivery site. The neck is 1.8 cm, this contains only fat. Prostate gland is enlarged, back into adder bed. The patient was previously seen by urologist. The patient has multiple medical problems including hi story of multiple admissions for congestive heart failure with diastolic dysfunction, pneumonia, and COPD exacerbation. He was treated with antibiotic back in July and was in the hospital for dialy sis therapy. In the hospital, he was found to have urinary retention and Hernandez catheter was used. Linda frank was seen by urologist. Review of Systems: Constitutional: Today, he denies fever, chills. Eyes: Denies vision changes. Ears, Nose, Mouth, and Throat: Denies sore throat, earache. Respiratory: Has some dyspnea on exertion, has PND, orthopnea. No wheezing. GI: Denies hematemesis. Has some constipation and nausea. Denies vomiting. : Denies dysuria or hematuria. All other systems reviewed and all are negative. Past Medical History: Hypertension; hypertensive heart and kidney disease; atherosclerotic vascular disease; end-stage renal disease, on hemodialysis; hyperlipidemia; diabetes mellitus; possible renal artery stenosis; COPD; hypothyroidism; benign prostatic hypertrophy; GERD; and stroke. Past Surgical History: Cataract surgery, hernia repair, angioplasty of the left leg due to periphera l vascular disease. Social History: Denies tobacco, alcohol, or illicit drugs. Family History: Hypertension and diabetes. Physical Examination: Vital Signs: Blood pressure is 170/102, heart rate 75, temperature 99.3. General: The patient is awake, follows some commands. Denies complaints. Eyes: Anicteric sclerae. EOMI. Ears, Nose, Mouth, and Throat: Oral mucosa moist, no pallor. Neck: Supple. No JVD. No bruits. Lungs: Few crackles bilaterally. No wheezing. No rhonchi. Abdomen: Soft, benign, nontender. No rebound. No guarding. Extremities: Slight edema in both legs. No dermatitis. Neurological: Moving extremities. Cranial nerves intact. Psychiatric: Alert and oriented x3. Normal affect. Laboratory Work: Sodium 141, potassium 4.5, chloride 104, CO2 of 31, BUN 49, creatinine 4.43, glucos e 86, magnesium 4.5, calcium 8.6. Postdialysis magnesium 3.3. Albumin 3.3. BNP 5771. Hemoglobin 1 0.3, WBC 8.6, platelet count 251,000. Impression And Plan: 1.Fluid overload, opggv-rf-nakydsv congestive heart failure with diastolic dysfunction. BNP is elev ated. Continue dialysis daily to obtain ultrafiltration to treat congestive heart failure. The clint ent will continue low-sodium diet and p.o. fluid restriction. Recheck chest x-ray. Plan is rule out pneumonia. The patient previously had multiple admissions for COPD exacerbation and pneumonia. Cur rently, the patient denies productive cough, although he has chronic cough. 2.Hypertension. Continue blood pressure medication. 3.Hypermagnesemia. The patient was instructed to avoid magnesium supplements and he will not use ma gnesium products from pihe-yvp-qeftoqo due to high risk of hypermagnesemia which may be causing cardi ac arrhythmia. 4.Anemia of chronic kidney disease. Monitor hemoglobin level. Adjust binders. 5.Renal osteodystrophy. Continue renal diet and binders. 6.Fluid overload. Continue low-sodium diet and p.o. fluid restriction. Dialysis to be done to cont rol fluid overload. 7.Pleural effusion. The patient is undergoing workup for empyema. Check blood culture, rule out ba cteremia. 8.Hypermagnesemia, cerebrovascular accident, improving. Dialysis will be done to treat hypermagnese khari. The patient instructed about nxzg-tkl-vlnqned formulation for constipation. He cannot take mil k of magnesia and he cannot take Fleet Enema. The patient may take Dulcolax, Senokot or MiraLAX. EB/MODL Voice ID: [id number] Report ID: [id number]
[2018-10-31] MEDS: ATORVASTATIN 20 MG TAB PO SCH (23:03)
[2018-10-31] MEDS: DOXAZOSIN 2 MG TAB PO SCH (23:03)
[2018-11-01] MEDS: LEVOTHYROXINE SOD 0.112 MG TAB PO SCH (06:19)
[2018-11-01] MEDS: LEVOTHYROXINE SOD 0.025 MG TAB PO SCH (06:20)
[2018-11-01] MEDS ORDERED: LIDOCAINE/PRILOCAINE CREAM TOP SCH (08:00)
[2018-11-01] MEDS: FUROSEMIDE 40 MG TABLET PO SCH (08:32)
[2018-11-01] MEDS: METOPROLOL TAR 25 MG TAB PO SCH ×2 (08:33→21:13)
[2018-11-01] MEDS: HEPARIN 5000 UNIT/ML 1 ML VIAL SQ SCH ×2 (08:33→21:13)
[2018-11-01] MEDS: MULTIVITAMINS,THERAPEUT 1 TAB PO SCH (08:33)
[2018-11-01] MEDS: CEFTRIAXONE/SWI 1gm 1 GM/10 ML SYR IVP SCH (08:34)
[2018-11-01] MEDS: CALCIUM CARBONATE CHEW 500MG TAB PO SCH ×3 (08:34→17:20)
[2018-11-01] MEDS: CA ACETATE 667 MG CAP PO SCH ×3 (08:34→17:20)
[2018-11-01] MEDS: ASPIRIN EC 81 MG TAB PO SCH (08:34)
[2018-11-01] MEDS: TAMSULOSIN 0.4 MG SR CAP PO SCH (08:34)
[2018-11-01] MEDS: FINASTERIDE 5 MG TAB PO SCH (08:35)
--- NOTE | 2018-11-01 11:56 | P.PN ---
Subjective Date of Service: 11/01/18 Subjective: Improving (tolerating diet well, no pain) Physical Examination - Vital Signs Temperature: 98.7 F Blood Pressure: 110/53 Pulse: 62 Respirations: 20 Pulse Ox (%): 90 - Physical Exam General: Alert, In no apparent distress, Cooperative Gastrointestinal: Soft and benign, Non-distended, No ascites, No tenderness, No rebound, No guarding, Other (hernia reducible) Assessment And Plan - Current Problems (Diagnosis) (1) Ventral hernia Current Visit: Yes Status: Acute Plan: - continue plan per Dr. Callahan - October follow up with me as outpatient should he need ventral hernia repair
[2018-11-01] MEDS: ATORVASTATIN 20 MG TAB PO SCH (21:12)
[2018-11-01] MEDS: DOXAZOSIN 2 MG TAB PO SCH (21:13)
[2018-11-01] MEDS: AMPICILLIN TRIHYDRATE 500 MG CAP PO SCH (21:13)
--- NOTE | 2018-11-02 00:17 | PN ---
Date of Progress Note: 11/01/2018 Subjective: The patient was admitted with shortness of breath, COPD exacerbation. The patient today is feeling much better. No shortness of breath, is still on nasal cannula. Physical Examination: Vital Signs: Blood pressure 130/56, pulse of 57. Chest: Clear to auscultation. Heart: S1, S2. Systolic murmur. Abdomen: Soft, nontender. Extremities: No edema. Laboratory Data: H and H 10.6/31.9. Sodium 137, potassium 4.1, bicarb 30, BUN of 26, creatinine of 3, calcium 8.6. Current Medications: The patient on its include; 1.Ampicillin .. 2.Ceftriaxone. 3.Norvasc 5 mg. 4.Metoprolol. 5.Lasix. 6.Multivitamins. Assessment And Plan: 1.End-stage renal disease, normal volume. We will continue the patient on dialysis. We will schedu le him for dialysis tomorrow. 2.Hypertension, controlled, optimal. Continue current medication. 3.Anemia of chronic kidney disease, stable. No need for JANEL. 4.COPD exacerbation as by primary. 5.Congestive heart failure, currently normal volume. Continue current treatment. 6.Midline hernia as by primary and surgery. HUYEN/MARIAJOSE Voice ID: [id number] Report ID: [id number]
--- NOTE | 2018-11-02 01:22 | PN ---
Date of Progress Note: 11/01/2018 Subjective: The patient was seen this morning for followup. No new complaints, problems reported by him. Vital signs reviewed. He had dialysis last night as he reported. Objective: HEENT: Unremarkable. Lungs: Clear to auscultation. Heart: Sounds normal. Abdomen: Soft. Bowel sounds normal. No guarding, rigidity, tenderness, distention. Extremities: No leg edema. Laboratory Data: Urine culture is growing known hemolytic due to Streptococcus. Final identificatio n and sensitivity result pending. Impression: 1.Urinary tract infection. 2.End-stage renal disease, on hemodialysis. 3.Ventral hernia. Plan: We will continue current medication. The patient is currently on IV Rocephin; we will continu e that. Ampicillin was added while waiting on final report of culture results. We will see him nevin rrow for followup. Possible discharge tomorrow once we have final report on the urine culture. VIELKA/MODL Voice ID: [id number] Report ID: [id number]
[2018-11-02] MEDS: LEVOTHYROXINE SOD 0.025 MG TAB PO SCH (06:07)
[2018-11-02] MEDS: LEVOTHYROXINE SOD 0.112 MG TAB PO SCH (06:07)
[2018-11-02 06:20] VITALS: BMI 26.3
[2018-11-02] MEDS: CA ACETATE 667 MG CAP PO SCH ×2 (08:21→13:56)
[2018-11-02] MEDS: CALCIUM CARBONATE CHEW 500MG TAB PO SCH ×2 (08:21→13:56)
[2018-11-02] MEDS: TAMSULOSIN 0.4 MG SR CAP PO SCH (08:22)
[2018-11-02] MEDS: FINASTERIDE 5 MG TAB PO SCH (08:22)
[2018-11-02] MEDS: HEPARIN 5000 UNIT/ML 1 ML VIAL SQ SCH (08:22)
[2018-11-02] MEDS: ASPIRIN EC 81 MG TAB PO SCH (08:22)
[2018-11-02] MEDS: AMPICILLIN TRIHYDRATE 500 MG CAP PO SCH (08:22)
[2018-11-02] MEDS: FUROSEMIDE 40 MG TABLET PO SCH (08:23)
[2018-11-02] MEDS: METOPROLOL TAR 25 MG TAB PO SCH (08:23)
[2018-11-02] MEDS: MULTIVITAMINS,THERAPEUT 1 TAB PO SCH (08:27)
[2018-11-02 09:25] VITALS: O2SAT 97
[2018-11-02] MEDS: CEFTRIAXONE/SWI 1gm 1 GM/10 ML SYR IVP SCH (13:58)
[2018-11-02 17:21] VITALS: BP 149/57; TEMP 98.3
--- NOTE | 2018-11-03 20:01 | P.PN ---
Date of Service: 11/02/18 Date of Progress Note: 11/02/2018 Subjective: The patient was admitted with shortness of breath, COPD exacerbation. The patient today is feeling much better. No shortness of breath , is still on nasal cannula. Physical Examination: Vital Signs: Blood pressure 130/56, pulse of 57. Chest: Clear to auscultation. Heart: S1, S2. Systolic murmur. Abdomen: Soft, nontender. Extremities: No edema. Laboratory Data: H and H 10.6/31.9. Sodium 137, potassium 4.1, bicarb 30, BUN of 26, creatinine of 3, calcium 8.6. Current Medications: The patient on its include; 1. Ampicillin .. 2. Ceftriaxone. 3. Norvasc 5 mg. 4. Metoprolol. 5. Lasix. 6. Multivitamins. Assessment And Plan: 1. End-stage renal disease, normal volume. We will continue the patient on dialysis. We will schedule him for dialysis tomorrow. 2. Hypertension, controlled, optimal. Continue current medication. 3. Anemia of chronic kidney disease, stable. No need for JANEL. 4. COPD exacerbation as by primary. 5. Congestive heart failure, currently normal volume. Continue current treatment. 6. Midline hernia as by primary and surgery. 7- UTI enteroccou start Ampicillin
--- NOTE | 2018-11-04 11:51 | DS ---
Date of Discharge: 11/02/2018 Disposition: Discharged to go home. Physical Examination: HEENT: Examination unremarkable. Lungs: Clear to auscultation. Heart: Sounds normal. Abdomen: Soft. Bowel sounds normal. No guarding, rigidity, tenderness, distention. Extremities: No leg edema. Laboratory Data: Labs done during this hospitalization upon admission, white count 8.5, hemoglobin 10.4, platelets 261. Repeat white count on 10/31/2018 was 8.6 with hemoglobin 10.6, platelets 250. Last chemistry on 10/31/2018, sodium 137, potassium 4.1, chloride 103, bicarb 30, BUN 26, creatinine 3.07, glucose 129. Urine culture growing Enterococcus. Discharge Medications And Instructions: 1. Continue all prior home medications. 2. Take ampicillin 500 mg twice a day for 1 week. 3. Follow up in my office week after. Hospital Course: This is an 83-year-old male patient came into emergency room with complaints of abdominal pain, nausea, and constipation. The patient was straining a lot with his constipation problem and started to have abdominal pain , nausea, and swelling in the upper abdomen in the midepigastric region. He has abdominal wall hernia, but with the straining, hernia got worse, became painful and came into emergency room. After he was evaluated in the ER, the hernia was reduced by ER physician and I was contacted, requesting admission to hospital. His urinalysis showed abnormality consistent with urinary tract infection and IV ceftriaxone was started. Urine culture finally came back today positive for enterococcus, it is sensitive to ampicillin, which was started yesterday. Dr. Song was consulted from General Surgery and he did not recommend any surgical intervention unless patient has more problem related to his hernia. He remained asymptomatic with hernia problem. He was advised to take stool softener and laxative to control his constipation problem and he was instructed to try to avoid any straining by avoiding constipation and also avoid any lifting or pulling, pushing any heavy objects. Patient's diabetes was managed with his insulin pump and Nephrology consultation was provided with dialysis support. Final Diagnoses: 1. Ventral abdominal wall hernia, incarcerated. 2. Urinary tract infection. 3. Left adrenal adenoma. 4. Small right-sided pleural effusion. 5. End-stage renal disease, on hemodialysis. 6. Anemia due to chronic kidney disease. 7. Hypertension. 8. Diabetes mellitus, insulin dependent. 9. Severe COPD, oxygen dependent. 10. Hypoxia secondary to above. 11. Hypothyroidism. 12. Benign prostatic hypertrophy. 13. Gastroesophageal reflux disease. 14. Elevated magnesium. VIELKA/MODL Voice ID: [id number] Report ID: [id number]
== END 2018-11-02 16:20 | disposition home or self-care (01) | DRG 393 ==
LOC: ER 13:49 → 4TH 17:45
PROVIDERS: ADMIT Internal Medicine; ATTEND Internal Medicine
PROC: 5A1D70Z Performance of Urinary Filtration, Intermittent, Less than 6 Hours Per Day (ICD-10-PCS; principal; 2018-10-31)
PROC: 5A1D70Z Performance of Urinary Filtration, Intermittent, Less than 6 Hours Per Day (ICD-10-PCS; 2018-11-02)
DX: K43.6 Other and unspecified ventral hernia with obstruction, without gangrene (principal); N18.6 End stage renal disease; I50.33 Acute on chronic diastolic (congestive) heart failure; N39.0 Urinary tract infection, site not specified; I13.2 Hypertensive heart and chronic kidney disease with heart failure and with stage 5 chronic kidney disease, or end stage renal disease; B95.2 Enterococcus as the cause of diseases classified elsewhere; D35.02 Benign neoplasm of left adrenal gland; D63.1 Anemia in chronic kidney disease; J44.9 Chronic obstructive pulmonary disease, unspecified; E03.9 Hypothyroidism, unspecified; N40.0 Benign prostatic hyperplasia without lower urinary tract symptoms; K21.9 Gastro-esophageal reflux disease without esophagitis; E83.41 Hypermagnesemia; R09.02 Hypoxemia; Z99.81 Dependence on supplemental oxygen; E11.22 Type 2 diabetes mellitus with diabetic chronic kidney disease; Z99.2 Dependence on renal dialysis; Z86.73 Personal history of transient ischemic attack (TIA), and cerebral infarction without residual deficits
CPT/HCPCS: 36415; 71045; 71250; 74176; 80048; 80076; 81003; 81015; 82962; 83735; 83880; 84484; 85025; 85610; 87077; 87086; 87088; 87186; 90935; 99285; J0610; J0696; J1644; J1940; J7030

== ENCOUNTER 2018-11-24 12:38 | Inpatient (IN) | payer OTHER ==
--- OUTSIDE RECORDS SUMMARY | 2018-11-24 12:42 | XMS REPORT | Clinical Summary ---
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 Family History Medical History Relation Name Comments [...] Taken Blood Pressure 157/63 04/28/2018 1:15 PM [facility] Pulse 55 04/28/2018 1:15 PM [facility] Temperature 36.5 C (97.7 F) 04/28/2018 1:15 PM [facility] Respiratory Rate 18 04/28/2018 1:15 PM [facility] Oxygen Saturation 100% 04/28/2018 1:15 PM [facility] Inhaled Oxygen Concentration - - Weight 73.9 [...] VACCINE (1 of 2 - PCV13) 1998 INFLUENZA VACCINE 01/05/2019 Implants Implanted 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 Device Shelf Model / Identifier Expiration Serial / Date Lot Clip Amandang Mohit Hemoclip Plus W/ Tape Ti Sm - [id number] Medical Left: WECK CLOSURE 02/14/2022 [id number] / Implanted: Qty: 1 on 09/09/2017 by Behzad Moore MD Clips for Arm, SYSTEMS / Internal Upper [id number] Use Clip Ligtng Weck Hemoclip Plus W/ Tape Ti Med - [id number] Medical Left: TELEFLEX 03/09/2022 [id number] / Implanted: Qty: 1 on 09/09/2017 by Behzad Moore MD Clips for Arm, MEDICAL / Internal Upper Use Hemodialysis Catheter Right: 02/03/2019 [id number] / Implanted: Qty: 1 on 04/19/2017 by Jhony Montesinos MD Chest / Procedures Procedure Name Priority Date/Time Associated Comments Diagnosis POC GLUCOSE Routine 04/28/2018 12:34 Results for this PM [facility] procedure are in the results section. HEPATITIS B SURFACE Routine 04/28/2018 12:15 Results for this ANTIGEN PM [facility] procedure are in the results section. HEMODIALYSIS Routine 04/28/2018 10:24 AM [facility] POC GLUCOSE Routine 04/28/2018 8:01 Results for this AM [facility] procedure are in the results section. HEMOGLOBIN A1C Routine 04/28/2018 6:37 Results for this AM [facility] procedure are in the results section. HC COMPLETE BLD COUNT Routine 04/28/2018 6:37 Results for this W/AUTO DIFF AM [facility] procedure are in the results section. ESTIMATED GFR Routine 04/28/2018 4:00 Results for this AM [facility] procedure are in the results section. VITAMIN B12 LEVEL Routine 04/28/2018 4:00 Results for this AM [facility] procedure are in the results section. FERRITIN LEVEL Routine 04/28/2018 4:00 Results for this AM [facility] procedure are in the results section. THYROID STIMULATING Routine 04/28/2018 4:00 Results for this HORMONE AM [facility] procedure are in the results section. LIPID PANEL Routine 04/28/2018 4:00 Results for this AM [facility] procedure are in the results section. PHOSPHORUS LEVEL Routine 04/28/2018 4:00 Results for this AM [facility] procedure are in the results section. MAGNESIUM LEVEL Routine 04/28/2018 4:00 Results for this AM [facility] procedure are in the results section. BASIC METABOLIC PANEL Routine 04/28/2018 4:00 Results for this AM [facility] procedure are in the results section. ECG 12-LEAD STAT 04/27/2018 10:30 Results for this PM [facility] procedure are in the results section. POC GLUCOSE Routine 04/27/2018 9:33 Results for this PM [facility] procedure are in the results section. POC GLUCOSE Routine 04/27/2018 5:17 Results for this PM [facility] procedure are in the results section. LACTIC ACID LEVEL, Timed 04/27/2018 4:13 Results for this SEPSIS - NOW AND REPEAT PM [facility] procedure are in 2X EVERY 3 HOURS the results section. BLOOD CULTURE, AEROBIC Routine 04/27/2018 4:13 Results for this & ANAEROBIC PM [facility] procedure are in the results section. BLOOD CULTURE, AEROBIC Routine 04/27/2018 4:13 Results for this & ANAEROBIC PM [facility] procedure are in the results section. US DUPLEX HEMODIALYSIS STAT 04/27/2018 4:08 Results for this AVG AVF ACCESS PM [facility] procedure are in the results section. XR CHEST 1 VW PORTABLE STAT 04/27/2018 2:50 Results for this PM [facility] procedure are in the results section. ESTIMATED GFR STAT 04/27/2018 1:45 Results for this PM [facility] procedure are in the results section. BASIC METABOLIC PANEL STAT 04/27/2018 1:45 Results for this PM [facility] procedure are in the results section. PARTIAL THROMBOPLASTIN STAT 04/27/2018 1:45 Results for this TIME (PTT) PM [facility] procedure are in the results section. PROTHROMBIN TIME WITH STAT 04/27/2018 1:45 Results for this INR PM [facility] procedure are in the results section. HC COMPLETE BLD COUNT STAT 04/27/2018 1:45 Results for this W/AUTO DIFF PM [facility] procedure are in the results section. MS REMOVAL TUNNELED CV Routine 01/18/2018 10:40 ESRD (end stage Results for this CATH W/O SUBQ PORT OR AM CDT renal disease) procedure are in PUMP 2017 MWF the results ESRD (end stage section. renal disease) on dialysis after 11/23/2017 Results POC glucose (04/28/2018 12:34 PM M[facility]MAN)Only the most recent of4 resultswithin the time period is included. POC glucose 200 (H) 65 - 99 mg/dL [facility] Comment: HOSPITAL No Action Needed Meter ID: [id number] Wallpaper Inspector: Adam Elmore Specimen Performing Organization Address City/State/Zipcode Phone Number [facility] DEPARTMENT OF PATHOLOGY AND [address] [place] [address] GENOMIC MEDICINE [address] [address] Hepatitis B surface antigen (04/28/2018 12:15 PM M[facility]MAN) Pathologist [facility] Hepatitis B surface Non-reactive Non-reactive [facility] Specimen Blood Performing Organization Address City/State/Zipcode Phone Number [facility] DEPARTMENT OF PATHOLOGY AND [address] [place] [address] [address] CBC with platelet and differential (04/28/2018 6:37 AM M[facility]MAN)Only the most recent of2 resultswithin the time period is included. Pathologist [facility] WBC 10.65 4.50 - 11.00 [facility] k/uL HOSPITAL RBC 2.73 (L) 4.40 - 6.00 [facility] m/uL [facility] HGB 8.6 (L) 14.0 - 18.0 [facility] gdL [facility] HCT 27.6 (L) 41.0 - 51.0 % [facility] MCV 101.1 (H) 82.0 - 100.0 [facility] MCH 31.5 27.0 - 34.0 pg [facility] MCHC 31.2 31.0 - 37.0 [facility] RDW - SD 55.2 (H) 37.0 - 55.0 fL [facility] MPV 11.4 8.8 - 13.2 [facility] Platelet count 308 150 - 400 k/uL [facility] Nucleated RBC 0.20 /100 WBC [facility] Neutrophils 61.5 39.0 - 69.0 % [facility] Lymphocytes 25.5 25.0 - 45.0 % [facility] Monocytes 8.5 0.0 - 10.0 % [facility] Eosinophils 2.5 0.0 - 5.0 % [facility] Basophils 0.5 0.0 - 1.0 % [facility] Immature granulocytes 1.5 0.0 - 1.0 % [facility] (H)Comment: HOSPITAL "Immature granulocytes" (promyelocytes , myelocytes, metamyelocytes ) Specimen Blood Performing Organization Address City/State/Zipcode Phone Number [facility] DEPARTMENT OF PATHOLOGY AND [address] [place] [address] [address] Hemoglobin A1c (04/28/2018 6:37 AM M[facility]) Hemoglobin A1C 8.1 (H) 4.0 - 5.6 % [facility] Comment: HOSPITAL HbA1c cutoffs for diagnosing diabetes: 4.0% - 5.6%=normal 5.7% - 6.4%=increased risk for diabetes (prediabetes) >=6.5%=diabetes Goals for glycemic control (ADA 2016) < 7.0%Target for non adults with diabetes. More or less stringent targets may be appropriate for individual patients. <7.5% Target for Children and adolescents with type 1 diabetes. Specimen Blood Performing Organization Address City/[facility] Phone Number [facility] DEPARTMENT OF PATHOLOGY AND [address] [place] [address] Estimated GFR (04/28/2018 4:00 AM M[facility]MAN)Only the most recent of2 resultswithin the time period is included. Pathologist [facility] Estimated GFR 18 (A) mL/min/1.73 [facility] Comment: HOSPITAL CatergoryUnitsInterpretation G1 >=90 Normal or high G2 60-89Mildly decreased Y2j52-02Ixfllc to moderately decreased R5i04-25Mylxhhtauj to severely decreased G4 15-29Severely decreased G5 <15Kidney failure The eGFR was calculated using the Chronic Kidney Disease Epidemiology Collaboration (CKD-EPI) equation. Interpretation is based on recommendations of the National Kidney Foundation-Kidney Disease Outcomes Quality Initiative (NKF-KDOQI) published in 2014. Specimen Plasma specimen Performing Organization Address City/[facility] Phone Number [facility] DEPARTMENT OF PATHOLOGY AND [address] [place] [address] Thyroid stimulating hormone (04/28/2018 4:00 AM [facility]) TSH 4.30 (H) 0.27 - 4.20 uIU/mL [facility] Specimen Plasma specimen Performing Organization Address City/[facility] Phone Number [facility] DEPARTMENT OF PATHOLOGY AND [address] [place] [phone] [place] [address] Phosphorus level (04/28/2018 4:00 AM M[facility]) Phosphorus 4.6 (H) 2.4 - 4.5 mg/dL [facility] Specimen Plasma specimen Performing Organization Address City/[facility] Phone Number [facility] DEPARTMENT OF PATHOLOGY AND [address] [place] [address] Magnesium level (04/28/2018 4:00 AM [facility]MAN) Magnesium 2.1 1.6 - 2.4 mg/dL [facility] Specimen Plasma specimen Performing Organization Address City/[facility] Phone Number [facility] DEPARTMENT OF PATHOLOGY AND [address] [place] [address] Ferritin level (04/28/2018 4:00 AM M[facility]MAN) Ferritin level 333 30 - 400 ng/mL [facility] Specimen Plasma specimen Performing Organization Address [facility] Phone Number [facility] DEPARTMENT OF PATHOLOGY AND [address] [place] [address] Vitamin B12 level (04/28/2018 4:00 AM [facility]) Vitamin B12 696 211 - 946 [facility] Comment: pg/mL HOSPITAL Significant overlap exists between normal and deficiency states. However, most patients with deficiencies will have Serum B12 <200 pg/mL. Specimen Serum Performing Organization Address [facility] Phone Number [facility] DEPARTMENT OF PATHOLOGY AND [address] [place] [address] Lipid panel (04/28/2018 4:00 AM M[facility]MAN) Cholesterol 162 <200 mg/dL [facility] Triglycerides 80 <150 mg/dL [facility] HDL cholesterol 83 >40 mg/dL [facility] LDL cholesterol 79Comment: Result <100 mg/dL [place] obtained by direct MU-ISM LDL measurement [facility] interpretation Comment: MU-ISM Total Cholesterol (mg/dL) [facility] <200 Desirable 421-244Qanhdokzvh-xmal >=240High Triglycerides (mg/dL) <150 Normal 982-405Ttmoiavlnt-dvrm 200-499High >=500Very high HDL Cholesterol (mg/dL) <40Low (male) <40Low (female) LDL Cholesterol (mg/dL) <100 Optimal 100-129Near or above optimal 013-729Pcqlxkslxj-ldlz 160-189High >=190Very high Risk Catergories that modify [...] mg/dL) Specimen Plasma specimen Performing Organization Address City/[facility] Phone Number [facility] DEPARTMENT OF PATHOLOGY AND [address] [place] [address] Basic metabolic panel (04/28/2018 4:00 AM [facility]MAN)Only the most recent of2 resultswithin the time period is included. Sodium 146 135 - 148 mEq/L [facility] Potassium 4.3 3.5 - 5.0 mEq/L [facility] Chloride 105 98 - 112 mEq/L [facility] CO2 29 24 - 31 mEq/L [facility] Anion gap 12@ANIO 7 - 15 mEq/L [facility] BUN 32 (H) 8 - 23 mg/dL [facility] Creatinine 3.00 (H) 0.70 - 1.20 mg/dL [facility] Glucose 111 (H) 65 - 99 mg/dL [facility] Calcium 8.2 (L) 8.8 - 10.2 mg/dL [facility] Specimen Plasma specimen Performing Organization Address City/[facility]/Zipcode Phone Number [facility] DEPARTMENT OF PATHOLOGY AND [address] [place], [place] [phone] ECG 12 lead (04/27/2018 10:30 PM [facility]) Ventricular rate 46 [facility] Atrial rate 46 [facility] MS interval 144 [facility] QRSD interval 92 [facility] QT interval 446 [facility] QTC interval 390 [facility] MUSE P axis 1 75 [facility] MUSE QRS axis 1 31 [facility] MUSE T wave axis 70 [facility] MUSE EKG impression Marked sinus [facility] MUSE bradycardia-Abnormal ECG-In automated comparison with ECG of 09-SEP-2017 08:36,-Vent. rate has decreased BY 22 BPM- Specimen Narrative Performed At Performing Organization Address City/[facility] Phone Number [facility] MUSE [address] [place] [address] Lactic acid level, SEPSIS - Now and repeat 2x every 3 hours (04/27/2018 4:13 PM [facility]) Pathologist [facility] Lactic acid 1.3 0.5 - 2.2 mmol/L [facility] Specimen Blood Performing Organization Address City/[facility]/Zipcode Phone Number [facility] DEPARTMENT OF PATHOLOGY AND [address] [place] [address] [address] Blood culture, aerobic & anaerobic (04/27/2018 4:13 PM [facility])Only the most recent of2 resultswithin the time period is included. Pathologist [facility] Blood culture No growth after 5 days of incubation. [facility] isolate Comment: HOSPITAL Specimen Information Specimen Source: Blood Specimen Site: Forearm, right Specimen Blood - Forearm, right Performing Organization Address [facility] Phone Number [facility] DEPARTMENT OF PATHOLOGY AND [address] [place] [phone] duplex hemodialysis avg avf access (04/27/2018 4:08 PM [facility]) Specimen Narrative Performed At [facility] Vascular Ultrasound Laboratory AV Graft - Fistula Report [id number] [facility] [address], [place] [address] Pat.Name:KYA NICHOLAS.ID:[id number] .Date: 04/27/2018Refer.MD:PHYSICIAN, EMERGENCY, MD Exam Time: 3:26:00 PMStudy Type:AV Graft - Fistula Height:67inWeight: 163lb BSA: 1.86 m2 DOBAge:1935,82Y Sex: MALESonogrphr: Gordon Porter RN, RVS Pat. Stat.:OutpatientTapeVol: PM, CPT - 4: 33169 Echo Event ID:[id number] Order ID:[id number] Reason for Study:Dialysis nurse had difficulty with [...] vein. DOPPLER FINDINGS: ARTERYLOCATIONPSV (cm/sec) LEFTRadialProximal-third 224cm/sec Mid-xppkp067dg/sec Distal-idgbp552ik/sec BrachialProximal-third 113 cm/sec Mid-usbbr543 cm/sec Distal- cm/sec Radial Art/ceph. v AVF Lqljphdaxhb631 cm/sec Cephalic Vein Juxta anastomosis 389 cm/sec Mid pekttbs614nc/sec Proximal forearm 242xm/sec VOLUME FLOW: Frllwfpm598 cc/min 637 cc/min 695cc/min PRELIMINARY FINDINGS: 1. Patent left radial artery to cephalic vein A/V fistula. 2. Volume flows as noted in above table. PHYSICIAN INTERPRETATION: Patent left radial artery to cephalic vein A/V fistula. Slightly decreased flow volume. Signed 04/28/2018 12:22 AM Gagan Jiménez MD, RPVI Procedure Note Interface, Radiology Results In - 04/28/2018 12:22 AM [facility] Vascular Ultrasound Laboratory AV Graft - Fistula Report [address] [address] Pat.Name: KYA NICHOLAS Pat.ID: [id number] St.Date: 04/27/2018 Refer.MD: PHYSICIAN, EMERGENCY, MD Exam Time: 3:26:00 PM Study Type:AV Graft - Fistula Height: 67in Weight: 163lb BSA: 1.86 m2 Age: 1 1935,82Y Sex: MALE Sonogrphr: Gordon Porter RN, RVS Pat. Stat.:Outpatient Tape Vol: PM, CPT - 4: 36674 Echo Event ID:[id number] Order ID: [id number] Reason for Study:Dialysis nurse had difficulty with [...] Organization Address City/State/Zipcode Phone Number [facility] [address] [place] [address] XR Chest 1 Vw Portable (04/27/2018 2:50 PM [facility]) Specimen Narrative Performed At EXAMINATION:XR CHEST 1 [...] be of benefit for more complete evaluation [id number] Procedure Note Hm Interface, Radiology Results Incoming - 04/27/2018 3:03 PM [facility] EXAMINATION: XR CHEST 1 VW PORTABLE CLINICAL [...] be of benefit for more complete evaluation [facility]-[id number] Performing Organization Address City/[facility] Phone Number [address] [address] Partial thromboplastin time, activated (04/27/2018 1:45 PM [facility]) PTT 30.4 23.0 - 36.0 [facility] PTT therapeutic range for unfractionated heparin is 61.0-112.0 seconds which corresponds to Anti-Xa 0.3-0.7 U/ml. Specimen Blood Performing Organization Address [facility] Phone Number [facility] DEPARTMENT OF PATHOLOGY AND [address] [place] [address] [address] Prothrombin time with INR (04/27/2018 1:45 PM [facility]) Prothrombin time 12.7 11.5 - 14.5 [facility] INR 1.0 [place] Comment: MU-ISM The International Normalized Ratio (INR) is a therapeutic HOSPITAL monitoring tool for patients who are stable on oral anticoagulant therapy. An INR of 2.0-3.0 is suggested for deep vein thrombosis/pulmonary embolism. Specimen Blood Performing Organization Address [facility] Phone Number [facility] DEPARTMENT OF PATHOLOGY AND [address] [place] [phone] [address] TDC Removal (01/18/2018 10:40 AM CDT) Narrative [...] of procedure:Tolerated well, no immediate complications after 11/23/2017 Insurance Payer Benefit Plan / Subscriber ID Effective Dates Phone Address Type Group MEDICARE MEDICARE PART A AND xxxxxxxxxx 1998-[place], [place] Medicare B t AETNA AETNA [facility] xxxxxxxxx 2000-[facility] Indemangélicaty INDEMANGÉLICATY t Advance Directives Patient has advance care planning documents, and code status on file. For more information, please contact:[place] [address] Code Status Date Activated Date Inactivated Comments Full Code 04/27/2018 8:29 PM 04/28/2018 6:33 PM Code Status decision reached by: Patient
--- OUTSIDE RECORDS SUMMARY | 2018-11-24 12:42 | XMS REPORT | Continuity of Care Document ---
[...] Bedside 251 mg/dl 65 - [address] [facility] [address]. Studies Glucose [facility] Total 0.7 mg/dL 0.3 - 1.2 07/[address] [facility] St. Studies Bilirubin [facility] Sodium Level 139 mEq/L 135 - 145 07/[address] [facility] St. Studies [facility] Serum Total 5.5 g/dL 6.0 - 8.3 07/08 [facility]3]. Studies Protein [facility] Potassium 4.1 mEq/L 3.6 - 5.0 07/[address] [facility] St. Studies Level [facility] Lipase 18 U/L 22 - 51 07/08 [facility]3]. Studies [facility] Glucose Level 156 mg/dL 65 - 120 07/08 [facility]3]. Studies [facility] Globulin 2.5 g/dL 2.3 - 3.5 07/[address] [facility] St. Studies [facility] Estimat 22 mL/min 90 07/08 [facility]3]. Studies Glomerular [facility] [place] Rate Laboratory Direct 0.1 mg/dL 0 - 0.2 07/08 [facility]3]. Studies Bilirubin [facility] Creatinine 2.80 mg/dL 0.61 - 02/ [facility]3]. Studies 1.24 [facility] Chloride Level 108 mEq/L 101 - 111 07/[address] [facility] St. Studies [facility] Carbon Dioxide 24 mEq/L 21 - 31 07/[address] [facility] St. Studies Level [facility] Calcium Level 8.6 mg/dL 8.5 - 10.5 07/08 [facility]3]. Studies [facility] Blood Urea 33 mg/dL 6 - 20 07/[address] [facility] St. Studies Nitrogen [facility] Aspartate 28 IU/L 10 - 42 07/08 [facility]3]. Studies Amino Transf [facility] (AST/SGOT) [facility] Alkaline 90 IU/L 42 - 121 07/08 [facility]3]. Studies Phosphatase [facility] Albumin/Globul 1.2 1.1 - 1.8 07/08 [facility]3]. Studies in Ratio /2017 [facility] Albumin 3.0 g/dL 3.2 - 5.5 07/[address] [facility] St. Studies /2017 [facility] Alanine 15 IU/L 10 - 60 07/08 [facility]3]. Studies Aminotransfera /2017 [facility] - se (ALT/SGPT) [facility] White Blood 5.6 K/uL 4.3 - 10.9 07/[address] [facility] St. Studies Count /2017 [facility] Red Cell 15.5 % 12.1 - 02 [facility]3]. Studies Distribution 15.2 /2017 [facility] Width [facility] Red Blood 3.93 M/uL 4.33 - 02 [facility]3]. Studies Count 5.43 /2017 [facility] Platelet Count 164 K/uL 152 - 406 07/08 [facility]3]. Studies /2017 [facility] Neutrophils % 62.5 % 41.7 - [address] [facility] St. Studies 73.7 /2017 [facility] Monocytes % 9.9 % 3.3 - 12.3 07/08 [facility]3]. Studies /2017 [facility] Mean Platelet 9.4 fL 7.6 - 11.3 07/[address] [facility] St. Studies Volume /2017 [facility] Mean 93.5 fL 80 - 100 07/08 [facility]3]. Studies Corpuscular /2017 [facility] Volume [facility] Mean 32.5 g/dL 32.0 - 07/[address] [facility] St. Studies Corpuscular 36.0 /2017 [facility] Hemoglobin [place] Concent Laboratory Mean 30.4 pg 27.0 - 07/08 [facility]3]. Studies Corpuscular 35.0 [facility] Hemoglobin [facility] Lymphocytes % 24.2 % 15.3 - [address] [facility] St. Studies 44.8 /2017 [facility] Hemoglobin 12.0 g/dL 13.6 - 07/[address] [facility] St. Studies 17.9 /2017 [facility] Hematocrit 36.7 % 39.6 - [address] [facility] St. Studies 49.0 /2017 [facility] Eosinophils % 2.8 % 0 - 4.4 07/[address] [facility] St. Studies /2018 [facility] Basophils % 0.6 % 0 - 1.3 07/08 St. Studies /2017 [facility] Absolute 3.5 K/uL 1.8 - 8.0 07/[address] [facility] St. Studies Neutrophil [facility] Absolute 0.6 K/uL 0.1 - 1.3 07/08 [facility]3]. Studies Monocytes [facility] (CBC) [place] [facility] Absolute 1.4 K/uL 0.7 - 4.9 07/08 [facility]3]. Studies Lymphocytes [facility] (CBC) [facility] Absolute 0.2 K/uL 0 - 0.5 07/08 [facility]3]. Studies Eosinophils [facility] (CBC) [place] [facility] Absolute 0.0 K/uL 0 - 0.5 07/08 [facility]3]. Studies Basophils [facility] (CBC) [facility] Urine pH 5.5 07/[address] [facility] St. Studies [facility] Urine Total Urine 07/07 [facility] Studies Protein Total [facility] Protein [place] [facility] Urine Specific null 07/07 [facility]3]. Studies [place] [facility] Urine Nitrite Urine 07/07 [facility]3]. Studies Nitrite [facility] Urine Urine 07/07 [facility] Studies Leukocyte Leukocyte [facility] Esterase Esterase [place] [facility] Urine Ketones Urine 07/07 [facility]3]. Studies Ketones [facility] Urine Glucose Urine 07/07 [facility]3]. Studies Glucose [facility] Urine Blood Urine 07/07 [facility]3]. Studies Blood [facility] B-Type 259 pg/ml 07/07 [facility]3]. Studies Natriuretic [facility] Peptide [place] [facility] Creatine 3.8 ng/ml 0.3 - 4.0 07/07 [facility]3]. Studies Kinase MB [facility] Magnesium 2.0 mg/dL 1.8 - 2.5 07/07 [facility]3]. Studies Level /2017 [facility] Creatine 62 IU/L 22 - 269 07/07 [facility]3]. Studies Kinase /2017 [facility] Rapid Troponin null 07/[address] Studies I /2017 [facility] Prothrombin 10.7 9.5 - 12.5 07/[address] [facility] St. Studies Time SECONDS /2017 [facility] INR 0.91 07/[address] [facility] St. Studies International /2017 [facility] Normalized [place] Ratio Laboratory Activated 29.4 24.3 - 07/[address] [facility] St. Studies Partial SECONDS 36.9 [facility] Thromboplast [place] Time Vital Signs Vital Sign Value Date Comments Source Temperature Oral (F) 98.7 F 07/08/[address] [facility] St[facility] Mind[facility] - [facility] Heart Rate 59 07/08/[address] [facility] St. Mindy - Eddaosporjimi Respitory Rate 18 07/08/[address] [facility] St[facility] - [facility] Systolic (mm Hg) 190 07/08/[address] [facility] St. Mindy - [facility] Diastolic (mm Hg) 76 07/08/[address] [facility] StAdam Encarnacion Height 67 07/07/[address] [facility] Mindy Encarnacion Weight 162.25 07/07/[address] [facility] St. Mindy - [facility] Encounters Location Location Encounter Encounter Reason Attending ADM DC Status Source Details Type Number For Provider Date Date Visit [facility] Discharged [id number] 07/07 07/[address] [facility] Inpatient 75 /2017 Mindy Encarnacion Procedures Procedure Code Date Perfomer Comments Source [place] Count [id number] 07/07/2017 [facility] [id number] 07/07/[address] [facility] St. Mindy Encarnacion Abdomen Acute [id number] 07/07/[address] [facility] St[facility] Guillen - [facility] Encarnacion
--- OUTSIDE RECORDS SUMMARY | 2018-11-24 12:44 | XMS REPORT ---
:1935 [facility] [address] [place] [address] Care Team Providers Name Role Phone Alexandru [...] Comments Accuchek (test code=ACU) 369 mg/dL 70-110 [id number] 12:05:00 Test Item Value Reference Range Comments Accuchek (test code=ACU) 452 mg/dL 70-110 [id number] 08:00:00 Test Item Value Reference Range Comments Accuchek (test code=ACU) Greater than 550 mg/dL 70-110 [id number] 07:42:00 Test Item Value Reference Range Comments Accuchek (test code=ACU) 463 mg/dL 70-110 [id number] 06:23:00 Test Item Value Reference Range Comments Accuchek (test code=ACU) 157 mg/dL 70-110 [id number] 00:16:00 Test Item Value Reference Range Comments Accuchek (test code=ACU) 196 mg/dL 70-110 [id number] 20:52:00 Test Item Value Reference Range Comments Accuchek (test code=ACU) 373 mg/dL 70-110 [id number] 18:44:00 Test Item Value Reference Range Comments Accuchek (test code=ACU) 459 mg/dL 70-110 [id number] 12:48:00 Test Item Value Reference Range Comments Accuchek (test code=ACU) 169 mg/dL 70-110 [id number] 06:58:00 Test Item Value Reference Range Comments [...] 83-110 Chemistry (test code=CA) 8.7 mg/dL 7.8-10.44 [id number] 05:28:00 Test Item Value Reference Range Comments Accuchek (test code=ACU) 305 mg/dL 70-110 [id number] 02:59:00 Test Item Value Reference Range Comments Accuchek (test code=ACU) 330 mg/dL 70-110 [id number] 18:35:00 Test Item Value Reference Range Comments Accuchek (test code=ACU) 458 mg/dL 70-110 [id number] 14:35:00 Test Item Value Reference Range Comments Accuchek (test code=ACU) 343 mg/dL 70-110 [id number] 11:40:00 Test Item Value Reference Range Comments Accuchek (test code=ACU) 285 mg/dL 70-110 [id number] 08:52:00 Test Item Value Reference Range Comments Accuchek (test code=ACU) 187 mg/dL 70-110 [id number] 05:04:00 Test Item Value Reference Range Comments Accuchek (test code=ACU) 323 mg/dL 70-110 [id number] 02:53:00 Test Item Value Reference Range Comments Accuchek (test code=ACU) 369 mg/dL 70-110 [id number] 20:55:00 Test Item Value Reference Range Comments Accuchek (test code=ACU) 486 mg/dL 70-110 Fszoqvoz9577-06-07 16:55:00 Test Item Value Reference Range Comments Accuchek (test code=ACU) 432 mg/dL 70-110 [id number] 14:33:00 Test Item Value Reference Range Comments Accuchek (test code=ACU) 287 mg/dL 70-110 [id number] 09:53:00 Test Item Value Reference Range Comments Accuchek (test code=ACU) 119 mg/dL 70-110 [id number] 09:13:00 Test Item Value Reference Range Comments [...] Value! Chemistry (test code=CA) 8.6 mg/dL 7.8-10.44 [id number] 05:37:00 Test Item Value Reference Range Comments Accuchek (test code=ACU) 94 mg/dL 70-110 [id number] 02:52:00 Test Item Value Reference Range Comments Accuchek (test code=ACU) 87 mg/dL 70-110 [id number] 22:27:00 Test Item Value Reference Range Comments Accuchek (test code=ACU) 370 mg/dL 70-110 [id number] 19:37:00 Test Item Value Reference Range Comments Chemistry (test code=CCC) ALEJANDRINA.LAB@1936 Refer to Critical Value designated by an *L or *H Chemistry (test code=GLU-T) 632 mg/dL 83-110 Critical value! Is patient fasting? NoComment line [id number] 17:31:00 Test Item Value Reference Range Comments Chemistry (test code=CCC) ALEJANDRINA.RG@1731 Refer to Critical Value designated by an *L or *H Chemistry (test code=GLU-T) 762 mg/dL 83-110 Critical value! Is patient fasting? [id number] 11:55:00 Test Item Value Reference Range Comments [...] 83-110 Chemistry (test code=CA) 8.8 mg/dL 7.8-10.44 [id number] 06:35:00 Test Item Value Reference Range Comments Accuchek (test code=ACU) 273 mg/dL 70-110 Adlkedeh2467-10-08 20:59:00 Test Item Value Reference Range Comments Accuchek (test code=ACU) 351 mg/dL 70110 [id number] 17:23:00 Test Item Value Reference Range Comments Accuchek (test code=ACU) 116 mg/dL 70110 [id number] 11:55:00 Test Item Value Reference Range Comments Accuchek (test code=ACU) 413 mg/dL 70-110 [id number] 05:25:00 Test Item Value Reference Range Comments Accuchek (test code=ACU) 286 mg/dL 70-110 [id number] 21:17:00 Test Item Value Reference Range Comments Accuchek (test code=ACU) 185 mg/dL 70110 [id number] 18:59:00 Test Item Value Reference Range Comments Accuchek (test code=ACU) 383 mg/dL 110 [id number] 18:59:00 Test Item Value Reference Range Comments Accuchek (test code=ACU) 227 mg/dL 110 [id number] 13:41:00 Test Item Value Reference Range Comments Accuchek (test code=ACU) 293 mg/dL 70-110 [id number] 05:45:00 Test Item Value Reference Range Comments Accuchek (test code=ACU) 396 mg/dL 110 [id number] 05:11:00 Test Item Value Reference Range Comments Accuchek (test code=ACU) 404 mg/dL 70-110 [id number] 04:23:00 Test Item Value Reference Range Comments [...] 83-110 Chemistry (test code=CA) 8.2 mg/dL 7.8-10.44 [id number] 04:05:00 Test Item Value Reference Range Comments [...] 0.0-0.7 Hematology (test code=BASO#) 0.0 thou/uL 0.0-0.2 [id number] 22:43:00 Test Item Value Reference Range Comments Accuchek (test code=ACU) 248 mg/dL 70-110 [id number] 19:16:00 Test Item Value Reference Range Comments Accuchek (test code=ACU) 301 mg/dL 70-110 Chemistry - [id number] 12:59:00 Test Item Value Reference Range Comments [...] considered immune to HBV infection. Chemistry - [id number] 12:59:00 Test Item Value Reference Range Comments Chemistry - Specials (test code=THBSAG) Non-Reactive S/CO NonReactive Chemistry - [id number] 12:59:00 Test Item Value Reference Range Comments Chemistry - Specials (test code=INTHEPBCT) Non-Reactive NonReactive Chemistry - [id number] 12:59:00 Test Item Value Reference Range Comments Chemistry - Specials (test code=INTHEPC) Non-Reactive NonReactive [id number] 11:53:00 Test Item Value Reference Range Comments Accuchek (test code=ACU) 377 mg/dL 70-110 [id number] 05:45:00 Test Item Value Reference Range Comments Accuchek (test code=ACU) 219 mg/dL 70-110 Ynktdyutsu6809-89-08 05:05:00 Test Item Value Reference Range Comments [...] (100X) 0-5/hpf Hematology (test code=PCOMMENT) Appears Adequate [id number] 04:36:00 Test Item Value Reference Range Comments [...] 83-110 Chemistry (test code=CA) 8.5 mg/dL 7.8-10.44 [id number] 20:44:00 Test Item Value Reference Range Comments Accuchek (test code=ACU) 174 mg/dL 70-110 [id number] 17:03:00 Test Item Value Reference Range Comments Accuchek (test code=ACU) 344 mg/dL 70-110 [id number] 17:03:00 Test Item Value Reference Range Comments Accuchek (test code=ACU) 217 mg/dL 70-110 Chemistry - [id number] 09:20:00 Test Item Value Reference Range Comments Chemistry - Urine (test 72.26 mg/dL 63-166 NOTE: Concentration is based code=URCREAT) on a daily urine output of1.5 Liters. Chemistry - [id number] 09:20:00 Test Item Value Reference Range Comments Chemistry - Urine (test code=URTP) 381 mg/dL Chemistry - BNP, HgbA1c, [id number] 08:00:00 Test Item Value Reference Range Comments Chemistry - BNP, HgbA1c, 6.3 % 4.0-6.0 Therapeutic goals for glycemic PTHi (test code=OLBJ0DS) control (ADA)Adults:- Goal of therapy: Less than 7.0% HbA1c- Action suggested: Greater than 8.0% RnN7kLwixtholj patients:- Toddlers and preschoolers: Less than 8.5% (but Greater than 7.5%)- School age (6-12 years): Less than 8%- Adolescents and young adults (13-19 years): Less than 7.5%Diagnosing diabetes (ADA)- HbA1c: Greater than or equal to 6.5% Values of 5.7 - 6.4% indicate HIGH risk for developing DiabetesInternational Expert Committee Report on the Role of the Q7VUwmle in the Diagnosis of Diabetes. Diabetes Care 2009July;32(7):1327-1334ADA, Diagnosis classification of diabetes mellitus.Diabetes Care 2010; 33 Suppl 1:S62 [id number] 05:46:00 Test Item Value Reference Range Comments [...] 83-110 Chemistry (test code=CA) 8.8 mg/dL 7.8-10.44 [id number] 05:35:00 Test Item Value Reference Range Comments Accuchek (test code=ACU) 262 mg/dL 70-110 [id number] 05:21:00 Test Item Value Reference Range Comments [...] 0.0-0.7 Hematology (test code=BASO#) 0.1 thou/uL 0.0-0.2 [id number] 21:30:00 Test Item Value Reference Range Comments Accuchek (test code=ACU) 279 mg/dL 70-110 [id number] 16:30:00 Test Item Value Reference Range Comments Accuchek (test code=ACU) 145 mg/dL 70-110 [id number] 11:42:00 Test Item Value Reference Range Comments Accuchek (test code=ACU) 119 mg/dL 70-110 [id number] 06:48:00 Test Item Value Reference Range Comments [...] 8.4 mg/dL 7.8-10.44 Chemistry - BNP, HgbA1c, [id number] 06:45:00 Test Item Value Reference Range Comments Chemistry - BNP, HgbA1c, PTHi (test code=BNP) 419.1 pg/mL 0-100 [id number] 06:35:00 Test Item Value Reference Range Comments Accuchek (test code=ACU) 171 mg/dL 70-110 [id number] 06:20:00 Test Item Value Reference Range Comments [...] 0.0-0.7 Hematology (test code=BASO#) 0.0 thou/uL 0.0-0.2 [id number] 22:09:00 Test Item Value Reference Range Comments Accuchek (test code=ACU) 223 mg/dL 70-110 [id number] 17:33:00 Test Item Value Reference Range Comments Accuchek (test code=ACU) 100 mg/dL 70-110 [id number] 14:32:00 Test Item Value Reference Range Comments Accuchek (test code=ACU) 375 mg/dL 70-110 [id number] 14:32:00 Test Item Value Reference Range Comments Accuchek (test code=ACU) 285 mg/dL 70-110 [id number] 10:33:00 Test Item Value Reference Range Comments Accuchek (test code=ACU) 498 mg/dL 70-110 NOTIFIED NURSE [id number] 09:23:00 Test Item Value Reference Range Comments Accuchek (test code=ACU) 523 mg/dL 70-110 [id number] 03:49:00 Test Item Value Reference Range Comments [...] LPF 0-3 Hyaline Urine Source: Urine Clean [id number] 00:20:00 Test Item Value Reference Range Comments [...] 5-34 Chemistry (test code=ALT) 21 U/L 8-55 [id number] 00:20:00 Test Item Value Reference Range Comments Chemistry (test code=PHOS) 4.0 mg/dL 2.3-4.7 [id number] 00:20:00 Test Item Value Reference Range Comments Chemistry (test code=MG) 2.4 mg/dL 1.6-2.6 [id number] 00:14:00 Test Item Value Reference Range Comments Accuchek (test code=ACU) 113 mg/dL 70-110 [id number] 23:58:00 Test Item Value Reference Range Comments [...]
[2018-11-24 13:14] LABS: Absolute Lymphocytes (CBC) 1.1 K/uL (0.7-4.9); Basophils % 0.8 % (0-1.3); Hematocrit 30.5 % (39.6-49.0); Lymphocytes % 11.3 % (15.3-44.8); MPV 9.3 fL (7.6-11.3); RBC Red Blood Cell Count 3.14 M/uL (4.33-5.43)
[2018-11-24 13:21] LABS: Protime INR 0.94
[2018-11-24 13:40] LABS: ALT/SGPT 22 U/L (12-78); AST/SGOT 27 U/L (15-37); Albumin 3.5 g/dL (3.4-5.0); Alkaline Phosphatase 97 U/L (45-117); BUN Blood Urea Nitrogen 35 mg/dL (7-18); Bicarbonate 28 mmol/L (21-32); Bilirubin Direct < 0.1 mg/dL (0-0.2); Bilirubin Total 0.4 mg/dL (0.2-1.0); Glucose Level 236 mg/dL (74-106); Magnesium 2.4 mg/dL (1.8-2.4); NT PRO-BNP 7770 pg/mL (<450); Potassium 4.1 mmol/L (3.5-5.1); Protein, Total 7.2 g/dL (6.4-8.2); Sodium Level 140 mmol/L (136-145)
--- NOTE | 2018-11-24 13:47 | RAD REPORT ---
EXAM DESCRIPTION: RAD - Chest Single View - 11/24/2018 1:33 pm CLINICAL HISTORY: Shortness of breath COMPARISON: October 30, 2018 chest film, October 31, 2018 CT chest TECHNIQUE: AP portable chest image was obtained 1330 hours . FINDINGS: Lungs are fibrotic as a baseline. Patchy alveolar opacities have developed in the left bas e along the left heart border. Interstitial markings overall are increased in prominence from edema o r infiltrate. No dense consolidation. Granulomatous calcifications are present. Heart and vasculature are normal. No measurable pleural effusion and no pneumothorax. No acute bony abnormality seen. No a cute aortic findings suspected. IMPRESSION: Patchy opacification left base suspicious for early pneumonia. Overall interstitial pattern has increased over the baseline fibrosis from bilateral interstitial cris ma or infiltrate.
[2018-11-24] MEDS ORDERED: CEFTRIAXONE/SWI 1gm 1 GM/10 ML SYR ONE (15:21)
[2018-11-24] MEDS ORDERED: ASPIRIN 81 MG CHEWABLE TABLET ONE (15:21)
[2018-11-24] MEDS ORDERED: AZITHROMYCIN 250 MG TAB ONE (15:21)
[2018-11-24] MEDS ORDERED: ACETAMINOPHEN 500 MG TAB PO PRN (16:25)
--- NOTE | 2018-11-24 18:40 | EKG ---
Test Date: 2018-11-24 Test Time: 13:08:18 Family Consultant: KEREN MEASUREMENT RESULTS: Intervals: Rate: 68 VA: 148 QRSD: 94 QT: 386 QTc: 410 [place]: P: 66 VA: 148 QRS: -2 T: 64 INTERPRETIVE STATEMENTS: Normal sinus rhythm Nonspecific ST abnormality Abnormal ECG Compared to ECG 07/09/2018 08:34:14 ST (T wave) deviation now present Electronically Signed On 11-24-18 18:38:53 CDT by Jaskaran Low
--- NOTE | 2018-11-24 18:46 | EDPHYS ---
Physician Documentation [facility] Name: Chana Duff Age: 83 yrs Sex: Male : 1935 Arrival Date: 11/24/2018 Time: 12:40 Bed 15 Private MD: James Callahan C ED Physician Tyler Cisneros HPI: 11/24 19:10 This 83 yrs old Male presents to ER via Wheelchair with complaints of kdr Shortness Of Breath. 19:10 The patient has shortness of breath with light activity. Onset: The symptoms/episode kdr began/occurred gradually, 1 week(s) ago. Duration: The symptoms are intermittent, Only with minimal exertion. The patient's shortness of breath is aggravated by exertion, light activity, walking, is alleviated by nothing. Associated signs and symptoms: Pertinent positives: This patient does not have any pertinent positive signs or symptoms associated with shortness of breath. Pertinent negatives: chest pain, non-productive cough, productive cough, diaphoresis, dizziness, fever, hemoptysis, nausea, numbness in extremities, visual changes. Severity of symptoms: At their worst the symptoms were mild moderate just prior to arrival, in the emergency department the symptoms are unchanged. The patient has not experienced similar symptoms in the past. The patient has not recently seen a physician. Historical: - Allergies: 12:44 No Known Allergies; aj1 - Home Meds: 12:44 amlodipine 5 mg tab 1 tab twice daily [Active]; aspirin 81 mg Oral chew 1 tab once aj1 daily [Active]; atorvastatin 20 mg Oral tab 1 tab once daily [Active]; doxazosin 2 mg Oral tab 0.5 tab at bedtime [Active]; furosemide 80 mg Oral tab 1 tab once daily [Active]; Insulin pump [Active]; levothyroxine 125 mcg tab 1 tab once daily [Active]; metoprolol tartrate 50 mg Oral tab 0.5 tab 2 times per day [Active]; - PMHx: 12:44 Diabetes - IDDM; Dialysis; ESRD; Hyperlipidemia; Hypertension; aj1 12:50 COPD; rb1 - PSHx: 12:50 insulin pump; Dialysis catheter left lower arm; rb1 - Immunization history:: Flu vaccine is not up to date. - Social history:: Smoking status: Patient/guardian denies using tobacco. - Ebola Screening: : Patient denies travel to an Ebola-affected area in the 21 days before illness onset. ROS: 19:10 Constitutional: Negative for fever, chills, and weight loss, Eyes: Negative for injury, kdr pain, redness, and discharge, ENT: Negative for injury, pain, and discharge, Neck: Negative for injury, pain, and swelling, Cardiovascular: Negative for chest pain, palpitations, and edema, Abdomen/GI: Negative for abdominal pain, nausea, vomiting, diarrhea, and constipation, Back: Negative for injury and pain, : Negative for injury, bleeding, discharge, and swelling, MS/Extremity: Negative for injury and deformity, Skin: Negative for injury, rash, and discoloration, Neuro: Negative for headache, weakness, numbness, tingling, and seizure activity. Psych: Negative for depression, anxiety, suicide ideation, homicidal ideation, and hallucinations, Allergy/Immunology: Negative for hives, rash, and allergies, Endocrine: Negative for neck swelling, polydipsia, polyuria, polyphagia, and marked weight changes, Hematologic/Lymphatic: Negative for swollen nodes, abnormal bleeding, and unusual bruising. 19:10 Respiratory: Positive for dyspnea on exertion, shortness of breath, on exertion. Negative for cough, hemoptysis, orthopnea, pleurisy, sputum production, wheezing. Exam: 19:10 Constitutional: This is a well developed, well nourished patient who is awake, alert, kdr and in no acute distress. Head/Face: Normocephalic, atraumatic. Eyes: Pupils equal round and reactive to light, extra-ocular motions intact. Lids and lashes normal. Conjunctiva and sclera are non-icteric and not injected. Cornea within normal limits. Periorbital areas with no swelling, redness, or edema. Neck: Trachea midline, no thyromegaly or masses palpated, and no cervical lymphadenopathy. Supple, full range of motion without nuchal rigidity, or vertebral point tenderness. No Meningismus. Chest/axilla: Normal chest wall appearance and motion. Nontender with no deformity. No lesions are appreciated. Cardiovascular: Regular rate and rhythm with a normal S1 and S2. No gallops, murmurs, or rubs. Normal PMI, no JVD. No pulse deficits. Abdomen/GI: Soft, non-tender, with normal bowel sounds. No distension or tympany. No guarding or rebound. No evidence of tenderness throughout. Back: No spinal tenderness. No costovertebral tenderness. Full range of motion. Skin: Warm, dry with normal turgor. Normal color with no rashes, no lesions, and no evidence of cellulitis. MS/ Extremity: Pulses equal, no cyanosis. Neurovascular intact. Full, normal range of motion. Neuro: Awake and alert, GCS 15, oriented to person, place, time, and situation. Cranial nerves II-XII grossly intact. Motor strength 5/5 in all extremities. Sensory grossly intact. Cerebellar exam normal. Normal gait. Psych: Awake, alert, with orientation to person, place and time. Behavior, mood, and affect are within normal limits. 19:10 Respiratory: the patient does not display signs of respiratory distress, Respirations: normal, Breath sounds: rales, that are mild, are located in both bases. Vital Signs: 12:44 BP 157 / 84; Pulse 74; Resp 28; Temp 98.9; Pulse Ox 94% on 4 lpm NC; Weight 72.57 kg; aj1 Height 5 ft. 7 in. (170.18 cm); Pain 0/10; 12:50 rb1 13:44 BP 130 / 71; Pulse 75; Resp 22; Temp 98.9(O); Pulse Ox 97% on R/A; Pain 5/10; rb1 14:44 BP 142 / 73; Pulse 74; Resp 23; Temp 97.9(TE); Pulse Ox 97% on 5 lpm NC; Pain 4/10; rb1 15:43 BP 147 / 75; Pulse 66; Resp 25; Temp 98.0(O); Pulse Ox 95% on 5 lpm NC; Pain 4/10; rb1 16:42 BP 151 / 72; Pulse 65; Resp 24; Temp 98.4(O); Pulse Ox 99% on 5 lpm NC; Pain 2/10; rb1 17:40 BP 138 / 71; Pulse 73; Resp 22; Temp 98.0(O); Pain 0/10; rb1 18:45 BP 123 / 62; Pulse 71; Resp 23; Temp 98.0(O); Pulse Ox 96% on 4 lpm NC; Pain 0/10; rb1 20:00 BP 119 / 85; Pulse 70; Resp 22; Temp 98.2(O); Pulse Ox 98% on 4 lpm NC; jb4 12:44 Body Mass Index 25.06 (72.57 kg, 170.18 cm) aj1 12:50 BS 230 when taken at home at 1200 today rb1 MDM: 16:20 Patient medically screened. kdr 19:10 Data reviewed: vital signs, nurses notes, lab test result(s), radiologic studies. kdr 11/24 12:49 Order name: Basic Metabolic Panel kdr 11/24 12:49 Order name: CBC with Diff kdr 11/24 12:49 Order name: LFT's kdr 11/24 12:49 Order name: Magnesium; Complete Time: 14:22 kdr 11/24 12:49 Order name: NT PRO-BNP; Complete Time: 14:22 kdr 11/24 12:49 Order name: PT-INR; Complete Time: 14:22 kdr 11/24 12:49 Order name: Troponin (emerg Dept Use Only); Complete Time: 14:22 kdr 11/24 12:52 Order name: Basic Metabolic Panel; Complete Time: 14:22 EDMS 11/24 12:52 Order name: CBC with Automated Diff; Complete Time: 14:22 EDMS 11/24 12:52 Order name: Liver (Hepatic) Function; Complete Time: 14:22 EDMS 11/24 18:25 Order name: Basic Metabolic Panel EDMS 11/24 18:25 Order name: Basic Metabolic Panel EDMS 11/24 18:25 Order name: CBC with Automated Diff EDMS 11/24 18:26 Order name: CBC with Automated Diff EDMS 11/24 12:49 Order name: XRAY Chest (1 view); Complete Time: 14:22 kdr 11/24 12:49 Order name: EKG; Complete Time: 12:53 kdr 11/24 17:39 Order name: Diet Heart Healthy; Complete Time: 18:41 eb 11/24 18:24 Order name: CONS Physician Consult EDMS 11/24 18:24 Order name: Consistent Carb (ADA) 1800 Norberto EDMS 11/24 18:25 Order name: EKG Electrocardiogram EDMS 11/24 18:26 Order name: NT PRO-BNP EDMS 11/24 18:26 Order name: NT PRO-BNP EDMS 11/24 18:26 Order name: Troponin I EDMS 11/24 18:26 Order name: Troponin I EDMS 11/24 18:26 Order name: Troponin I EDMS 11/24 12:49 Order name: Cardiac monitoring; Complete Time: 13:07 kdr 11/24 12:49 Order name: EKG - Nurse/Tech; Complete Time: 13:07 kdr 11/24 12:49 Order name: IV Saline Lock; Complete Time: 13:06 kdr 11/24 12:49 Order name: Labs collected and sent; Complete Time: 13:06 kdr 11/24 12:49 Order name: O2 Per Protocol; Complete Time: 13:06 kdr 11/24 12:49 Order name: O2 Sat Monitoring; Complete Time: 13:07 kdr 11/24 14:28 Order name: Misc. Order: Ambulate patient at bedside and record oxygen saturation; kdr Complete Time: 15:14 11/24 18:25 Order name: EKG Electrocardiogram EDMS 11/24 18:25 Order name: EKG Electrocardiogram EDMS 11/24 18:25 Order name: EKG Electrocardiogram EDMS Administered Medications: 15:15 Drug: Rocephin - (cefTRIAXone) 1 grams Route: IVPB; Infused Over: 30 mins; Site: right rb1 forearm; 15:45 Follow up: Response: No adverse reaction; IV Status: Completed infusion rb1 15:15 Drug: Zithromax 500 mg Route: PO; rb1 15:45 Follow up: Response: No adverse reaction rb1 15:15 Drug: Aspirin Chewable Tablet 324 mg Route: PO; rb1 15:45 Follow up: Response: No adverse reaction rb1 18:42 Drug: PlaVIX 300 mg Route: PO; rb1 19:00 Follow up: Response: No adverse reaction rb1 18:42 Drug: Lovenox 1 mg/kg Route: Sub-Q; Site: right lower abdomen; rb1 19:00 Follow up: Response: No adverse reaction rb1 Point of Care Testing: Blood Glucose: 17:45 Blood Glucose: 269 mg/dL; rb1 17:45 Pt. is administering 2 units via his insulin pump rb1 Ranges: Critical Glucose Levels:Adult <50 mg/dl or >400 mg/dl <40 mg/dl or >180 mg/dl Disposition: 11/24/18 16:20 Hospitalization ordered by James Callahan for Inpatient Admission. Preliminary diagnosis is Shortness of breath, NSTEMI, Pneumonia. - Bed requested for Telemetry/MedSurg (Inpatient). - Status is Inpatient Admission. jb4 - Condition is Fair. - Problem is new. - Symptoms have improved. UTI on Admission? No Signatures: Dispatcher [employer] EDMS Kirsten Turner, RN RN aj1 Elizabeth Nelson RN RN dw Tyler Cisneros MD MD kdr Odalis Mendoza, RN RN rb1 David Hernandez, RN RN jb4 Corrections: (The following items were deleted from the chart) 18:14 16:20 Hospitalization Ordered by A [place] CANDELARIA for Inpatient Admission. Preliminary dw diagnosis is Shortness of breath, NSTEMI, Pneumonia. Bed requested for Telemetry/MedSurg (Inpatient). Status is Inpatient Admission. Condition is Fair. Problem is new. Symptoms have improved. UTI on Admission? No. kdr 20:15 18:14 11/24/2018 16:20 Hospitalization Ordered by A [place] CANDELARIA for Inpatient Admission. jb4 Preliminary diagnosis is Shortness of breath, NSTEMI, Pneumonia. Bed requested for Telemetry/MedSurg (Inpatient). Status is Inpatient Admission. Condition is Fair. Problem is new. Symptoms have improved. UTI on Admission? No. dw
--- NOTE | 2018-11-24 18:46 | ER ---
Nurse's Notes [facility] Name: Chana Duff Age: 83 yrs Sex: Male : 1935 Arrival Date: 11/24/2018 Time: 12:40 Bed 15 Private MD: James Callahan C Diagnosis: Shortness of breath, NSTEMI, Pneumonia Presentation: 11/24 12:42 Presenting complaint: states: Shortness of breath for the past 2 weeks that has aj1 gotten progressively worse. Patient usually wears O2 \T\ 2L nc, she turned it up to 4L, but he is still short of breath. Transition of care: patient was not received from another setting of care. Onset of symptoms was November 2018. Risk Assessment: Do you want to hurt yourself or someone else? Patient reports no desire to harm self or others. Initial Sepsis Screen: Does the patient meet any 2 criteria? RR > 20 per min. No. Patient's initial sepsis screen is negative. Does the patient have a suspected source of infection? No. Patient's initial sepsis screen is negative. Care prior to arrival: None. 12:42 Method Of Arrival: Wheelchair aj1 12:42 Acuity: SOFIA 3 aj1 Triage Assessment: 12:44 General: Appears in no apparent distress. comfortable, Behavior is calm, cooperative, aj1 appropriate for age. Pain: Denies pain. Neuro: Level of Consciousness is awake, alert, obeys commands, Oriented to person, place, time, situation. Cardiovascular: Patient's skin is warm and dry. Respiratory: Reports shortness of breath Airway is patent Respiratory effort is even, unlabored, Respiratory pattern is regular, symmetrical, tachypnea Onset: The symptoms/episode began/occurred 2 weeks ago, the patient has moderate shortness of breath. Historical: - Allergies: 12:44 No Known Allergies; aj1 - Home Meds: 12:44 amlodipine 5 mg tab 1 tab twice daily [Active]; aspirin 81 mg Oral chew 1 tab once aj1 daily [Active]; atorvastatin 20 mg Oral tab 1 tab once daily [Active]; doxazosin 2 mg Oral tab 0.5 tab at bedtime [Active]; furosemide 80 mg Oral tab 1 tab once daily [Active]; Insulin pump [Active]; levothyroxine 125 mcg tab 1 tab once daily [Active]; metoprolol tartrate 50 mg Oral tab 0.5 tab 2 times per day [Active]; - PMHx: 12:44 Diabetes - IDDM; Dialysis; ESRD; Hyperlipidemia; Hypertension; aj1 12:50 COPD; rb1 - PSHx: 12:50 insulin pump; Dialysis catheter left lower arm; rb1 - Immunization history:: Flu vaccine is not up to date. - Social history:: Smoking status: Patient/guardian denies using tobacco. - Ebola Screening: : Patient denies travel to an Ebola-affected area in the 21 days before illness onset. Screenin:50 Abuse screen: Denies threats or abuse. Nutritional screening: No deficits noted. rb1 Tuberculosis screening: No symptoms or risk factors identified. Fall Risk None identified. Assessment: 12:50 General: Appears in no apparent distress. comfortable, Behavior is calm, cooperative, rb1 Denies fever, feeling ill. Pain: Denies pain. Neuro: Level of Consciousness is awake, alert, obeys commands, Oriented to person, place, time, situation. Cardiovascular: Capillary refill < 3 seconds is brisk in bilateral fingers. Respiratory: Reports shortness of breath since x 2 weeks. Wears 2 L NC at home. Airway is patent Respiratory effort is even, unlabored, Respiratory pattern is regular, symmetrical, the patient has mild shortness of breath. GI: Reports last BM was this morning. : Reports Dialysis on -W-, pt. had dialysis at home yesterday. Daughter reports 1000 ml out for dialysis yesterday. Derm: Skin is pink, warm \T\ dry. 13:43 Reassessment: Received lab alert for Trop. 1.2. rb1 13:48 Reassessment: Dr. Cisneros notified of Trop. 1.2. No new orders received at this time. rb1 13:50 Reassessment: Patient appears in no apparent distress at this time. Patient and/or rb1 family updated on plan of care and expected duration. Pain level reassessed. Patient is alert, oriented x 3, equal unlabored respirations, skin warm/dry/pink. Pt. reports chest pain when he moves around. Pain 5/10. 14:48 Reassessment: Patient appears in no apparent distress at this time. No changes from rb1 previously documented assessment. 15:15 Reassessment: Pt. up to bedside, O2 sat dropped to 88% on 5 L NC. rb1 16:15 Reassessment: Patient appears in no apparent distress at this time. Patient and/or rb1 family updated on plan of care and expected duration. Pain level reassessed. Patient is alert, oriented x 3, equal unlabored respirations, skin warm/dry/pink. Family at bedside. Patient states feeling better. 16:40 Reassessment: Pt./Family is requesting to speak with the doctor; Dr. Cisneros notified. rb1 17:15 Reassessment: Patient appears in no apparent distress at this time. No changes from rb1 previously documented assessment. Family at bedside. 18:15 Reassessment: Patient appears in no apparent distress at this time. Patient and/or rb1 family updated on plan of care and expected duration. Pain level reassessed. Patient is alert, oriented x 3, equal unlabored respirations, skin warm/dry/pink. Pt. is eating a dinner tray. 19:15 Reassessment: Patient appears in no apparent distress at this time. Patient and/or jb4 family updated on plan of care and expected duration. Pain level reassessed. Patient is alert, oriented x 3, equal unlabored respirations, skin warm/dry/pink. 19:15 Respiratory: Breath sounds are clear in left upper lobe, left lower lobe and left jb4 posterior upper lobe Breath sounds with wheezes in right middle lobe, right lower lobe, left posterior upper lobe, right posterior upper lobe, left posterior lower lobe, right posterior middle lobe and right posterior lower lobe. 19:35 Reassessment: Patient appears in no apparent distress at this time. Patient and/or jb4 family updated on plan of care and expected duration. Pain level reassessed. Patient is alert, oriented x 3, equal unlabored respirations, skin warm/dry/pink. PT is sitting up in the bedside chair with family at the bedside, Dr. Callahan at the bedside speaking with patient. 20:09 Reassessment: Patient appears in no apparent distress at this time. Patient and/or jb4 family updated on plan of care and expected duration. Pain level reassessed. Patient is alert, oriented x 3, equal unlabored respirations, skin warm/dry/pink. PT transferred to room 408 via wheelchair, family with patient, IV site dry and intact. Vital Signs: 12:44 BP 157 / 84; Pulse 74; Resp 28; Temp 98.9; Pulse Ox 94% on 4 lpm NC; Weight 72.57 kg; aj1 Height 5 ft. 7 in. (170.18 cm); Pain 0/10; 12:50 rb1 13:44 BP 130 / 71; Pulse 75; Resp 22; Temp 98.9(O); Pulse Ox 97% on R/A; Pain 5/10; rb1 14:44 BP 142 / 73; Pulse 74; Resp 23; Temp 97.9(TE); Pulse Ox 97% on 5 lpm NC; Pain 4/10; rb1 15:43 BP 147 / 75; Pulse 66; Resp 25; Temp 98.0(O); Pulse Ox 95% on 5 lpm NC; Pain 4/10; rb1 16:42 BP 151 / 72; Pulse 65; Resp 24; Temp 98.4(O); Pulse Ox 99% on 5 lpm NC; Pain 2/10; rb1 17:40 BP 138 / 71; Pulse 73; Resp 22; Temp 98.0(O); Pain 0/10; rb1 18:45 BP 123 / 62; Pulse 71; Resp 23; Temp 98.0(O); Pulse Ox 96% on 4 lpm NC; Pain 0/10; rb1 20:00 BP 119 / 85; Pulse 70; Resp 22; Temp 98.2(O); Pulse Ox 98% on 4 lpm NC; jb4 12:44 Body Mass Index 25.06 (72.57 kg, 170.18 cm) aj1 12:50 BS 230 when taken at home at 1200 today rb1 ED Course: 12:40 Patient arrived in ED. as 12:40 James Callahan MD is Private Physician. as 12:43 Triage completed. aj1 12:44 Arm band placed on Patient placed in an exam room. aj1 12:49 Tyler Cisneros MD is Attending Physician. kdr 12:50 Odalis Mendoza, MEHRAN is Primary Nurse. rb1 12:50 Patient has correct armband on for positive identification. Bed in low position. Call rb1 light in reach. Side rails up X 1. electronic device monitor on. Pulse ox on. NIBP on. Warm blanket given. Pillow given. 13:06 Initial lab(s) drawn, by me, sent to lab. Inserted saline lock: 20 gauge in right ms forearm, using aseptic technique. Blood collected. 13:19 EKG done, by instructional design technologist. reviewed by Tyler Cisneros MD. sm3 13:32 IV discontinued, intact, bleeding controlled, related to excessive bleeding and bruise ag noted at the insertion site wrapped with Coban. 13:34 X-ray completed. Portable x-ray completed in exam room. Patient tolerated procedure jb2 well. 13:35 XRAY Chest (1 view) In Process Unspecified. EDMS 13:55 Missed attempt(s): 22 gauge in right antecubital area. Bleeding controlled, band aid rb1 applied, catheter tip intact. 14:20 Inserted saline lock: 22 gauge in right wrist, using aseptic technique. ag 16:19 James Callahan MD is Hospitalizing Provider. kdr 20:00 No provider procedures requiring assistance completed. jb4 20:15 Patient admitted, IV remains in place. jb4 Administered Medications: 15:15 Drug: Rocephin - (cefTRIAXone) 1 grams Route: IVPB; Infused Over: 30 mins; Site: right rb1 forearm; 15:45 Follow up: Response: No adverse reaction; IV Status: Completed infusion rb1 15:15 Drug: Zithromax 500 mg Route: PO; rb1 15:45 Follow up: Response: No adverse reaction rb1 15:15 Drug: Aspirin Chewable Tablet 324 mg Route: PO; rb1 15:45 Follow up: Response: No adverse reaction rb1 18:42 Drug: PlaVIX 300 mg Route: PO; rb1 19:00 Follow up: Response: No adverse reaction rb1 18:42 Drug: Lovenox 1 mg/kg Route: Sub-Q; Site: right lower abdomen; rb1 19:00 Follow up: Response: No adverse reaction rb1 Point of Care Testing: Blood Glucose: 17:45 Blood Glucose: 269 mg/dL; rb1 17:45 Pt. is administering 2 units via his insulin pump rb1 Ranges: Outcome: 16:20 Decision to Hospitalize by Provider. kdr 20:00 Admitted to Tele accompanied by tech, via wheelchair, room 408, with oxygen, with jb4 chart, Report called to MEHRAN Haas 20:00 Condition: stable 20:00 Discharge instructions given to patient, family, Instructed on the need for admit, Demonstrated understanding of instructions. 20:15 Patient left the ED. jb4 Signatures: Dispatcher [employer] EDMS Kirsten Turner RN RN aj1 Tyler Cisneros MD MD kdr Buechter, Jesse jb2 Margy Ortiz Maria ms Gallardo, Odalis Lomax RN RN rb1 David Hernandez RN RN jb4 Marianna Hammond 3 Corrections: (The following items were deleted from the chart) 12:45 12:42 Acuity: SOFIA 2 aj1 aj1
[2018-11-24] MEDS ORDERED: ENOXAPARIN 80 MG/0.8 ML SQ ONE (18:51)
[2018-11-24] MEDS ORDERED: CLOPIDOGREL 75 MG TABLET ONE (18:51)
[2018-11-24] MEDS: CEFTRIAXONE/SWI 1gm 1 GM/10 ML SYR IVP SCH (21:00)
[2018-11-25 06:41] LABS: Potassium 4.2 mmol/L (3.5-5.1)
[2018-11-25 06:54] LABS: Absolute Lymphocytes (CBC) 1.3 K/uL (0.7-4.9); Basophils % 0.9 % (0-1.3); Eosinophils % 4.3 % (0-4.4); Hematocrit 30.3 % (39.6-49.0); Lymphocytes % 14.1 % (15.3-44.8); MPV 9.3 fL (7.6-11.3); Monocytes % 7.6 % (3.3-12.3); RBC Red Blood Cell Count 3.11 M/uL (4.33-5.43)
[2018-11-25] MEDS: ALBUTEROL 2.5 MG/3 ML NEB SOL NEB PRN ×4 (07:37→21:26)
--- NOTE | 2018-11-25 07:46 | RAD REPORT ---
EXAM DESCRIPTION: RAD - Chest Single View - 11/25/2018 6:39 am CLINICAL HISTORY: Chest Pain Chest pain. COMPARISON: Chest Single View dated 11/24/2018; Chest Single View dated 10/30/2018; Chest Pa And Lat ( 2 Views) dated 07/12/2018; Chest Single View dated 07/09/2018; Thorax Wo Con dated 10/31/2018 FINDINGS: Portable technique limits examination quality. Since the prior study, there has been mild worsening in the left mid and lower lobe pulmonary infiltr ate pattern. The heart is normal in size. Aortic atherosclerosis. IMPRESSION: Mild worsening in left lung aeration since comparative examination.
[2018-11-25] MEDS: CA ACETATE 667 MG CAP PO SCH ×3 (08:26→17:55)
[2018-11-25] MEDS: FINASTERIDE 5 MG TAB PO SCH (08:26)
[2018-11-25] MEDS: TAMSULOSIN 0.4 MG SR CAP PO SCH (08:26)
[2018-11-25] MEDS: MULTIVITAMINS,THERAPEUT 1 TAB PO SCH (08:27)
[2018-11-25] MEDS: ASPIRIN EC 81 MG TAB PO SCH (08:27)
[2018-11-25] MEDS: CALCIUM CARBONATE CHEW 500MG TAB PO SCH ×3 (08:31→17:55)
[2018-11-25] MEDS: CEFTRIAXONE/SWI 1gm 1 GM/10 ML SYR IVP SCH (08:34)
[2018-11-25] MEDS ORDERED: AZITHROMYCIN IV 250 MG in NA CHLORIDE 0.9% 250 ML IVPB SCH (09:00)
[2018-11-25] MEDS ORDERED: LIDOCAINE/PRILOCAINE CREAM TOP SCH (09:00)
[2018-11-25] MEDS ORDERED: METOPROLOL TAR 25 MG TAB PO SCH (09:00)
[2018-11-25] MEDS ORDERED: ASPIRIN EC 81 MG TAB PO SCH (09:00)
[2018-11-25] MEDS ORDERED: HOME MED 1 EA UNK (Levothyroxine Sodium [Levothyroxine Sodium] 137 MCG) PO SCH (09:00)
--- NOTE | 2018-11-25 10:48 | EKG ---
Test Date: 2018-11-25 Test Time: 07:18:48 [place] Technician: KEREN MEASUREMENT RESULTS: Intervals: Rate: 89 IA: 146 QRSD: 84 QT: 354 QTc: 430 [place]: P: 70 IA: 146 QRS: -26 T: 67 INTERPRETIVE STATEMENTS: Normal sinus rhythm with sinus arrhythmia Possible Left atrial enlargement Nonspecific ST and T wave abnormality Abnormal ECG Compared to ECG 11/24/2018 13:08:18 No significant changes Electronically Signed On 11-25-18 10:48:10 CDT by Arya Martin
[2018-11-25] MEDS: ARFORMOTEROL TARTRATE 15 MCG/2 ML VIAL.NEB NEB SCH ×3 (11:02→20:00)
--- NOTE | 2018-11-25 12:13 | P.CNS ---
Date of Consult: 11/25/18 Reason for Consult: ESRD , and volume management Chief Complaint: SOB History of Present Illness: Am 83 Y/o man with PMHx of ESRD on HD via lt AVF MWF, COPD, BPH, hypothyrodism Pt was admitted for SOB pt with Hx of COPD on albuterol, last 7-10 days pt was complaining of excertional dyspnea and Audiable wheezes, symptoms didnt improve on albuterol pt denied , chest pain, plapitation, headachem naudea or vomiting Trop elevated to ~2.0 Allergies No Known Drug Allergies Allergy (Verified 10/30/18 23:38) Unknown Home Medications: Calcium Acetate 667 mg PO TIDWM 10/30/18 Calcium Carbonate [Tums] 200 mg PO TIDWM 10/30/18 Ergocalciferol (Vitamin D2) [Vitamin D2] 1 cap PO EVERY 7TH DAY 10/30/18 Finasteride 5 mg PO DAILY 10/30/18 Folic Acid/Vit B Complex and C [Dialyvite 800 Chewable Wafer] 1 tab PO DAILY Lidocaine/Prilocaine Cream 1 appl TOP SEECOM 10/30/18 Tamsulosin HCl 0.4 mg PO DAILY 10/30/18 Albuterol Sulfate [Proair Respiclick] 2 puff IH Q6H PRN 10/31/18 Amlodipine Besylate 5 mg PO SEECOM 10/31/18 Aspirin [Aspir-Low] 81 mg PO DAILY 10/31/18 Atorvastatin Calcium 20 mg PO BEDTIME 10/31/18 Doxazosin Mesylate 0.5 tab PO BEDTIME 10/31/18 Furosemide 0.5 tab PO SEECOM 10/31/18 Levothyroxine Sodium 137 mcg PO DAILY 10/31/18 Metoprolol Tartrate 0.5 mg PO BID 10/31/18 - Past Medical/Surgical History Diabetic: Yes -: HTN -: HLD -: IDDM -: HYPOTHYROIDISM -: CKD -: CAD -: Peripheral vascular disease -: Asbestosis -: COPD -: Hernia repair -: Cardiac stents -: Bilateral cataract surgery - Family History Brother Medical History: Stroke, Kidney disease Mother Medical History: Stroke, Kidney disease Father Medical History: Cancer Notes: Prostate ca - Social History Smoking Status: Unknown if ever smoked Alcohol use: No CD- Drugs: No Caffeine use: No Place of Residence: Home Physical Examination Temp Pulse Resp BP Pulse Ox 97.9 F 86 18 111/60 93 11/25/18 12:00 11/25/18 12:00 11/25/18 12:00 11/25/18 12:00 11/25/18 12:00 General: In no apparent distress, Oriented x3 HEENT: Atraumatic Neck: Supple, Without JVD or thyroid abnormality Respiratory: Clear to auscultation bilaterally, Normal air movement Cardiovascular: No edema, Regular rate/rhythm, Normal S1 S2, No gallops, No rubs , No murmurs Gastrointestinal: Normal bowel sounds, Soft and benign Laboratory Data (last 24 hrs) 11/24/18 13:03: PT 11.1, INR 0.94 11/24/18 13:03: WBC 9.8, Hgb 9.9 L, Hct 30.5 L, Plt Count 245 11/24/18 13:03: Sodium 140, Potassium 4.1, BUN 35 H, Creatinine 3.60 H, Glucose 236 H, Magnesium 2.4 D, Total Bilirubin 0.4, AST 27, ALT 22, Alkaline Phosphatase 97 Conclusions/Impression: ESRD will cont HD mwf renal diet and renal dose meds COPD exacerbation improved now inhalers and steroids as per pulmonary HTN controlled PNA on Abx MBD cont binders Anemia will start on JANEL
--- NOTE | 2018-11-25 12:17 | P.CNS ---
Date of Consult: 11/25/18 Chief Complaint: Abnormal chest x-ray shortness of breath History of Present Illness: Patient is 83 years of age with a history of COPD admitted with sudden onset of shortness of breath patient is on chronic hemodialysis denies any fever chills cough sputum or hemoptysis denies any chest pain although he has a history of COPD patient has been controlled with Pro air p.r.n. basis. He was found to have worsening infiltrate on his x-ray this condition rapidly became worse to the extent that the headaches shortness of breath and very mild exertion and had to sleep sitting up also complain of some lower extremity edema Allergies No Known Drug Allergies Allergy (Verified 10/30/18 23:38) Unknown Home Medications: Calcium Acetate 667 mg PO TIDWM 10/30/18 Calcium Carbonate [Tums] 200 mg PO TIDWM 10/30/18 Ergocalciferol (Vitamin D2) [Vitamin D2] 1 cap PO EVERY 7TH DAY 10/30/18 Finasteride 5 mg PO DAILY 10/30/18 Folic Acid/Vit B Complex and C [Dialyvite 800 Chewable Wafer] 1 tab PO DAILY Lidocaine/Prilocaine Cream 1 appl TOP SEECOM 10/30/18 Tamsulosin HCl 0.4 mg PO DAILY 10/30/18 Albuterol Sulfate [Proair Respiclick] 2 puff IH Q6H PRN 10/31/18 Amlodipine Besylate 5 mg PO SEECOM 10/31/18 Aspirin [Aspir-Low] 81 mg PO DAILY 10/31/18 Atorvastatin Calcium 20 mg PO BEDTIME 10/31/18 Doxazosin Mesylate 0.5 tab PO BEDTIME 10/31/18 Furosemide 0.5 tab PO SEECOM 10/31/18 Levothyroxine Sodium 137 mcg PO DAILY 10/31/18 Metoprolol Tartrate 0.5 mg PO BID 10/31/18 - Past Medical/Surgical History Diabetic: Yes -: HTN -: HLD -: IDDM -: HYPOTHYROIDISM -: CKD -: CAD -: Peripheral vascular disease -: Asbestosis -: COPD -: Patient on dialysis -: Hernia repair -: Cardiac stents -: Bilateral cataract surgery - Family History Brother Medical History: Stroke, Kidney disease Mother Medical History: Stroke, Kidney disease Father Medical History: Cancer Notes: Prostate ca - Social History Smoking Status: Unknown if ever smoked Alcohol use: No CD- Drugs: No Caffeine use: No Place of Residence: Home Review of Systems 10-point ROS is otherwise unremarkable General: Weakness Respiratory: Shortness of Breath Physical Examination Temp Pulse Resp BP Pulse Ox 98.5 F 82 20 140/69 93 11/25/18 08:00 11/25/18 08:00 11/25/18 08:00 11/25/18 08:00 11/25/18 08:00 General: Alert, In no apparent distress, Oriented x3 HEENT: Atraumatic Neck: Supple Respiratory: Crackles/rales (Some crackles on the left side), Expiratory wheezes Cardiovascular: No edema, Regular rate/rhythm, Normal S1 S2 Laboratory Data (last 24 hrs) 11/24/18 13:03: PT 11.1, INR 0.94 11/24/18 13:03: WBC 9.8, Hgb 9.9 L, Hct 30.5 L, Plt Count 245 11/24/18 13:03: Sodium 140, Potassium 4.1, BUN 35 H, Creatinine 3.60 H, Glucose 236 H, Magnesium 2.4 D, Total Bilirubin 0.4, AST 27, ALT 22, Alkaline Phosphatase 97 - Problems (1) COPD exacerbation Onset Date: 02/11/17 Current Visit: No Status: Acute Plan: Patient is 83 years of age with a history of COPD admitted with worsening dyspnea and chest x-ray shows progressive worsening on the left side no evidence of clinical sepsis he has no the pulmonary complaints repeat PA lateral chest x-ray at some prednisone and change to Zosyn he is at risk for resistant infections sputum cultures blood cultures he will need a long-acting bronchodilator at home
[2018-11-25] MEDS: predniSONE 20 MG TAB PO SCH ×2 (12:31→20:43)
--- NOTE | 2018-11-25 12:53 | ECHO ---
HEIGHT: 5 ft 7 in WEIGHT: 158 lb 11.2 oz DATE OF STUDY: 11/25/[address]: Jaskaran Low MD 2-DIMENSIONAL: YES M.MODE: YES DOPPLER: YES COLOR FLOW: YES TDS: NO PORTABLE: NO DEFINITY: NO BUBBLE STUDY: NO DIAGNOSIS: NSTEMI CARDIAC HISTORY: CATHERIZATION: YES SURGERY: NO PROSTHETIC VALVE: NO PACEMAKER: NO MEASUREMENTS (cm) DIASTOLIC (NORMALS) SYSTOLIC (NORMALS) IVSd 1.0 (0.6-1.2) LA Diam 3.1 (1.9-4.0) LVEF 66% LVIDd 4.7 (3.5-5.7) LVIDs 3.0 (2.0-3.5) %FS 36% LVPWd 1.0 (0.6-1.2) Ao Diam 2.5 (2.0-3.7) 2 DIMENSIONAL ASSESSMENT: RIGHT ATRIUM: NORMAL LEFT ATRIUM: NORMAL RIGHT VENTRICLE: NORMAL LEFT VENTRICLE: NORMAL TRICUSPID VALVE: NORMAL MITRAL VALVE: MITRAL ANNULAR CALCIFICATION PULMONIC VALVE: NORMAL AORTIC VALVE: SCLEROSIS PERICARDIAL EFFUSION: NONE AORTIC ROOT: NORMAL LEFT VENTRICULAR WALL MOTION: NORMAL. DOPPLER/COLOR FLOW: MILD TRICUSPID REGURGITATION. COMMENTS: MILD TRICUSPID REGURGITATION. NORMAL LEFT VENTRICULAR SIZE AND FUNCTION. NO WALL MOTION ABNORMALITY. MITRAL ANNULAR CALCIFICATION. AORTIC SCLEROSIS WITH NO STENOSIS. TECHNOLOGIST: MCKAYLA DRAKE
[2018-11-25] MEDS ORDERED: NA CHLORIDE 0.9% 1,000 ML IV PRN (13:33)
[2018-11-25] MEDS ORDERED: ALBUMIN HUMAN 25% 50 ML IV SCH (14:00)
[2018-11-25] MEDS: PIPER/TAZO/NS 2.25gm 2.25 GM/50 ML BAG IVPB SCH (17:54)
--- NOTE | 2018-11-25 20:03 | CON ---
Date of Consultation: 11/25/[address] Callahan on 11/24/2018. I saw the patient on 11/25/2018. Reason For Consultation: Elevated troponin. History Of Present Illness: Mr. Duff is an 83-year-old white male. He is known to me from prev ious office visits and admissions. He has a history of diabetes, COPD, end-stage renal disease on he modialysis, benign prostatic hypertrophy, anemia, hypertension, and dyslipidemia. He came in with pn eumonia, shortness of breath. No chest pain, nausea, vomiting, diaphoresis, PND, orthopnea, pedal ed brad, palpitations, or syncope. He was found to have a pneumonia in the left lower lobe. EKG was non specific. His troponin, however, was 1.99. His BNP was 7770. He has a creatinine of 3.6, hemoglobi n of 9.9. His glucose was 236. He had an echocardiogram in July of 2018 showing aortic sclerosi s, normal ejection fraction with decreased left ventricular compliance. He is asymptomatic now, is i mproving on antibiotics and inhalers. Allergies: NONE. Review of Systems: Negative. Social History: Negative. Family History: Negative. Medications: Include doxazosin, Norvasc, aspirin, finasteride, inhalers, Lipitor, Flomax, Synthroid, and metoprolol. He also has an insulin pump. Physical Examination: General: He was pleasant, in no acute distress. Vital Signs: Stable. Afebrile. Sinus rhythm. HEENT: Negative. Neck: Supple without any lymphadenopathy, JVD, thyromegaly, or bruit. Chest: Clear to auscultation and percussion. Cardiac: Revealed a regular rhythm and rate with a 2/6 systolic ejection murmur at the third right i ntercostal space that did not radiate. Abdomen: Benign. Extremities: Revealed no clubbing, cyanosis, or edema. Skin: Dry and intact. Neurologic: He was nonfocal. Pulses were present bilaterally distally in the lower extremities. Diagnostic Data: As stated earlier. Impression And Plan: Elevated troponin and brain natriuretic peptide, probably secondary to a combin ation of pneumonia and chronic renal disease, on dialysis. 1.Mr. Duff is 83, has not had any chest pain. His shortness of breath is explained by his left lower lobe pneumonia. I certainly do not want expose him to a left heart catheterization unless we have to. I would like him to get another echocardiogram. If that showed any new wall motion abnorma lities, then we will proceed with a catheterization. The case was discussed with Dr. Callahan. 2.Left lower lobe pneumonia. 3.Chronic diastolic congestive heart failure with aortic sclerosis and decreased left ventricular co mpliance. 4.Anemia. 5.Diabetes with insulin pump. 6.Hypertension, well controlled. 7.Dyslipidemia, well controlled. 8.Chronic obstructive pulmonary disease. 9.Benign prostatic hypertrophy. We will continue present therapy. I will see what the echocardiogram shows. HUGO/MARIAJOSE Voice ID: [id number] Report ID: [id number]
[2018-11-25] MEDS ORDERED: ATORVASTATIN 20 MG TAB PO SCH (21:00)
[2018-11-25] MEDS ORDERED: DOXAZOSIN 2 MG TAB PO SCH (21:00)
--- NOTE | 2018-11-25 23:00 | PN ---
Date of Progress Note: 11/25/2018 Subjective: The patient was seen this morning for followup. No new complaints, problems reported by patient except he was complaining of shortness of breath as he just got up to sit at the bedside fro m lying position. Daughter was present with him at bedside. Ice Cream Van Vendor had just evaluated him abraham or to my arrival. Physical Examination: HEENT: Examination unremarkable. Lungs: Bilateral good equal air entry. Presence of rales noted in lower lung field, unchanged from yesterday. Heart: Sounds normal. Abdomen: Soft. Bowel sounds normal. No guarding, rigidity, tenderness. No distention. Presence o f ventral abdominal wall hernia present in the midepigastric region. No evidence of any obstruction or any tenderness. Extremities: No leg edema. Laboratory Data: Sodium 141, potassium 4.2, chloride 105, bicarb 28, BUN 44, creatinine 3.83, glucos e 229, proBNP 11,132. White count 9, hemoglobin 10, platelets 242. Impression: 1.Pneumonia. 2.Acute exacerbation of chronic obstructive pulmonary disease. 3.Abnormal cardiac enzymes. 4.Diabetes mellitus, insulin-dependent. 5.Hypertension. 6.End-stage renal disease, on hemodialysis. 7.Anemia due to chronic kidney disease. 8.Abdominal wall ventral hernia. Plan: We will go ahead and continue current medications. The patient wanted me to examine his herni a to make sure that there was no problem and he was reassured. We will follow up with gauge and weigh machine operator, car bracer and civil manager. The patient should have his dialysis today. We will follow up on echocardiogram result. I will see him tomorrow for followup. We will c ontinue antibiotics per order. VIELKA/MODL Voice ID: [id number] Report ID: [id number]
[2018-11-26] MEDS: PIPER/TAZO/NS 2.25gm 2.25 GM/50 ML BAG IVPB SCH ×2 (00:43→08:35)
--- NOTE | 2018-11-26 02:36 | HP ---
Date of Admission: 11/24/2018 Chief Complaint: Shortness of breath. History Of Present Illness: This is an 83-year-old male patient who called my office with complaints of shortness of breath worsening for last 1 week, was advised to come to emergency room. The patien t is on oxygen at home and normally he takes 2 L nasal cannula oxygen, but lately he has increased ox ygen to 4 L per minute. He gets short of breath with any activity including getting up from the bed, changing position, etc. In last 1 week, his shortness of breath is increasingly getting worse. Has some cough, chest congestion. Today, he had little bit of a chest pain while he was in the emergenc y room. He denies any hemoptysis. No fever. No chills. After he came into emergency room, he was evaluated and admitted to hospital with pneumonia, COPD exacerbation, as well as abnormal cardiac enz ymes. I saw him in emergency room. His daughter was with him at bedside. The patient says that las t few days he has shortness of breath when he is lying down and he feels better when he is sitting up right. He is dialysis dependent. His dialysis is on Wednesday, Wednesday, Wednesday. Medications: List reviewed. Allergies: NO KNOWN ALLERGIES. Review of Systems: Respiratory: As mentioned above. Cardiovascular: As mentioned above. All other systems reviewed and negative. Family History: Not pertinent. Social History: Positive for prior history of smoking, not at present time. Use of alcohol negative . Past Surgical History: Cataract surgery, hernia repair, angioplasty of leg artery due to peripheral vascular disease. 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 Physical Examination: Vital Signs: When he first came in; temperature 98.9, pulse 74, respiratory rate 28, blood pressure 157/84, oxygen saturation 94%. Height 5 feet 7 inches, weight 158 pounds. General: The patient appears weaker than normal, not in any distress at rest, but when he gets up an d walks around he gets into respiratory distress. Lungs: Presence of rales noted in lower lung em with some scattered wheezing. HEENT: Head atraumatic, normocephalic. Conjunctivae nonerythematous. Sclerae white. Mouth, no thr ush or edema noted. Ears/Nose, no mass, lesion, discharge noted. Neck: Supple. No JVD, lymph nodes, bruit, thyromegaly noted. Heart: Normal heart sounds, no murmur or gallop. Abdomen: Soft, bowel sounds normal. No guarding, rigidity, tenderness, mass, hepatosplenomegaly, dis tention, or bruit noted. Extremities: No leg edema. No calf tenderness. Skin: No rash, ulcer, cellulitis. Lymphatics: No lymph node enlargement in neck, supraclavicular, infraclavicular region. Neuro: No focal neurological deficit. Chest: Unremarkable. External Genitalia: Deferred. Rectal: Deferred. Laboratory Data: White count 9.8, hemoglobin 9.9, and platelet count of 245. Sodium 140, potassium 4.1, chloride 103, bicarb 28, BUN 35, creatinine 3.60, glucose 236. Liver function test unremarkable . Troponin 1.20. ProBNP 7717. Patchy opacification left lung base. Electrocardiogram, normal sinu s rhythm, no specific ST abnormality. Impression: 1.Pneumonia. 2.Acute exacerbation of chronic obstructive pulmonary disease. 3.Abnormal cardiac enzymes. 4.Anemia due to chronic kidney disease. 5.End-stage renal disease, on hemodialysis. 6.Hypertension. 7.Diabetes mellitus, insulin dependent. 8.Hypertension. 9.Hyperlipidemia. 10.Ventral hernia, anterior abdominal wall. 11.Hypothyroidism. 12.Possible renal artery stenosis. 13.Benign prostatic hypertrophy. 14.Gastroesophageal reflux disease. Plan: Admit patient to hospital for further evaluation and management of this problem. The patient is appropriate for inpatient and is expected to spend 2 midnights in hospital. We will go ahead and start empiric antibiotics per order. Oxygen nebulizer treatment will be given per order. We will co nsult Dr. Cole from Pulmonary Service. We will also get serial cardiac enzymes consult Dr. Lucie lambert from Cardiology. We will get echo with Doppler tomorrow. The patient's elevated troponin level c ould be due to his end-stage renal disease, and we will see what the echocardiogram shows in terms of any wall motion abnormality or not and follow up with gandy dancer for further input and recommendat ion. Home medications will be continued per order. The patient will continue to use his insulin pum p. Monitor fingerstick blood sugar readings before each meal and bedtime and nursing staff to notify the patient with the reading so he can make adjustment on his insulin pump like the way he normally does it at home. Consult living manager for dialysis support and I will see him tomorrow for followup. Details were discussed with the patient and his daughter who was at bedside. VIELKA/MODL Voice ID: [id number]
[2018-11-26 04:54] VITALS: O2SAT 93
[2018-11-26] MEDS: ALBUTEROL 2.5 MG/3 ML NEB SOL NEB PRN ×2 (05:00→10:28)
[2018-11-26 06:23] VITALS: BMI 24.0
[2018-11-26] MEDS ORDERED: LEVOTHYROXINE SOD 0.025 MG TAB PO SCH (06:30)
[2018-11-26] MEDS ORDERED: LEVOTHYROXINE SOD 0.112 MG TAB PO SCH (06:30)
[2018-11-26] MEDS: ARFORMOTEROL TARTRATE 15 MCG/2 ML VIAL.NEB NEB SCH (07:40)
--- NOTE | 2018-11-26 08:21 | RAD REPORT ---
EXAM DESCRIPTION: RAD - Chest Pa And Lat (2 Views) - 11/26/2018 5:47 am CLINICAL HISTORY: Pneumonia COMPARISON: November 25 TECHNIQUE: PA and lateral views of the chest were obtained. FINDINGS: The lungs are quite fibrotic as a baseline. Patient has flattened diaphragm and increased retrosternal space. Interstitial and alveolar opacities in the mid and lower left lung field have par tially cleared. No new or progressive finding. Heart size is normal and central vasculature is within normal limits. No pneumothorax or large pl eural effusion. No acute bony finding noted. No aortic abnormality. IMPRESSION: Partial clearing of left lung field pneumonia. Baseline extensive COPD.
[2018-11-26 08:23] VITALS: BP 122/67; TEMP 98.7
[2018-11-26] MEDS: CALCIUM CARBONATE CHEW 500MG TAB PO SCH (08:26)
[2018-11-26] MEDS: ASPIRIN EC 81 MG TAB PO SCH (08:27)
[2018-11-26] MEDS: MULTIVITAMINS,THERAPEUT 1 TAB PO SCH (08:27)
[2018-11-26] MEDS: predniSONE 20 MG TAB PO SCH (08:27)
[2018-11-26] MEDS: FINASTERIDE 5 MG TAB PO SCH (08:27)
[2018-11-26] MEDS: CA ACETATE 667 MG CAP PO SCH (08:27)
[2018-11-26] MEDS: TAMSULOSIN 0.4 MG SR CAP PO SCH (08:27)
[2018-11-26] MEDS ORDERED: METOPROLOL TAR 25 MG TAB PO SCH ×2 (09:00→21:00)
[2018-11-26] MEDS ORDERED: AMLODIPINE 5 MG TAB PO SCH (09:00)
[2018-11-26] MEDS ORDERED: FUROSEMIDE 40 MG TABLET PO SCH (09:00)
[2018-11-26] MEDS ORDERED: EPOETIN ALFA 10,000 UNIT/ML VIAL SQ SCH (10:00)
--- NOTE | 2018-11-26 10:46 | P.PN ---
Subjective Date of Service: 11/26/18 Chief Complaint: Abnormal chest x-ray Subjective: Improving Patient is doing better chest x-ray is improved denies any fever chills cough sputum hemoptysis or chest pain urge sugar elevated Review of Systems General: Weakness Respiratory: Shortness of Breath Physical Examination - Vital Signs Temperature: 98.7 F Blood Pressure: 122/67 Pulse: 105 Respirations: 20 Pulse Ox (%): 96 - Physical Exam General: Alert, Oriented x3 HEENT: Atraumatic Neck: Supple Respiratory: Clear to auscultation bilaterally Cardiovascular: No edema, Regular rate/rhythm Assessment & Plan - Problems (Diagnosis) (1) COPD exacerbation Onset Date: 02/11/17 Current Visit: No Status: Acute Plan: Patient is doing much better chest x-ray has improved no evidence of sepsis but sugar elevated patient can be discharged home on Advair low-dose prednisone with me in 2 weeks vital signs stable he is only on ProAir at home
--- NOTE | 2018-11-26 12:59 | DS ---
Date of Discharge: 11/26/2018 Physical Examination: HEENT: Unremarkable. Lungs: Clear to auscultation. Heart: Sounds normal. Abdomen: Soft, bowel sounds normal. No guarding, rigidity, tenderness, or distention. Extremities: No leg edema. Discharge Medications And Instructions: 1.Continue prior home medications. 2.Take Advair 250/50 one puff 2 times a day. Rinse mouth with water after use. 3.Prednisone 10 mg tablets p.o. daily for 5 days. 4.Augmentin 500 mg daily for 1 week. 5.Follow up at my office next week on and follow up with Dr. Cole in 2 weeks. Hospital Course: This is an 83-year-old male patient came into emergency room with complaints of cleo rtness of breath. Please see dictated H and P for more information. The patient has severe COPD. H e is oxygen dependent at home. Came into emergency room with worsening of shortness of breath for al most a week. After he was evaluated in the ER, he was admitted to the hospital. His cardiac enzymes were abnormal, but this was thought to be due to his end-stage renal disease. EKG did not show any acute changes, showed some nonspecific ST abnormality. Cardiology consultation was obtained from Dr. Low, and the patient had an echocardiogram. Rigging Up Worker was not concerned about any acute alban nary event. Echocardiogram showed normal ejection fraction of 66%, normal left ventricular wall nayely on. No further cardiac intervention was suggested. The patient was given oxygen nebulizer treatment . Pulmonary consultation was requested from Dr. Cole and empiric antibiotics were given. Steroi d was given. Overall, his condition has improved, and a chest x-ray today shows partial clearing of his infiltrate. Nephrology consultation was requested for dialysis support. Overall, the patient's condition has improved, and today the patient will be discharged to go home in stable condition with above-mentioned medication and instructions. Final Diagnoses: 1.Pneumonia. 2.Acute exacerbation of chronic obstructive pulmonary disease. 3.Anemia due to chronic kidney disease. 4.End-stage renal disease, on hemodialysis. 5.Hypertension. 6.Diabetes mellitus, insulin dependent. 7.Hyperlipidemia. 8.Ventral hernia, anterior abdominal wall. 9.Hypothyroidism. 10.Possible renal artery stenosis. 11.Benign prostatic hypertrophy. 12.Gastroesophageal reflux disease. VIELKA/MODL Voice ID: [id number] Report ID: [id number]
[2018-11-27] MEDS ORDERED: DRISDOL (VITAMIN D=ERGOCALCIFEROL) 50000 UNIT CAP PO SCH (09:00)
--- NOTE | 2018-11-27 22:20 | PN ---
Date of Progress Note: 11/26/2018 Chief Complaint: End-stage renal disease, on dialysis. The patient was admitted to the hospital because of hypoxemic respiratory failure, some fluid overloa d. He received dialysis and ultrafiltration was obtained yesterday with dialysis with 3 L. the clint ent is feeling better. He was treated for COPD exacerbation and pneumonia. Review of Systems: Denies fever, chills. Physical Examination: Lungs: Diminished breath sounds at the bases. Heart: S1-S2. Abdomen: Soft, benign. Extremities: Slight edema. Laboratory Data: Blood work: Sodium 141, potassium 4.2, chloride 105, CO2 is 28, BUN 44, creatinine is 3.84. Impression And Plan: 1.End-stage renal disease. Next dialysis will be done on Wednesday. 2.Diabetes mellitus. Adjust insulin treatment. 3.Anemia of chronic kidney disease. Hemoglobin level is satisfactory. Monitor hemoglobin level, ad just JANEL. 4.Renal osteodystrophy. Continue renal diet and binders. EB/MODL Voice ID: [id number] Report ID: [id number]
[2018-11-28 03:39] LABS: HBsAG Nonreactive (Nonreactive)
== END 2018-11-26 11:39 | disposition home or self-care (01) | DRG 193 ==
LOC: ER 12:38 → ERHOLD 16:43 → 4TH 19:54
PROVIDERS: ADMIT Internal Medicine; ATTEND Internal Medicine
PROC: 5A1D70Z Performance of Urinary Filtration, Intermittent, Less than 6 Hours Per Day (ICD-10-PCS; principal; 2018-11-25)
DX: J18.9 Pneumonia, unspecified organism (principal); N18.6 End stage renal disease; J96.91 Respiratory failure, unspecified with hypoxia; J44.0 Chronic obstructive pulmonary disease with (acute) lower respiratory infection; J44.1 Chronic obstructive pulmonary disease with (acute) exacerbation; I13.2 Hypertensive heart and chronic kidney disease with heart failure and with stage 5 chronic kidney disease, or end stage renal disease; I50.32 Chronic diastolic (congestive) heart failure; Z99.81 Dependence on supplemental oxygen; E11.22 Type 2 diabetes mellitus with diabetic chronic kidney disease; Z99.2 Dependence on renal dialysis; E03.9 Hypothyroidism, unspecified; N40.0 Benign prostatic hyperplasia without lower urinary tract symptoms; K21.9 Gastro-esophageal reflux disease without esophagitis; E78.5 Hyperlipidemia, unspecified; D63.1 Anemia in chronic kidney disease; K43.9 Ventral hernia without obstruction or gangrene; Z98.62 Peripheral vascular angioplasty status; Z96.41 Presence of insulin pump (external) (internal); Z87.891 Personal history of nicotine dependence; Z86.73 Personal history of transient ischemic attack (TIA), and cerebral infarction without residual deficits; E11.51 Type 2 diabetes mellitus with diabetic peripheral angiopathy without gangrene; I70.1 Atherosclerosis of renal artery
CPT/HCPCS: 36415; 71045; 71046; 80048; 80076; 82947; 82962; 83735; 83880; 84484; 85025; 85610; 86317; 86704; 86706; 87040; 87340; 90935; 93005; 93306; 94640; 94760; 96365; 96372; 99285; J0456; J0696; J1644; J1650; J7512; J7605; Q4081

== ENCOUNTER 2018-11-29 10:52 | Inpatient (IN) | payer OTHER ==
--- OUTSIDE RECORDS SUMMARY | 2018-11-29 10:55 | XMS REPORT | Clinical Summary ---
:1935 Author Organization [place] [facility] Address [address] [place] [address] Care Team Providers Name Role Phone Asked, [...] Bill Snyder MA 01/18/2018 Office Visit Cardiovascular [facility] ESRD (end stage renal disease) 2017 MWF (Primary Dx); in, [place], ESRD (end stage renal disease) on dialysis PRE FABRICATOR after 11/28/2017 Family History Medical History Relation Name Comments [...] Taken Blood Pressure 157/63 04/28/2018 1:15 PM GEOPHYSICS PROFESSOR Pulse 55 04/28/2018 1:15 PM GEOPHYSICS PROFESSOR Temperature 36.5 C (97.7 F) 04/28/2018 1:15 PM GEOPHYSICS PROFESSOR Respiratory Rate 18 04/28/2018 1:15 PM GEOPHYSICS PROFESSOR Oxygen Saturation 100% 04/28/2018 1:15 PM GEOPHYSICS PROFESSOR Inhaled Oxygen Concentration - - Weight 73.9 [...] INFLUENZA VACCINE 01/05/2019 Implants Implanted Type Area Departmental Shipping Clerk Device Shelf Model / Identifier Expiration Serial / Date Lot Clip Amandang Mohit Hemoclip Plus W/ Tape Ti Sm - [id number] Medical Left: WECK CLOSURE 02/14/2022 [id number] / Implanted: Qty: 1 on 09/09/2017 by Behzad Moore MD Clips for Arm, SYSTEMS / Internal Upper [id number] Use Clip Ligtng Weck Hemoclip Plus W/ Tape Ti Med - [id number] Medical Left: TELEFLEX 03/09/2022 [id number] / Implanted: Qty: 1 on 09/09/2017 by Behzad Moore MD Clips for Arm, MEDICAL / Internal Upper Use Hemodialysis Catheter Right: 02/03/2019 [id number] / Implanted: Qty: 1 on 04/19/2017 by Jhony Montesinos MD Chest / Procedures Procedure Name Priority Date/Time Associated Comments Diagnosis POC GLUCOSE Routine 04/28/2018 12:34 Results for this PM GEOPHYSICS PROFESSOR procedure are in the results section. HEPATITIS B SURFACE Routine 04/28/2018 12:15 Results for this ANTIGEN PM GEOPHYSICS PROFESSOR procedure are in the results section. HEMODIALYSIS Routine 04/28/2018 10:24 AM GEOPHYSICS PROFESSOR POC GLUCOSE Routine 04/28/2018 8:01 Results for this AM GEOPHYSICS PROFESSOR procedure are in the results section. HEMOGLOBIN A1C Routine 04/28/2018 6:37 Results for this AM GEOPHYSICS PROFESSOR procedure are in the results section. HC COMPLETE BLD COUNT Routine 04/28/2018 6:37 Results for this W/AUTO DIFF AM GEOPHYSICS PROFESSOR procedure are in the results section. ESTIMATED GFR Routine 04/28/2018 4:00 Results for this AM GEOPHYSICS PROFESSOR procedure are in the results section. VITAMIN B12 LEVEL Routine 04/28/2018 4:00 Results for this AM GEOPHYSICS PROFESSOR procedure are in the results section. FERRITIN LEVEL Routine 04/28/2018 4:00 Results for this AM GEOPHYSICS PROFESSOR procedure are in the results section. THYROID STIMULATING Routine 04/28/2018 4:00 Results for this HORMONE AM GEOPHYSICS PROFESSOR procedure are in the results section. LIPID PANEL Routine 04/28/2018 4:00 Results for this AM GEOPHYSICS PROFESSOR procedure are in the results section. PHOSPHORUS LEVEL Routine 04/28/2018 4:00 Results for this AM GEOPHYSICS PROFESSOR procedure are in the results section. MAGNESIUM LEVEL Routine 04/28/2018 4:00 Results for this AM GEOPHYSICS PROFESSOR procedure are in the results section. BASIC METABOLIC PANEL Routine 04/28/2018 4:00 Results for this AM GEOPHYSICS PROFESSOR procedure are in the results section. ECG 12-LEAD STAT 04/27/2018 10:30 Results for this PM GEOPHYSICS PROFESSOR procedure are in the results section. POC GLUCOSE Routine 04/27/2018 9:33 Results for this PM GEOPHYSICS PROFESSOR procedure are in the results section. POC GLUCOSE Routine 04/27/2018 5:17 Results for this PM GEOPHYSICS PROFESSOR procedure are in the results section. LACTIC ACID LEVEL, Timed 04/27/2018 4:13 Results for this SEPSIS - NOW AND REPEAT PM GEOPHYSICS PROFESSOR procedure are in 2X EVERY 3 HOURS the results section. BLOOD CULTURE, AEROBIC Routine 04/27/2018 4:13 Results for this & ANAEROBIC PM GEOPHYSICS PROFESSOR procedure are in the results section. BLOOD CULTURE, AEROBIC Routine 04/27/2018 4:13 Results for this & ANAEROBIC PM GEOPHYSICS PROFESSOR procedure are in the results section. US DUPLEX HEMODIALYSIS STAT 04/27/2018 4:08 Results for this AVG AVF ACCESS PM GEOPHYSICS PROFESSOR procedure are in the results section. XR CHEST 1 VW PORTABLE STAT 04/27/2018 2:50 Results for this PM GEOPHYSICS PROFESSOR procedure are in the results section. ESTIMATED GFR STAT 04/27/2018 1:45 Results for this PM GEOPHYSICS PROFESSOR procedure are in the results section. BASIC METABOLIC PANEL STAT 04/27/2018 1:45 Results for this PM GEOPHYSICS PROFESSOR procedure are in the results section. PARTIAL THROMBOPLASTIN STAT 04/27/2018 1:45 Results for this TIME (PTT) PM GEOPHYSICS PROFESSOR procedure are in the results section. PROTHROMBIN TIME WITH STAT 04/27/2018 1:45 Results for this INR PM GEOPHYSICS PROFESSOR procedure are in the results section. HC COMPLETE BLD COUNT STAT 04/27/2018 1:45 Results for this W/AUTO DIFF PM GEOPHYSICS PROFESSOR procedure are in the results section. SC REMOVAL TUNNELED CV Routine 01/18/2018 10:40 ESRD (end stage Results for this CATH W/O SUBQ PORT OR AM CDT renal disease) procedure are in PUMP 2017 MWF the results ESRD (end stage section. renal disease) on dialysis after 11/28/2017 Results POC glucose (04/28/2018 12:34 PM GEOPHYSICS PROFESSOR)Only the most recent of4 resultswithin the time period is included. POC glucose 200 (H) 65 - 99 mg/dL [facility] Comment: HOSPITAL No Action Needed Meter ID: [id number] Bank Teller Machine Mechanic: Adam Elmore Specimen Performing Organization Address City/State/Zipcode Phone Number [facility] DEPARTMENT OF PATHOLOGY AND [address] [place] [address] GENOMIC MEDICINE [address] [address] Hepatitis B surface antigen (04/28/2018 12:15 PM GEOPHYSICS PROFESSOR) Pathologist [facility] Hepatitis B surface Non-reactive Non-reactive [facility] Specimen Blood Performing Organization Address City/State/Zipcode Phone Number [facility] DEPARTMENT OF PATHOLOGY AND [address] [place] [address] [address] CBC with platelet and differential (04/28/2018 6:37 AM GEOPHYSICS PROFESSOR)Only the most recent of2 resultswithin the time period is included. Pathologist [facility] WBC 10.65 4.50 - 11.00 [facility] k/uL HOSPITAL RBC 2.73 (L) 4.40 - 6.00 [facility] m/uL [facility] HGB 8.6 (L) 14.0 - 18.0 [facility] gdL [facility] HCT 27.6 (L) 41.0 - 51.0 % [facility] MCV 101.1 (H) 82.0 - 100.0 [facility] MCH 31.5 27.0 - 34.0 pg [facility] MCHC 31.2 31.0 - 37.0 [facility] RDW - SD 55.2 (H) 37.0 - 55.0 fL [facility] MPV 11.4 8.8 - 13.2 [facility] Platelet count 308 150 - 400 k/uL [facility] Nucleated RBC 0.20 /100 WBC [facility] Neutrophils 61.5 39.0 - 69.0 % [facility] Lymphocytes 25.5 25.0 - 45.0 % [facility] Monocytes 8.5 0.0 - 10.0 % [facility] Eosinophils 2.5 0.0 - 5.0 % [facility] Basophils 0.5 0.0 - 1.0 % [facility] Immature granulocytes 1.5 0.0 - 1.0 % [facility] (H)Comment: HOSPITAL "Immature granulocytes" (promyelocytes , myelocytes, metamyelocytes ) Specimen Blood Performing Organization Address City/State/Zipcode Phone Number [facility] DEPARTMENT OF PATHOLOGY AND [address] [place] [address] [address] Hemoglobin A1c (04/28/2018 6:37 AM GEOPHYSICS PROFESSOR) Hemoglobin A1C 8.1 (H) 4.0 - 5.6 % [facility] Comment: HOSPITAL HbA1c cutoffs for diagnosing diabetes: 4.0% - 5.6%=normal 5.7% - 6.4%=increased risk for diabetes (prediabetes) >=6.5%=diabetes Goals for glycemic control (ADA 2016) < 7.0%Target for non adults with diabetes. More or less stringent targets may be appropriate for individual patients. <7.5% Target for Children and adolescents with type 1 diabetes. Specimen Blood Performing Organization Address City/[facility] Phone Number [facility] DEPARTMENT OF PATHOLOGY AND [address] [place] [address] Estimated GFR (04/28/2018 4:00 AM GEOPHYSICS PROFESSOR)Only the most recent of2 resultswithin the time period is included. Pathologist [facility] Estimated GFR 18 (A) mL/min/1.73 [facility] Comment: HOSPITAL CatergoryUnitsInterpretation G1 >=90 Normal or high G2 60-89Mildly decreased Z0p13-00Rnxvxu to moderately decreased X1m24-22Kfikjvvqav to severely decreased G4 15-29Severely decreased G5 <15Kidney failure The eGFR was calculated using the Chronic Kidney Disease Epidemiology Collaboration (CKD-EPI) equation. Interpretation is based on recommendations of the National Kidney Foundation-Kidney Disease Outcomes Quality Initiative (NKF-KDOQI) published in 2014. Specimen Plasma specimen Performing Organization Address City/[facility] Phone Number [facility] DEPARTMENT OF PATHOLOGY AND [address] [place] [address] Thyroid stimulating hormone (04/28/2018 4:00 AM GEOPHYSICS PROFESSOR) TSH 4.30 (H) 0.27 - 4.20 uIU/mL [facility] Specimen Plasma specimen Performing Organization Address City/[facility] Phone Number [facility] DEPARTMENT OF PATHOLOGY AND [address] [place] [phone] [place] [address] Phosphorus level (04/28/2018 4:00 AM GEOPHYSICS PROFESSOR) Phosphorus 4.6 (H) 2.4 - 4.5 mg/dL [facility] Specimen Plasma specimen Performing Organization Address City/[facility] Phone Number [facility] DEPARTMENT OF PATHOLOGY AND [address] [place] [address] Magnesium level (04/28/2018 4:00 AM GEOPHYSICS PROFESSOR) Magnesium 2.1 1.6 - 2.4 mg/dL [facility] Specimen Plasma specimen Performing Organization Address City/[facility] Phone Number [facility] DEPARTMENT OF PATHOLOGY AND [address] [place] [address] Ferritin level (04/28/2018 4:00 AM GEOPHYSICS PROFESSOR) Ferritin level 333 30 - 400 ng/mL [facility] Specimen Plasma specimen Performing Organization Address [facility] Phone Number [facility] DEPARTMENT OF PATHOLOGY AND [address] [place] [address] Vitamin B12 level (04/28/2018 4:00 AM GEOPHYSICS PROFESSOR) Vitamin B12 696 211 - 946 [facility] Comment: pg/mL HOSPITAL Significant overlap exists between normal and deficiency states. However, most patients with deficiencies will have Serum B12 <200 pg/mL. Specimen Serum Performing Organization Address [facility] Phone Number [facility] DEPARTMENT OF PATHOLOGY AND [address] [place] [address] Lipid panel (04/28/2018 4:00 AM GEOPHYSICS PROFESSOR) Cholesterol 162 <200 mg/dL [facility] Triglycerides 80 <150 mg/dL [facility] HDL cholesterol 83 >40 mg/dL [facility] LDL cholesterol 79Comment: Result <100 mg/dL [facility] obtained by direct [facility] LDL measurement [facility] Lipid panel [facility] interpretation Comment: [facility] Total Cholesterol (mg/dL) [facility] <200 Desirable 637-997Dogyadsalf-fhri >=240High Triglycerides (mg/dL) <150 Normal 561-067Tfbhtcmxly-fwpq 200-499High >=500Very high HDL Cholesterol (mg/dL) <40Low (male) <40Low (female) LDL Cholesterol (mg/dL) <100 Optimal 100-129Near or above optimal [phone]-pqia 160-189High >=190Very high Risk Catergories that modify [...] mg/dL) Specimen Plasma specimen Performing Organization Address City/[facility] Phone Number [facility] DEPARTMENT OF PATHOLOGY AND [address] [place] [address] Basic metabolic panel (04/28/2018 4:00 AM GEOPHYSICS PROFESSOR)Only the most recent of2 resultswithin the time period is included. Sodium 146 135 - 148 mEq/L [facility] Potassium 4.3 3.5 - 5.0 mEq/L [facility] Chloride 105 98 - 112 mEq/L [facility] CO2 29 24 - 31 mEq/L [facility] Anion gap 12@ANIO 7 - 15 mEq/L [facility] BUN 32 (H) 8 - 23 mg/dL [facility] Creatinine 3.00 (H) 0.70 - 1.20 mg/dL [facility] Glucose 111 (H) 65 - 99 mg/dL [facility] Calcium 8.2 (L) 8.8 - 10.2 mg/dL [facility] Specimen Plasma specimen Performing Organization Address City/[facility]/Zipcode Phone Number [facility] DEPARTMENT OF PATHOLOGY AND [address] [place], [place] [phone] ECG 12 lead (04/27/2018 10:30 PM GEOPHYSICS PROFESSOR) Ventricular rate 46 [facility] Atrial rate 46 [facility] SC interval 144 [facility] QRSD interval 92 [facility] QT interval 446 [facility] QTC interval 390 [facility] MUSE P axis 1 75 [facility] MUSE QRS axis 1 31 [facility] MUSE T wave axis 70 [facility] MUSE EKG impression Marked sinus [facility] MUSE bradycardia-Abnormal ECG-In automated comparison with ECG of 09-SEP-2017 08:36,-Vent. rate has decreased BY 22 BPM- Specimen Narrative Performed At Performing Organization Address City/[facility] Phone Number [facility] MUSE [address] [place] [address] Lactic acid level, SEPSIS - Now and repeat 2x every 3 hours (04/27/2018 4:13 PM GEOPHYSICS PROFESSOR) Pathologist [facility] Lactic acid 1.3 0.5 - 2.2 mmol/L [facility] Specimen Blood Performing Organization Address City/[facility]/Zipcode Phone Number [facility] DEPARTMENT OF PATHOLOGY AND [address] [place] [phone] [address] Blood culture, aerobic & anaerobic (04/27/2018 4:13 PM GEOPHYSICS PROFESSOR)Only the most recent of2 resultswithin the time period is included. Pathologist [facility] Blood culture No growth after 5 days of incubation. [facility] isolate Comment: HOSPITAL Specimen Information Specimen Source: Blood Specimen Site: Forearm, right Specimen Blood - Forearm, right Performing Organization Address [facility] Phone Number [facility] DEPARTMENT OF PATHOLOGY AND [address] [place] [address] duplex hemodialysis avg avf access (04/27/2018 4:08 PM GEOPHYSICS PROFESSOR) Specimen Narrative Performed At [facility] Vascular Ultrasound Laboratory AV Graft - Fistula Report [id number] [facility] [address], [place] [address] Pat.Name:KYA NICHOLAS.ID:[id number] .Date: 04/27/2018Refer.MD:PHYSICIAN, EMERGENCY, MD Exam Time: 3:26:00 PMStudy Type:AV Graft - Fistula Height:67inWeight: 163lb BSA: 1.86 m2 DOBAge:1935,82Y Sex: MALESonogrphr: Gordon Porter RN, RVS Pat. Stat.:OutpatientTapeVol: PM, CPT - 4: 26879 Echo Event ID:[id number] Order ID:[id number] Reason for Study:Dialysis nurse had difficulty with [...] vein. DOPPLER FINDINGS: ARTERYLOCATIONPSV (cm/sec) LEFTRadialProximal-third 224cm/sec Mid-mmgps708dj/sec Distal-gahgj517vl/sec BrachialProximal-third 113 cm/sec Mid-swaod521 cm/sec Distal-kzgte102 cm/sec Radial Art/ceph. v AVF Xnfvpuxnijc661 cm/sec Cephalic Vein Juxta anastomosis 389 cm/sec Mid uekmriu700jj/sec Proximal forearm 242xm/sec VOLUME FLOW: Hcmbudqv657 cc/min 637 cc/min 695cc/min PRELIMINARY FINDINGS: 1. Patent left radial artery to cephalic vein A/V fistula. 2. Volume flows as noted in above table. PHYSICIAN INTERPRETATION: Patent left radial artery to cephalic vein A/V fistula. Slightly decreased flow volume. Signed 04/28/2018 12:22 AM Gagan Jiménez MD, RPVI Procedure Note Interface, Radiology Results In - 04/28/2018 12:22 AM [facility] Vascular Ultrasound Laboratory AV Graft - Fistula Report [id number] [address] Pat.Name: KYA NICHOLAS Pat.ID: [id number] St.Date: 04/27/2018 Refer.MD: PHYSICIAN, EMERGENCY, MD Exam Time: 3:26:00 PM Study Type:AV Graft - Fistula Height: 67in Weight: 163lb BSA: 1.86 m2 Age: 1 1935,82Y Sex: MALE Sonogrphr: Gordon Porter RN, RVS Pat. Stat.:Outpatient Tape Vol: PM, CPT - 4: 99295 Echo Event ID:[id number] Order ID: [id number] Reason for Study:Dialysis nurse had difficulty with [...] Organization Address City/State/Zipcode Phone Number [facility] [address] [place] [address] XR Chest 1 Vw Portable (04/27/2018 2:50 PM GEOPHYSICS PROFESSOR) Specimen Narrative Performed At EXAMINATION:XR CHEST 1 [...] be of benefit for more complete evaluation [id number] Procedure Note Hm Interface, Radiology Results Incoming - 04/27/2018 3:03 PM GEOPHYSICS PROFESSOR EXAMINATION: XR CHEST 1 VW PORTABLE CLINICAL [...] be of benefit for more complete evaluation [facility]-[id number] Performing Organization Address City/[facility] Phone Number [address] [address] Partial thromboplastin time, activated (04/27/2018 1:45 PM GEOPHYSICS PROFESSOR) PTT 30.4 23.0 - 36.0 [facility] Comment: [facility] PTT therapeutic range for unfractionated heparin is 61.0-112.0 seconds which corresponds to Anti-Xa 0.3-0.7 U/ml. Specimen Blood Performing Organization Address [facility] Phone Number [facility] DEPARTMENT OF PATHOLOGY AND [address] [place] [phone] [address] Prothrombin time with INR (04/27/2018 1:45 PM GEOPHYSICS PROFESSOR) Prothrombin time 12.7 11.5 - 14.5 [facility] INR 1.0 [facility] Comment: [facility] The International Normalized Ratio (INR) is a therapeutic HOSPITAL monitoring tool for patients who are stable on oral anticoagulant therapy. An INR of 2.0-3.0 is suggested for deep vein thrombosis/pulmonary embolism. Specimen Blood Performing Organization Address [facility] Phone Number [facility] DEPARTMENT OF PATHOLOGY AND [address] [place] [phone] [address] TDC Removal (01/18/2018 10:40 AM CDT) Narrative [...] of procedure:Tolerated well, no immediate complications after 11/28/2017 Insurance Payer Benefit Plan / Subscriber ID Effective Dates Phone Address Type Group MEDICARE MEDICARE PART A AND xxxxxxxxxx 1998-[place], [place] Medicare B t AETNA AETNA [facility] xxxxxxxxx 2000-[facility] Indemangélicaty INDEMANGÉLICATY t Advance Directives Patient has advance care planning documents, and code status on file. For more information, please contact:[place] [address] Code Status Date Activated Date Inactivated Comments Full Code 04/27/2018 8:29 PM 04/28/2018 6:33 PM Code Status decision reached by: Patient
--- OUTSIDE RECORDS SUMMARY | 2018-11-29 10:56 | XMS REPORT | Continuity of Care Document ---
[...] Bedside 251 mg/dl 65 - 120 02 [facility] [address] Studies Glucose [facility] Total 0.7 mg/dL 0.3 - 1.2 07/08 [facility] [address] Studies Bilirubin [facility] Sodium Level 139 mEq/L 135 - 145 07/[address] [facility] [address] Studies [facility] Serum Total 5.5 g/dL 6.0 - 8.3 07/08 [facility]. Studies Protein [facility] Potassium 4.1 mEq/L 3.6 - 5.0 07/[address] [facility] [address] Studies Level [facility] Lipase 18 U/L 22 - 51 07/08 [facility]. Studies [facility] Glucose Level 156 mg/dL 65 - 120 07/08 [facility]. Studies [facility] Globulin 2.5 g/dL 2.3 - 3.5 07/[address] [facility] [address] Studies [facility] Estimat 22 mL/min 90 07/08 [facility]. Studies Glomerular [facility] [place] Rate Laboratory Direct 0.1 mg/dL 0 - 0.2 07/08 [facility]. Studies Bilirubin [facility] Creatinine 2.80 mg/dL 0.61 - 02/ [facility]. Studies 1.24 [facility] Chloride Level 108 mEq/L 101 - 111 07/[address] [facility] [address] Studies [facility] Carbon Dioxide 24 mEq/L 21 - 31 07/[address] [facility] [address] Studies Level [facility] Calcium Level 8.6 mg/dL 8.5 - 10.5 07/08 [facility]. Studies [facility] Blood Urea 33 mg/dL 6 - 20 07/[address] [facility] [address] Studies Nitrogen [facility] Aspartate 28 IU/L 10 - 42 07/08 [facility]. Studies Amino Transf [facility] (AST/SGOT) [facility] Alkaline 90 IU/L 42 - 121 07/08 [facility]. Studies Phosphatase [facility] Albumin/Globul 1.2 1.1 - 1.8 07/08 [facility]. Studies in Ratio /2017 [facility] Albumin 3.0 g/dL 3.2 - 5.5 07/[address] [facility] [address] Studies /2017 [facility] Alanine 15 IU/L 10 - 60 07/08 [facility]. Studies Aminotransfera /2017 [facility] - se (ALT/SGPT) [facility] White Blood 5.6 K/uL 4.3 - 10.9 07/[address] [facility] [address] Studies Count /2017 [facility] Red Cell 15.5 % 12.1 - 02 [facility]. Studies Distribution 15.2 /2017 [facility] Width [facility] Red Blood 3.93 M/uL 4.33 - 02 [facility]. Studies Count 5.43 /2017 [facility] Platelet Count 164 K/uL 152 - 406 07/08 [facility]. Studies /2017 [facility] Neutrophils % 62.5 % 41.7 - 02 [facility] [address] Studies 73.7 /2017 [facility] Monocytes % 9.9 % 3.3 - 12.3 07/08 [facility]. Studies /2017 [facility] Mean Platelet 9.4 fL 7.6 - 11.3 07/[address] [facility] [address] Studies Volume /2017 [facility] Mean 93.5 fL 80 - 100 07/08 [facility]. Studies Corpuscular /2017 [facility] Volume [facility] Mean 32.5 g/dL 32.0 - 07/[address] [facility] [address] Studies Corpuscular 36.0 /2017 [facility] Hemoglobin [place] [facility] Mean 30.4 pg 27.0 - 07/08 [facility]. Studies Corpuscular 35.0 [facility] Hemoglobin [facility] Lymphocytes % 24.2 % 15.3 - 02 [facility] [address] Studies 44.8 /2017 [facility] Hemoglobin 12.0 g/dL 13.6 - 07/08 [facility] [address] Studies 17.9 /2017 [facility] Hematocrit 36.7 % 39.6 - 02 [facility] [address] Studies 49.0 /2017 [facility] Eosinophils % 2.8 % 0 - 4.4 07/08 [facility] [address] Studies /2018 [facility] Basophils % 0.6 % 0 - 1.3 07/08 St. Studies /2017 [facility] Absolute 3.5 K/uL 1.8 - 8.0 07/[address] [facility] [address] Studies Neutrophil [facility] Absolute 0.6 K/uL 0.1 - 1.3 07/08 [facility]. Studies Monocytes [facility] (CBC) [facility] Absolute 1.4 K/uL 0.7 - 4.9 07/08 [facility]. Studies Lymphocytes [facility] (CBC) [facility] Absolute 0.2 K/uL 0 - 0.5 07/08 [facility]. Studies Eosinophils [facility] (CBC) [facility] Absolute 0.0 K/uL 0 - 0.5 07/08 [facility]. Studies Basophils [facility] (CBC) [facility] Urine pH 5.5 07/[address] [facility] [address] Studies [facility] Urine Total Urine 07/07 [facility] Studies Protein Total [facility] Protein [facility] Urine Specific null 07/07 [facility]. Studies [place] [facility] Urine Nitrite Urine 07/07 [facility]. Studies Nitrite [facility] Urine Urine 07/07 [facility] Studies Leukocyte Leukocyte [facility] Esterase Esterase [facility] Urine Ketones Urine 07/07 [facility]. Studies Ketones [facility] Urine Glucose Urine 07/07 [facility]. Studies Glucose [facility] Urine Blood Urine 07/07 [facility]. Studies Blood [facility] B-Type 259 pg/ml 07/07 [facility]. Studies Natriuretic [facility] Peptide [facility] Creatine 3.8 ng/ml 0.3 - 4.0 07/07 [facility]. Studies Kinase MB [facility] Magnesium 2.0 mg/dL 1.8 - 2.5 07/07 [facility]. Studies Level /2017 [facility] Creatine 62 IU/L 22 - 269 07/07 [facility]. Studies Kinase /2017 [facility] Rapid Troponin null 07/[address] [facility] [address] Studies I /2017 [facility] Prothrombin 10.7 9.5 - 12.5 07/07 [facility] [address] Studies Time SECONDS /2017 [facility] INR 0.91 07/[address] [facility] [address] Studies International /2017 [facility] Normalized [place] Ratio Laboratory Activated 29.4 24.3 - 07/07 [facility] [address] Studies Partial SECONDS 36.9 [facility] Thromboplast [place] Time Vital Signs Vital Sign Value Date Comments Source Temperature Oral (F) 98.7 F 07/08/[address] [facility] [address] Mindy - [facility] Heart Rate 59 07/08/[address] [facility] [address] Mindy - Eddaosporjimi Respitory Rate 18 07/08/[address] [facility] [address] Mindy - [facility] Systolic (mm Hg) 190 07/08/[address] [facility] [address] Mindy - [facility] Diastolic (mm Hg) 76 07/08/2017 [facility] Height 67 07/07/[address] [facility] [address] Mindy Encarnacion Weight 162.25 07/07/[address] [facility] [address] Mindy - Alysha Encounters Location Location Encounter Encounter Reason Attending ADM DC Status Source Details Type Number For Provider Date Date Visit [facility] Discharged [id number] 07/07 07/[address] [facility] [address] Inpatient 75 /2017 Mindy Encarnacion Procedures Procedure Code Date Perfomer Comments Source [place] Count [id number] 07/07/2017 [facility] [id number] 07/07/[address] [facility] [address] Mindy Encarnacion Abdomen Acute [id number] 07/07/[address] [facility] [address] Guillen - Alverto Encarnacion
--- OUTSIDE RECORDS SUMMARY | 2018-11-29 10:57 | XMS REPORT ---
:1935 [facility] [address] [place] [address] Care Team Providers Name Role Phone Alexandru [...] Comments Accuchek (test code=ACU) 369 mg/dL 70-110 [id number] 12:05:00 Test Item Value Reference Range Comments Accuchek (test code=ACU) 452 mg/dL 70-110 [id number] 08:00:00 Test Item Value Reference Range Comments Accuchek (test code=ACU) Greater than 550 mg/dL 70-110 [id number] 07:42:00 Test Item Value Reference Range Comments Accuchek (test code=ACU) 463 mg/dL 70-110 [id number] 06:23:00 Test Item Value Reference Range Comments Accuchek (test code=ACU) 157 mg/dL 70-110 [id number] 00:16:00 Test Item Value Reference Range Comments Accuchek (test code=ACU) 196 mg/dL 70-110 [id number] 20:52:00 Test Item Value Reference Range Comments Accuchek (test code=ACU) 373 mg/dL 70-110 [id number] 18:44:00 Test Item Value Reference Range Comments Accuchek (test code=ACU) 459 mg/dL 70-110 [id number] 12:48:00 Test Item Value Reference Range Comments Accuchek (test code=ACU) 169 mg/dL 70-110 Rkxqyxsnc8694-34-18 06:58:00 Test Item Value Reference Range Comments [...] 83-110 Chemistry (test code=CA) 8.7 mg/dL 7.8-10.44 [id number] 05:28:00 Test Item Value Reference Range Comments Accuchek (test code=ACU) 305 mg/dL 70-110 Rbryjpgt4091-43-07 02:59:00 Test Item Value Reference Range Comments Accuchek (test code=ACU) 330 mg/dL 70-110 [id number] 18:35:00 Test Item Value Reference Range Comments Accuchek (test code=ACU) 458 mg/dL 70-110 [id number] 14:35:00 Test Item Value Reference Range Comments Accuchek (test code=ACU) 343 mg/dL 70-110 [id number] 11:40:00 Test Item Value Reference Range Comments Accuchek (test code=ACU) 285 mg/dL 70-110 Zjboravg2831-08-43 08:52:00 Test Item Value Reference Range Comments Accuchek (test code=ACU) 187 mg/dL 70-110 Olhnenaf5747-25-55 05:04:00 Test Item Value Reference Range Comments Accuchek (test code=ACU) 323 mg/dL 70-110 [id number] 02:53:00 Test Item Value Reference Range Comments Accuchek (test code=ACU) 369 mg/dL 70-110 [id number] 20:55:00 Test Item Value Reference Range Comments Accuchek (test code=ACU) 486 mg/dL 70-110 [id number] 16:55:00 Test Item Value Reference Range Comments Accuchek (test code=ACU) 432 mg/dL 70-110 [id number] 14:33:00 Test Item Value Reference Range Comments Accuchek (test code=ACU) 287 mg/dL 70-110 [id number] 09:53:00 Test Item Value Reference Range Comments Accuchek (test code=ACU) 119 mg/dL 70-110 [id number] 09:13:00 Test Item Value Reference Range Comments [...] Value! Chemistry (test code=CA) 8.6 mg/dL 7.8-10.44 Rkiyzxez8980-90-47 05:37:00 Test Item Value Reference Range Comments Accuchek (test code=ACU) 94 mg/dL 70-110 [id number] 02:52:00 Test Item Value Reference Range Comments Accuchek (test code=ACU) 87 mg/dL 70-110 Rszxsnsf7174-95-07 22:27:00 Test Item Value Reference Range Comments Accuchek (test code=ACU) 370 mg/dL 70-110 Qagkcvzty5815-10-89 19:37:00 Test Item Value Reference Range Comments Chemistry (test code=CCC) ALEJANDRINA.LAB@1936 Refer to Critical Value designated by an *L or *H Chemistry (test code=GLU-T) 632 mg/dL 83-110 Critical value! Is patient fasting? NoComment line gwvyFrwoilsuc5220-61-66 17:31:00 Test Item Value Reference Range Comments Chemistry (test code=CCC) ALEJANDRINA.RG@1731 Refer to Critical Value designated by an *L or *H Chemistry (test code=GLU-T) 762 mg/dL 83-110 Critical value! Is patient fasting? [id number] 11:55:00 Test Item Value Reference Range Comments [...] 83-110 Chemistry (test code=CA) 8.8 mg/dL 7.8-10.44 Dcvufgfj5569-50-45 06:35:00 Test Item Value Reference Range Comments Accuchek (test code=ACU) 273 mg/dL 70-110 Rsofyeyf1053-03-57 20:59:00 Test Item Value Reference Range Comments Accuchek (test code=ACU) 351 mg/dL 70110 Kjixprph4121-10-40 17:23:00 Test Item Value Reference Range Comments Accuchek (test code=ACU) 116 mg/dL 70110 Vnfkiscu5623-99-44 11:55:00 Test Item Value Reference Range Comments Accuchek (test code=ACU) 413 mg/dL 70-110 Ifoaiwzz8976-14-48 05:25:00 Test Item Value Reference Range Comments Accuchek (test code=ACU) 286 mg/dL 70-110 Eexnqeac8403-60-97 21:17:00 Test Item Value Reference Range Comments Accuchek (test code=ACU) 185 mg/dL 70110 Hjkfoyyq5308-42-99 18:59:00 Test Item Value Reference Range Comments Accuchek (test code=ACU) 383 mg/dL 110 [id number] 18:59:00 Test Item Value Reference Range Comments Accuchek (test code=ACU) 227 mg/dL 110 [id number] 13:41:00 Test Item Value Reference Range Comments Accuchek (test code=ACU) 293 mg/dL 70-110 Wtswupug7433-72-16 05:45:00 Test Item Value Reference Range Comments Accuchek (test code=ACU) 396 mg/dL 110 Tqmhspbw9585-29-96 05:11:00 Test Item Value Reference Range Comments Accuchek (test code=ACU) 404 mg/dL 70-110 [id number] 04:23:00 Test Item Value Reference Range Comments [...] 83-110 Chemistry (test code=CA) 8.2 mg/dL 7.8-10.44 [id number] 04:05:00 Test Item Value Reference Range Comments [...] 0.0-0.7 Hematology (test code=BASO#) 0.0 thou/uL 0.0-0.2 Oooijcow6529-85-76 22:43:00 Test Item Value Reference Range Comments Accuchek (test code=ACU) 248 mg/dL 70-110 [id number] 19:16:00 Test Item Value Reference Range Comments Accuchek (test code=ACU) 301 mg/dL 70-110 Chemistry - Appsstlz9447-10-01 12:59:00 Test Item Value Reference Range Comments [...] considered immune to HBV infection. Chemistry - Hszztjyh2836-46-42 12:59:00 Test Item Value Reference Range Comments Chemistry - Specials (test code=THBSAG) Non-Reactive S/CO NonReactive Chemistry - Rtqhpsum1651-76-18 12:59:00 Test Item Value Reference Range Comments Chemistry - Specials (test code=INTHEPBCT) Non-Reactive NonReactive Chemistry - Inmnhxnd5088-72-20 12:59:00 Test Item Value Reference Range Comments Chemistry - Specials (test code=INTHEPC) Non-Reactive NonReactive [id number] 11:53:00 Test Item Value Reference Range Comments Accuchek (test code=ACU) 377 mg/dL 70-110 [id number] 05:45:00 Test Item Value Reference Range Comments Accuchek (test code=ACU) 219 mg/dL 70-110 Kwrwkgfkdc7880-36-64 05:05:00 Test Item Value Reference Range Comments [...] (100X) 0-5/hpf Hematology (test code=PCOMMENT) Appears Adequate Nogwlqoga9400-74-84 04:36:00 Test Item Value Reference Range Comments [...] 83-110 Chemistry (test code=CA) 8.5 mg/dL 7.8-10.44 [id number] 20:44:00 Test Item Value Reference Range Comments Accuchek (test code=ACU) 174 mg/dL 70-110 Xqojherc5148-47-30 17:03:00 Test Item Value Reference Range Comments Accuchek (test code=ACU) 344 mg/dL 70-110 Yfamcygm6004-50-61 17:03:00 Test Item Value Reference Range Comments Accuchek (test code=ACU) 217 mg/dL 70-110 Chemistry - Wopdt2381-26-72 09:20:00 Test Item Value Reference Range Comments Chemistry - Urine (test 72.26 mg/dL 63-166 NOTE: Concentration is based code=URCREAT) on a daily urine output of1.5 Liters. Chemistry - [id number] 09:20:00 Test Item Value Reference Range Comments Chemistry - Urine (test code=URTP) 381 mg/dL Chemistry - BNP, HgbA1c, [id number] 08:00:00 Test Item Value Reference Range Comments Chemistry - BNP, HgbA1c, 6.3 % 4.0-6.0 Therapeutic goals for glycemic PTHi (test code=AEYW7AA) control (ADA)Adults:- Goal of therapy: Less than 7.0% HbA1c- Action suggested: Greater than 8.0% VaY4aYoqsrhuen patients:- Toddlers and preschoolers: Less than 8.5% (but Greater than 7.5%)- School age (6-12 years): Less than 8%- Adolescents and young adults (13-19 years): Less than 7.5%Diagnosing diabetes (ADA)- HbA1c: Greater than or equal to 6.5% Values of 5.7 - 6.4% indicate HIGH risk for developing DiabetesInternational Expert Committee Report on the Role of the U1MUuhim in the Diagnosis of Diabetes. Diabetes Care 2009July;32(7):1327-1334ADA, Diagnosis classification of diabetes mellitus.Diabetes Care 2010; 33 Suppl 1:S62 Yaashbwdn7955-81-01 05:46:00 Test Item Value Reference Range Comments [...] 83-110 Chemistry (test code=CA) 8.8 mg/dL 7.8-10.44 [id number] 05:35:00 Test Item Value Reference Range Comments Accuchek (test code=ACU) 262 mg/dL 70-110 Ptcgrmaiss8408-89-37 05:21:00 Test Item Value Reference Range Comments [...] 0.0-0.7 Hematology (test code=BASO#) 0.1 thou/uL 0.0-0.2 Pireumzs1494-30-30 21:30:00 Test Item Value Reference Range Comments Accuchek (test code=ACU) 279 mg/dL 70-110 [id number] 16:30:00 Test Item Value Reference Range Comments Accuchek (test code=ACU) 145 mg/dL 70-110 [id number] 11:42:00 Test Item Value Reference Range Comments Accuchek (test code=ACU) 119 mg/dL 70-110 Bciatvzhy2977-24-79 06:48:00 Test Item Value Reference Range Comments [...] 8.4 mg/dL 7.8-10.44 Chemistry - BNP, HgbA1c, [id number] 06:45:00 Test Item Value Reference Range Comments Chemistry - BNP, HgbA1c, PTHi (test code=BNP) 419.1 pg/mL 0-100 [id number] 06:35:00 Test Item Value Reference Range Comments Accuchek (test code=ACU) 171 mg/dL 70-110 Upzflrzblu3275-26-66 06:20:00 Test Item Value Reference Range Comments [...] 0.0-0.7 Hematology (test code=BASO#) 0.0 thou/uL 0.0-0.2 Axncgsfc6536-88-30 22:09:00 Test Item Value Reference Range Comments Accuchek (test code=ACU) 223 mg/dL 70-110 Phvgjera9287-48-20 17:33:00 Test Item Value Reference Range Comments Accuchek (test code=ACU) 100 mg/dL 70-110 Sipajqka1062-32-91 14:32:00 Test Item Value Reference Range Comments Accuchek (test code=ACU) 375 mg/dL 70-110 Bmwrtzja3266-82-77 14:32:00 Test Item Value Reference Range Comments Accuchek (test code=ACU) 285 mg/dL 70-110 Izrfbbyy3143-01-69 10:33:00 Test Item Value Reference Range Comments Accuchek (test code=ACU) 498 mg/dL 70-110 NOTIFIED NURSE Wumpvazk5424-01-43 09:23:00 Test Item Value Reference Range Comments Accuchek (test code=ACU) 523 mg/dL 70-110 Uyjpqlratq8896-55-81 03:49:00 Test Item Value Reference Range Comments [...] LPF 0-3 Hyaline Urine Source: Urine Clean ZlptbQdisfotqh7523-05-00 00:20:00 Test Item Value Reference Range Comments [...] 5-34 Chemistry (test code=ALT) 21 U/L 8-55 [id number] 00:20:00 Test Item Value Reference Range Comments Chemistry (test code=PHOS) 4.0 mg/dL 2.3-4.7 [id number] 00:20:00 Test Item Value Reference Range Comments Chemistry (test code=MG) 2.4 mg/dL 1.6-2.6 [id number] 00:14:00 Test Item Value Reference Range Comments Accuchek (test code=ACU) 113 mg/dL 70-110 Mucmqcufau6306-61-17 23:58:00 Test Item Value Reference Range Comments [...]
[2018-11-29] MEDS ORDERED: LEVALBUTEROL 1.25 MG/3 ML NEB ONE (11:34)
[2018-11-29] MEDS ORDERED: METHYLPREDNISOLONE 125 MG INJ ONE (11:34)
--- NOTE | 2018-11-29 11:45 | RAD REPORT ---
EXAM DESCRIPTION: RAD - Chest Single View - 11/29/2018 11:37 am CLINICAL HISTORY: Cough;Dyspnea Chest pain. COMPARISON: Chest Pa And Lat (2 Views) dated 11/26/2018; Chest Single View dated 11/25/2018; Chest Sin gle View dated 11/24/2018; Chest Single View dated 10/30/2018 FINDINGS: Portable technique limits examination quality. Advanced emphysematous changes are present throughout the lungs. Mild ill-defined opacities are prese nt in the left lung base, likely mild residual infiltrate. The heart is normal in size. Aortic athero sclerosis.
[2018-11-29 11:50] LABS: Absolute Lymphocytes (CBC) 0.7 K/uL (0.7-4.9); Basophils % 0.9 % (0-1.3); Eosinophils % 2.6 % (0-4.4); Lymphocytes % 6.1 % (15.3-44.8); MPV 9.7 fL (7.6-11.3); Monocytes % 5.5 % (3.3-12.3); RBC Red Blood Cell Count 2.66 M/uL (4.33-5.43)
--- NOTE | 2018-11-29 11:57 | ER ---
Nurse's Notes [facility] Name: Chana Duff Age: 83 yrs Sex: Male : 1935 Arrival Date: 11/29/2018 Time: 10:54 Bed 15 Private MD: James Callahan C Diagnosis: Chronic obstructive pulmonary disease with (acute) exacerbation;Failure of outpatient therapy;Pneumonia;Dyspnea, unspecified;Hypoxemia Presentation: 11/29 10:59 Presenting complaint: Child states: He were admitted recently for pneumonia, he was aj1 discharged on Wednesday, and now he is feeling worse again. Reports that he can not lay flat because he gets so short of breath. Transition of care: patient was not received from another setting of care. Onset of symptoms was November 2018. Risk Assessment: Do you want to hurt yourself or someone else? Patient reports no desire to harm self or others. Initial Sepsis Screen: Does the patient meet any 2 criteria? No. Patient's initial sepsis screen is negative. Does the patient have a suspected source of infection? Yes: Productive cough/pneumonia. Care prior to arrival: None. 10:59 Method Of Arrival: Wheelchair aj1 10:59 Acuity: SOFIA 3 aj1 Triage Assessment: 11:01 General: Appears in no apparent distress. uncomfortable, Behavior is calm, cooperative, aj1 appropriate for age. Pain: Denies pain. Neuro: Level of Consciousness is awake, alert, obeys commands, Oriented to person, place, time, situation. Cardiovascular: Patient's skin is warm and dry. Respiratory: Reports shortness of breath at rest Airway is patent Respiratory effort is even, unlabored, Respiratory pattern is regular, symmetrical, Onset: The symptoms/episode began/occurred the patient has moderate shortness of breath. Historical: - Allergies: 11:01 No Known Allergies; aj1 - Home Meds: 11:01 amlodipine 5 mg tab 1 tab twice daily [Active]; aspirin 81 mg Oral chew 1 tab once aj1 daily [Active]; atorvastatin 20 mg Oral tab 1 tab once daily [Active]; doxazosin 2 mg Oral tab 0.5 tab at bedtime [Active]; furosemide 80 mg Oral tab 1 tab once daily [Active]; Insulin pump [Active]; levothyroxine 125 mcg tab 1 tab once daily [Active]; metoprolol tartrate 50 mg Oral tab 0.5 tab 2 times per day [Active]; Prednisone Oral [Active]; Augmentin Oral [Active]; - PMHx: 11:01 COPD; Diabetes - IDDM; Dialysis; ESRD; Hyperlipidemia; Hypertension; aj1 - Immunization history:: Flu vaccine is up to date. - Social history:: Smoking status: Smoking status: Patient/guardian denies using tobacco. - Ebola Screening: : Patient denies travel to an Ebola-affected area in the 21 days before illness onset. - Family history:: not pertinent. - Hospitalizations: : The patient was recently seen at [facility]. Screenin:05 Abuse screen: Denies threats or abuse. Nutritional screening: No deficits noted. rb1 Tuberculosis screening: No symptoms or risk factors identified. Fall Risk None identified. Assessment: 11:05 General: Appears in no apparent distress. comfortable, Behavior is calm, cooperative, rb1 Reports fever for 99.1. Pain: Denies pain. Neuro: Level of Consciousness is awake, alert, obeys commands, Oriented to person, place, time, situation. Cardiovascular: Capillary refill < 3 seconds is brisk in bilateral fingers. Respiratory: Reports shortness of breath on exertion Airway is patent Respiratory effort is even, unlabored, Respiratory pattern is symmetrical. GI: No signs and/or symptoms were reported involving the gastrointestinal system. : Parent/caregiver report the patient having dialysis M-W-F. Derm: Skin is fragile, is thin, Bruising that is dark purple, on right arm. Musculoskeletal: Range of motion: intact in all extremities. 11:05 Respiratory: Reports cough that is dry, Breath sounds with crackles. rb1 11:05 Cardiovascular: Rhythm is regular. rb1 12:00 Reassessment: Patient appears in no apparent distress at this time. Patient and/or rb1 family updated on plan of care and expected duration. Pain level reassessed. Patient is alert, oriented x 3, equal unlabored respirations, skin warm/dry/pink. 13:00 Reassessment: Patient appears in no apparent distress at this time. No changes from rb1 previously documented assessment. Family at bedside. Pt. stated, "I'm good right now.". 14:00 Reassessment: Patient appears in no apparent distress at this time. Patient and/or rb1 family updated on plan of care and expected duration. Pain level reassessed. Patient is alert, oriented x 3, equal unlabored respirations, skin warm/dry/pink. Patient denies pain at this time. 14:08 Reassessment: Tried to call report to the floor but was left on hold. rb1 14:13 Reassessment: Report called to MEHRAN Moreno. Information from the SBAR was given. All rb1 questions asked and answered. Vital Signs: 11:01 BP 137 / 63; Pulse 78; Resp 20; Temp 99.0; Pulse Ox 93% on 3 lpm NC; Weight 71.67 kg aj1 (R); Height 5 ft. 7 in. (170.18 cm) (R); Pain 0/10; 12:00 BP 103 / 57; Pulse 92; Resp 20; Temp 98.8(O); Pulse Ox 95% on 3.5 lpm NC; Pain 0/10; rb1 13:00 BP 115 / 57; Pulse 79; Resp 23; Temp 98.5(O); Pulse Ox 94% on 3.5 lpm NC; Pain 0/10; rb1 14:00 BP 117 / 66; Pulse 84; Resp 21; Temp 98.2(O); Pulse Ox 96% on 3.5 lpm NC; Pain 0/10; rb1 11:01 Body Mass Index 24.75 (71.67 kg, 170.18 cm) aj1 ED Course: 10:54 Patient arrived in ED. mr 10:54 James Callahan MD is Private Physician. mr 11:00 Triage completed. aj1 11:01 Arm band placed on Patient placed in an exam room. aj1 11:05 Patient has correct armband on for positive identification. Bed in low position. Call rb1 light in reach. Side rails up X 1. associate director of sales on. Pulse ox on. NIBP on. Warm blanket given. 11:07 Fabián Thornton MD is Attending Physician. rn 11:16 Odalis Mendoza RN is Primary Nurse. rb1 11:35 X-ray completed. Portable x-ray completed in exam room. Patient tolerated procedure jb2 well. 11:39 XRAY CXR (1 view) In Process Unspecified. EDMS 11:40 EKG done, by cnc technician. reviewed by Fabián Thornton MD. sm3 11:56 James Callahan MD is Hospitalizing Provider. rn 14:23 No provider procedures requiring assistance completed. Patient admitted, IV remains in rb1 place. Administered Medications: 11:26 Drug: Xopenex (3) 1.25 mg Route: Inhalation; rb1 11:37 Drug: SOLU-Medrol 125 mg Route: IVP; Site: right wrist; rb1 12:00 Follow up: Response: No adverse reaction rb1 Outcome: 11:57 Decision to Hospitalize by Provider. rn 14:23 Patient left the ED. rb1 14:23 Admitted to Tele accompanied by tech, family with patient, via wheelchair, room 407, rb1 with oxygen, with chart, Report called to MEHRAN Moreno 14:23 Condition: stable 14:23 Instructed on the need for admit. Signatures: Dispatcher [employer] EDMS Kirsten Turner RN RN aj1 Michelle Kaurhussein, Jacob [email or web address] Fabián Thornton MD MD rn Barber, Rebecca, RN RN rb1 Marianna Hammond sm3 Corrections: (The following items were deleted from the chart) 16:58 14:53 Patient left the ED. rb1 rb1
--- NOTE | 2018-11-29 11:58 | EDPHYS ---
Physician Documentation [facility] Name: Chana Duff Age: 83 yrs Sex: Male : 1935 Arrival Date: 11/29/2018 Time: 10:54 Bed 15 Private MD: James Callahan C ED Physician Fabián Thornton HPI: 11/29 11:51 This 83 yrs old Male presents to ER via Wheelchair with complaints of rn Breathing Difficulty. 11:51 The patient has shortness of breath with light activity. Onset: The symptoms/episode rn began/occurred 1 week(s) ago. Duration: The symptoms are continuous. The patient's shortness of breath is aggravated by exertion, light activity. Severity of symptoms: At their worst the symptoms were moderate in the emergency department the symptoms are unchanged. The patient has experienced similar episodes in the past. Patient recently discharged from this hospital for COPD and pneumonia, taking his abx, feeling worse with exertional dyspnea, sitting/sleeping in chair hunched over, not eating or ambulating, states sob even with a few steps. Denies chest pain.. Historical: - Allergies: 11:01 No Known Allergies; aj1 - Home Meds: 11:01 amlodipine 5 mg tab 1 tab twice daily [Active]; aspirin 81 mg Oral chew 1 tab once aj1 daily [Active]; atorvastatin 20 mg Oral tab 1 tab once daily [Active]; doxazosin 2 mg Oral tab 0.5 tab at bedtime [Active]; furosemide 80 mg Oral tab 1 tab once daily [Active]; Insulin pump [Active]; levothyroxine 125 mcg tab 1 tab once daily [Active]; metoprolol tartrate 50 mg Oral tab 0.5 tab 2 times per day [Active]; Prednisone Oral [Active]; Augmentin Oral [Active]; - PMHx: 11:01 COPD; Diabetes - IDDM; Dialysis; ESRD; Hyperlipidemia; Hypertension; aj1 - Immunization history:: Flu vaccine is up to date. - Social history:: Smoking status: Smoking status: Patient/guardian denies using tobacco. - Ebola Screening: : Patient denies travel to an Ebola-affected area in the 21 days before illness onset. - Family history:: not pertinent. - Hospitalizations: : The patient was recently seen at [facility]. 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 Abdomen/GI: Negative for abdominal pain, nausea, vomiting, diarrhea, and constipation, MS/Extremity: Negative for injury and deformity, Skin: Negative for injury, rash, and discoloration, Neuro: + generalized weakness. Exam: 11:51 Constitutional: Thin male, + mild tachypnea. Head/Face: Normocephalic, atraumatic. hr intern: dry MM, no stridor Cardiovascular: Regular rate, no murmur, distal pulses equal Respiratory: + mild tachypnea with bibasilar crackles, faint wheezing Abdomen/GI: soft, non-tender Skin: Warm, dry MS/ Extremity: Pulses equal, no cyanosis. Neurovascular intact. Full, normal range of motion. Equal circumference. Neuro: Awake and alert, GCS 15, oriented to person, place, time, and situation. Cranial nerves II-XII grossly intact. Motor strength 5/5 in all extremities. Sensory grossly intact. Vital Signs: 11:01 BP 137 / 63; Pulse 78; Resp 20; Temp 99.0; Pulse Ox 93% on 3 lpm NC; Weight 71.67 kg aj1 (R); Height 5 ft. 7 in. (170.18 cm) (R); Pain 0/10; 12:00 BP 103 / 57; Pulse 92; Resp 20; Temp 98.8(O); Pulse Ox 95% on 3.5 lpm NC; Pain 0/10; rb1 13:00 BP 115 / 57; Pulse 79; Resp 23; Temp 98.5(O); Pulse Ox 94% on 3.5 lpm NC; Pain 0/10; rb1 14:00 BP 117 / 66; Pulse 84; Resp 21; Temp 98.2(O); Pulse Ox 96% on 3.5 lpm NC; Pain 0/10; rb1 11:01 Body Mass Index 24.75 (71.67 kg, 170.18 cm) [facility] MDM: 11:07 Patient medically screened. rn 11:51 Differential diagnosis: Chronic Obstructive Pulmonary Disease pneumonia, Pneumothorax rn pulmonary edema, reactive airway disease. Data reviewed: vital signs, nurses notes, lab test result(s), EKG, radiologic studies, plain films, and as a result, I will admit patient. Test interpretation: by ED physician or midlevel provider: plain radiologic studies, CXR with bibasilar mild infiltrates, overall improved from previous cxr.. Counseling: I had a detailed discussion with the patient and/or guardian regarding: the historical points, exam findings, and any diagnostic results supporting the discharge/admit diagnosis, lab results, radiology results, the need for further work-up and treatment in the hospital. Response to treatment: the patient's symptoms have mildly improved after treatment, and as a result, I will admit patient. Admission orders: after a detailed discussion of the patient's condition and case, the admit orders are written by me. ED course: Pt worse after being discharged, oxygen 84% on RA, increased oxygen use, states no breathing treatments at home. Spoke with Dr. Callahan, will admit for COPD exacerbation and failure of outpt therapy. . 11/29 11:13 Order name: Blood Culture Adult (2) rn 11/29 11:13 Order name: BMP; Complete Time: 12:26 rn 11/29 11:13 Order name: XRAY CXR (1 view); Complete Time: 11:49 rn 11/29 11:13 Order name: CBC with Diff; Complete Time: 12:13 rn 11/29 11:13 Order name: NT PRO-BNP; Complete Time: 12:26 rn 11/29 11:13 Order name: EKG; Complete Time: 11:15 rn 11/29 11:13 Order name: Cardiac monitoring; Complete Time: 13:56 rn 11/29 11:13 Order name: EKG - Nurse/Tech; Complete Time: 13:56 rn 11/29 11:13 Order name: IV Saline Lock; Complete Time: 11:38 rn 11/29 11:13 Order name: Labs collected and sent; Complete Time: 11:38 rn 11/29 11:13 Order name: O2 Per Protocol; Complete Time: 11:39 rn 11/29 11:13 Order name: O2 Sat Monitoring; Complete Time: 11:39 rn Administered Medications: 11:26 Drug: Xopenex (3) 1.25 mg Route: Inhalation; rb1 11:37 Drug: SOLU-Medrol 125 mg Route: IVP; Site: right wrist; rb1 12:00 Follow up: Response: No adverse reaction rb1 Disposition: 11/29/18 11:57 Hospitalization ordered by James Callahan for Inpatient Admission. Preliminary diagnosis are Chronic obstructive pulmonary disease with (acute) exacerbation, Failure of outpatient therapy, Pneumonia, Dyspnea, unspecified, Hypoxemia. - Bed requested for Telemetry/MedSurg (Inpatient). - Status is Inpatient Admission. rb1 - Condition is Stable. - Problem is an ongoing problem. - Symptoms have improved. UTI on Admission? No Signatures: Dispatcher [employer] EDMS Kirsten Turner RN RN aj1 Elizabeth Nelson RN RN dw Fabián Thornton MD MD rn Smirch, Shelby, RN RN ss Barber, Rebecca, RN RN rb1 Corrections: (The following items were deleted from the chart) 13:53 11:57 Hospitalization Ordered by A [place] CANDELARIA for Inpatient Admission. Preliminary ss diagnosis is Chronic obstructive pulmonary disease with (acute) exacerbation; Failure of outpatient therapy; Pneumonia; Dyspnea, unspecified; Hypoxemia. Bed requested for Telemetry/MedSurg (Inpatient). Status is Inpatient Admission. Condition is Stable. Problem is an ongoing problem. Symptoms have improved. UTI on Admission? No. rn 13:53 13:53 11/29/2018 11:57 Hospitalization Ordered by A [place] CANDELARIA for Inpatient Admission. dw Preliminary diagnosis is Chronic obstructive pulmonary disease with (acute) exacerbation; Failure of outpatient therapy; Pneumonia; Dyspnea, unspecified; Hypoxemia. Bed requested for Telemetry/MedSurg (Inpatient). Status is Inpatient Admission. Condition is Stable. Problem is an ongoing problem. Symptoms have improved. UTI on Admission? No. ss 14:53 13:53 11/29/2018 11:57 Hospitalization Ordered by A [place] CANDELARIA for Inpatient Admission. rb1 Preliminary diagnosis is Chronic obstructive pulmonary disease with (acute) exacerbation; Failure of outpatient therapy; Pneumonia; Dyspnea, unspecified; Hypoxemia. Bed requested for Telemetry/MedSurg (Inpatient). Status is Inpatient Admission. Condition is Stable. Problem is an ongoing problem. Symptoms have improved. UTI on Admission? No. dw
[2018-11-29 12:21] LABS: Potassium 4.4 mmol/L (3.5-5.1)
--- NOTE | 2018-11-29 14:48 | EKG ---
Test Date: 2018-11-29 Test Time: 11:37:30 Physician Office Clin Asst: KALPESH MEASUREMENT RESULTS: Intervals: Rate: 85 SD: 150 QRSD: 88 QT: 344 QTc: 409 [place]: P: 75 SD: 150 QRS: 7 T: 51 INTERPRETIVE STATEMENTS: Normal sinus rhythm Nonspecific ST and T wave abnormality Abnormal ECG Compared to ECG 11/25/2018 07:18:48 Sinus arrhythmia no longer present ST (T wave) deviation still present Electronically Signed On 11-29-18 14:47:09 CDT by Jaskaran Low
[2018-11-29] MEDS ORDERED: ONDANSETRON 4 MG/2 ML VIAL IV PRN (15:00)
[2018-11-29] MEDS ORDERED: METHYLPREDNISOLONE 40 MG INJ IV SCH (17:00)
[2018-11-29] MEDS: ALBUTEROL 2.5 MG/3 ML NEB SOL NEB PRN ×2 (17:30→23:40)
[2018-11-29] MEDS: IPRATROPIUM BROM 0.5MG/2.5ML NEB PRN ×2 (17:30→23:40)
[2018-11-29] MEDS ORDERED: GLUCAGON 1 MG/VIAL IM PRN (17:35)
[2018-11-29] MEDS ORDERED: D50W 25 GM/50 ML SYRINGE IV PRN (17:35)
[2018-11-29] MEDS ORDERED: INSULIN -REGULAR HUMAN 50 UNIT/0.5 ML ML IV ONE ×2 (17:35→20:00)
[2018-11-29] MEDS: DULERA 100/5 (MOMETASONE/FORMOTEROL) INHALER IH SCH (20:15)
[2018-11-29] MEDS: PIPER/TAZO/NS 2.25gm 2.25 GM/50 ML BAG IVPB SCH (20:16)
[2018-11-30] MEDS: PIPER/TAZO/NS 2.25gm 2.25 GM/50 ML BAG IVPB SCH ×3 (00:13→18:57)
--- NOTE | 2018-11-30 03:03 | HP ---
Date of Admission: 11/29/2018 Chief Complaint: Shortness of breath. History Of Present Illness: This is an 83-year-old male patient, who was recently admitted to the hospital, was discharged to go home over the weekend, takes his medication regularly as prescribed. He went for dialysis yesterday and he did not get a complete dialysis. Today, he was brought into emergency room because of shortness of breath. The patient's family reported that since he left the hospital and went home, he has been very inactive. He is sitting in the chair; anything he does, gets short of breath including walking in the room; taking few steps, he gets short of breath. He has some cough and occasionally coughs up some yellowish-colored mucus, sometimes clear mucus. No fever. No chills. After he was evaluated in the ER, he was admitted to the hospital. The patient's family reported that after he received nebulizer treatment at home, he did feel better. Family is requesting hospital bed upon discharge, which I think should be appropriate for him because of his COPD problem requiring frequent change of position. He has trouble sleeping flat in the bed and a lot of time he has to sit up to get comfortable as far as breathing is concerned. Allergies: NO KNOWN ALLERGIES. Medications: List reviewed. Review of Systems: Respiratory: As mentioned above. All other systems reviewed and negative. Family History: Not pertinent. Social History: Prior history of smoking, not at present time. Use of alcohol negative. Past Surgical History: Cataract surgery, hernia repair, angioplasty of leg artery due to peripheral vascular disease. 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 Physical Examination: Vital Signs: When he first came in, temperature 99, pulse 78, respiratory rate 20, blood pressure 137/63, oxygen saturation 93%. Height 5 feet and 7 inches, weight 157 pounds. General: Awake, alert, oriented, not in distress. HEENT: Head atraumatic, normocephalic. Conjunctivae nonerythematous. Sclerae white. Mouth, no thrush or edema noted. Ears/Nose, no mass, lesion, discharge noted. Neck: Supple. No JVD, lymph nodes, bruit, thyromegaly noted. Lungs: Bilateral good equal air entry. No wheezing. No crackles. Not using any accessory muscles of respiration at rest. Heart: Normal heart sounds, no murmur or gallop. Abdomen: Has ventral hernia in midepigastric region. No evidence of any obstruction. Bowel sounds normoactive. No guarding, rigidity, tenderness. No hepatosplenomegaly. No bruit. Extremities: Bilateral grade 2 pedal edema. Skin: No rash, ulcer, cellulitis. Lymphatics: No lymph node enlargement in neck, supraclavicular, infraclavicular region. Neuro: No focal neurological deficit. Chest: Unremarkable. External Genitalia: Deferred. Rectal: Deferred. Laboratory Data: White count 12.3, hemoglobin 8.5, platelets 250. Sodium 139, potassium 4.4, chloride 101, bicarb 27, BUN 65, creatinine 4.99, glucose 299. ProBNP 44,799. Chest x-ray; advanced emphysematous changes, mild ill-defined opacity present in left lung base, overall that is better than last chest x-ray 2-3 days ago. EKG; normal sinus rhythm, no specific ST-T changes. Impression: 1. Severe COPD. 2. End-stage renal disease, on hemodialysis. 3. Anemia due to chronic kidney disease. 4. Ventral hernia of abdominal wall without obstruction. 5. Hypertension. 6. Diabetes mellitus, type 2, insulin dependent, uncontrolled. 7. Hyperlipidemia. 8. Hypothyroidism. 9. Benign prostatic hypertrophy. 10. Gastroesophageal reflux disease. Plan: Admit the patient to hospital for further evaluation and management of this problem. The patient is appropriate for inpatient and is expected to spend 2 midnights in hospital. We will continue his insulin pump the way he uses at home. He has very clear-cut understanding of how to manage that. So we will have his nursing staff to monitor his fingerstick blood sugar before each meal and at bedtime and the patient will be notified by nursing staff, so he can make adjustment on his insulin pump. The patient was started on IV Solu- Medrol 40 mg every 8 hours from emergency room. After 1 dose of this IV steroid , his blood sugar has gone up to 450-500 range and the patient has done this in the past and unfortunately, he is not able to tolerate IV steroids at all. I have discontinued his IV steroid and today, we ordered 2 different doses of IV insulin 5 units each time and we will monitor his blood sugar closely. If necessary, give more IV insulin, but we will not give any more IV steroids. We will continue his inhaler per order. IV antibiotic Zosyn will be given per order. We will request Dr. Cole from Pulmonary. What my concern is that the patient has severe COPD to the extent that we might need to consider hospice care in near future unless Dr. Cole has any other intervention that might be able to help him, but in my opinion, hospice care might become necessary in the near future because of his severe COPD problem. We will request consultation from rivet sorter for dialysis support. The patient's family is requesting hospital bed and Social Service consultation was requested to assist the patient with hospital bed. Family is requesting different type of portable oxygen that he can carry around on the shoulder instead of oxygen cylinder with the tubing that runs all over the floor, increases risk of his fall and injury, and I have encouraged them to talk to Dr. Cole regarding that. I will see him tomorrow for followup. VIELKA/MODL Voice ID: [id number]
[2018-11-30] MEDS: IPRATROPIUM BROM 0.5MG/2.5ML NEB PRN ×5 (03:10→23:30)
[2018-11-30] MEDS: ALBUTEROL 2.5 MG/3 ML NEB SOL NEB PRN ×5 (03:10→23:30)
[2018-11-30 06:08] LABS: Absolute Lymphocytes (CBC) 0.3 K/uL (0.7-4.9); Basophils % 0.1 % (0-1.3); Lymphocytes % 2.3 % (15.3-44.8); Monocytes % 2.2 % (3.3-12.3); RBC Red Blood Cell Count 2.63 M/uL (4.33-5.43)
[2018-11-30 06:18] LABS: Potassium 5.2 mmol/L (3.5-5.1)
[2018-11-30 08:41] LABS: Blood Morphology Comment NOT SEEN (NOT SEEN); Platelet Estimate ADEQ
[2018-11-30] MEDS: FUROSEMIDE 40 MG TABLET PO SCH ×2 (09:00→17:00)
[2018-11-30] MEDS: AMLODIPINE 5 MG TAB PO SCH (09:00)
[2018-11-30] MEDS: METOPROLOL XL 25 MG TAB PO SCH ×2 (09:00→21:00)
[2018-11-30] MEDS ORDERED: HOME MED 1 EA UNK (Levothyroxine Sodium [Levothyroxine Sodium] 137 MCG) PO SCH (09:00)
[2018-11-30] MEDS: FINASTERIDE 5 MG TAB PO SCH (09:37)
[2018-11-30] MEDS: ASPIRIN EC 81 MG TAB PO SCH (09:38)
[2018-11-30] MEDS: TAMSULOSIN 0.4 MG SR CAP PO SCH (09:38)
[2018-11-30] MEDS: CALCIUM CARBONATE CHEW 500MG TAB PO SCH ×3 (09:39→21:00)
[2018-11-30] MEDS: DULERA 100/5 (MOMETASONE/FORMOTEROL) INHALER IH SCH ×2 (09:39→21:00)
--- NOTE | 2018-11-30 09:42 | P.CNS ---
Date of Consult: 11/30/18 Reason for Consult: ESRd to resume HD and hyperkalmeia Chief Complaint: SOB History of Present Illness: Am 83 Y/o man with PMHx of ESRD on HD via lt AVF MWF, COPD, BPH, hypothyrodism Pt was admitted for SOB Pt was admitted recently for similar symptoms as per he was adherent to his inhalers , still his shortness of breath didnt improve , have cough that is occasionally productive no chest pain, palpitation, nausea, vomiting or chills CXR: no effusion or edema Allergies No Known Drug Allergies Allergy (Verified 11/29/18 14:51) Unknown Home Medications: Albuterol Sulfate [Proair Respiclick] 90 mcg IH Q6HP PRN 11/29/18 Amlodipine Besylate 5 mg PO DAILY 11/29/18 Aspirin [Aspirin EC 81 MG] 81 mg PO DAILY 11/29/18 Atorvastatin Calcium [Lipitor*] 20 mg PO BEDTIME 11/29/18 Calcium Acetate 667 mg PO TID 11/29/18 Calcium Carbonate [Tums] 200 mg PO TID 11/29/18 Doxazosin Mesylate 1 mg PO BEDTIME 11/29/18 Ergocalciferol (Vitamin D2) [Vitamin D2] 2,000 unit PO WMP 11/29/18 Finasteride [Proscar*] 5 mg PO DAILY 11/29/18 Furosemide 40 mg PO BID 11/29/18 L. Acidophilus/Bifid. Animalis [Dialyvite Chewable Probiotic] 1 tab PO DAILY Levothyroxine Sodium 137 mcg PO DAILY 11/29/18 Metoprolol Succinate [Toprol Xl*] 25 mg PO BID 11/29/18 Prednisone [Sterapred Ds] 10 mg PO DAILY 11/29/18 Tamsulosin HCl [Flomax] 0.4 mg PO DAILY 11/29/18 - Past Medical/Surgical History Diabetic: Yes -: HTN -: HLD -: IDDM -: HYPOTHYROIDISM -: CKD -: CAD -: Peripheral vascular disease -: Asbestosis -: COPD -: Patient on dialysis -: Hernia repair -: Cardiac stents -: Bilateral cataract surgery - Family History Brother Medical History: Stroke, Kidney disease Mother Medical History: Stroke, Kidney disease Father Medical History: Cancer Notes: Prostate ca - Social History Smoking Status: Unknown if ever smoked Alcohol use: No CD- Drugs: No Caffeine use: Yes Place of Residence: Home Physical Examination Temp Pulse Resp BP Pulse Ox 97.0 F 90 17 141/60 H 100 11/30/18 04:00 11/30/18 04:00 11/30/18 04:00 11/30/18 04:00 11/30/18 04:00 General: Alert, Mild distress HEENT: Atraumatic Neck: Supple, Without JVD or thyroid abnormality Respiratory: Diminished Cardiovascular: Regular rate/rhythm, Normal S1 S2, No gallops, No rubs, No murmurs, Edema Gastrointestinal: Normal bowel sounds, Soft and benign, Other (Ventral hernia ) Laboratory Data (last 24 hrs) 11/29/18 11:32: WBC 12.3 H D, Hgb 8.5 L, Hct 26.0 L, Plt Count 250 11/29/18 11:32: Sodium 139, Potassium 4.4, BUN 65 H D, Creatinine 4.99 H D, Glucose 299 H - Problems (1) COPD exacerbation Onset Date: 02/11/17 Current Visit: No Status: Acute (2) ESRD (end stage renal disease) on dialysis Onset Date: 02/11/17 Current Visit: No Status: Chronic Conclusions/Impression: ESRD on HD MWF will cont HD mwf renal diet and renal dose meds COPD exacerbation improved after biPAP and nebulizer steroids switched to PO due to hyperglycemia on Zosyn Hyperkalemia HD today Ventral hernia asymptomatic HTN controlled PNA on Abx MBD cont binders mild leuckocytosis likely due to seroids DM as per primary steroids switched to PO Anemia will start on JANEL
[2018-11-30] MEDS: ARFORMOTEROL TARTRATE 15 MCG/2 ML VIAL.NEB NEB SCH ×2 (11:30→20:00)
[2018-11-30] MEDS ORDERED: INSULIN -REGULAR HUMAN 50 UNIT/0.5 ML ML IV ONE (11:59)
--- NOTE | 2018-11-30 12:19 | P.CNS ---
Date of Consult: 11/30/18 Chief Complaint: Respiratory distress History of Present Illness: Patient is 83 years of age was just recently discharged according to the relative he did well while he is in the hospital got worse when he went home unable to lie down flat at 1st sit upright became an developed more respiratory distress finally ended up here in the hospital. Patient is currently on BiPAP still having some shortness of breath slight cough no fever or chills lower extremity edema Allergies No Known Drug Allergies Allergy (Verified 11/29/18 14:51) Unknown Home Medications: Albuterol Sulfate [Proair Respiclick] 90 mcg IH Q6HP PRN 11/29/18 Amlodipine Besylate 5 mg PO DAILY 11/29/18 Aspirin [Aspirin EC 81 MG] 81 mg PO DAILY 11/29/18 Atorvastatin Calcium [Lipitor*] 20 mg PO BEDTIME 11/29/18 Calcium Acetate 667 mg PO TID 11/29/18 Calcium Carbonate [Tums] 200 mg PO TID 11/29/18 Doxazosin Mesylate 1 mg PO BEDTIME 11/29/18 Ergocalciferol (Vitamin D2) [Vitamin D2] 2,000 unit PO WMP 11/29/18 Finasteride [Proscar*] 5 mg PO DAILY 11/29/18 Furosemide 40 mg PO BID 11/29/18 L. Acidophilus/Bifid. Animalis [Dialyvite Chewable Probiotic] 1 tab PO DAILY Levothyroxine Sodium 137 mcg PO DAILY 11/29/18 Metoprolol Succinate [Toprol Xl*] 25 mg PO BID 11/29/18 Prednisone [Sterapred Ds] 10 mg PO DAILY 11/29/18 Tamsulosin HCl [Flomax] 0.4 mg PO DAILY 11/29/18 - Past Medical/Surgical History Diabetic: Yes -: HTN -: HLD -: IDDM -: HYPOTHYROIDISM -: CKD -: CAD -: Peripheral vascular disease -: Asbestosis -: COPD -: Patient on dialysis -: Hernia repair -: Cardiac stents -: Bilateral cataract surgery - Family History Brother Medical History: Stroke, Kidney disease Mother Medical History: Stroke, Kidney disease Father Medical History: Cancer Notes: Prostate ca - Social History Smoking Status: Unknown if ever smoked Alcohol use: No CD- Drugs: No Caffeine use: Yes Place of Residence: Home Review of Systems 10-point ROS is otherwise unremarkable General: Weakness Respiratory: Shortness of Breath Cardiovascular: Edema Physical Examination Temp Pulse Resp BP Pulse Ox 98.1 F 102 H 18 113/58 L 93 11/30/18 08:00 11/30/18 08:00 11/30/18 08:00 11/30/18 08:00 11/30/18 08:00 General: Alert, Oriented x3, Moderate distress HEENT: Atraumatic Neck: Supple Respiratory: Clear to auscultation bilaterally, Diminished Cardiovascular: No edema, Normal S1 S2 Gastrointestinal: Normal bowel sounds, Soft and benign Laboratory Data (last 24 hrs) 11/29/18 11:32: Sodium 139, Potassium 4.4, BUN 65 H D, Creatinine 4.99 H D, Glucose 299 H - Problems (1) Respiratory failure Current Visit: Yes Status: Acute Plan: Patient is 83 years of age recently discharged admitted yet again with respiratory distress is currently on BiPAP of ordered BiPAP he did much better on nebulize long-acting bronchodilators will check is ABGs continue with bronchodilators chest x-ray does low significantly better no evidence of sepsis white count is minimally elevated patient's blood sugar is very high scheduled to have dialysis
[2018-11-30] MEDS: CA ACETATE 667 MG CAP PO SCH ×2 (12:45→18:57)
[2018-11-30 16:15] LABS: Arterial Blood Carboxyhemoglob 1.8 % (0-1.5); Blood Gas Oxyhemoglobin 86.6 % (94-97); Blood O2 Saturation 88.9 % (92-98.5)
[2018-11-30] MEDS: EPOETIN ALFA 10,000 UNIT/ML VIAL SQ SCH (17:39)
[2018-11-30] MEDS: ATORVASTATIN 20 MG TAB PO SCH (21:00)
[2018-11-30] MEDS: DOXAZOSIN 2 MG TAB PO SCH (21:00)
[2018-12-01] MEDS: PIPER/TAZO/NS 2.25gm 2.25 GM/50 ML BAG IVPB SCH ×3 (00:53→16:40)
--- NOTE | 2018-12-01 02:08 | PN ---
Date of Progress Note: 11/30/2018 Subjective: The patient was seen this morning for followup. Last night he had acute respiratory distress with significant hypoxia and he was started on BiPAP and responded very well. On basis of information I got last night the patient had acute respiratory failure with hypoxia, but responded very well to BiPAP. When I saw him this morning he was on BiPAP, his daughter was at bedside and patient was very comfortable. Objective: Vital Signs: Reviewed. HEENT: Examination unremarkable. Lungs: Clear to auscultation. No rhonchi or rales. Heart: Sounds normal. Abdomen: Soft. Bowel sounds normal. No guarding, rigidity, tenderness, or distention. Extremities: Bilateral leg edema, unchanged. Laboratory Data: White count 12.8, hemoglobin 8.4, platelets 238. Sodium 134, potassium 5.2, chloride 98, bicarb 24, BUN 78, creatinine 5.44, glucose 498. A 10 units of regular insulin IV was ordered this morning. Impression: 1. Acute respiratory failure with hypoxia. 2. Severe chronic obstructive pulmonary disease. 3. End-stage renal disease, on hemodialysis. 4. Hyperkalemia. 5. Diabetes mellitus, uncontrolled. Plan: This morning I did confirm with the nursing staff that the patient has not received any steroid since I had discontinued it yesterday. We will continue monitoring fingerstick blood sugar, insulin pump that the patient is using. He will continue to make adjustment on it depending on the blood sugar. We will continue BiPAP. Follow up with Dr. Cole from Pulmonary and home medications will be continued per order. I will see him tomorrow for followup. VIELKA/MODL Voice ID: [id number] Report ID: [id number] MTDD
[2018-12-01] MEDS: ALBUTEROL 2.5 MG/3 ML NEB SOL NEB PRN ×6 (03:30→23:15)
[2018-12-01] MEDS: IPRATROPIUM BROM 0.5MG/2.5ML NEB PRN ×6 (03:30→23:15)
[2018-12-01] MEDS: LEVOTHYROXINE SOD 0.112 MG TAB PO SCH (05:37)
[2018-12-01] MEDS: LEVOTHYROXINE SOD 0.025 MG TAB PO SCH (05:37)
[2018-12-01] MEDS: ARFORMOTEROL TARTRATE 15 MCG/2 ML VIAL.NEB NEB SCH ×2 (08:10→19:30)
[2018-12-01] MEDS: FUROSEMIDE 40 MG TABLET PO SCH ×2 (08:51→16:39)
[2018-12-01] MEDS: FINASTERIDE 5 MG TAB PO SCH (08:51)
[2018-12-01] MEDS: CA ACETATE 667 MG CAP PO SCH ×3 (08:51→16:39)
[2018-12-01] MEDS: DULERA 100/5 (MOMETASONE/FORMOTEROL) INHALER IH SCH (08:51)
[2018-12-01] MEDS: ASPIRIN EC 81 MG TAB PO SCH (08:52)
[2018-12-01] MEDS: METOPROLOL XL 25 MG TAB PO SCH ×2 (08:52→20:42)
[2018-12-01] MEDS: TAMSULOSIN 0.4 MG SR CAP PO SCH (08:52)
[2018-12-01] MEDS: AMLODIPINE 5 MG TAB PO SCH (08:52)
[2018-12-01] MEDS: CALCIUM CARBONATE CHEW 500MG TAB PO SCH ×3 (08:52→20:43)
--- NOTE | 2018-12-01 13:25 | P.PN ---
Subjective Date of Service: 12/01/18 Chief Complaint: Respiratory distress Patient is slightly better over complains of dyspnea on mild exertion BiPAP does help him. According to the relative he was very active before used to mow his own lawn became suddenly worse patient is hypoxic hypercapnic no evidence of sepsis left leg is more swollen than the right Review of Systems General: Weakness Respiratory: Shortness of Breath Physical Examination - Vital Signs Temperature: 98 F Blood Pressure: 147/63 Pulse: 98 Respirations: 20 Pulse Ox (%): 97 - Physical Exam General: Alert, Mild distress Neck: Supple Respiratory: Diminished, Expiratory wheezes Cardiovascular: Edema (Left edema greater than the right) Assessment & Plan - Problems (Diagnosis) (1) Respiratory failure Current Visit: Yes Status: Acute Plan: Patient admitted with respiratory failure patient is hypercapnic hypoxic chest x -ray seems to have improved will arrange for a CT pulmonary angiogram lower extremity venous Doppler feels better after dialysis again is very hyperglycemic no evidence of sepsis cultures are so far negative Qualifiers: Chronicity: acute on chronic Respiratory failure complication: hypoxia Qualified Code(s): J96.21 - Acute and chronic respiratory failure with hypoxia
--- NOTE | 2018-12-01 14:21 | P.PN ---
Subjective Date of Service: 12/01/18 Chief Complaint: Respiratory distress Subjective: No new changes Pt with ESRD , admitted for COPD exacerbation Today Still on BiPAP edema improved after dialysis plan for CT Angio tomorrow HD tomorrow Hb stable Physical Examination - Vital Signs Temperature: 98 F Blood Pressure: 147/63 Pulse: 98 Respirations: 20 Pulse Ox (%): 97 - Physical Exam General: Alert, Mild distress HEENT: Atraumatic Neck: Supple, Without JVD or thyroid abnormality Respiratory: Diminished, Expiratory wheezes Cardiovascular: Regular rate/rhythm, Normal S1 S2, No gallops, No rubs, No murmurs, Edema Gastrointestinal: Normal bowel sounds, Soft and benign Assessment And Plan - Current Problems (Diagnosis) (1) COPD exacerbation Onset Date: 02/11/17 Current Visit: No Status: Acute (2) ESRD (end stage renal disease) on dialysis Onset Date: 02/11/17 Current Visit: No Status: Chronic - Plan ESRD will cont HD mwf renal diet and renal dose meds COPD exacerbation improved after biPAP and nebulizer steroids switched to PO due to hyperglycemia on Zosyn Hyperkalemia corrected on HD Ventral hernia asymptomatic HTN controlled PNA on Abx MBD cont binders mild leuckocytosis likely due to seroids DM as per primary PO steroids Anemia on JANEL
--- NOTE | 2018-12-01 18:07 | RAD REPORT ---
EXAM DESCRIPTION: USExtrem Venous W Compress Bil12/01/2018 5:47 pm CLINICAL HISTORY: Bilateral leg swelling COMPARISON: 2014 FINDINGS: The common femoral, superficial femoral, popliteal and posterior tibial veins bilaterally are compressible and demonstrate augmentation. Doppler demonstrates good flow. IMPRESSION: No evidence of deep venous thrombosis involving either lower extremity.
[2018-12-01] MEDS: DOXAZOSIN 2 MG TAB PO SCH (20:41)
[2018-12-01] MEDS: APIXABAN 2.5 MG TABLET PO SCH (20:42)
[2018-12-01] MEDS: ATORVASTATIN 20 MG TAB PO SCH (20:43)
--- NOTE | 2018-12-02 00:02 | PN ---
Date of Progress Note: 12/01/2018 Subjective: The patient was seen this morning for followup. No new complaints, problems reported by the patient, lying in bed, not in distress. He was on BiPAP. His daughter was present with him at bedside. Objective: Vital Signs: Reviewed. HEENT: Unremarkable. Lungs: Clear to auscultation. No rhonchi or rales. Heart: Sounds normal. Abdomen: Soft. Bowel sounds normal. No guarding, rigidity, tenderness, distention. Extremities: Trace leg edema, overall much better than before. Impression: 1.Acute respiratory failure with hypoxia. 2.COPD. 3.End-stage renal disease, on hemodialysis. 4.Ventral abdominal wall hernia. Plan: Continue current medication. Continue BiPAP. Continue to follow up with Dr. Cole. Nephr ologist is providing dialysis support and I will see him tomorrow for followup. Discharge plan will depend on recommendations from Dr. Cole. We will continue current antibiotic, which is Zosyn. VIELKA/MODL Voice ID: [id number] Report ID: [id number]
[2018-12-02] MEDS: PIPER/TAZO/NS 2.25gm 2.25 GM/50 ML BAG IVPB SCH ×3 (00:56→17:15)
[2018-12-02] MEDS: ALBUTEROL 2.5 MG/3 ML NEB SOL NEB PRN ×3 (03:45→12:20)
[2018-12-02] MEDS: IPRATROPIUM BROM 0.5MG/2.5ML NEB PRN ×3 (03:45→12:20)
[2018-12-02] MEDS: LEVOTHYROXINE SOD 0.025 MG TAB PO SCH (05:14)
[2018-12-02] MEDS: LEVOTHYROXINE SOD 0.112 MG TAB PO SCH (05:14)
[2018-12-02 05:34] VITALS: BMI 25.2
[2018-12-02] MEDS: FUROSEMIDE 40 MG TABLET PO SCH ×2 (07:10→17:00)
[2018-12-02] MEDS: AMLODIPINE 5 MG TAB PO SCH (07:10)
[2018-12-02] MEDS: METOPROLOL XL 25 MG TAB PO SCH ×2 (07:11→22:02)
[2018-12-02] MEDS: ARFORMOTEROL TARTRATE 15 MCG/2 ML VIAL.NEB NEB SCH ×2 (07:40→20:00)
[2018-12-02] MEDS: APIXABAN 2.5 MG TABLET PO SCH ×2 (08:52→22:00)
[2018-12-02] MEDS: CA ACETATE 667 MG CAP PO SCH ×3 (08:52→17:15)
[2018-12-02] MEDS: CALCIUM CARBONATE CHEW 500MG TAB PO SCH ×3 (08:52→22:00)
[2018-12-02] MEDS: TAMSULOSIN 0.4 MG SR CAP PO SCH (08:52)
[2018-12-02] MEDS: ASPIRIN EC 81 MG TAB PO SCH (08:52)
[2018-12-02] MEDS: FINASTERIDE 5 MG TAB PO SCH (08:52)
--- NOTE | 2018-12-02 09:02 | RAD REPORT ---
EXAM DESCRIPTION: CT - Chest For Pe Angio - 12/02/2018 8:40 am CLINICAL HISTORY: Shortness of breath/respiratory failure COMPARISON: November 29, 2018 x-ray TECHNIQUE: Dynamically enhanced axial 3 mm thick images of the chest were obtained during administra tion of <100> mL Isovue 370 IV contrast. Coronal and oblique reconstruction images were generated and reviewed. Exam utilizes a protocol for optimal evaluation of pulmonary arterial tree. Maximum intensity projections 3D imaging was utilized All CT scans are performed using dose optimization technique as appropriate and may include automated exposure control or mA/KV adjustment according to patient size. FINDINGS: A pulmonary embolus is not seen. A thoracic aortic aneurysm is not noted. Small to moderate bilateral pleural effusions. A pericardial effusion is not seen. Mild bibasilar atelectasis. Mild alveolar opacities within the left lung. Centrilobular emphysema 2 centimeter left adrenal adenoma Mild mediastinal and hilar lymphadenopathy unchanged from a October 2018 CT chest IMPRESSION: Negative for a pulmonary embolism. Mild alveolar opacities within the left lung consistent with improving pneumonia
--- NOTE | 2018-12-02 09:44 | P.PN ---
Subjective Date of Service: 12/02/18 Chief Complaint: SOB Pts SOb has improved. NE of DVT or PE. Relatives state pt is anxious Review of Systems General: Weakness Respiratory: Shortness of Breath Physical Examination - Vital Signs Temperature: 97.9 F Blood Pressure: 118/61 Pulse: 94 Respirations: 18 Pulse Ox (%): 95 - Physical Exam General: Alert, In no apparent distress, Oriented x3 Neck: Supple Respiratory: Clear to auscultation bilaterally, Diminished Cardiovascular: No edema, Regular rate/rhythm Assessment & Plan - Problems (Diagnosis) (1) Respiratory failure Current Visit: Yes Status: Acute Plan: Doign better. NE of PE or DVT. Ct bilateral pleural effuisons. Xanax prn for anxiety. Will fax nebulizer and meds from office. Poss D/C home. Cultures neg. improving pneumnia. Ab not indicated Qualifiers: Chronicity: acute on chronic Respiratory failure complication: hypoxia Qualified Code(s): J96.21 - Acute and chronic respiratory failure with hypoxia
--- NOTE | 2018-12-02 10:01 | P.PN ---
Subjective Date of Service: 12/02/18 Chief Complaint: SOB Subjective: Improving Pt with ESRD , admitted for COPD exacerbation Today no new complaints Stable VS off BiPAP , no wheezes on exam BS better controlled now HD today Physical Examination - Vital Signs Temperature: 97.9 F Blood Pressure: 118/61 Pulse: 94 Respirations: 18 Pulse Ox (%): 95 - Physical Exam General: Alert, In no apparent distress HEENT: Atraumatic Neck: Supple, Without JVD or thyroid abnormality Respiratory: Normal air movement, Diminished Cardiovascular: Regular rate/rhythm, Normal S1 S2, No gallops, No rubs, No murmurs, Edema Gastrointestinal: Normal bowel sounds, Soft and benign Assessment And Plan - Current Problems (Diagnosis) (1) COPD exacerbation Onset Date: 02/11/17 Current Visit: No Status: Acute (2) ESRD (end stage renal disease) on dialysis Onset Date: 02/11/17 Current Visit: No Status: Chronic - Plan ESRD will cont HD mwf renal diet and renal dose meds COPD exacerbation improved after biPAP and nebulizer steroids switched to PO due to hyperglycemia on Zosyn Hyperkalemia corrected on HD Ventral hernia asymptomatic HTN controlled PNA on Abx MBD cont binders mild leuckocytosis likely due to seroids DM as per primary PO steroids Anemia on JANEL
--- NOTE | 2018-12-02 12:32 | PN ---
Date of Progress Note: 12/02/2018 Subjective: The patient was seen this morning for followup. No new complaints or problems reported by him. He was on BiPAP and his daughter was present with him at bedside. The patient has used BiPA P and nasal cannula oxygen off and on throughout the day yesterday. This morning, he denied any othe r new complaints. He has a good appetite. He had a bowel movement yesterday. Objective: Vital Signs: Reviewed. HEENT: Examination unremarkable. Lungs: Clear to auscultation. No rhonchi. No rales. Heart: Sounds normal. Abdomen: Soft. Bowel sounds normal. No guarding, rigidity, tenderness, or distention. Extremity: Trace leg edema. Laboratory Data: Venous Doppler of lower extremity done yesterday, it was negative for DVT. Impression: 1.Respiratory failure, with hypoxia, acute. 2.Chronic obstructive pulmonary disease. 3.End-stage renal disease, on hemodialysis. 4.Hypertension. 5.Diabetes mellitus. 6.Anemia due to chronic kidney disease. Plan: We will continue current medications, oxygen nebulizer treatment, insulin per order. We will continue to follow with Dr. Cole and I will see him tomorrow for followup. VIELKA/MODL Voice ID: [id number] Report ID: [id number]
[2018-12-02] MEDS: EPOETIN ALFA 10,000 UNIT/ML VIAL SQ SCH (16:36)
[2018-12-02] MEDS: DOXAZOSIN 2 MG TAB PO SCH (22:00)
[2018-12-02] MEDS: ATORVASTATIN 20 MG TAB PO SCH (22:00)
[2018-12-03] MEDS: PIPER/TAZO/NS 2.25gm 2.25 GM/50 ML BAG IVPB SCH ×2 (01:14→09:00)
[2018-12-03] MEDS: LEVOTHYROXINE SOD 0.112 MG TAB PO SCH (05:55)
[2018-12-03] MEDS: LEVOTHYROXINE SOD 0.025 MG TAB PO SCH (05:55)
[2018-12-03] MEDS: ALBUTEROL 2.5 MG/3 ML NEB SOL NEB PRN ×2 (07:37→11:34)
[2018-12-03] MEDS: IPRATROPIUM BROM 0.5MG/2.5ML NEB PRN ×2 (07:37→11:34)
[2018-12-03] MEDS: ARFORMOTEROL TARTRATE 15 MCG/2 ML VIAL.NEB NEB SCH (07:37)
[2018-12-03] MEDS: AMLODIPINE 5 MG TAB PO SCH (08:58)
[2018-12-03] MEDS: METOPROLOL XL 25 MG TAB PO SCH (08:58)
[2018-12-03] MEDS: CA ACETATE 667 MG CAP PO SCH ×2 (08:59→12:17)
[2018-12-03] MEDS: TAMSULOSIN 0.4 MG SR CAP PO SCH (08:59)
[2018-12-03] MEDS: FUROSEMIDE 40 MG TABLET PO SCH (08:59)
[2018-12-03] MEDS: ASPIRIN EC 81 MG TAB PO SCH (08:59)
[2018-12-03] MEDS: CALCIUM CARBONATE CHEW 500MG TAB PO SCH ×2 (08:59→12:17)
[2018-12-03] MEDS: APIXABAN 2.5 MG TABLET PO SCH (08:59)
[2018-12-03] MEDS: FINASTERIDE 5 MG TAB PO SCH (08:59)
[2018-12-03 09:00] VITALS: BP 110/61
[2018-12-03 09:21] VITALS: TEMP 98.4
--- NOTE | 2018-12-03 10:48 | P.PN ---
Subjective Date of Service: 12/03/18 Chief Complaint: SOB Patient is doing much better wants to go relatives complain of anxiety attacks Review of Systems General: Weakness Respiratory: Shortness of Breath Physical Examination - Vital Signs Temperature: 98.4 F Blood Pressure: 110/61 Pulse: 82 Respirations: 20 Pulse Ox (%): 100 - Physical Exam General: Alert, In no apparent distress, Oriented x3 Respiratory: Clear to auscultation bilaterally, Diminished Assessment & Plan - Problems (Diagnosis) (1) Respiratory failure Current Visit: Yes Status: Acute Plan: Doing much better alert responsive cooperative plan to discharge today I have given him a prescription for nebulizer including albuterol solution also a low- dose of Xanax 0.125 mg q.8h p.r.n. number 30 with no evidence of DVT PE he did have bilateral pleural effusions no evidence of an infection blood sugars under control labs reviewed cultures negative follow up in my office in 1-2 weeks Qualifiers: Chronicity: acute on chronic Respiratory failure complication: hypoxia Qualified Code(s): J96.21 - Acute and chronic respiratory failure with hypoxia
[2018-12-03 13:10] VITALS: O2SAT 96
--- NOTE | 2018-12-03 13:26 | P.PN ---
Subjective Date of Service: 12/03/18 Chief Complaint: SOB Subjective: Improving Pt with ESRD , admitted for COPD exacerbation Today no new complaints off steroids BS better controlled Chest clear on exam Cleared for discharge from nephrology point of view Physical Examination - Vital Signs Temperature: 98.4 F Blood Pressure: 110/61 Pulse: 82 Respirations: 20 Pulse Ox (%): 100 - Physical Exam General: Alert, In no apparent distress HEENT: Atraumatic Neck: Supple, Without JVD or thyroid abnormality Respiratory: Clear to auscultation bilaterally Cardiovascular: Regular rate/rhythm, Normal S1 S2, No gallops, No rubs, No murmurs, Edema (lt edema +1, Rt trace edema ) Gastrointestinal: Normal bowel sounds, Soft and benign Integumentary: No rashes Assessment And Plan - Current Problems (Diagnosis) (1) COPD exacerbation Onset Date: 02/11/17 Current Visit: No Status: Acute (2) ESRD (end stage renal disease) on dialysis Onset Date: 02/11/17 Current Visit: No Status: Chronic - Plan ESRD will cont HD mwf renal diet and renal dose meds COPD exacerbation Improved Hyperkalemia corrected on HD Ventral hernia asymptomatic HTN controlled PNA on Abx MBD cont binders mild leuckocytosis likely due to seroids DM as per primary PO steroids Anemia on JANEL
--- NOTE | 2018-12-04 12:18 | DS ---
Date of Discharge: 12/03/2018 Disposition: Discharged to go home. Physical Examination: HEENT Examination: Unremarkable. Lungs: Clear to auscultation. Heart: Sounds normal. Abdomen: Soft. Bowel sounds normal. No guarding, rigidity, tenderness, or distention. Extremity Exam: Trace leg edema. Discharge Medications And Instructions: 1.Continue prior home medications. 2.Take new medication as prescribed by Dr. Cole, which is albuterol nebulizer treatment 3-4 time s a day p.r.n. for shortness of breath and alprazolam 0.125 mg 3 times a day p.r.n. for anxiety. 3.Follow with Dr. Cole in 1-2 weeks. 4.Follow up at my office during first week of January 2019. Hospital Course: This is an 83-year-old male patient admitted to the hospital with shortness of minh th complaint. Please see dictated H and P for more information. His chest x-ray had shown changes o f advanced emphysematous changes. Mild ill-defined opacity, left lung base. Overall better than abraham or chest x-ray few days prior to this admission and the patient was admitted to the hospital with sev ere COPD problem. He gets short of breath and hypoxic with any activity. The patient also experienc ed respiratory failure during this hospitalization with hypoxia, and it was treated with oxygen and n ebulizer treatment along with BiPAP therapy. Dr. Cole was consulted and he managed patient's pul monary problem. The patient was also given IV antibiotic, Zosyn, for his pneumonia problem. At home , he was taking Augmentin. Pneumonia continued to get better. Nephrology consultation was requested for his dialysis support. His other medical problems remained stable and initially he was given IV steroid, which we had to discontinue because that caused his blood sugar to go up to more than 500 ra nge. The patient is on insulin pump, which is being managed by his remote sensing technologist. Overall conditi on has improved now. He has not used any BiPAP in last [address] Cole saw him this mornin g and he has released the patient to go home from Pulmonary point of view since he is doing well. Me dically, he is stable for discharge. Today when I saw him, his 2 daughters were present at bedside w ith him and the patient feels comfortable going home. Dr. Cole also has given him prescription f or the nebulizer machine. Final Diagnoses: 1.Acute respiratory failure with hypoxia. 2.Severe chronic obstructive pulmonary disease. 3.End-stage renal disease, on hemodialysis. 4.Anemia due to chronic kidney disease. 5.Ventral hernia of abdominal wall without obstruction. 6.Hypertension. 7.Type 2 diabetes mellitus, insulin dependent, uncontrolled. 8.Hyperlipidemia. 9.Hypothyroidism. 10.Benign prostatic hypertrophy. 11.Gastroesophageal reflux disease. Laboratory Data: Labs done during this hospitalization: Blood gas; pH 7.42, pCO2 of 36.2, pO2 of 57 .2, saturation was 88.9% on 28% FiO2. Initial white count 12.3, hemoglobin 8.5, platelets 250 on . Initial chemistry on 11/29/2018; sodium 139, potassium 4.4, chloride 101, bicarb 27, BUN 65 , creatinine 4.99, glucose 291. VIELKA/MODL Voice ID: [id number] Report ID: [id number]
== END 2018-12-03 14:37 | disposition home or self-care (01) | DRG 190 ==
LOC: ER 10:52 → ERHOLD 12:09 → 4TH 14:18
PROVIDERS: ADMIT Internal Medicine; ATTEND Internal Medicine
PROC: 5A1D70Z Performance of Urinary Filtration, Intermittent, Less than 6 Hours Per Day (ICD-10-PCS; principal; 2018-11-30)
PROC: 5A09457 Assistance with Respiratory Ventilation, 24-96 Consecutive Hours, Continuous Positive Airway Pressure (ICD-10-PCS; 2018-11-30)
DX: J44.1 Chronic obstructive pulmonary disease with (acute) exacerbation (principal); N18.6 End stage renal disease; J96.22 Acute and chronic respiratory failure with hypercapnia; J96.21 Acute and chronic respiratory failure with hypoxia; J18.9 Pneumonia, unspecified organism; I12.0 Hypertensive chronic kidney disease with stage 5 chronic kidney disease or end stage renal disease; J44.0 Chronic obstructive pulmonary disease with (acute) lower respiratory infection; Z99.81 Dependence on supplemental oxygen; E11.22 Type 2 diabetes mellitus with diabetic chronic kidney disease; E11.65 Type 2 diabetes mellitus with hyperglycemia; E11.51 Type 2 diabetes mellitus with diabetic peripheral angiopathy without gangrene; Z99.2 Dependence on renal dialysis; D63.1 Anemia in chronic kidney disease; K43.9 Ventral hernia without obstruction or gangrene; E78.5 Hyperlipidemia, unspecified; E03.9 Hypothyroidism, unspecified; N40.0 Benign prostatic hyperplasia without lower urinary tract symptoms; K21.9 Gastro-esophageal reflux disease without esophagitis; E87.5 Hyperkalemia; D72.829 Elevated white blood cell count, unspecified; T38.0X5A Adverse effect of glucocorticoids and synthetic analogues, initial encounter; Z79.82 Long term (current) use of aspirin; Z79.51 Long term (current) use of inhaled steroids; Z79.52 Long term (current) use of systemic steroids; Z96.41 Presence of insulin pump (external) (internal); Z87.891 Personal history of nicotine dependence; Z86.73 Personal history of transient ischemic attack (TIA), and cerebral infarction without residual deficits; Z98.62 Peripheral vascular angioplasty status; Z77.090 Contact with and (suspected) exposure to asbestos
CPT/HCPCS: 36415; 71045; 71275; 80048; 82805; 82947; 82962; 83880; 85025; 87040; 90935; 93005; 93970; 94640; 94660; 94760; 94761; 96374; 99285; J1644; J2920; J2930; J7605; J7606; Q4081; Q9967

== ENCOUNTER 2018-12-04 11:14 | Inpatient (IN) | payer OTHER ==
--- OUTSIDE RECORDS SUMMARY | 2018-12-04 11:18 | XMS REPORT | Continuity of Care Document ---
:1935 Author Organization [employer] Care Team Providers Name Role Phone [employer] Unavailable Unavailable Problems Problem Status Onset Classification Date Comments [...] Reported No Known Unknown Allergy to Active [facility]. Drug Substance 8 [facility] All[facility]ies [place] Immunizations No Data Provided for This Section Results Order Name Results Value Reference Date Interpretation Comments Source Range Laboratory Bedside 251 65 - 120 07/08 [facility] [address] Studies Glucose /2018 [facility] [place] Laboratory Total 0.7 0.3 - 1.2 07/08 [facility] [address] Studies Bilirubin /2017 [facility] [place] [facility] Sodium Level 139 135 - 145 07/[address] [facility] [address] Studies /2017 [facility] [place] [facility] Serum Total 5.5 6.0 - 8.3 07/08 [facility] [address] Studies Protein /2017 [facility] [place] [facility] Potassium 4.1 3.6 - 5.0 07/08 [facility] [address] Studies Level /2017 [facility] [place] Laboratory Lipase 18 22 - 51 07/08 [facility] [address] Studies [facility] [place] [facility] Glucose Level 156 65 - 120 07/08 [facility] [address] Studies [facility] [place] [facility] Globulin 2.5 2.3 - 3.5 07/08 [facility] [address] Studies /2018 [facility] [place] Laboratory Estimat 22 90 07/08 [facility] [address] Studies Glomerular /2017 [facility] Filtration [place] Rate Laboratory Direct 0.1 0 - 0.2 07/08 [facility] [address] Studies Bilirubin [facility] [place] Laboratory Creatinine 2.80 0.61 - 07/08 [facility] [address] Studies 1.24 [facility] [place] Laboratory Chloride Level 108 101 - 111 07/[address] [facility] [address] Studies [facility] [place] [facility] Carbon Dioxide 24 21 - 31 07/08 [facility] [address] Studies Level /2018 [facility] [place] Laboratory Calcium Level 8.6 8.5 - 10.5 07/08 [facility] [address] Studies [facility] [place] [facility] Blood Urea 33 6 - 20 07/08 [facility] [address] Studies Nitrogen /2017 [facility] [place] Laboratory Aspartate 28 10 - 42 07/08 [facility] [address] Studies Amino Transf /2017 [facility] - (AST/SGOT) [place] Laboratory Alkaline 90 42 - 121 07/08 [facility] [address] Studies Phosphatase /2018 [facility] [place] Laboratory Albumin/Globul 1.2 1.1 - 1.8 07/08 [facility] [address] Studies in Ratio /2017 [facility] [place] Laboratory Albumin 3.0 3.2 - 5.5 07/08 [facility] [address] Studies /2017 [facility] [place] [facility] Alanine 15 10 - 60 07/08 [facility]. Studies Aminotransfera /2017 [facility] - se (ALT/SGPT) [place] Laboratory White Blood 5.6 4.3 - 10.9 07/08 [facility] [address] Studies Count /2017 [facility] [place] [facility] Red Cell 15.5 12.1 - 02 [facility] Studies Distribution 15.2 /2017 [facility] - Width [place] Laboratory Red Blood 3.93 4.33 - 02 [facility]. Studies Count 5.43 /2017 [facility] [place] [facility] Platelet Count 164 152 - 406 07/08 [facility] [address] Studies [facility] [place] [facility] Neutrophils % 62.5 41.7 - 07/08 [facility] [address] Studies 73.7 /2017 [facility] [place] [facility] Monocytes % 9.9 3.3 - 12.3 07/08 [facility] [address] Studies /2017 [facility] [place] [facility] Mean Platelet 9.4 7.6 - 11.3 07/08 [facility] [address] Studies Volume /2017 [facility] [place] [facility] Mean 93.5 80 - 100 07/08 [facility]. Studies Corpuscular /2017 [facility] Volume [place] Laboratory Mean 32.5 32.0 - 02 [facility]. Studies Corpuscular 36.0 /2017 [facility] Hemoglobin [place] [facility] Mean 30.4 27.0 - 07/08 [facility]. Studies Corpuscular 35.0 /2017 [facility] - Hemoglobin [place] Laboratory Lymphocytes % 24.2 15.3 - 02 [facility] [address] Studies 44.8 /2017 [facility] [place] [facility] Hemoglobin 12.0 13.6 - 02 [facility] [address] Studies 17.9 /2017 [facility] [place] [facility] Hematocrit 36.7 39.6 - 07/08 [facility] [address] Studies 49.0 /2017 [facility] [place] [facility] Eosinophils % 2.8 0 - 4.4 07/08 [facility] [address] Studies /2017 [facility] [place] [facility] Basophils % 0.6 0 - 1.3 07/08 [facility] [address] Studies /2017 [facility] [place] [facility] Absolute 3.5 1.8 - 8.0 07/08 [facility]. Studies Neutrophil /2018 [facility] [place] Laboratory Absolute 0.6 0.1 - 1.3 07/08 [facility]. Studies Monocytes [facility] - (CBC) [place] Laboratory Absolute 1.4 0.7 - 4.9 07/08 St. Studies Lymphocytes [facility] (CBC) [place] Laboratory Absolute 0.2 0 - 0.5 07/08 . Studies Eosinophils [facility] (CBC) [place] Laboratory Absolute 0.0 0 - 0.5 07/08 [facility]. Studies Basophils [facility] - (CBC) [place] Laboratory Urine pH 5.5 07/07 St. Studies /2017 [facility] [place] [facility] Urine Total Urine 07/07 [facility]. Studies Protein Total [facility] - Protein [place] Laboratory Urine Specific >1.030 07/07 [facility] Studies [place] [facility] [place] Laboratory Urine Nitrite Urine 07/07 [facility]. Studies Nitrite [facility] [place] Laboratory Urine Urine 07/07 [facility] Studies Leukocyte Leukocyte [facility] - Esterase Esterase [place] Laboratory Urine Ketones Urine 07/07 [facility] Studies Ketones [facility] [place] Laboratory Urine Glucose Urine 07/07 [facility] Studies Glucose [facility] [place] Laboratory Urine Blood Urine 07/07 [facility] Studies Blood [facility] [place] Laboratory B-Type 259 07/07 [facility]. Studies Natriuretic [facility] Peptide [place] Laboratory Creatine 3.8 0.3 - 4.0 07/07 [facility]. Studies Kinase MB [facility] [place] Laboratory Magnesium 2.0 1.8 - 2.5 07/07 [facility]. Studies Level /2017 [facility] [place] Laboratory Creatine 62 22 - 269 07/07 [facility]. Studies Kinase [facility] [place] Laboratory Rapid Troponin <0.03 07/07 [facility]. Studies I [facility] [place] Laboratory Prothrombin 10.7 9.5 - 12.5 07/07 [facility]. Studies Time [facility] [place] Laboratory INR 0.91 07/07 [facility]. Studies International [facility] - Normalized [place] Ratio Laboratory Activated 29.4 24.3 - 07/07 [facility]. Studies Partial 36.9 [facility] - Thromboplast [place] Time Pathology Reports No Data Provided for This Section Diagnostic Reports No Data Provided for This Section Consultation Notes No Data Provided for This Section Discharge Summaries No Data Provided for This Section History and Physicals No Data Provided for This Section Vital Signs Vital Sign Value Date Comments Source Temperature Oral (F) 98.7 F 07/08/[address] [facility] [place] Heart Rate 59 07/08/[address] [facility] [place] Respitory Rate 18 07/08/[address] [facility] [place] Systolic (mm Hg) 190 07/08/[address] [facility] [place] Diastolic (mm Hg) 76 07/08/[address] [facility] [place] Height 67 07/07/[address] [facility] [place] Weight 162.25 07/07/[address] [facility] [place] Encounters Location Location Encounter Encounter Reason Attending ADM DC Status Source Details Type Number For Provider Date Date Visit [facility] . Discharged [id number] 07/07 07/08 [facility] [place] Procedures Procedure Code Date Perfomer Comments Source [place] Count [id number] 07/07/[address] [facility] [place] [id number] 07/07/[address] [facility] [place] Abdomen Acute [id number] 07/07/[address] [facility] [place] Assessment and Plan No Data Provided for This Section Plan of Care Plan of Care Date Source Instructions 07/08/[address] [facility] [place] Chronic Renal Failure DI for Urinary Tract Infection (UTI) Instructions 07/08/[address] [facility] [place] Chronic Renal Failure DI for Urinary Tract Infection (UTI) Social History Social History Date Source Query Response Date Recorded Comment 06/07/[address] [facility] [place] Alcohol Use? No July 07, 2017 5:27pm CD- Drugs? No July 07, 2017 5:27pm Query Response Start Date Stop Date Smoking Status Former smoker June 07, 2050 June 07, 2012 Family History Value Date Source Query Response Instance Date Recorded Comment 07/08/2017 [facility] [place] Nurses notes Prostate ca Father July 07, 2017 5:27pm Medical History Stroke Mother July 07, 2017 5:27pm Medical History Cancer Father July 07, 2017 5:27pm Medical History Stroke Kidney disease Brother July 07, 2017 5:27pm Nurses notes prostate ca November 06, 2014 1:00pm Medical History Stroke Kidney disease November 06, 2014 1:00pm Advance Directives Order Name Results Value Date Source Advance Directives Advance Directives Advance Directive Response Recorded Date/Time 07/08/2017 [facility] - Does Patient Have Living Will [place] No July 07, 2017 5:27pm Durable Power of [place] [employer] for Health Care No July 07, 2017 5:27pm Would you like additional information No July 07, 2017 5:27pm Functional Status No Data Provided for This Section
--- OUTSIDE RECORDS SUMMARY | 2018-12-04 11:18 | XMS REPORT | Clinical Summary ---
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 after 12/03/2017 Family History Medical History Relation Name Comments [...] Taken Blood Pressure 157/63 04/28/2018 1:15 PM DEPUTY DIRECTOR Pulse 55 04/28/2018 1:15 PM DEPUTY DIRECTOR Temperature 36.5 C (97.7 F) 04/28/2018 1:15 PM DEPUTY DIRECTOR Respiratory Rate 18 04/28/2018 1:15 PM DEPUTY DIRECTOR Oxygen Saturation 100% 04/28/2018 1:15 PM DEPUTY DIRECTOR Inhaled Oxygen Concentration - - Weight 73.9 [...] INFLUENZA VACCINE 01/05/2019 Implants Implanted Type Area Knife Operator Device Shelf Model / Identifier Expiration Serial / Date Lot Clip Amandang Mohit Hemoclip Plus W/ Tape Ti Sm - [id number] Medical Left: WECK CLOSURE 02/14/2022 [id number] / Implanted: Qty: 1 on 09/09/2017 by Behzad Moore MD Clips for Arm, SYSTEMS / Internal Upper [id number] Use Clip Ligtng Weck Hemoclip Plus W/ Tape Ti Med - [id number] Medical Left: TELEFLEX 03/09/2022 [id number] / Implanted: Qty: 1 on 09/09/2017 by Behzad Moore MD Clips for Arm, MEDICAL / Internal Upper Use Hemodialysis Catheter Right: 02/03/2019 [id number] / Implanted: Qty: 1 on 04/19/2017 by Jhony Montesinos MD Chest / Procedures Procedure Name Priority Date/Time Associated Comments Diagnosis POC GLUCOSE Routine 04/28/2018 12:34 Results for this PM DEPUTY DIRECTOR procedure are in the results section. HEPATITIS B SURFACE Routine 04/28/2018 12:15 Results for this ANTIGEN PM DEPUTY DIRECTOR procedure are in the results section. HEMODIALYSIS Routine 04/28/2018 10:24 AM DEPUTY DIRECTOR POC GLUCOSE Routine 04/28/2018 8:01 Results for this AM DEPUTY DIRECTOR procedure are in the results section. HEMOGLOBIN A1C Routine 04/28/2018 6:37 Results for this AM DEPUTY DIRECTOR procedure are in the results section. HC COMPLETE BLD COUNT Routine 04/28/2018 6:37 Results for this W/AUTO DIFF AM DEPUTY DIRECTOR procedure are in the results section. ESTIMATED GFR Routine 04/28/2018 4:00 Results for this AM DEPUTY DIRECTOR procedure are in the results section. VITAMIN B12 LEVEL Routine 04/28/2018 4:00 Results for this AM DEPUTY DIRECTOR procedure are in the results section. FERRITIN LEVEL Routine 04/28/2018 4:00 Results for this AM DEPUTY DIRECTOR procedure are in the results section. THYROID STIMULATING Routine 04/28/2018 4:00 Results for this HORMONE AM DEPUTY DIRECTOR procedure are in the results section. LIPID PANEL Routine 04/28/2018 4:00 Results for this AM DEPUTY DIRECTOR procedure are in the results section. PHOSPHORUS LEVEL Routine 04/28/2018 4:00 Results for this AM DEPUTY DIRECTOR procedure are in the results section. MAGNESIUM LEVEL Routine 04/28/2018 4:00 Results for this AM DEPUTY DIRECTOR procedure are in the results section. BASIC METABOLIC PANEL Routine 04/28/2018 4:00 Results for this AM DEPUTY DIRECTOR procedure are in the results section. ECG 12-LEAD STAT 04/27/2018 10:30 Results for this PM DEPUTY DIRECTOR procedure are in the results section. POC GLUCOSE Routine 04/27/2018 9:33 Results for this PM DEPUTY DIRECTOR procedure are in the results section. POC GLUCOSE Routine 04/27/2018 5:17 Results for this PM DEPUTY DIRECTOR procedure are in the results section. LACTIC ACID LEVEL, Timed 04/27/2018 4:13 Results for this SEPSIS - NOW AND REPEAT PM DEPUTY DIRECTOR procedure are in 2X EVERY 3 HOURS the results section. BLOOD CULTURE, AEROBIC Routine 04/27/2018 4:13 Results for this & ANAEROBIC PM DEPUTY DIRECTOR procedure are in the results section. BLOOD CULTURE, AEROBIC Routine 04/27/2018 4:13 Results for this & ANAEROBIC PM DEPUTY DIRECTOR procedure are in the results section. US DUPLEX HEMODIALYSIS STAT 04/27/2018 4:08 Results for this AVG AVF ACCESS PM DEPUTY DIRECTOR procedure are in the results section. XR CHEST 1 VW PORTABLE STAT 04/27/2018 2:50 Results for this PM DEPUTY DIRECTOR procedure are in the results section. ESTIMATED GFR STAT 04/27/2018 1:45 Results for this PM DEPUTY DIRECTOR procedure are in the results section. BASIC METABOLIC PANEL STAT 04/27/2018 1:45 Results for this PM DEPUTY DIRECTOR procedure are in the results section. PARTIAL THROMBOPLASTIN STAT 04/27/2018 1:45 Results for this TIME (PTT) PM DEPUTY DIRECTOR procedure are in the results section. PROTHROMBIN TIME WITH STAT 04/27/2018 1:45 Results for this INR PM DEPUTY DIRECTOR procedure are in the results section. HC COMPLETE BLD COUNT STAT 04/27/2018 1:45 Results for this W/AUTO DIFF PM DEPUTY DIRECTOR procedure are in the results section. [place] REMOVAL TUNNELED CV Routine 01/18/2018 10:40 ESRD (end stage Results for this CATH W/O SUBQ PORT OR AM CDT renal disease) procedure are in PUMP 2017 MWF the results ESRD (end stage section. renal disease) on dialysis after 12/03/2017 Results POC glucose (04/28/2018 12:34 PM DEPUTY DIRECTOR)Only the most recent of4 resultswithin the time period is included. POC glucose 200 (H) 65 - 99 mg/dL [facility] Comment: HOSPITAL No Action Needed Meter ID: [id number] Digital Designer: Adam Elmore Specimen Performing Organization Address City/State/Zipcode Phone Number [facility] DEPARTMENT OF PATHOLOGY AND [address] [place] [address] GENOMIC MEDICINE [address] [address] Hepatitis B surface antigen (04/28/2018 12:15 PM DEPUTY DIRECTOR) Pathologist [facility] Hepatitis B surface Non-reactive Non-reactive [facility] Specimen Blood Performing Organization Address City/State/Zipcode Phone Number [facility] DEPARTMENT OF PATHOLOGY AND [address] [place] [address] [address] CBC with platelet and differential (04/28/2018 6:37 AM DEPUTY DIRECTOR)Only the most recent of2 resultswithin the time period is included. Pathologist [facility] WBC 10.65 4.50 - 11.00 [facility] k/uL HOSPITAL RBC 2.73 (L) 4.40 - 6.00 [facility] m/uL [facility] HGB 8.6 (L) 14.0 - 18.0 [facility] gdL [facility] HCT 27.6 (L) 41.0 - 51.0 % [facility] MCV 101.1 (H) 82.0 - 100.0 [facility] MCH 31.5 27.0 - 34.0 pg [facility] MCHC 31.2 31.0 - 37.0 [facility] RDW - SD 55.2 (H) 37.0 - 55.0 fL [facility] MPV 11.4 8.8 - 13.2 [facility] Platelet count 308 150 - 400 k/uL [facility] Nucleated RBC 0.20 /100 WBC [facility] Neutrophils 61.5 39.0 - 69.0 % [facility] Lymphocytes 25.5 25.0 - 45.0 % [facility] Monocytes 8.5 0.0 - 10.0 % [facility] Eosinophils 2.5 0.0 - 5.0 % [facility] Basophils 0.5 0.0 - 1.0 % [facility] Immature granulocytes 1.5 0.0 - 1.0 % [facility] (H)Comment: HOSPITAL "Immature granulocytes" (promyelocytes , myelocytes, metamyelocytes ) Specimen Blood Performing Organization Address City/State/Zipcode Phone Number [facility] DEPARTMENT OF PATHOLOGY AND [address] [place] [address] [address] Hemoglobin A1c (04/28/2018 6:37 AM DEPUTY DIRECTOR) Hemoglobin A1C 8.1 (H) 4.0 - 5.6 % [facility] Comment: HOSPITAL HbA1c cutoffs for diagnosing diabetes: 4.0% - 5.6%=normal 5.7% - 6.4%=increased risk for diabetes (prediabetes) >=6.5%=diabetes Goals for glycemic control (ADA 2016) < 7.0%Target for non adults with diabetes. More or less stringent targets may be appropriate for individual patients. <7.5% Target for Children and adolescents with type 1 diabetes. Specimen Blood Performing Organization Address City/[facility] Phone Number [facility] DEPARTMENT OF PATHOLOGY AND [address] [place] [address] Estimated GFR (04/28/2018 4:00 AM DEPUTY DIRECTOR)Only the most recent of2 resultswithin the time period is included. Pathologist [facility] Estimated GFR 18 (A) mL/min/1.73 [facility] Comment: HOSPITAL CatergoryUnitsInterpretation G1 >=90 Normal or high G2 60-89Mildly decreased L0i98-66Khwlgj to moderately decreased Z5g57-92Npepnxrfxu to severely decreased G4 15-29Severely decreased G5 <15Kidney failure The eGFR was calculated using the Chronic Kidney Disease Epidemiology Collaboration (CKD-EPI) equation. Interpretation is based on recommendations of the National Kidney Foundation-Kidney Disease Outcomes Quality Initiative (NKF-KDOQI) published in 2014. Specimen Plasma specimen Performing Organization Address City/[facility] Cent[facility]ode Phone Number [facility] DEPARTMENT OF PATHOLOGY AND [address] [place] [address] Thyroid stimulating hormone (04/28/2018 4:00 AM DEPUTY DIRECTOR) TSH 4.30 (H) 0.27 - 4.20 uIU/mL [facility] Specimen Plasma specimen Performing Organization Address City/[facility] Cent[facility]ode Phone Number [facility] DEPARTMENT OF PATHOLOGY AND [address] [place] [phone] [place] [phone] Phosphorus level (04/28/2018 4:00 AM DEPUTY DIRECTOR) Phosphorus 4.6 (H) 2.4 - 4.5 mg/dL [facility] Specimen Plasma specimen Performing Organization Address City/[facility] Centercode Phone Number [facility] DEPARTMENT OF PATHOLOGY AND [address] [place] [address] Magnesium level (04/28/2018 4:00 AM DEPUTY DIRECTOR) Magnesium 2.1 1.6 - 2.4 mg/dL [facility] Specimen Plasma specimen Performing Organization Address City/[facility] Cent[facility]ode Phone Number [facility] DEPARTMENT OF PATHOLOGY AND [address] [place] [address] Ferritin level (04/28/2018 4:00 AM DEPUTY DIRECTOR) Ferritin level 333 30 - 400 ng/mL [facility] Specimen Plasma specimen Performing Organization Address [facility] Phone Number [facility] DEPARTMENT OF PATHOLOGY AND [address] [place] [address] Vitamin B12 level (04/28/2018 4:00 AM DEPUTY DIRECTOR) Vitamin B12 696 211 - 946 [facility] Comment: pg/mL HOSPITAL Significant overlap exists between normal and deficiency states. However, most patients with deficiencies will have Serum B12 <200 pg/mL. Specimen Serum Performing Organization Address [facility] Phone Number [facility] DEPARTMENT OF PATHOLOGY AND [address] [place] [address] Lipid panel (04/28/2018 4:00 AM DEPUTY DIRECTOR) Cholesterol 162 <200 mg/dL [facility] Triglycerides 80 <150 mg/dL [facility] HDL cholesterol 83 >40 mg/dL [facility] LDL cholesterol 79Comment: Result <100 mg/dL [place] obtained by direct ORIENTAL ORTHODOX LDL measurement [facility] Lipid panel [facility] interpretation Comment: ORIENTAL ORTHODOX Total Cholesterol (mg/dL) [facility] <200 Desirable 336-696Hwdfghtgwo-kwjc >=240High Triglycerides (mg/dL) <150 Normal 757-455Txlglacmzm-owmz 200-499High >=500Very high HDL Cholesterol (mg/dL) <40Low (male) <40Low (female) LDL Cholesterol (mg/dL) <100 Optimal 100-129Near or above optimal 568-197Aetxrnsmnk-mifp 160-189High >=190Very high Risk Catergories that modify [...] mg/dL) Specimen Plasma specimen Performing Organization Address City/[facility] Centercoms Phone Number [facility] DEPARTMENT OF PATHOLOGY AND [address] [place] [address] Basic metabolic panel (04/28/2018 4:00 AM DEPUTY DIRECTOR)Only the most recent of2 resultswithin the time period is included. Sodium 146 135 - 148 mEq/L [facility] Potassium 4.3 3.5 - 5.0 mEq/L [facility] Chloride 105 98 - 112 mEq/L [facility] CO2 29 24 - 31 mEq/L [facility] Anion gap 12@ANIO 7 - 15 mEq/L [facility] BUN 32 (H) 8 - 23 mg/dL [facility] Creatinine 3.00 (H) 0.70 - 1.20 mg/dL [facility] Glucose 111 (H) 65 - 99 mg/dL [facility] Calcium 8.2 (L) 8.8 - 10.2 mg/dL [facility] Specimen Plasma specimen Performing Organization Address City/[facility]/Zipcode Phone Number [facility] DEPARTMENT OF PATHOLOGY AND [address] [place], [place] [phone] ECG 12 lead (04/27/2018 10:30 PM DEPUTY DIRECTOR) Ventricular rate 46 [facility] Atrial rate 46 [facility] [place] interval 144 [facility] QRSD interval 92 [facility] QT interval 446 [facility] QTC interval 390 [facility] MUSE P axis 1 75 [facility] MUSE QRS axis 1 31 [facility] MUSE T wave axis 70 [facility] MUSE EKG impression Marked sinus [facility] MUSE bradycardia-Abnormal ECG-In automated comparison with ECG of 09-SEP-2017 08:36,-Vent. rate has decreased BY 22 BPM- Specimen Narrative Performed At Performing Organization Address City/[facility] Phone Number [facility] MUSE [address] [place] [address] Lactic acid level, SEPSIS - Now and repeat 2x every 3 hours (04/27/2018 4:13 PM DEPUTY DIRECTOR) Pathologist [facility] Lactic acid 1.3 0.5 - 2.2 mmol/L [facility] Specimen Blood Performing Organization Address City/[facility]/Zipcode Phone Number [facility] DEPARTMENT OF PATHOLOGY AND [address] [place] [address] [address] Blood culture, aerobic & anaerobic (04/27/2018 4:13 PM DEPUTY DIRECTOR)Only the most recent of2 resultswithin the time period is included. Pathologist [facility] Blood culture No growth after 5 days of incubation. [facility] isolate Comment: HOSPITAL Specimen Information Specimen Source: Blood Specimen Site: Forearm, right Specimen Blood - Forearm, right Performing Organization Address [facility] Centercom[facility] Phone Number [facility] DEPARTMENT OF PATHOLOGY AND [address] [place] [address] duplex hemodialysis avg avf access (04/27/2018 4:08 PM DEPUTY DIRECTOR) Specimen Narrative Performed At [facility] Vascular Ultrasound Laboratory AV Graft - Fistula Report [id number] [facility] [address], [place] [address] Pat.Name:KYA NICHOLAS.ID:[id number] .Date: 04/27/2018Refer.MD:PHYSICIAN, EMERGENCY, MD Exam Time: 3:26:00 PMStudy Type:AV Graft - Fistula Height:67inWeight: 163lb BSA: 1.86 m2 DOBAge:1935,82Y Sex: MALESonogrphr: Gordon Porter RN, RVS Pat. Stat.:OutpatientTapeVol: PM, CPT - 4: 34525 Echo Event ID:[id number] Order ID:[id number] Reason for Study:Dialysis nurse had difficulty with [...] vein. DOPPLER FINDINGS: ARTERYLOCATIONPSV (cm/sec) LEFTRadialProximal-third 224cm/sec Mid-lyesn263fb/sec Distal-bxcpl370dn/sec BrachialProximal-third 113 cm/sec Mid-uontw740 cm/sec Distal-hdtul954 cm/sec Radial Art/ceph. v AVF Gdrzujiibzt673 cm/sec Cephalic Vein Juxta anastomosis 389 cm/sec Mid dohryvg270ul/sec Proximal forearm 242xm/sec VOLUME FLOW: Qbsmmfrf495 cc/min 637 cc/min 695cc/min PRELIMINARY FINDINGS: 1. Patent left radial artery to cephalic vein A/V fistula. 2. Volume flows as noted in above table. PHYSICIAN INTERPRETATION: Patent left radial artery to cephalic vein A/V fistula. Slightly decreased flow volume. Signed 04/28/2018 12:22 AM Gagan Jiménez MD, RPVI Procedure Note Interface, Radiology Results In - 04/28/2018 12:22 AM [facility] Vascular Ultrasound Laboratory AV Graft - Fistula Report [id number] [address] Pat.Name: KYA NICHOLAS Pat.ID: [id number] St.Date: 04/27/2018 Refer.MD: PHYSICIAN, EMERGENCY, MD Exam Time: 3:26:00 PM Study Type:AV Graft - Fistula Height: 67in Weight: 163lb BSA: 1.86 m2 Age: 1 1935,82Y Sex: MALE Sonogrphr: Gordon Porter RN, RVS Pat. Stat.:Outpatient Tape Vol: PM, CPT - 4: 22864 Echo Event ID:[id number] Order ID: [id number] Reason for Study:Dialysis nurse had difficulty with [...] Organization Address City/State/Zipcode Phone Number [facility] [address] [place] [address] XR Chest 1 Vw Portable (04/27/2018 2:50 PM DEPUTY DIRECTOR) Specimen Narrative Performed At EXAMINATION:XR CHEST 1 [...] be of benefit for more complete evaluation [id number] Procedure Note Hm Interface, Radiology Results Incoming - 04/27/2018 3:03 PM DEPUTY DIRECTOR EXAMINATION: XR CHEST 1 VW PORTABLE CLINICAL [...] be of benefit for more complete evaluation [facility]-[id number] Performing Organization Address City/[facility] Centercode Phone Number [address] [address] Partial thromboplastin time, activated (04/27/2018 1:45 PM DEPUTY DIRECTOR) PTT 30.4 23.0 - 36.0 [facility] Comment: [facility] PTT therapeutic range for unfractionated heparin is 61.0-112.0 seconds which corresponds to Anti-Xa 0.3-0.7 U/ml. Specimen Blood Performing Organization Address [facility] Centercode Phone Number [facility] DEPARTMENT OF PATHOLOGY AND [address] [place] [address] [address] Prothrombin time with INR (04/27/2018 1:45 PM DEPUTY DIRECTOR) Prothrombin time 12.7 11.5 - 14.5 [facility] INR 1.0 [place] Comment: ORIENTAL ORTHODOX The International Normalized Ratio (INR) is a therapeutic HOSPITAL monitoring tool for patients who are stable on oral anticoagulant therapy. An INR of 2.0-3.0 is suggested for deep vein thrombosis/pulmonary embolism. Specimen Blood Performing Organization Address [facility] Centercode Phone Number [facility] DEPARTMENT OF PATHOLOGY AND [address] [place] [address] [address] TDC Removal (01/18/2018 10:40 AM CDT) Narrative [...] of procedure:Tolerated well, no immediate complications after 12/03/2017 Insurance Payer Benefit Plan / Subscriber ID Effective Dates Phone Address Type Group MEDICARE MEDICARE PART A AND xxxxxxxxxx 1998-[place], [place] Medicare B t AETNA AETNA [facility] xxxxxxxxx 2000-[facility] [employer] INDEMANGÉLICATY t Advance Directives Patient has advance care planning documents, and code status on file. For more information, please contact:[place] [address] Code Status Date Activated Date Inactivated Comments Full Code 04/27/2018 8:29 PM 04/28/2018 6:33 PM Code Status decision reached by: Patient
--- OUTSIDE RECORDS SUMMARY | 2018-12-04 11:20 | XMS REPORT ---
:1935 [facility] [address] [place] [address] Care Team Providers Name Role Phone Alexandru [...] Comments Accuchek (test code=ACU) 369 mg/dL 70-110 [id number] 12:05:00 Test Item Value Reference Range Comments Accuchek (test code=ACU) 452 mg/dL 70-110 [id number] 08:00:00 Test Item Value Reference Range Comments Accuchek (test code=ACU) Greater than 550 mg/dL 70-110 [id number] 07:42:00 Test Item Value Reference Range Comments Accuchek (test code=ACU) 463 mg/dL 70-110 Vvdumdnm8895-98-04 06:23:00 Test Item Value Reference Range Comments Accuchek (test code=ACU) 157 mg/dL 70-110 [id number] 00:16:00 Test Item Value Reference Range Comments Accuchek (test code=ACU) 196 mg/dL 70-110 Abyxwuzm5668-34-10 20:52:00 Test Item Value Reference Range Comments Accuchek (test code=ACU) 373 mg/dL 70-110 [id number] 18:44:00 Test Item Value Reference Range Comments Accuchek (test code=ACU) 459 mg/dL 70-110 [id number] 12:48:00 Test Item Value Reference Range Comments Accuchek (test code=ACU) 169 mg/dL 70-110 [id number] 06:58:00 Test Item Value Reference Range Comments [...] 83-110 Chemistry (test code=CA) 8.7 mg/dL 7.8-10.44 [id number] 05:28:00 Test Item Value Reference Range Comments Accuchek (test code=ACU) 305 mg/dL 70-110 Sbzkvcth4507-36-64 02:59:00 Test Item Value Reference Range Comments Accuchek (test code=ACU) 330 mg/dL 70-110 Pwxmrowv7118-18-12 18:35:00 Test Item Value Reference Range Comments Accuchek (test code=ACU) 458 mg/dL 70-110 Cstzeynf6220-57-91 14:35:00 Test Item Value Reference Range Comments Accuchek (test code=ACU) 343 mg/dL 70-110 Wusyhhcs8893-09-57 11:40:00 Test Item Value Reference Range Comments Accuchek (test code=ACU) 285 mg/dL 70-110 Zscugoko5203-55-70 08:52:00 Test Item Value Reference Range Comments Accuchek (test code=ACU) 187 mg/dL 70-110 Bhwgnhbs9541-07-53 05:04:00 Test Item Value Reference Range Comments Accuchek (test code=ACU) 323 mg/dL 70-110 [id number] 02:53:00 Test Item Value Reference Range Comments Accuchek (test code=ACU) 369 mg/dL 70-110 [id number] 20:55:00 Test Item Value Reference Range Comments Accuchek (test code=ACU) 486 mg/dL 70-110 Deghylup8476-09-34 16:55:00 Test Item Value Reference Range Comments Accuchek (test code=ACU) 432 mg/dL 70-110 Ssdtorle2586-41-32 14:33:00 Test Item Value Reference Range Comments Accuchek (test code=ACU) 287 mg/dL 70-110 Ynuewfwm6917-48-96 09:53:00 Test Item Value Reference Range Comments Accuchek (test code=ACU) 119 mg/dL 70-110 Vlhlghxui2565-80-97 09:13:00 Test Item Value Reference Range Comments [...] Value! Chemistry (test code=CA) 8.6 mg/dL 7.8-10.44 Cplcppus2737-27-35 05:37:00 Test Item Value Reference Range Comments Accuchek (test code=ACU) 94 mg/dL 70-110 Edduspjh1286-85-74 02:52:00 Test Item Value Reference Range Comments Accuchek (test code=ACU) 87 mg/dL 70-110 Sgpcqcnm5946-20-68 22:27:00 Test Item Value Reference Range Comments Accuchek (test code=ACU) 370 mg/dL 70-110 [id number] 19:37:00 Test Item Value Reference Range Comments Chemistry (test code=CCC) ALEJANDRINA.LAB@1936 Refer to Critical Value designated by an *L or *H Chemistry (test code=GLU-T) 632 mg/dL 83-110 Critical value! Is patient fasting? NoComment line lsppHlfdolsxd1731-67-50 17:31:00 Test Item Value Reference Range Comments Chemistry (test code=CCC) ALEJANDRINA.RG@1731 Refer to Critical Value designated by an *L or *H Chemistry (test code=GLU-T) 762 mg/dL 83-110 Critical value! Is patient fasting? [id number] 11:55:00 Test Item Value Reference Range Comments [...] 83-110 Chemistry (test code=CA) 8.8 mg/dL 7.8-10.44 [id number] 06:35:00 Test Item Value Reference Range Comments Accuchek (test code=ACU) 273 mg/dL 70-110 [id number] 20:59:00 Test Item Value Reference Range Comments Accuchek (test code=ACU) 351 mg/dL [address] Tposbvyq9924-46-77 17:23:00 Test Item Value Reference Range Comments Accuchek (test code=ACU) 116 mg/dL [address] Nnezqmzr6772-08-73 11:55:00 Test Item Value Reference Range Comments Accuchek (test code=ACU) 413 mg/dL 70-110 Krwbkkgv5046-27-22 05:25:00 Test Item Value Reference Range Comments Accuchek (test code=ACU) 286 mg/dL 70-110 [id number] 21:17:00 Test Item Value Reference Range Comments Accuchek (test code=ACU) 185 mg/dL [address] Ifmtamug6777-00-87 18:59:00 Test Item Value Reference Range Comments Accuchek (test code=ACU) 383 mg/dL 110 [id number] 18:59:00 Test Item Value Reference Range Comments Accuchek (test code=ACU) 227 mg/dL 110 Lqlqsots6519-74-98 13:41:00 Test Item Value Reference Range Comments Accuchek (test code=ACU) 293 mg/dL 70-110 [id number] 05:45:00 Test Item Value Reference Range Comments Accuchek (test code=ACU) 396 mg/dL 110 Pouenpou9355-50-92 05:11:00 Test Item Value Reference Range Comments Accuchek (test code=ACU) 404 mg/dL 70-110 [id number] 04:23:00 Test Item Value Reference Range Comments [...] 83-110 Chemistry (test code=CA) 8.2 mg/dL 7.8-10.44 Mnatksbqql1328-09-35 04:05:00 Test Item Value Reference Range Comments [...] 0.0-0.7 Hematology (test code=BASO#) 0.0 thou/uL 0.0-0.2 [id number] 22:43:00 Test Item Value Reference Range Comments Accuchek (test code=ACU) 248 mg/dL 70-110 Suiixqkj5927-77-86 19:16:00 Test Item Value Reference Range Comments Accuchek (test code=ACU) 301 mg/dL 70-110 Chemistry - Qelcalnq2810-09-24 12:59:00 Test Item Value Reference Range Comments [...] considered immune to HBV infection. Chemistry - Tszbysgj8427-38-23 12:59:00 Test Item Value Reference Range Comments Chemistry - Specials (test code=THBSAG) Non-Reactive S/CO NonReactive Chemistry - Blcjvaqk5406-10-26 12:59:00 Test Item Value Reference Range Comments Chemistry - Specials (test code=INTHEPBCT) Non-Reactive NonReactive Chemistry - Edumhedo5604-93-30 12:59:00 Test Item Value Reference Range Comments Chemistry - Specials (test code=INTHEPC) Non-Reactive NonReactive Raejtayf3750-20-04 11:53:00 Test Item Value Reference Range Comments Accuchek (test code=ACU) 377 mg/dL 70-110 Vzqijwup1628-80-86 05:45:00 Test Item Value Reference Range Comments Accuchek (test code=ACU) 219 mg/dL 70-110 Nmqdavlcje8339-78-82 05:05:00 Test Item Value Reference Range Comments [...] (100X) 0-5/hpf Hematology (test code=PCOMMENT) Appears Adequate Engpcyjmo0748-13-28 04:36:00 Test Item Value Reference Range Comments [...] 83-110 Chemistry (test code=CA) 8.5 mg/dL 7.8-10.44 Eyydhcnh1614-41-25 20:44:00 Test Item Value Reference Range Comments Accuchek (test code=ACU) 174 mg/dL 70-110 Tjrjpgkj4624-89-81 17:03:00 Test Item Value Reference Range Comments Accuchek (test code=ACU) 344 mg/dL 70-110 Bswsfqnl0282-28-41 17:03:00 Test Item Value Reference Range Comments Accuchek (test code=ACU) 217 mg/dL 70-110 Chemistry - Ktwrt4625-36-30 09:20:00 Test Item Value Reference Range Comments Chemistry - Urine (test 72.26 mg/dL 63-166 NOTE: Concentration is based code=URCREAT) on a daily urine output of1.5 Liters. Chemistry - Hnhwn0640-08-40 09:20:00 Test Item Value Reference Range Comments Chemistry - Urine (test code=URTP) 381 mg/dL Chemistry - BNP, HgbA1c, CSBw1514-42-14 08:00:00 Test Item Value Reference Range Comments Chemistry - BNP, HgbA1c, 6.3 % 4.0-6.0 Therapeutic goals for glycemic PTHi (test code=QZVJ8XC) control (ADA)Adults:- Goal of therapy: Less than 7.0% HbA1c- Action suggested: Greater than 8.0% YuT7cHdpzvnutt patients:- Toddlers and preschoolers: Less than 8.5% (but Greater than 7.5%)- School age (6-12 years): Less than 8%- Adolescents and young adults (13-19 years): Less than 7.5%Diagnosing diabetes (ADA)- HbA1c: Greater than or equal to 6.5% Values of 5.7 - 6.4% indicate HIGH risk for developing DiabetesInternational Expert Committee Report on the Role of the I4SVfnqo in the Diagnosis of Diabetes. Diabetes Care 2009July;32(7):1327-1334ADA, Diagnosis classification of diabetes mellitus.Diabetes Care 2010; 33 Suppl 1:S62 Nueeoeffo7576-38-72 05:46:00 Test Item Value Reference Range Comments [...] 83-110 Chemistry (test code=CA) 8.8 mg/dL 7.8-10.44 Ksyamwyk0515-57-01 05:35:00 Test Item Value Reference Range Comments Accuchek (test code=ACU) 262 mg/dL 70-110 Qkhtdizdih6470-55-48 05:21:00 Test Item Value Reference Range Comments [...] 0.0-0.7 Hematology (test code=BASO#) 0.1 thou/uL 0.0-0.2 [id number] 21:30:00 Test Item Value Reference Range Comments Accuchek (test code=ACU) 279 mg/dL 70-110 [id number] 16:30:00 Test Item Value Reference Range Comments Accuchek (test code=ACU) 145 mg/dL 70-110 Qjtxenbg3947-20-74 11:42:00 Test Item Value Reference Range Comments Accuchek (test code=ACU) 119 mg/dL 70-110 Mgglhxbrs7044-59-46 06:48:00 Test Item Value Reference Range Comments [...] 8.4 mg/dL 7.8-10.44 Chemistry - BNP, HgbA1c, [id number] 06:45:00 Test Item Value Reference Range Comments Chemistry - BNP, HgbA1c, PTHi (test code=BNP) 419.1 pg/mL 0-100 Sumfcdof9577-10-78 06:35:00 Test Item Value Reference Range Comments Accuchek (test code=ACU) 171 mg/dL 70-110 Fjlffowtdb8396-17-45 06:20:00 Test Item Value Reference Range Comments [...] 0.0-0.7 Hematology (test code=BASO#) 0.0 thou/uL 0.0-0.2 Ixhjlbcw8800-09-93 22:09:00 Test Item Value Reference Range Comments Accuchek (test code=ACU) 223 mg/dL 70-110 [id number] 17:33:00 Test Item Value Reference Range Comments Accuchek (test code=ACU) 100 mg/dL 70-110 [id number] 14:32:00 Test Item Value Reference Range Comments Accuchek (test code=ACU) 375 mg/dL 70-110 Yskaxlld1460-10-68 14:32:00 Test Item Value Reference Range Comments Accuchek (test code=ACU) 285 mg/dL 70-110 Hlsrmted0006-22-45 10:33:00 Test Item Value Reference Range Comments Accuchek (test code=ACU) 498 mg/dL 70-110 NOTIFIED NURSE Gqcmyrto6784-41-00 09:23:00 Test Item Value Reference Range Comments Accuchek (test code=ACU) 523 mg/dL 70-110 Zxelyznpqm3583-36-22 03:49:00 Test Item Value Reference Range Comments [...] LPF 0-3 Hyaline Urine Source: Urine Clean UxkbyPwjtmmxdy7054-81-72 00:20:00 Test Item Value Reference Range Comments [...] 5-34 Chemistry (test code=ALT) 21 U/L 8-55 Ufpfdmliu9144-04-50 00:20:00 Test Item Value Reference Range Comments Chemistry (test code=PHOS) 4.0 mg/dL 2.3-4.7 Hrhijilxk5281-08-27 00:20:00 Test Item Value Reference Range Comments Chemistry (test code=MG) 2.4 mg/dL 1.6-2.6 [id number] 00:14:00 Test Item Value Reference Range Comments Accuchek (test code=ACU) 113 mg/dL 70-110 Csqwqrljlw6318-67-29 23:58:00 Test Item Value Reference Range Comments [...]
--- NOTE | 2018-12-04 11:42 | RAD REPORT ---
EXAM DESCRIPTION: RAD - Chest Single View - 12/04/2018 11:31 am CLINICAL HISTORY: COPD;Dyspnea Chest pain. COMPARISON: Chest Single View dated 11/29/2018; Chest Pa And Lat (2 Views) dated 11/26/2018; Chest Sin gle View dated 11/25/2018; Chest Single View dated 11/24/2018; Chest For Pe Angio dated 12/02/2018 FINDINGS: Portable technique limits examination quality. Emphysematous changes are present with bibasilar lung opacities and a small left pleural effusion. Fi ndings appear progressive since the comparative examination. The heart is mildly enlarged in size. No displaced fractures.Aortic atherosclerosis. IMPRESSION: Mild worsening in bibasilar lung opacities present, greater on the left.
[2018-12-04 12:01] LABS: Arterial Blood Carboxyhemoglob 1.9 % (0-1.5); Blood Gas Oxyhemoglobin 92.2 % (94-97)
[2018-12-04 12:02] LABS: Absolute Lymphocytes (CBC) 0.8 K/uL (0.7-4.9); Basophils % 0.5 % (0-1.3); Hematocrit 29.2 % (39.6-49.0); Lymphocytes % 5.8 % (15.3-44.8); Monocytes % 2.3 % (3.3-12.3); RBC Red Blood Cell Count 2.88 M/uL (4.33-5.43)
[2018-12-04 12:06] LABS: Protime INR 1.01
[2018-12-04 12:53] LABS: Blood Morphology Comment NOT SEEN (NOT SEEN); Platelet Estimate ADEQ
--- NOTE | 2018-12-04 13:02 | EDPHYS ---
Physician Documentation [facility] Name: Chana Duff Age: 83 yrs Sex: Male : 1935 Arrival Date: 12/04/2018 Time: 11:16 Bed 7 Private MD: ED Physician Fabián Thornton HPI: 12/04 11:21 This 83 yrs old Male presents to ER via Unassigned with complaints of sob. rn 11:21 The patient has shortness of breath at rest, with light activity. Onset: The rn symptoms/episode began/occurred 1 week(s) ago. Duration: The symptoms are continuous. The patient's shortness of breath is aggravated by light activity, supine position, talking. Severity of symptoms: At their worst the symptoms were moderate in the emergency department the symptoms are unchanged. The patient has experienced similar episodes in the past. The patient has been recently been admitted at [facility]. Recently seen and admitted twice to hospital for COPD and possible pneumonia, sent home, states felt better, then returns today for 1 hour of sob, cough, dyspnea. No fever. . Historical: - Allergies: 11:25 No Known Drug Allergies; sv - Home Meds: 12:31 amlodipine 5 mg tab 1 tab twice daily [Active]; aspirin 81 mg Oral chew 1 tab once tr5 daily [Active]; atorvastatin 20 mg Oral tab 1 tab once daily [Active]; Augmentin Oral [Active]; doxazosin 2 mg Oral tab 0.5 tab at bedtime [Active]; levothyroxine 125 mcg tab 1 tab once daily [Active]; metoprolol tartrate 50 mg Oral tab 0.5 tab 2 times per day [Active]; Insulin pump [Active]; Prednisone Oral [Active]; furosemide 80 mg Oral tab 1 tab once daily [Active]; - PMHx: 11:25 COPD; Diabetes - IDDM; Dialysis; ESRD; Hyperlipidemia; Hypertension; sv - Immunization history:: Adult Immunizations up to date. - Family history:: not pertinent. - Social history:: Smoking status: Patient/guardian denies using tobacco, the patient reports quitting approximately 3 years ago. - Ebola Screening: : Patient negative for fever greater than or equal to 101.5 degrees Fahrenheit, and additional compatible Ebola Virus Disease symptoms. - Hospitalizations: : No recent hospitalization is reported. ROS: 11:21 Constitutional: Negative for fever, chills, and weight loss, Eyes: Negative for injury, rn pain, redness, and discharge, Neck: Negative for injury, pain, and swelling, Cardiovascular: Negative for chest pain, palpitations, and edema, Respiratory: + sob and cough Abdomen/GI: Negative for abdominal pain, nausea, vomiting, diarrhea, and constipation, MS/Extremity: Negative for injury and deformity, Skin: Negative for injury, rash, and discoloration, Neuro: + generalized weakness Exam: 11:21 Constitutional: This is a well developed, well nourished patient who is awake, alert, rn + moderate labored breathing Head/Face: Normocephalic, atraumatic. ENT: dry MM Cardiovascular: tachycardic, regular Respiratory: + moderate tachypnea, 3 word sentences, diminished airflow bilaterally with faint wheezing apices Abdomen/GI: soft, non-tender MS/ Extremity: Pulses equal, no cyanosis. 2+ pitting edema bilateral lower ext. + thrill LUE fistula Neuro: Awake and alert, GCS 15, oriented to person, place, time, and situation. Cranial nerves II-XII grossly intact. Motor strength 5/5 in all extremities. Sensory grossly intact. Vital Signs: 11:23 BP 136 / 110; Pulse 112; Resp 32; Temp 98.7(O); Pulse Ox 91% on 3.5 lpm NC; Weight 71 sv kg; 11:53 BP 136 / 110; Pulse 103; Resp 20; Pulse Ox 99% on BiPAP; tr5 13:00 BP 117 / 37; Pulse 97; Resp 30; Pulse Ox 99% on 40% BiPAP; sv 13:24 BP 104 / 75; Pulse 94; Resp 30; Pulse Ox 100% on 40% BiPAP; sv 14:04 BP 116 / 75; Pulse 91; Resp 28; Pulse Ox 99% on 40% BiPAP; sv MDM: 11:16 Patient medically screened. rn 12:56 Differential diagnosis: Chronic Obstructive Pulmonary Disease pneumonia, pulmonary rn edema, reactive airway disease. Data reviewed: vital signs, nurses notes, lab test result(s), radiologic studies, plain films, and as a result, I will admit patient. Counseling: I had a detailed discussion with the patient and/or guardian regarding: the historical points, exam findings, and any diagnostic results supporting the discharge/admit diagnosis, lab results, radiology results, the need for further work-up and treatment in the hospital. Response to treatment: the patient's symptoms have markedly improved after treatment, and as a result, I will admit patient. Admission orders: after a detailed discussion of the patient's condition and case, the admit orders are written by me. ED course: Discussed patient with Dr. Callahan, will admit for respiratory distress, requiring bipap, and worsening CXR. Given no response to abx for 1 week, possibly just fluid. . 12/04 11:17 Order name: Blood Culture Adult (2) 12/04 11:17 Order name: BMP 12/04 11:17 Order name: CBC with Diff rn 12/04 11:17 Order name: NT PRO-BNP 12/04 11:17 Order name: PT-INR; Complete Time: 12:21 12/04 11:17 Order name: Ptt, Activated; Complete Time: 12:21 12/04 11:17 Order name: Troponin (emerg Dept Use Only) 12/04 11:18 Order name: ABG 12/04 11:18 Order name: Lactate; Complete Time: 12:21 12/04 11:18 Order name: Blood Culture EDMO 12/04 11:18 Order name: Basic Metabolic Panel [facility] 12/04 11:19 Order name: CBC with Automated Diff; Complete Time: 13:00 [facility] 12/04 11:19 Order name: NT PRO-BNP [facility] 12/04 12:07 Order name: Manual Differential; Complete Time: 13:00 [facility] 12/04 11:17 Order name: XRAY CXR (1 view); Complete Time: 12:21 rn 12/04 11:17 Order name: EKG; Complete Time: 11:19 rn 12/04 11:17 Order name: Cardiac monitoring; Complete Time: 11: rn 12/04 11:17 Order name: EKG - Nurse/Tech; Complete Time: 11:50 rn 12/04 11:17 Order name: IV Saline Lock; Complete Time: 11:57 rn 12/04 11:17 Order name: Labs collected and sent; Complete Time: 11:57 rn 12/04 11:17 Order name: O2 Per Protocol; Complete Time: 11:20 rn 12/04 11:17 Order name: O2 Sat Monitoring; Complete Time: 11:20 rn 12/04 11:17 Order name: BIPAP rn Administered Medications: No medications were administered Point of Care Testing: Ranges: Critical Glucose Levels:Adult <50 mg/dl or >400 mg/dl <40 mg/dl or >180 mg/dl Disposition: 12/04/18 12:59 Hospitalization ordered by James Callahan for Inpatient Admission. Preliminary diagnosis are Chronic obstructive pulmonary disease with (acute) exacerbation, Hypoxemia, Dyspnea, unspecified, Failure of outpt therapy, Pulmonary edema. - Bed requested for Telemetry/MedSurg (Inpatient). - Status is Inpatient Admission. sv - Condition is Stable. - Problem is an ongoing problem. - Symptoms have improved. UTI on Admission? No Signatures: Dispatcher [employer] Paula Alegre RN RN sv Nieto, Roman, MD MD rn Aguilar, Jose, RN RN ja1 Tomas Mendez RN RN tr5 Corrections: (The following items were deleted from the chart) 13:25 12:59 Hospitalization Ordered by A [place] CANDELARIA for Inpatient Admission. Preliminary ja1 diagnosis is Chronic obstructive pulmonary disease with (acute) exacerbation; Hypoxemia; Dyspnea, unspecified; Failure of outpt therapy; Pulmonary edema. Bed requested for Telemetry/MedSurg (Inpatient). Status is Inpatient Admission. Condition is Stable. Problem is an ongoing problem. Symptoms have improved. UTI on Admission? No. rn 14:43 13:25 12/04/2018 12:59 Hospitalization Ordered by A [place] CANDELARIA for Inpatient Admission. sv Preliminary diagnosis is Chronic obstructive pulmonary disease with (acute) exacerbation; Hypoxemia; Dyspnea, unspecified; Failure of outpt therapy; Pulmonary edema. Bed requested for Telemetry/MedSurg (Inpatient). Status is Inpatient Admission. Condition is Stable. Problem is an ongoing problem. Symptoms have improved. UTI on Admission? No. ja1
--- NOTE | 2018-12-04 13:02 | ER ---
Nurse's Notes [facility] Hussein Name: Chana Duff Age: 83 yrs Sex: Male : 1935 Arrival Date: 12/04/2018 Time: 11:16 Bed 7 Private MD: Diagnosis: Chronic obstructive pulmonary disease with (acute) exacerbation;Hypoxemia;Dyspnea, unspecified;Failure of outpt therapy;Pulmonary edema Presentation: 12/04 11:21 Initial Sepsis Screen: Does the patient meet any 2 criteria? RR > 20 per min. HR > 90 sv bpm. Yes Does the patient have a suspected source of infection? Yes: Productive cough/pneumonia. 11:21 Presenting complaint: EMS states: P)t was hospitalized for pneumonia and discharged tr5 from hospital yesterday. Pt complains of SOB. Pt had an albuterol neb going upon EMS arrival and received albuterol and atovent 2:1 and solumedrol 125 in route. Pt has a L fistula and goes to dialysis [facility], with his last session Wednesday12/03/18. Pt has an insulin pump. Pt was hyperglycemic with a BG of 319. Transition of care: patient was not received from another setting of care. Onset of symptoms was December 04, 2018. Risk Assessment: Do you want to hurt yourself or someone else? Patient reports no desire to harm self or others. Initial Sepsis Screen: Does the patient meet any 2 criteria? RR > 20 per min. HR > 90 bpm. Does the patient have a suspected source of infection? Yes: Productive cough/pneumonia Other: Diagnosed with Pneumonia. Care prior to arrival: Medication(s) given: Albuterol Neb x 2, IV initiated. 20 GA, in the right wrist, Glucose check: 319 Oxygen administered. via a non-rebreather mask. 11:21 Method Of Arrival: EMS: [facility] tr5 11:21 Acuity: SOFIA 3 tr5 Triage Assessment: 11:28 General: Appears distressed, Behavior is appropriate for age. Pain: Denies pain. EENT: tr5 No signs and/or symptoms were reported regarding the EENT system. Neuro: Level of Consciousness is awake, alert, obeys commands, Oriented to person, place, time, Residential Door Unit Installer are equal bilaterally Moves all extremities. Gait is steady, Speech is normal. Cardiovascular: Reports shortness of breath, Denies chest pain, Heart tones present Bruits absent Capillary refill < 3 seconds Pulses are all present. Edema is absent. Respiratory: Reports shortness of breath at rest cough that is productive, air hunger since Pt reports difficulty catching his breath this morning. labored breathing Airway is patent Trachea midline Respiratory effort is labored, with retractions, using tripod position, Respiratory pattern is symmetrical, hyperventilation Breath sounds are diminished bilaterally. in left lower lobe, right lower lobe, left posterior lower lobe and right posterior lower lobe Breath sounds with wheezes bilaterally. in right upper lobe, left posterior upper lobe, right posterior upper lobe and right posterior middle lobe. GI: No signs and/or symptoms were reported involving the gastrointestinal system. : No signs and/or symptoms were reported regarding the genitourinary system. Derm: Skin is intact, is fragile, Skin is dry. Musculoskeletal: Capillary refill < 3 seconds, Range of motion: intact in all extremities. Historical: - Allergies: 11:25 No Known Drug Allergies; sv - Home Meds: 12:31 amlodipine 5 mg tab 1 tab twice daily [Active]; aspirin 81 mg Oral chew 1 tab once tr5 daily [Active]; atorvastatin 20 mg Oral tab 1 tab once daily [Active]; Augmentin Oral [Active]; doxazosin 2 mg Oral tab 0.5 tab at bedtime [Active]; levothyroxine 125 mcg tab 1 tab once daily [Active]; metoprolol tartrate 50 mg Oral tab 0.5 tab 2 times per day [Active]; Insulin pump [Active]; Prednisone Oral [Active]; furosemide 80 mg Oral tab 1 tab once daily [Active]; - PMHx: 11:25 COPD; Diabetes - IDDM; Dialysis; ESRD; Hyperlipidemia; Hypertension; sv - Immunization history:: Adult Immunizations up to date. - Family history:: not pertinent. - Social history:: Smoking status: Patient/guardian denies using tobacco, the patient reports quitting approximately 3 years ago. - Ebola Screening: : Patient negative for fever greater than or equal to 101.5 degrees Fahrenheit, and additional compatible Ebola Virus Disease symptoms. - Hospitalizations: : No recent hospitalization is reported. Screenin:33 Abuse screen: Denies threats or abuse. Nutritional screening: No deficits noted. tr5 Tuberculosis screening: No symptoms or risk factors identified. Fall Risk No fall in past 12 months (0 pts). No secondary diagnosis (0 pts). IV access (20 points). Ambulatory Aid- None/Bed Rest/Nurse Assist (0 pts). Gait- Normal/Bed Rest/Wheelchair (0 pts) Mental Status- Oriented to own ability (0 pts). Total Borja Fall Scale indicates No Risk (0-24 pts). Sepsis Screening: . Infection: Patient has suspected or documented infection. Assessment: 11:22 Reassessment: Code Sepsis called. sv 11:40 Reassessment: BIPAP placed by Joaquin from RT. sv 12:27 Reassessment: Patient appears in no apparent distress at this time. Patient and/or tr5 family updated on plan of care and expected duration. Pain level reassessed. 13:30 Reassessment: Nurse to be notified to receive report. sv 14:06 Reassessment: Patient appears in no apparent distress at this time. tr5 Vital Signs: 11:23 BP 136 / 110; Pulse 112; Resp 32; Temp 98.7(O); Pulse Ox 91% on 3.5 lpm NC; Weight 71 sv kg; 11:53 BP 136 / 110; Pulse 103; Resp 20; Pulse Ox 99% on BiPAP; tr5 13:00 BP 117 / 37; Pulse 97; Resp 30; Pulse Ox 99% on 40% BiPAP; sv 13:24 BP 104 / 75; Pulse 94; Resp 30; Pulse Ox 100% on 40% BiPAP; sv 14:04 BP 116 / 75; Pulse 91; Resp 28; Pulse Ox 99% on 40% BiPAP; sv ED Course: 11:16 Patient arrived in ED. rn 11:16 Fabián Thornton MD is Attending Physician. rn 11:18 awake overnight monitor on. Pulse ox on. NIBP on. sv 11:18 Maintain EMS IV. Dressing intact. Site clean \T\ dry. Gauge \T\ site: 22G right hand. sv 11:19 Tomas Mendez RN is Primary Nurse. tr5 11:20 Arm band placed on left wrist. tr5 11:22 Patient has correct armband on for positive identification. Bed in low position. Call sv light in reach. Side rails up X2. 11:24 X-ray(s) taken. sv 11:28 Triage completed. tr5 11:29 XRAY CXR (1 view) In Process Unspecified. EDMS 11:30 Missed attempt(s): 20 gauge in right forearm. done by Behzad silva. Bleeding sv controlled, band aid applied, catheter tip intact. 11:40 Initial lab(s) drawn, by me, sent to lab. Inserted saline lock: 22 gauge in right sv forearm, using aseptic technique. ,using aseptic technique. diffusics Blood collected. Flushed right forearm with 5 ml normal saline. 11:50 EKG done, by ED staff, reviewed by Fabáin Thornton MD. em1 12:25 BIPAP Sent. sv 12:25 Blood Culture Adult (2) Sent. sv 12:25 BMP Sent. sv 12:25 CBC with Diff Sent. sv 12:25 NT PRO-BNP Sent. sv 12:59 James Callahan MD is Hospitalizing Provider. rn 13:30 No provider procedures requiring assistance completed. Patient admitted, IV remains in sv place. intact. Administered Medications: No medications were administered Point of Care Testing: Ranges: Outcome: 12:59 Decision to Hospitalize by Provider. rn 14:17 Admitted to Tele accompanied by ricardo, family with patient, via stretcher, room 410, sv with oxygen, with chart, Report called to TJ RN 14:17 Condition: stable 14:17 Instructed on the need for admit. 14:43 Patient left the ED. sv Signatures: Dispatcher [employer] EDPaula Wallace, RN RN Fabián Borjas MD MD rn Martinez, Behzad em1 Tomas Mendez RN RN tr5 Corrections: (The following items were deleted from the chart) 13:33 11:23 BP 136 / 110; Pulse 112bpm; Resp 32bpm; Pulse Ox 91% 3.5 lpm Nasal Cannula; Temp sv 98.7F Oral; sv
[2018-12-04 13:19] LABS: Potassium 5.4 mmol/L (3.5-5.1)
[2018-12-04 13:28] LABS: Troponin (Emerg Dept Use Only) 3.71 ng/mL (0.0-0.045)
[2018-12-04] MEDS ORDERED: ONDANSETRON 4 MG/2 ML VIAL IV PRN (15:00)
[2018-12-04] MEDS ORDERED: ALBUTEROL 2.5 MG/3 ML NEB SOL NEB PRN (15:00)
[2018-12-04] MEDS ORDERED: IPRATROPIUM BROM 0.5MG/2.5ML NEB PRN (15:00)
[2018-12-04] MEDS: ALBUTEROL 2.5 MG/3 ML NEB SOL NEB SCH ×3 (15:55→23:15)
[2018-12-04] MEDS: IPRATROPIUM BROM 0.5MG/2.5ML NEB SCH ×3 (15:55→23:15)
[2018-12-04] MEDS ORDERED: METHYLPREDNISOLONE 40 MG INJ IV SCH (17:00)
[2018-12-04] MEDS ORDERED: PNEUMOCOCCAL VACCINE 0.5 ML IMVAC ONE (18:00)
[2018-12-04] MEDS: PIPER/TAZO/NS 2.25gm 2.25 GM/50 ML BAG IVPB SCH (18:04)
[2018-12-04] MEDS: DULERA 200/5 (MOMETASONE/FORMOTEROL) INHALER IH SCH (21:00)
[2018-12-04] MEDS: HEPARIN 5000 UNIT/ML 1 ML VIAL SQ SCH (21:39)
[2018-12-04] MEDS: BUDESONIDE 0.5 MG/2 ML NEB NEB SCH (23:15)
[2018-12-05] MEDS: PIPER/TAZO/NS 2.25gm 2.25 GM/50 ML BAG IVPB SCH ×3 (01:01→17:05)
[2018-12-05] MEDS: IPRATROPIUM BROM 0.5MG/2.5ML NEB SCH ×6 (03:30→20:00)
[2018-12-05] MEDS: ALBUTEROL 2.5 MG/3 ML NEB SOL NEB SCH ×6 (03:30→20:00)
[2018-12-05] MEDS: BUDESONIDE 0.5 MG/2 ML NEB NEB SCH ×3 (06:00→18:00)
[2018-12-05 06:07] LABS: Absolute Lymphocytes (CBC) 0.4 K/uL (0.7-4.9); Basophils % 0.3 % (0-1.3); Lymphocytes % 2.4 % (15.3-44.8); MPV 9.7 fL (7.6-11.3); Monocytes % 2.6 % (3.3-12.3)
[2018-12-05] MEDS ORDERED: BUDESONIDE 0.5 MG/2 ML NEB ONE (06:14)
[2018-12-05 06:28] LABS: BUN Blood Urea Nitrogen 77 mg/dL (7-18); Bicarbonate 22 mmol/L (21-32); NT PRO-BNP > 3500 pg/mL (<450); Sodium Level 134 mmol/L (136-145)
[2018-12-05 06:32] LABS: Glucose Level 513 mg/dL (74-106); Potassium 6.1 mmol/L (3.5-5.1)
--- NOTE | 2018-12-05 06:38 | EKG ---
Test Date: 2018-12-04 Test Time: 11:48:42 Textile Screen Printer: JANY MEASUREMENT RESULTS: Intervals: Rate: 100 NE: 142 QRSD: 86 QT: 330 QTc: 425 [place]: P: 68 NE: 142 QRS: -1 T: 99 INTERPRETIVE STATEMENTS: Normal sinus rhythm ST & T wave abnormality, consider lateral ischemia Abnormal ECG Compared to ECG 11/29/2018 11:37:30 Possible ischemia now present ST (T wave) deviation still present Electronically Signed On 12-05-18 06:36:32 CDT by Jaskaran Low
[2018-12-05] MEDS ORDERED: SOD POLYSTYREN SUL 15 GM/60 ML UCUP PO ONE (07:37)
[2018-12-05] MEDS ORDERED: D50W 25 GM/50 ML SYRINGE IV PRN (07:40)
[2018-12-05] MEDS ORDERED: INSULIN -REGULAR HUMAN 50 UNIT/0.5 ML ML IV ONE (07:40)
[2018-12-05] MEDS ORDERED: GLUCAGON 1 MG/VIAL IM PRN (07:40)
[2018-12-05] MEDS ORDERED: ALBUTEROL 2.5 MG/3 ML NEB SOL NEB ONE (07:52)
[2018-12-05] MEDS: DULERA 200/5 (MOMETASONE/FORMOTEROL) INHALER IH SCH (08:04)
[2018-12-05] MEDS: HEPARIN 5000 UNIT/ML 1 ML VIAL SQ SCH ×2 (08:05→20:17)
[2018-12-05] MEDS: ALPRAZOLAM 0.25 MG TABLET PO PRN ×2 (08:05→17:05)
--- NOTE | 2018-12-05 08:35 | P.PN ---
Subjective Date of Service: 12/05/18 Chief Complaint: Respiratory distress Patient was just recently discharged admitted yet again he has continues to have the shortness of breath has to sit upright for lower extremity edema gets very anxious got worse admitted again he was unchanged since he left the hospital denies any cough sputum hemoptysis fever chills or chest pain Review of Systems General: Weakness Respiratory: Cough, Shortness of Breath Cardiovascular: Edema Physical Examination - Vital Signs Temperature: 97.4 F Blood Pressure: 105/52 Pulse: 91 Respirations: 20 Pulse Ox (%): 100 - Physical Exam General: Alert, Oriented x3 HEENT: Atraumatic Neck: Supple Respiratory: Diminished Cardiovascular: Edema (2+ edema) Gastrointestinal: Normal bowel sounds, Soft and benign - Studies Laboratory Data (last 24 hrs) 12/04/18 11:43: PT 11.9, INR 1.01, APTT 31.0 12/04/18 11:43: WBC 13.2 H, Hgb 9.8 L, Hct 29.2 L, Plt Count 274 12/04/18 11:43: Sodium 138, Potassium 5.4 H, BUN 63 H, Creatinine 5.03 H*, Glucose 401 H* Microbiology Data (last 24 hrs): 12/04/18 11:43 Blood - Blood Anaerobic Blood Culture - Final Assessment & Plan - Problems (Diagnosis) (1) Respiratory failure Current Visit: Yes Status: Acute Plan: Patient is 83 years of age with a recurrent hospital admissions admitted with the acute on chronic respiratory distress said normal echocardiogram no evidence of thromboembolism bilateral pleural effusions mildly elevated white count is hyperglycemic vital signs are stable blood pressure uncontrolled patient has end-stage COPD agree with low-dose prednisone I have also added low- dose the offline prognosis is very poor will consider hospice care Qualifiers: Chronicity: acute on chronic
[2018-12-05] MEDS ORDERED: predniSONE 20 MG TAB PO SCH (09:00)
[2018-12-05 09:27] LABS: Anisocytosis 2+; Blood Morphology Comment NOTED (NOT SEEN); Platelet Estimate ADEQ; Poikilocytosis 1+
[2018-12-05] MEDS: THEOPHYLLINE SR 100 MG TAB PO SCH ×2 (10:13→20:16)
[2018-12-05 11:36] LABS: Urine Appearance CLOUDY; Urine Bilirubin NEGATIVE (NEG); Urine Blood TRACE (NEG); Urine Color YELLOW; Urine Glucose 2+ (NEG); Urine Protein 3+ (NEG); Urine Specific Gravity 1.025 (1.005-1.030); Urine Urobilinogen 0.2 mg/dL (0.2-1.0)
[2018-12-05 11:42] LABS: Urine Microscopic Reflex ORDER UMIC
[2018-12-05] MEDS ORDERED: ACETAMINOPHEN 500 MG TAB PO PRN (11:49)
[2018-12-05 12:05] LABS: Urine Bacteria >50 /HPF (NONE SEEN); Urine Culture Reflex Order REFLEXED; Urine RBC >50 /HPF (NONE SEEN); Urine Yeast MANY (NONE SEEN); Urine Yeast with Hyphae PRESENT
[2018-12-06] MEDS: PIPER/TAZO/NS 2.25gm 2.25 GM/50 ML BAG IVPB SCH ×3 (00:20→17:15)
[2018-12-06] MEDS: ALPRAZOLAM 0.25 MG TABLET PO PRN ×3 (00:21→17:15)
--- NOTE | 2018-12-06 03:37 | CON ---
Date of Consultation: 12/05/2018 Chief Complaint: Acute kidney injury, hyperkalemia, shortness of breath, congestive heart failure wi th fluid overload with hypoxemic respiratory failure. History Of Present Illness: The patient came to the hospital because of shortness of breath. He has chronic obstructive pulmonary disease. He presented with the shortness of breath and exacerbation o f hypoxemia, dyspnea. He was complaining of nonproductive cough and wheezing. He received albuterol treatments for severe shortness of breath. He was found to have hyperglycemia and received insulin. Today, blood glucose was severely elevated. The patient was found to have hyperkalemia and stat di alysis was ordered to treat hyperkalemia, provide metabolic clearance, and to obtain ultrafiltration. Lactic acid was elevated up to 5.1. Blood glucose was greater than 450. Electrolytes as follows; sodium 134, potassium 6.1, chloride 99, CO2 22, BUN 77, creatinine 5.49, glucose 513. BNP was greate r than 3500. The patient received stat dialysis. The patient remains on O2 nasal cannula and receiv ed albuterol inhalers for COPD exacerbation. The patient is to start antibiotics to treat COPD exace rbation. Chest x-ray was done and showed worsening of lung opacities, greater on the left, small ple ural effusion, emphysematous changes present in both lungs pain in the lower lobes. Review of Systems: The patient denies syncope. Denies vision changes. Ears, Nose, Mouth, and Throat: Denies sore throat or earache. Respiratory: Has dyspnea at rest and dyspnea on exertion. Complains of nonproductive cough. Cardiovascular: Denies chest pain, syncope. GI: Denies nausea, vomiting. : Denies dysuria, hematuria. Musculoskeletal: Complaining of generalized weakness. Denies gout. Past Medical History: End-stage renal disease, on dialysis; anemia in CKD; renal osteodystrophy; hyp ertension; coronary artery disease; hypothyroid; insulin-dependent diabetes mellitus; hyperlipidemia; asbestosis; COPD; hernia repair; cardiac stent; bilateral cataract surgery. Family History: Stroke, kidney disease in his brother. Mother, stroke, kidney disease. Prostate ca ncer in his father. Social History: Denies tobacco, alcohol, or illicit drugs. Physical Examination: General: The patient is awake, follows commands. He is somewhat lethargic. Eyes: Anicteric sclerae. EOMI. Ears, Nose, Mouth, and Throat: Oral mucosa moist. No pallor. Neck: Supple. No JVD. No bruits. Lungs: Crackles, few rhonchi, and few wheezes. Heart: S1, S2. No pericardial friction rub. Abdomen: Soft, benign, nontender. Extremities: Edema present in both legs. Neurological: Moving extremities. Cranial nerves intact. Psychiatric: Alert and oriented x3. Normal affect. Laboratory Data: Hemoglobin 8.9, WBC is 15.5, platelet count is 269,000. Chemistries showed lactic acid 5.1, glucose 296, and calcium 8.3, glucose 513, creatinine 5.49, BUN 77, sodium 134, potassium 6 .1, chloride 99, CO2 22. Impression And Plan: 1.Hyperkalemia and hyperosmolar hyperglycemia. The patient received insulin. The patient will have emergent dialysis to control potassium level, provide metabolic clearance, and ultrafiltration to tr eat fluid overload. The patient has hypoxemic respiratory failure. Continue treatment for COPD exac erbation. 2.Hypertension. Blood pressure in acceptable control. Continue to monitor blood pressure during di alysis. 3.Anemia. The patient may benefit from blood transfusion. Continue JANEL. 4.Renal osteodystrophy. Continue renal diet and binders. EB/MODL Voice ID: [id number] Report ID: [id number]
[2018-12-06] MEDS: IPRATROPIUM BROM 0.5MG/2.5ML NEB SCH ×6 (04:00→23:25)
[2018-12-06] MEDS: ALBUTEROL 2.5 MG/3 ML NEB SOL NEB SCH ×7 (04:00→23:25)
--- NOTE | 2018-12-06 07:46 | HP ---
Date of Admission: 12/05/2018 Chief Complaint: Shortness of breath. History Of Present Illness: This is an 83-year-old pleasant male patient with severe COPD problem; end-stage renal disease, on hemodialysis; and multiple other comorbidities, has been in the hospital recently with a recurrent problem of this shortness of breath. Please see last two H and P for more details. His last hospital admission, he was admitted on 11/29/2018, discharged to go home on 12/03/2018, and Dr. Cole discharged him to go home with albuterol nebulizer treatment, p.r.n. use of Xanax, and other instruction to continue all his prior home medications. The patient has home oxygen that he uses continuously. The patient was doing fine in the hospital as far as breathing is concerned, had improved, and after he went home he was brought back to the emergency room yesterday with respiratory distress. Family reported that anything he does he gets into shortness of breath situation and then he gets very anxious. After he was brought into ER, he was in acute respiratory distress, BiPAP was started, and he started to respond well. This morning when I saw him, he was on BiPAP and he did not tolerate BiPAP to be taken off for not even 30 seconds and we had to put it back on because he was getting into respiratory distress. He wanted me to try to take the BiPAP off so he can talk to me, but he did not tolerate that and his 2 daughters were present at bedside. Medications: List reviewed. Review of Systems: Respiratory: As mentioned above. Cardiovascular: Bilateral leg swelling. All other systems reviewed and negative. Allergies: NO KNOWN ALLERGIES. Family History: Not pertinent. Social History: Prior history of smoking, not at present time. Use of alcohol , negative. Past Surgical History: Cataract surgery, angioplasty of leg artery due to peripheral vascular disease, and hernia repair. 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 Physical Examination: Vital Signs: Temperature 98.9, pulse 88, respiratory rate 28, blood pressure 110/65, oxygen saturation 97%, height 5 feet 7 inches, weight 164 pounds. General: Patient appears weak and tired, using accessory muscles of respiration and in mild distress, sitting at bedside, leaning forward. HEENT: Head atraumatic, normocephalic. Conjunctivae nonerythematous. Sclerae white. Mouth, no thrush or edema noted. Ears/Nose, no mass, lesion, discharge noted. Neck: Supple. No JVD, lymph nodes, bruit, thyromegaly noted. Lungs: Bilateral good equal air entry. Clear to auscultation. No rhonchi. No rales. Heart: Normal heart sounds, no murmur or gallop. Abdomen: Soft, bowel sounds normal. No guarding, rigidity, tenderness, mass, hepatosplenomegaly, distention, or bruit noted. Extremities: Bilateral grade 1 pedal edema. Skin: No rash, ulcer, cellulitis. Lymphatics: No lymph node enlargement in neck, supraclavicular, infraclavicular region. Neuro: No focal neurological deficit. Chest: Unremarkable. External Genitalia: Deferred. Rectal: Deferred. Laboratory Data: Yesterday; white count 13.2, hemoglobin 9.8, platelets 274. This morning; white count 15.5, hemoglobin 8.9, platelets 261. Blood gas done yesterday in the emergency room; pH 7.39, pCO2 39.1, PO2 83, oxygen saturation 95% on 30% FiO2. Yesterday; sodium 138, potassium 5.4, chloride 101, bicarb 26 , BUN 63, creatinine 5.03, glucose 401. ProBNP 69,335. Troponin 3.71. This morning; sodium 134, potassium 6.1, chloride 99, bicarb 22, BUN 77, creatinine 5.49, glucose 513. Lactic acid today 5.1, repeat 1.1. Urinalysis; 3+ esterase , more than 50 rbc, wbc not seen, bacteria more than 50. Chest x-ray; mild worsening of bilateral lung opacity, greater on left. Chest x-ray; normal sinus rhythm, ST-T abnormality, consider lateral ischemia. Impression: 1. Acute on chronic respiratory failure, with hypoxia. 2. Severe chronic obstructive pulmonary disease. 3. Diabetes mellitus, type 2, insulin dependent, uncontrolled. 4. End-stage renal disease, on hemodialysis. 5. Anemia due to chronic kidney disease. 6. Hyperkalemia. 7. Hypertension. 8. Gastroesophageal reflux disease. 9. Hypothyroidism. 10. Hyperlipidemia. 11. Benign prostatic hypertrophy. 12. Ventral abdominal wall hernia. Plan: Admit the patient to hospital for further evaluation and management of this problem. The patient is appropriate for inpatient and is expected to spend 2 midnights in hospital. Home medications will be continued per order. I did discuss details with Dr. Cole and, during his last hospital admission , I had discussed with the patient and family regarding hospice care. Dr. Cole is in agreement with consideration of hospice care and I did talk to the patient's family and patient this morning. We also discussed about advanced directive. DNR order will be written in the chart per patient's decision. The patient is not able to get any IV steroids because that really raises his sugar extremely high and family is willing to try small dose steroid considering that it may affect his blood sugar but may not affect as bad as the IV steroid, and we will see if he is able to tolerate small dose of steroid or not. This morning, IV insulin, Kayexalate, and nebulizer treatment was ordered for treatment of high potassium. We will go ahead and consult his indoor plant technician for dialysis support. Overall prognosis is poor, and we will continue oxygen nebulizer treatment and BiPAP therapy, and we will start communicating with the patient and family regarding hospice care and have Social Service assist with that. We will continue IV antibiotics. Chest x-ray abnormality is very likely due to shallow inspiration and increased white count today was due to IV steroid and there is no evidence of any sepsis clinically. VIELKA/MODL Voice ID: [id number] CURRY
[2018-12-06] MEDS: BUDESONIDE 0.5 MG/2 ML NEB NEB SCH ×5 (07:55→23:25)
[2018-12-06] MEDS ORDERED: HOME MED 1 EA UNK (Levothyroxine Sodium [Levothyroxine Sodium] 137 MCG) PO SCH (09:00)
[2018-12-06 09:03] LABS: Potassium 3.7 mmol/L (3.5-5.1)
[2018-12-06] MEDS: THEOPHYLLINE SR 100 MG TAB PO SCH ×2 (09:37→21:33)
[2018-12-06] MEDS: ASPIRIN EC 81 MG TAB PO SCH (09:38)
[2018-12-06] MEDS: CALCIUM CARBONATE CHEW 500MG TAB PO SCH ×3 (09:38→21:26)
[2018-12-06] MEDS: METOPROLOL XL 25 MG TAB PO SCH ×2 (09:39→21:00)
[2018-12-06] MEDS: HEPARIN 5000 UNIT/ML 1 ML VIAL SQ SCH ×2 (09:39→21:26)
[2018-12-06] MEDS: TAMSULOSIN 0.4 MG SR CAP PO SCH (09:39)
[2018-12-06] MEDS: FINASTERIDE 5 MG TAB PO SCH (09:40)
[2018-12-06] MEDS: predniSONE 10 MG TAB PO SCH ×2 (09:43→21:26)
--- NOTE | 2018-12-06 12:01 | PN ---
Date of Progress Note: 12/06/2018 Subjective: The patient was seen this morning for followup. No new complaints or problems reported by him. His 2 daughters were present at bedside. Objective: Vital Signs: Reviewed. HEENT: Examination unremarkable. Lungs: Clear to auscultation. No rhonchi. No rales. He is on BiPAP this morning when I saw him. Heart: Sounds normal. Abdomen: Soft. Bowel sounds normal. No guarding, rigidity, distention. Extremities: Bilateral leg edema unchanged. Laboratory Data: Fingerstick blood sugar readings reviewed. Impression: 1.Acute on chronic respiratory failure with hypoxia. 2.Severe chronic obstructive pulmonary disease. 3.Diabetes mellitus, type 2, insulin dependent, uncontrolled. 4.End-stage renal disease, on hemodialysis. Plan: We will go ahead and continue dialysis support per glass bead maker. We will go ahead and continu e to follow up with Dr. Cole and he has ordered theophylline. We will continue prednisone per or wallace. Monitor fingerstick blood sugar. Continue insulin therapy per order and antibiotics. Dr. Soto tom agrees with hospice care management and we will go ahead and have Social Service assist the clint ent with hospice care. The patient and family are agreeable to do so. VIELKA/MODL Voice ID: [id number] Report ID: [id number]
[2018-12-06] MEDS ORDERED: MANNITOL 25% 12.5 GM/50 ML VIAL IV PRN (12:20)
[2018-12-06] MEDS ORDERED: NA CHLORIDE 0.9% 1,000 ML IV PRN (12:20)
--- NOTE | 2018-12-06 12:33 | P.PN ---
Subjective Date of Service: 12/06/18 Chief Complaint: Respiratory distress Patient is improving he still having problems at night able to stay off the BiPAP Review of Systems General: Weakness Respiratory: Shortness of Breath Physical Examination - Vital Signs Temperature: 98.6 F Blood Pressure: 122/59 Pulse: 91 Respirations: 20 Pulse Ox (%): 94 - Physical Exam General: Alert, In no apparent distress, Oriented x3 Neck: Supple Respiratory: Clear to auscultation bilaterally, Diminished - Studies Microbiology Data (last 24 hrs): 12/04/18 11:43 Blood - Blood Anaerobic Blood Culture - Final Assessment & Plan - Problems (Diagnosis) (1) Respiratory failure Current Visit: Yes Status: Acute Plan: Patient admitted with respiratory failure continue with theophylline change prednisone to 10 mg twice a day no evidence of sepsis can Dc Zosyn white count is mildly elevated Qualifiers: Chronicity: acute on chronic
[2018-12-06] MEDS ORDERED: ALBUMIN HUMAN 25% 50 ML IV SCH (13:00)
[2018-12-06] MEDS: EPOETIN ALFA 10,000 UNIT/ML VIAL IV SCH (13:00)
[2018-12-06] MEDS: FUROSEMIDE 40 MG TABLET PO SCH (16:05)
[2018-12-06] MEDS: ATORVASTATIN 20 MG TAB PO SCH (21:26)
[2018-12-07] MEDS: PIPER/TAZO/NS 2.25gm 2.25 GM/50 ML BAG IVPB SCH ×3 (00:47→16:17)
[2018-12-07] MEDS: ALPRAZOLAM 0.25 MG TABLET PO PRN ×3 (00:48→17:54)
--- NOTE | 2018-12-07 02:17 | PN ---
Date of Progress Note: 12/06/2018 Chief Complaint: Fluid overload, congestive heart failure with hypoxemic respiratory failure complic ated by COPD exacerbation. The patient is undergoing daily dialysis to control volemia. The patient has anasarca and shortness of breath. He remains on O2 nasal cannula. He has dyspnea on exertion. Review of Systems: Respiratory: Denies PND, orthopnea. Cardiovascular: Denies chest pain, palpitation, syncope. Physical Examination: Lungs: Crackles bilaterally present. Diminished breath sounds at bases. Heart: S1, S2. Abdomen: Soft, benign, nontender. Extremities: Edema 3+ in both legs. Impression And Plan: 1.Fluid overload, anasarca. Continue low sodium diet. The patient will have dialysis today to prov estefania metabolic clearance and ultrafiltration. The patient is on O2 nasal cannula. Adjust oxygen dolores tment accordingly. 2.Emphysema, chronic obstructive pulmonary disease exacerbation, bibasilar lung opacities, small ple ural effusion. The patient is undergoing workup with clamp forklift operator. 3.Hypertension. Continue blood pressure medication. 4.Anemia of chronic kidney disease. Continue JANEL. Monitor hemoglobin level. 5.Renal osteodystrophy. Continue renal diet and binders. EB/MODL Voice ID: [id number] Report ID: [id number]
[2018-12-07] MEDS: IPRATROPIUM BROM 0.5MG/2.5ML NEB SCH ×4 (03:40→20:00)
[2018-12-07] MEDS: ALBUTEROL 2.5 MG/3 ML NEB SOL NEB SCH ×5 (03:40→20:00)
[2018-12-07] MEDS: LEVOTHYROXINE SOD 0.112 MG TAB PO SCH (06:14)
[2018-12-07] MEDS: LEVOTHYROXINE SOD 0.025 MG TAB PO SCH (06:14)
[2018-12-07] MEDS: BUDESONIDE 0.5 MG/2 ML NEB NEB SCH ×3 (07:40→18:00)
[2018-12-07] MEDS: METOPROLOL XL 25 MG TAB PO SCH ×2 (09:00→20:55)
[2018-12-07] MEDS: THEOPHYLLINE SR 100 MG TAB PO SCH ×2 (09:30→20:53)
[2018-12-07] MEDS: ASPIRIN EC 81 MG TAB PO SCH (09:31)
[2018-12-07] MEDS: CALCIUM CARBONATE CHEW 500MG TAB PO SCH ×3 (09:31→20:53)
[2018-12-07] MEDS: TAMSULOSIN 0.4 MG SR CAP PO SCH (09:32)
[2018-12-07] MEDS: predniSONE 10 MG TAB PO SCH ×2 (09:32→20:54)
[2018-12-07] MEDS: FINASTERIDE 5 MG TAB PO SCH (09:32)
[2018-12-07] MEDS: HEPARIN 5000 UNIT/ML 1 ML VIAL SQ SCH ×2 (09:32→20:55)
[2018-12-07] MEDS: EPOETIN ALFA 10,000 UNIT/ML VIAL IV SCH (10:53)
--- NOTE | 2018-12-07 12:47 | P.PN ---
Subjective Date of Service: 12/07/18 Chief Complaint: Respiratory distress Subjective: Improving Pt with ESRD and COPD with multiple admissions for fluid overlaod today seen and examined during HD edema +2 will cont daily dialysis for now BS control as per primary Physical Examination - Vital Signs Temperature: 98.6 F Blood Pressure: 133/74 Pulse: 92 Respirations: 20 Pulse Ox (%): 99 - Physical Exam General: Alert, In no apparent distress HEENT: Atraumatic Neck: Supple, Without JVD or thyroid abnormality Respiratory: Diminished Cardiovascular: Regular rate/rhythm, Normal S1 S2, No gallops, No rubs, No murmurs, Edema Gastrointestinal: Normal bowel sounds, Soft and benign Musculoskeletal: Swelling Assessment And Plan - Current Problems (Diagnosis) (1) COPD exacerbation Onset Date: 02/11/17 Current Visit: No Status: Acute - Plan ESRD on HD at home MWF will cont daily dialysis now to achieve better vloume status renal dose meds COPD exacerbation on steroids and inhalers HTN controlled Anemia Cont JANEL transfuse to keep Hb >7.0 DM as per primary
--- NOTE | 2018-12-07 13:03 | P.PN ---
Subjective Date of Service: 12/07/18 Chief Complaint: Shortness of breath Patient is improving according to the relatives still have problems at night he is afraid of flying back he essentially slept sitting up in bed last night there has been a definite improvement with steroids and P offline although is blood sugar is elevated Review of Systems General: Weakness Respiratory: Shortness of Breath Physical Examination - Vital Signs Temperature: 98.6 F Blood Pressure: 133/74 Pulse: 92 Respirations: 20 Pulse Ox (%): 99 - Physical Exam General: Alert, In no apparent distress, Oriented x3 Neck: Supple Respiratory: Diminished Cardiovascular: No edema, Normal S1 S2 Assessment & Plan - Problems (Diagnosis) (1) Respiratory failure Current Visit: Yes Status: Acute Plan: Appears that the patient is improving continue with present therapy with theophylline and low-dose prednisone no evidence of sepsis can Dc antibiotics possible discharge tomorrow Qualifiers: Chronicity: acute on chronic
[2018-12-07] MEDS: FUROSEMIDE 40 MG TABLET PO SCH (16:17)
[2018-12-07] MEDS: ATORVASTATIN 20 MG TAB PO SCH (20:54)
[2018-12-08] MEDS: ALPRAZOLAM 0.25 MG TABLET PO PRN (01:03)
[2018-12-08] MEDS: PIPER/TAZO/NS 2.25gm 2.25 GM/50 ML BAG IVPB SCH ×2 (01:03→09:00)
[2018-12-08] MEDS: IPRATROPIUM BROM 0.5MG/2.5ML NEB SCH ×3 (02:00→14:00)
--- NOTE | 2018-12-08 02:48 | PN ---
Date of Progress Note: 12/07/2018 Subjective: The patient was seen this morning for followup. No new complaints or problems reported by the patient. He was sitting at bedside. Daughter was present with him at bedside. He was on lily al cannula oxygen. He has done well as far as breathing is concerned. He has not used BiPAP overnig ht. Objective: Vital Signs: Reviewed. HEENT: Unremarkable. Lungs: Clear to auscultation. No rhonchi or rales. Heart: Sounds normal. Abdomen: Soft. Bowel sounds normal. No guarding, rigidity, tenderness, or distention. Extremities: Bilateral leg edema present. Impression: 1.Respiratory failure, acute on chronic. 2.End-stage renal disease, on hemodialysis. 3.Hypertension. 4.Diabetes mellitus. Plan: Continue current medication. Continue oxygen nebulizer treatment, steroids, antibiotics. Con tala to follow with Dr. Cole, entry level buyer. Family and patient have discussed with Social Servi ce yesterday regarding hospice care and once hospice care is arranged, we will be able to discharge h im to go home with hospice possibly tomorrow. VIELKA/MODL Voice ID: [id number] Report ID: [id number]
[2018-12-08] MEDS: ALBUTEROL 2.5 MG/3 ML NEB SOL NEB SCH ×4 (04:00→12:00)
[2018-12-08] MEDS: LEVOTHYROXINE SOD 0.025 MG TAB PO SCH (06:22)
[2018-12-08] MEDS: LEVOTHYROXINE SOD 0.112 MG TAB PO SCH (06:23)
[2018-12-08 06:34] VITALS: BMI 28.4
[2018-12-08] MEDS: BUDESONIDE 0.5 MG/2 ML NEB NEB SCH ×3 (07:34→12:00)
[2018-12-08] MEDS: HEPARIN 5000 UNIT/ML 1 ML VIAL SQ SCH (09:00)
[2018-12-08] MEDS: METOPROLOL XL 25 MG TAB PO SCH (09:00)
[2018-12-08] MEDS: CALCIUM CARBONATE CHEW 500MG TAB PO SCH ×2 (09:47→14:42)
[2018-12-08] MEDS: ASPIRIN EC 81 MG TAB PO SCH (09:48)
[2018-12-08] MEDS: THEOPHYLLINE SR 100 MG TAB PO SCH (09:48)
[2018-12-08] MEDS: FINASTERIDE 5 MG TAB PO SCH (09:48)
[2018-12-08] MEDS: TAMSULOSIN 0.4 MG SR CAP PO SCH (09:48)
[2018-12-08] MEDS: predniSONE 10 MG TAB PO SCH (09:48)
[2018-12-08 10:47] VITALS: O2SAT 100
[2018-12-08 11:09] LABS: Potassium 3.7 mmol/L (3.5-5.1)
[2018-12-08] MEDS: EPOETIN ALFA 10,000 UNIT/ML VIAL IV SCH (11:21)
[2018-12-08 12:31] VITALS: BP 130/69; TEMP 97.7
--- NOTE | 2018-12-08 22:49 | PN ---
Date of Progress Note: 12/08/2018 Chief Complaint: Congestive heart failure, fluid overload, diastolic dysfunction, COPD exacerbation. History Of Present Illness: The patient underwent dialysis today. Leg edema has improved. The clint ent has chronic dyspnea. He is on O2 nasal cannula. Review of Systems: Denies fever or chills. Physical Examination: Lungs: Few crackles at bases. Heart: S1 and S2. Abdomen: Soft and benign. Extremities: Edema in both ankles. Impression And Plan: 1.End-stage renal disease. Next dialysis tomorrow. 2.Fluid overload. The patient is responding to p.o. fluid restriction and low-sodium diet. Ultrafi ltration was adjusted to control fluid overload. Provide management for congestive heart failure. 3.Anemia with chronic kidney disease. Continue JANEL. 4.Renal osteodystrophy. Continue renal diet and binders. EB/MODL Voice ID: [id number] Report ID: [id number]
[2018-12-09] MEDS ORDERED: VITAMIN D 1000 UNIT TAB PO SCH (17:00)
--- NOTE | 2018-12-10 02:23 | DS ---
Date of Discharge: 12/08/2018 Disposition: Discharged to go home with hospice care. Physical Examination: HEENT: Unremarkable. Lungs: Clear to auscultation. No rhonchi or rales. Heart: Sounds normal. Abdomen: Soft. Bowel sounds normal. No guarding, rigidity, tenderness, or distention. Extremities: Bilateral leg edema unchanged. Discharge Medications And Instructions: 1.Continue prior home medication. 2.Take prednisone 10 mg twice a day and theophylline 200 mg twice a day as prescribed. 3.The patient to be admitted to hospice care upon discharge and hospice medical equipment repair technician to take ove r the patient's care. Laboratory Data: Labs done during this hospitalization, initial white count on 12/04/2018 was 13.2, hemoglobin 9.8, platelets 274. On 12/05/2018, white count 15.5, hemoglobin 8.9, platelets 269. Init ial blood gas on 12/04/2018, pH 7.39, pCO2 39.1, pO2 83.0, saturation 95% on 30% FiO2. Last chemistr y today sodium 139, potassium 3.7, chloride 103, bicarb 26, BUN 38, creatinine 3.86, glucose 450. Hospital Course: This is an 83-year-old male patient with severe end-stage COPD, comes into emergenc y room with shortness of breath. Please see dictated H and P for more information. The patient has been having recurrent hospital admissions pertaining to this problem and he was just discharged from the hospital with similar problem. He was admitted on 11/29/2018, discharged to go home on 9. The patient returned back to emergency room on 12/04/2018 with shortness of breath. He was in re spiratory distress when he came in this time. BiPAP was started in emergency room. I did talk to Dr Adam Cole and he was consulted during last admission as well as this admission. I had discussed wit h family regarding possibility of hospice care during last admission and after I talked to Dr. Herron al during this admission, Dr. Cole was agreeable to place the patient on hospice care and I did t alk to the patient and the patient's daughters and they all were agreeable to go on hospice care. Th e patient is not able to tolerate steroid, every time we gave him steroid, his blood sugar goes up, b co family informed me that they were willing to take a chance of high sugar if steroid is going to he lp him with his breathing, so we have decided to start him on a small dose steroid prednisone 10 mg t wice a day, which he has tolerated well except increase in sugar and he manages his diabetes with ins ulin pump. Dr. Cole also started him on theophylline 200 mg twice a day. The patient continued to receive BiPAP oxygen nebulizer treatment and in last 24 to 36 hours, he has not required any BiPAP therapy, so once arrangements completed for the patient to go home with hospice care, he was dischar [facility] in stable condition. Overall, prognosis is poor. Final Diagnoses: 1.Ujemb-ob-[id number] respiratory failure with hypoxia. 2.Severe chronic obstructive pulmonary disease. 3.Diabetes mellitus type 2, insulin dependent, uncontrolled. 4.End-stage renal disease, on hemodialysis. 5.Anemia due to chronic kidney disease. 6.Hyperkalemia. 7.Hypertension. 8.Gastroesophageal reflux disease. 9.Hypothyroidism. 10.Hyperlipidemia. 11.Benign prostatic hypertrophy. 12.Ventral hernia, anterior abdominal wall. VIELKA/MODL Voice ID: [id number] Report ID: [id number]
== END 2018-12-08 15:02 | disposition hospice, home (50) | DRG 189 ==
LOC: ER 11:14 → ERHOLD 13:04 → 4TH 14:19
PROVIDERS: ADMIT Internal Medicine; ATTEND Internal Medicine
PROC: 5A1D70Z Performance of Urinary Filtration, Intermittent, Less than 6 Hours Per Day (ICD-10-PCS; principal; 2018-12-05)
DX: J96.21 Acute and chronic respiratory failure with hypoxia (principal); E11.00 Type 2 diabetes mellitus with hyperosmolarity without nonketotic hyperglycemic-hyperosmolar coma (NKHHC); N18.6 End stage renal disease; J44.1 Chronic obstructive pulmonary disease with (acute) exacerbation; I13.2 Hypertensive heart and chronic kidney disease with heart failure and with stage 5 chronic kidney disease, or end stage renal disease; I50.9 Heart failure, unspecified; Z51.5 Encounter for palliative care; Z66 Do not resuscitate; E87.5 Hyperkalemia; E11.22 Type 2 diabetes mellitus with diabetic chronic kidney disease; Z99.2 Dependence on renal dialysis; D63.1 Anemia in chronic kidney disease; E11.51 Type 2 diabetes mellitus with diabetic peripheral angiopathy without gangrene; K21.9 Gastro-esophageal reflux disease without esophagitis; E03.9 Hypothyroidism, unspecified; E78.5 Hyperlipidemia, unspecified; N40.0 Benign prostatic hyperplasia without lower urinary tract symptoms; K43.9 Ventral hernia without obstruction or gangrene; Z79.4 Long term (current) use of insulin; Z87.891 Personal history of nicotine dependence; Z86.73 Personal history of transient ischemic attack (TIA), and cerebral infarction without residual deficits; Z98.62 Peripheral vascular angioplasty status
CPT/HCPCS: 36415; 71045; 80048; 81003; 81015; 82805; 82947; 82962; 83605; 83880; 84484; 85025; 85610; 85730; 87040; 87086; 87088; 90935; 93005; 94640; 94660; 94760; 99285; J1644; J7512; J7606; Q4081